=== PATIENT | female | born 1965 | race Caucasian/White ===

== ENCOUNTER → 2016-06-11 | Outpatient (CLI) | payer MEDICARE, MEDICAID ==
[~2016-06-11] MED LIST: ACET65TA; AMBI10TA; CIPR500T19; FLAG500T; FLUC10TA; IMMODIUM; THERGRAN; TRAZ50TA; TYLENOL #3; VICO5TAB; VICODIN
--- NOTE | 2016-06-29 00:26 | ECWPNPC ---
PATIENT NAME: MONIKA ADRIAN : 1965 GENDER: FEMALE VISIT DATE: 06/11/2016 DISCHARGE DATE: 06/11/16 1450 VISIT LOCKED DATE TIME: PHYSICIAN: FORD AKERS RESOURCE: FORD AKERS REASON FOR APPOINTMENT 1. LUMBAR SPONDYLOSIS HISTORY OF PRESENT ILLNESS NEW PATIENT CONSULT: WHEN DID YOUR PAIN FIRST START? . BRIEFLY DESCRIBE HOW YOUR PAIN STARTED? . HOW DOES YOUR PAIN CHANGE WITH TIME? . DOES YOUR PAIN AWAKEN YOU FROM SLEEP? . HOW MANY HOURS OF SLEEP DO YOU NORMALLY GET? . ANY DIAGNOSTIC TESTING? . FACILITY WHERE TESTS WERE DONE? ____. PAIN TREATMENT TREATMENT YES CANCER HAVE YOU EVER HAD ANY TYPE OF CANCER?NO NO. PAIN SCREENING: PATIENT HAS A COMPLAINT OF ACUTE OR CHRONIC PAIN YES FALL RISK SCREENING: SCREENING :NO FALLS IN THE PAST YEAR PALMA INVENTORY: QUESTIONNAIRE ASSESSEDYES SCORE VALUE CALCULATED YES SCORE: 8/63 DENIES SUICIDAL/HOMICIDAL IDEATION TODAY'S VISIT: NOTES: PT REFFERED TO [facility] FOR TREATMENT OF LUMBAR SPONDYLOSIS WITH INJECTION THERAPY. PT HAS HISTORY OF LONG FIBER NEURPOATHY. SHE WAS RECENTLY CHANGED FROM LYRICA TO CYMBALTA FOR NEUROPATHIC PAIN. BACK PAIN HAD STARTED BEFORE THE CHANGE. HAS HAD BACK PAIN FOR 20 YEARS. NO SPECIFIC INJURY. PAIN IS CENTERED ACROSS LOW BACK AND OCCASIONALLY IS RADIATING DOWN LEFR LEG TO LEVEL OF THE THIGH. PAIN CAN CHANGE IN INTENSITY DEPENDING ON WHAT SHE IS DOING. BENDING IS THE WORST, BUT CAN'T DO ANYTHING WITHOUT HURTING. NO SPECIFIC WEAKNESS IN LEGS. HAS HAD NEUROPATHIY IN LEGS AT LEAST 5 YEARS, BOTH SIDES GENERALLY THE SAME. NOTES SENSORY CHNGE TO AT LEAST KNEE HIGH BILATERALLY. FEET ARE TOTALLY NUMB AND THIS IS WHERE IT STARTED. HAS NO SPECIFIC SADDLE NUMBNESS. HAD COLOSTOMY REVERSAL, STILL HAS SOME DUMPING SYMPTOMS. NO LOSS OF BOWEL CONTROL. NO LOSS OF BLADDER CONTROL. HAS BEEN TO PT SEVERAL TIMES AND THEN MEDS FOR BACK. NO PREVIOUS INJ TREATMENTS, NO CHIROPRACTER TX. PREVIOUS MEDS HAVE INCLUDED: PERCOCET, TRAMADOL; HAS NOT TRIED GABAPENTIN, AMITRIPTYLINE, LYRICA.HAS BEEN ON SOMA WHICH WAS HELPFUL. NEVER ON BACLOFEN OR CYCLOBENZAPRINE, ROBAXIN.. CURRENT MEDICATIONS TAKING TRAZODONE 100 100MG TABLET 1 TABLET ORAL DAILY AT BEDTIME, NOTES: [facility] TAKING ASPIR-81 81 MG TABLET DELAYED RELEASE 1 TABLET ORALLY ONCE A DAY TAKING METFORMIN HCL 500 MG TABLET 1 TABLET WITH MEALS ORALLY TWICE A DAY TAKING BUDESONIDE (NASAL) 32 MCG/ACT AEROSOL 1-2 DROP NASALLY DAILY TAKING HYDROXYZINE HCL 25MG ([facility]) TABLET 1 TABLET ORALLY 3 TIMES A DAY, NOTES: [facility] TAKING FREESTYLE TEST 1 STRIP DIRECTED - BID DX 250.00 TAKING VITAMIN D 1000 UNIT TABLET 1 TABLET ORALLY ONCE A DAY TAKING VITAMIN C 2000 MG TABLET 1 TABLET ORALLY ONCE A DAY TAKING FLONASE 50 MCG/DOSE SUSPENSION 1 SPRAY IN EACH NOSTRIL NASALLY ONCE A DAY TAKING CLARITIN 10 MG TABLET 1 TABLET ORALLY ONCE A DAY TAKING TRAMADOL HCL 50 MG TABLET 2 TABS ORALLY EVERY 8 HRS NEEDED/ MDD # 6 TAKING SIMVASTATIN 10 MG TABLET TAKE ONE TABLET BY MOUTH AT BEDTIME TAKING CYMBALTA 20 MG CAPSULE DELAYED RELEASE PARTICLES 1 CAPSULE ORALLY DAILY NOT-TAKING GEODON 20 MG CAPSULE 1 CAPSULE WITH FOOD ORALLY TWICE A DAY NOT-TAKING MELATONIN 3 MG TABLET 1 TABLET AT BEDTIME NEEDED WITH FOOD ORALLY ONCE A DAY NOT-TAKING LYRICA 100 MG CAPSULE 1 CAPSULE ORALLY QAM/MDD #1 NOT-TAKING LYRICA 200 MG CAPSULE 1 CAPSULE ORALLY AT BEDTIME- MDD = 1 NOT-TAKING BUDESONIDE 32 MCG/ACT SUSPENSION USE DIRECTED NOT-TAKING EVENING PRIMROSE OIL 1000 MG CAPSULE 3 CAPSULES ORALLY AT BEDTIME MEDICATION LIST REVIEWED AND RECONCILED WITH THE PATIENT PAST MEDICAL HISTORY DM-2 HYPERLIPIDEMIA, ASCVD 10-YEAR RISK WAS 1.1% IN 04/2014 ON SIMVASTATIN 10MG OA ALLERGIC RHINITIS ANX/DEPRESSION- [facility] DIVERITICULITIS (S/P COLOSTOMY/REVERSAL) DEPRESSION/ANXIETY- (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 DIET: NO CONCENTRATED SWEETS.. EXERCISE: NO REGULAR EXERCISE. MARITAL STATUS: SINGLE,. YAZDANISM: YAZDANISM. LANGUAGE: ESTONIAN. PSYCHOLOGICAL HX TREATMENTNO PAIN CLINIC PFS, CLERGY, PUBLIC HEALTH REFERRALS PFS REFERRAL NEEDED?NO CLERGY REFERRAL NEEDED?NO PUBLIC HEALTH REFERRAL NEEDED?NO WAS THE PROVIDER NOTIFIED OF ANY PERTINENT INFO?NO PATIENT: ____, DENIES ABUSE OR MISUSE OF ANY MEDICATION, DENIES USE OF ANY ILLEGAL SUBSTANCE INCLUDING MARIJUANA OR COCAINE, REPORTS BEING EMOTIONALLY STABLE, REPORTS HAVING A SAFE AND ADEQUATE PLACE TO STORE THE MEDICATIONS, DENIES RECREATIONAL DRUG USE, . 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 NO . CHILLS NO . FEVER NO . INFECTION: DO YOU HAVE NEW INFECTIONS? RECOVERING FROM PINK EYE - ON ABX . DO YOU HAVE HISTORY OF MRSA? NO . MUSCULOSKELETAL: ANY NEW PATTERNS OF PAIN OR NUMBNESS? NO . SYTEMIC LUPUS NO . GASTROENTEROLOGY: GENERAL HX OF DIVERTICULITIS. ON NSAIDS AND DEVELOPED SEVERE GI BLEED REQUIRING COLOSTOMY SINCE . . ANY NEW CHANGE IN BOWEL CONTROL? NO . BARRETTS ESOPHAGUS NO . CIRRHOSIS NO . HEPATITIS NO . LIVER FAILURE NO . ACID REFLUX NO . UNEXPLAINED WEIGHT LOSS NO . GENITOURINARY: ANY NEW CHANGE IN BLADDER CONTROL? NO . IS THERE A CHANCE YOU COULD BE ? NO . HEMATOLOGY/LYMPH: DO YOU TAKE ANY BLOOD THINNERS? (FOR EXAMPLE- COUMADIN, PLAVIX, AGGRENOX, PLATEL, PRADAXA, OR XARELTO) NO . WHEN WAS YOUR LAST DOSE? DATE: TIME: . LOW PLATELET COUNT NO . SICKLE CELL DISEASE NO . VON WILLIEBRANDS NO . FACTOR V LEIDEN NO . THALLASEMIA NO . ANEMIA NO . EASY BRUISING NO . NEUROLOGY: HAVE YOU FALLEN IN THE PAST 6 MONTHS? NO . ANY NEW EXTREMITY NUMBNESS OR WEAKNESS? NO . HEAD INJURY NO . DEMENTIA NO . CEREBRAL PALSY NO . MULTIPLE SCLEROSIS NO . DIZZINESS NO . HEADACHE NO . STROKES NO . VERTIGO NO . CARDIOLOGY: DO YOU HAVE A PACEMAKER OR DEFIBRILLATOR? NO . ANGINA NO . HEART ATTACK NO . HEART SURGERY NO . CONGESTIVE HEART FAILURE/FLUID OVERLOAD NO . CHEST PAIN NO . HIGH BLOOD PRESSURE NO . IRREGULAR HEART BEAT NO . RESPIRATORY: HAVE YOU BEEN SICK IN THE PAST WEEK? NO . FEVER NO . FLU LIKE SYMPTOMS? NO . CPAP NO . BYPAP NO . ASTHMA NO . EMPHYSEMA NO . CHRONIC LUNG DISEASES NO . SHORTNESS OF BREATH ON EXERTION NO . DO YOU USE ANY TYPE OF TOBACCO (SMOKE, SMOKELESS, CHEW)? NO . COUGH NO . SNORING YES - BEING EVALUATED FOR SLEEP APNEA . INTEGUMENTARY: DO YOU HAVE ANY RASHES OR OPEN SORES? NO . ALLERGIC/IMMUNO: ARE YOU ALLERGIC TO SHELLFISH OR IV DYE? NO . ANY NEW ALLERGIES? NO . PSYCHIATRIC: DO YOU HAVE THOUGHTS OF HURTING YOURSELF OR SOMEONE ELSE? NO . ARE YOU ABUSED, NEGLECTED, OR IN AN UNSAFE ENVIRONMENT? NO . ENDOCRINOLOGY: ARE YOU DIABETIC? YES -BLOOD SUGARS STABLE A1C = 6.1 . THYROID DISORDER NO . OTHER: DO YOU NEED ANY PRESCRIPTIONS? NO . IF YES, PLEASE LIST: ____ . ANY NEW PROBLEMS WITH YOUR MEDICATIONS? NO . WHEN DID YOU LAST EAT? ____ . WHEN DID YOU LAST DRINK? ____ . WHAT DID YOU LAST DRINK? ____ . NAME OF PERSON DRIVING YOU HOME? ____ . DO YOU HAVE ANY OTHER QUESTIONS OR CONCERNS NO . REVIEWED BY: PROVIDER: FORD STEIN . VITAL SIGNS WT 223 LBS, HT 59 IN, BP 136/88 MM HG, HR 74 /MIN, RR 18 /MIN, TEMP 97.8 F, OXYGEN SAT % 93, SAFE IN ENV? (Y/N) Y, REVIEWED BY: KG. EXAMINATION GENERAL EXAMINATION: PSYCHALERT , ORIENTED X 3 , APPROPRIATE MOOD AND AFFECT . HEENT:NORMOCEPHALIC, NO LYMPHADENOPATHY, NO THYROMEGLY. LUNGS:CLEAR TO AUSCULTATION BILATERALLY, NO WHEEZES, RALES OR RHONCHI. HEART:NORMAL S1S2, NO MURMURS, CLICK OR RUBS. MUSCULOSKELETAL:FLEX TO 90 DEGREES, EXT TO 5 DEGREES, ROTATE 50%. POINT TENDERNESS OVER LUMBER SPINOUS PROCESSES AND ACROSS THE LUMBOSACRAL AXIS. POSTURE UPRIGHT, GAIT SLOW, NONANTALGIC. SLR NEGATIVE BILATERALLY.. NEUROLOGIC EXAM:STOCKING AND GLOVE SENSORY CHANGED NOTED BILATERALLY AT [place] AND NEAR SENSORY LOSS NOTED AT [place] THROUGH THE FOOT. DTR'S TRACE TO ABSENT IN BILATERAL LOWER EXTREMITIES. 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 FDA CONCERNS AND WARNING WERE REVIEWED INCLUDING THE RISK OF BLEEDING, RISK OF INFECTION, RISK OF INCREASED PAIN OR NEURALGIA, AND RISK OF PARALYSIS. PATIENT'S QUESTIONS WERE ANSWERED AND HE/SHE WISHES TO MOVE FORWARD WITH EPIDURAL INJECTION., #128 - SCREENING BMI AND F/U PLAN IN : BMI ABOVE NORMAL TODAY. DISCUSSED WITH PATIENT NUTRITIONAL FOOD CHOICES TO ASSIST WITH WEIGHT LOSS. RECCOMMENDED REDUCING SALT, SUGAR, SODA INTAKE. RECOMMEND INCREASE ACTIVITY TO INCLUDE WALKING ON A REGULAR BASIS. PREVENTIVE MEDICINE PAIN CLINIC TEACHING: PROCEDURE TEACHING DCS EDUCATION GIVENDISCUSSED PT VERBALIZES UNDERSTNADINGN . MEDITATION SOMA PRINTED EDUCATION GIVEN. PROCEDURE CODES FA211 ESTABILISHED PATIENT [facility] FACILITY CHARGE G8783 BP SCR PRFRM RCMDD DEFIND SCR INTVL G8730 PAIN ASSESS POS TOOL F/U PLAN DOC 3016F PT SCRND UNHLTHY [place] USE 1124F ACP DISCUSS-NO DSCNMKR DOCD 1036F TOBACCO NON-USER 0518F FALL PLAN OF CARE DOCD G8427 DOC MEDS VERIFIED W/PT OR RE G8417 BMI >=30 CALCUATE W/FOLLOWUP 3288F FALL RISK ASSESSMENT DOCD FOLLOW UP AFTER PROCEDURE (REASON: CHECK AUTH FOR [employer]. CHECK COVERAGE - MEDICARE?) ELECTRONICALLY SIGNED BY FRANKIE HOWARD ON 06/28/2016 AT 08:45 AM EST DISCLAIMER : THIS IS A VISIT SUMMARY EXTRACTED FROM THE [employer] CHART. IT IS NOT A COPY OF THE [employer] PROGRESS NOTE. MTDD
== END ==
LOC: M PAIN 13:20
PROVIDERS: ATTEND Nurse Practitioner Family
DX: G89.29 Other chronic pain (principal); M48.9 Spondylopathy, unspecified; M51.36 Other intervertebral disc degeneration, lumbar region; E11.9 Type 2 diabetes mellitus without complications; E78.5 Hyperlipidemia, unspecified; G47.30 Sleep apnea, unspecified; J30.9 Allergic rhinitis, unspecified; F32.9 Major depressive disorder, single episode, unspecified; F41.9 Anxiety disorder, unspecified; G62.89 Other specified polyneuropathies; F17.210 Nicotine dependence, cigarettes, uncomplicated; Z79.82 Long term (current) use of aspirin; Z79.84 Long term (current) use of oral hypoglycemic drugs; Z79.891 Long term (current) use of opiate analgesic; Z79.899 Other long term (current) drug therapy

== ENCOUNTER 2016-06-22 16:31 | Emergency (ER) | payer MEDICARE, MEDICAID ==
[2016-06-22 17:36] LABS: BASO # 0.1 K/mm3 (0.0-0.2); BASO % 0.9 % (0.0-1.0); EOS # 0.2 K/mm3 (0.0-0.50); EOS % 2.6 % (0.0-3.0); LARGE UNSTAINED CELL # 0.2 K/mm3 (0.0-0.4); LARGE UNSTAINED CELL % 2.5 % (0.0-4.0); LYMPH # 2.1 K/mm3 (1.5-4.5); LYMPH % 25.9 % (24.0-44.0); MEAN CORPUSCULAR HEMOGLOBIN 29.8 pg (27.0-33.0); MEAN CORPUSCULAR HGB CONC 33.7 g/dl (32.0-36.5); MEAN CORPUSCULAR VOLUME 88.5 fl (80.0-96.0); MONO # 0.3 K/mm3 (0.0-0.8); MONO % 3.9 % (0.0-5.0); NEUTROPHILS # 5.2 K/mm3 (1.8-7.7); NEUTROPHILS % 64.3 % (36.0-66.0); PLATELET COUNT, AUTOMATED 204 k/mm3 (150-450); RED CELL DISTRIBUTION WIDTH 15.1 % (11.5-14.5); WHITE BLOOD COUNT 8.1 K/mm3 (4.0-10.0)
[2016-06-22 18:00] LABS: ANION GAP 6 MEQ/L (8-16); BLOOD UREA NITROGEN 12 MG/DL (7-18); CALCIUM LEVEL 8.7 MG/DL (8.5-10.1); CARBON DIOXIDE LEVEL 30 MEQ/L (21-32); CHLORIDE LEVEL 105 MEQ/L (98-107); CREATININE FOR GFR 1.14 MG/DL (0.55-1.02); GLOMERULAR FILTRATION RATE 53.7 (>51); GLUCOSE, FASTING 230 MG/DL (70-105); POTASSIUM SERUM 4.4 MEQ/L (3.5-5.1); SODIUM LEVEL 141 MEQ/L (136-145)
--- NOTE | 2016-06-22 19:30 | EDDOCDS ---
Physician Documentation [facility] Name: Ember Workman Age: 50 yrs Sex: Female : 1965 Arrival Date: 06/22/2016 Time: 16:31 Bed 8 Private MD: Fozia Cage M. Disposition: 06/22/16 19:13 Discharged to Home/Self Care. Impression: Chest pain, unspecified. - Condition is Stable. - Discharge Instructions: Nonspecific Chest Pain. - Medication Reconciliation, Local Pharmacy Hours form. - Follow up: Fozia Cage; When: Call to arrange an appointment; Reason: Continuance of care. - Problem is new. - Symptoms have improved. Historical: - Allergies: Naprosyn; Morphine; Amaryl; - Home Meds: 1. metformin 500 mg Oral tr24 twice a day (Last dose: 06/22/2016) 2. loratadine 10 mg Oral TbDL 1 tab nightly (Last dose: 06/21/2016) 3. Simvastatin Unknown Oral nightly (Last dose: 06/21/2016) 4. aspirin 81 mg Oral tab 1 tab once daily (Last dose: 06/21/2016) 5. tramadol 50 mg Oral tab 2 tabs daily 6. hydroxyzine HCl 25 mg Oral tab nightly (Last dose: 06/21/2016) 7. trazodone 50 mg Oral tab nightly (Last dose: 06/21/2016) 8. Soma 350 mg Oral tab nightly (Last dose: 06/21/2016) 9. nortriptyline 25 mg Oral cap nightly (Last dose: 06/21/2016) - PMHx: Diabetes - NIDDM: controlled; neuropathy; Chronic Back pain; Arthritis; - PSHx: Cesearean Section; oophorectomy; Colostomy Construction; Colostomy Reversal; Hernia repair; - Social history: Smoking status: Patient uses tobacco products, current every day smoker. No barriers to communication noted, The patient speaks fluent Armenian, Speaks appropriately for age. - Family history: Not pertinent. - : The pt / caregiver states he / she is not on anticoagulants. Home medication list is obtained from the patient. - Exposure Risk Screening:: None identified. RIB KNITTER: 06/22 16:44 LMP N/A - Post-menopause kr3 Vital Signs: 16:33 BP 154 / 87 LA Sitting (auto/lg); Pulse 122 LA; Resp 18 S; Temp 98.4(O); Pulse Ox 98% mt4 on R/A; Weight 90.72 kg / 200 lbs (R); Height 4 ft. 10 in. (147.32 cm) (R); Pain 0/10; 17:10 BP 138 / 74 (auto/); ml6 17:10 Pulse 94 MON; Resp 18; Pulse Ox 95% on R/A; Pain 0/10; ml6 18:10 BP 151 / 56 (auto/); ml6 18:10 Pulse 90 MON; Resp 16; Pulse Ox 95% on R/A; ml6 18:25 BP 135 / 59 (auto/); ml6 18:25 Pulse 92 MON; Resp 18; Pulse Ox 95% on R/A; ml6 18:55 BP 141 / 60 (auto/); ml6 18:55 Pulse 90 MON; Resp 18; Pulse Ox 96% on R/A; Pain 0/10; ml6 19:24 BP 98 / 56; Pulse 84; Resp 18; Temp 98.0(TE); Pulse Ox 97% on R/A; Pain 0/10; nisha 16:33 Body Mass Index 41.80 (90.72 kg, 147.32 cm) mt4 MDM: 16:41 ECG WITH READING ER PHYS+CARDIAG ordered. EDMS 17:10 It Network Engineer/Pulse Ox/q 30 min VS ordered. jc4 17:10 IV Saline Lock ordered. jc4 17:10 Rhythm Strip to chart ordered. jc4 17:10 Undress patient appropriately for examination ordered. jc4 17:10 Basic Metabolic Profile Ordered. EDMS 17:10 CBC with Diff Ordered. EDMS 17:10 Cardiac Injury Profile Ordered. EDMS 17:10 Troponin Ordered. EDMS 17:57 Financial registration complete. ks16 17:58 [facility] [place] was scanned into [employer] and attached to record. ks16 18:56 Chest, 1 View Ordered. EDMS Signatures: Dispatcher [employer] EDMS Lana Martinez,RN RN kr3 Becca Wilks RN RN jc4 Iris Weeks RN RN ko2 Jacy Alva MD MD fg Sorenson, Kimberly, Reg Reg ks16 The chart was reviewed and I authenticate all verbal orders and agree with the evaluation and treatment provided.Attachments: 17:58 [facility] Payment Agreement [email or web address] MTDD
--- NOTE | 2016-06-22 19:31 | EDDOCDS ---
Nurse's Notes [facility] Name: Ember Workman Age: 50 yrs Sex: Female : 1965 Arrival Date: 06/22/2016 Time: 16:31 Bed 8 Private MD: Fozia Cage M. Diagnosis: Chest pain, unspecified Presentation: 06/22 16:38 Presenting complaint: Patient states: chest pain on and off since June 18. Thinks kr3 may be related to meds she is taking. Spoke with PCP today who told her to have pain evaluated because it could be side effect of medication. 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 Adult Sepsis Screening: The patient does not have new or worsening altered mentation. Patient's respiratory rate is less than 22. Systolic blood pressure is greater than 100. Patient has a qSOFA score of 0- Negative Sepsis Screen. Suicide/Homicide risk assessment- the patient denies having any suicidal and/or homicidal ideations and does not present with any other emotional, behavioral or mental health complaints. Status: Patient is not a food service specialist or dependent. Transition of care: patient was not received from another setting of care. 16:38 Acuity: NATE Level 2 kr3 16:38 Method Of Arrival: Walkin/Carried/Asstd kr3 Triage Assessment: 16:44 General: Appears in no apparent distress, comfortable, Behavior is cooperative. Pain: kr3 Location: left sided chest pain Pain currently is 0 out of 10 on a pain scale. At worst was 6 out of 10 on a pain scale. Quality of pain is described as stabbing, Is episodic. Pt Declines HIV testing. Cardiovascular: Chest pain is described as vague, radiates Does not radiate. episodes are intermittent last < 1 minute began 4 to 5 days ago. Respiratory: Respiratory effort is even, unlabored, Denies shortness of breath. Derm: Skin is normal. 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 metformin 500 mg Oral tr24 twice a day (Last dose: 06/22/2016) 2. loratadine 10 mg Oral TbDL 1 tab nightly (Last dose: 06/21/2016) 3. Simvastatin Unknown Oral nightly (Last dose: 06/21/2016) 4. aspirin 81 mg Oral tab 1 tab once daily (Last dose: 06/21/2016) 5. tramadol 50 mg Oral tab 2 tabs daily 6. hydroxyzine HCl 25 mg Oral tab nightly (Last dose: 06/21/2016) 7. trazodone 50 mg Oral tab nightly (Last dose: 06/21/2016) 8. Soma 350 mg Oral tab nightly (Last dose: 06/21/2016) 9. nortriptyline 25 mg Oral cap nightly (Last dose: 06/21/2016) - PMHx: Diabetes - NIDDM: controlled; neuropathy; Chronic Back pain; Arthritis; - PSHx: Cesearean Section; oophorectomy; Colostomy Construction; Colostomy Reversal; Hernia repair; - Social history: Smoking status: Patient uses tobacco products, current every day smoker. No barriers to communication noted, The patient speaks fluent Mohawk, Speaks appropriately for age. - Family history: Not pertinent. - : The pt / caregiver states he / she is not on anticoagulants. Home medication list is obtained from the patient. - Exposure Risk Screening:: None identified. Screenin:40 Screening information is obtained from the patient. Fall risk: No risks identified. ml6 Assistance ADL's: requires no assistance with activities of daily living. Abuse/DV Screen: The patient / caregiver reports he/she is: not in a situation that causes fear, pain or injury. Nutritional screening: No deficits noted. Advance Directives: Currently, there is no health care proxy. home support is adequate. Assessment: 16:38 General: Appears in no apparent distress, Behavior is appropriate for age, cooperative. ml6 Pain: Denies pain. Cardiovascular: Capillary refill < 3 seconds is brisk in bilateral fingers toes Heart tones S1 S2 present Edema is absent. Pulses are all present. Rhythm is sinus rhythm No ectopy. Chest pain is denied Chest pain began 2-3 days ago There has been no movement of pain. Respiratory: No deficits noted. Airway is patent Respiratory effort is even, unlabored, Respiratory pattern is regular, symmetrical, Breath sounds are clear bilaterally. GI: No deficits noted. Abdomen is obese, Bowel sounds present X 4 quads. Abd is soft and non tender X 4 quads. 17:30 Reassessment: Patient appears in no apparent distress at this time. Patient denies pain ml6 at this time. Patient states feeling better. Patient states symptoms have improved. patient denies pain or discomfort, patient laughing and talking with SO in room. 18:30 Reassessment: Patient appears in no apparent distress at this time. Patient denies pain ml6 at this time. Patient states feeling better. Patient states symptoms have improved. patient watching TV, patient denies pain. 19:28 General: Appears in no apparent distress, comfortable, Behavior is appropriate for age, ko2 cooperative. Pain: Denies pain. Neurological: Level of Consciousness is awake, alert, Oriented to person, place, time. Cardiovascular: Rhythm is sinus rhythm No ectopy. Respiratory: Airway is patent Respiratory effort is even, unlabored, Respiratory pattern is regular, symmetrical. Derm: Skin is normal. Vital Signs: 16:33 BP 154 / 87 LA Sitting (auto/lg); Pulse 122 LA; Resp 18 S; Temp 98.4(O); Pulse Ox 98% mt4 on R/A; Weight 90.72 kg (R); Height 4 ft. 10 in. (147.32 cm) (R); Pain 0/10; 17:10 BP 138 / 74 (auto/); ml6 17:10 Pulse 94 MON; Resp 18; Pulse Ox 95% on R/A; Pain 0/10; ml6 18:10 BP 151 / 56 (auto/); ml6 18:10 Pulse 90 MON; Resp 16; Pulse Ox 95% on R/A; ml6 18:25 BP 135 / 59 (auto/); ml6 18:25 Pulse 92 MON; Resp 18; Pulse Ox 95% on R/A; ml6 18:55 BP 141 / 60 (auto/); ml6 18:55 Pulse 90 MON; Resp 18; Pulse Ox 96% on R/A; Pain 0/10; ml6 19:24 BP 98 / 56; Pulse 84; Resp 18; Temp 98.0(TE); Pulse Ox 97% on R/A; Pain 0/10; nisha 16:33 Body Mass Index 41.80 (90.72 kg, 147.32 cm) nv4 Vitals: 16:33 Log In Time: June 22, 2016 at 16:31. mt4 16:35 RN notified that patient meets Red Flag criteria. mt4 ED Course: 16:33 Patient visited by Irma Rivera. mt4 16:33 Fozia Cage is Private Physician. mt4 16:33 Patient moved to Waiting mt4 16:36 Patient moved to Pre RCE mt4 16:38 The patient / caregiver is instructed regarding the plan of care and ED course. Cardiac ml6 monitor on. Pulse ox on. NIBP on. 16:38 Inserted peripheral IV: 16gauge IV in left antecubital area and blood collected. ml6 Patient tolerated the procedure well. No procedures done that require assistance. 16:39 Triage Initiated kr3 16:48 Patient moved to PR2 / 26 kr3 16:57 Patient moved to 8 ar3 17:00 EKG done. (by ED staff). Reviewed by Jacy Alva MD. sew 17:03 Patient visited by Laina Silver. sew 17:11 Jacy Alva MD is Attending Physician. fg 17:29 Patient visited by Jacy Alva MD. fg 17:58 [facility] Payment Agreement was scanned into [employer] and attached to record. ks16 18:14 Patient visited by Juan Luis Alvarado, PAL. ml6 18:58 Iris Weeks,PAL is Primary Nurse. ko2 19:07 Patient visited by Juan Luis Alvarado, PAL. ml6 19:13 Fozia Cage is Referral Physician. fg 19:24 Patient visited by Estefani Glasgow PCA. nisha 19:28 Discontinued lock intact, bleeding controlled, pressure dressing applied, No ko2 redness/swelling at site. Order Results: Lab Order: Basic Metabolic Profile; SPEC'M 06/22/16 17:29 Test: GLUCOSE, FASTING; Value: 230; Range: 70-105; Abnormal: Above high normal; Units: MG/DL; Status: F Test: BLOOD UREA NITROGEN; Value: 12; Range: 7-18; Units: MG/DL; Status: F Test: CREATININE FOR GFR; Value: 1.14; Range: 0.55-1.02; Abnormal: Above high normal; Units: MG/DL; Status: F Test: GLOMERULAR FILTRATION RATE; Value: 53.7; Range: >51; Status: F Test: SODIUM LEVEL; Value: 141; Range: 136-145; Units: MEQ/L; Status: F Test: POTASSIUM SERUM; Value: 4.4; Range: 3.5-5.1; Units: MEQ/L; Status: F Test: CHLORIDE LEVEL; Value: 105; Range: 98-107; Units: MEQ/L; Status: F Test: CARBON DIOXIDE LEVEL; Value: 30; Range: 21-32; Units: MEQ/L; Status: F Test: ANION GAP; Value: 6; Range: 8-16; Abnormal: Below low normal; Units: MEQ/L; Status: F Test: CALCIUM LEVEL; Value: 8.7; Range: 8.5-10.1; Units: MG/DL; Status: F Test Note: ; Units are mL/min/1.73 m2 Chronic Kidney Disease Staging per NKF: Stage I & II GFR >=60 Normal to Mildly Decreased Stage III GFR 30-59 Moderately Decreased Stage IV GFR 15-29 Severely Decreased Stage V GFR <15 Very Little GFR Left ESRD GFR <15 on LOADER ENGINEER Lab Order: CBC with Diff; SPEC'M 06/22/16 17:29 Test: WHITE BLOOD COUNT; Value: 8.1; Range: 4.0-10.0; Units: K/mm3; Status: F Test: RED BLOOD COUNT; Value: 4.93; Range: 4.00-5.40; Units: M/mm3; Status: F Test: HEMOGLOBIN; Value: 14.7; Range: 12.0-16.0; Units: g/dl; Status: F Test: HEMATOCRIT; Value: 43.7; Range: 36.0-47.0; Units: %; Status: F Test: MEAN CORPUSCULAR VOLUME; Value: 88.5; Range: 80.0-96.0; Units: fl; Status: F Test: MEAN CORPUSCULAR HEMOGLOBIN; Value: 29.8; Range: 27.0-33.0; Units: pg; Status: F Test: MEAN CORPUSCULAR HGB CONC; Value: 33.7; Range: 32.0-36.5; Units: g/dl; Status: F Test: RED CELL DISTRIBUTION WIDTH; Value: 15.1; Range: 11.5-14.5; Abnormal: Above high normal; Units: %; Status: F Test: PLATELET COUNT, AUTOMATED; Value: 204; Range: 150-450; Units: k/mm3; Status: F Test: NEUTROPHILS %; Value: 64.3; Range: 36.0-66.0; Units: %; Status: F Test: LYMPH %; Value: 25.9; Range: 24.0-44.0; Units: %; Status: F Test: MONO %; Value: 3.9; Range: 0.0-5.0; Units: %; Status: F Test: EOS %; Value: 2.6; Range: 0.0-3.0; Units: %; Status: F Test: BASO %; Value: 0.9; Range: 0.0-1.0; Units: %; Status: F Test: LARGE UNSTAINED CELL %; Value: 2.5; Range: 0.0-4.0; Units: %; Status: F Test: NEUTROPHILS #; Value: 5.2; Range: 1.8-7.7; Units: K/mm3; Status: F Test: LYMPH #; Value: 2.1; Range: 1.5-4.5; Units: K/mm3; Status: F Test: MONO #; Value: 0.3; Range: 0.0-0.8; Units: K/mm3; Status: F Test: EOS #; Value: 0.2; Range: 0.0-0.50; Units: K/mm3; Status: F Test: BASO #; Value: 0.1; Range: 0.0-0.2; Units: K/mm3; Status: F Test: LARGE UNSTAINED CELL #; Value: 0.2; Range: 0.0-0.4; Units: K/mm3; Status: F Lab Order: Cardiac Injury Profile; SPEC'M 06/22/16 17:29 Test: CPK CREATINE PHOSPHOKINASE; Value: 71; Range: 26-192; Units: U/L; Status: F Test: CK-MB VALUE MASS; Value: 1.0; Range: 0.0-3.6; Units: NG/ML; Status: F Test: MB/CK RELATIVE INDEX; Value: 1.40; Range: < OR =4; Status: F Test Note: ; DIAGNOSIS CRITERIA MMB ng/ml Relative Index (RI) NON-AMI < or = 5 N/A REAVES ZONE > 5 < or = 4 AMI > 5 > 4 Lab Order: Troponin; SPEC'M 06/22/16 17:29 Test: TROPONIN I; Value: < 0.02; Range: < 0.10; Units: NG/ML; Status: F Test Note: ; Troponin I Reference Interval for [employer] LOCI: 99th Percentile= 0.00-0.045 ng/ml Risk Stratification: <= 0.10 ng/ml Decreased Risk for Adverse Clinical Events. 0.10-1.50 ng/ml Increased Risk for Adverse Clinical Events. Evaluation of additional criterion and/or repeat testing in 2-6 hours is suggested to rule out myocardial damage. >= 1.50 ng/ml Indicative of Myocardial Injury. Outcome: 19:13 Discharge ordered by Provider. fg 19:29 Discharge Assessment: Patient awake, alert and oriented x 3. No cognitive and/or ko2 functional deficits noted. Patient verbalized understanding of disposition instructions. patient administered narcotics - no. The following High Risk Discharge criteria are identified: None. Discharged to home ambulatory, with significant other. Condition: stable. Discharge instructions given to patient, Instructed on discharge instructions, follow up and referral plans. Demonstrated understanding of instructions, Pt was receptive of discharge instructions/ teaching. No special radiology studies were completed. Property sent home with patient. 19:29 Patient left the ED. ko2 Signatures: Lana Martinez,RN RN kr3 Irma Rivera mt4 Juan Luis Alvarado, RN RN ml6 Sachi Moya, LICENSED MORTICIAN LICENSED MORTICIAN ar3 Estefani Glasgow, LICENSED MORTICIAN LICENSED MORTICIAN nisha Silver, Iris Teixeira,RN RN ko2 Jacy Alva MD MD fg Sorenson, Kimberly, Reg Reg ks16 Corrections: (The following items were deleted from the chart) 17:03 17:00 EKG done. (by ED staff). anurag osborn MTDD
--- NOTE | 2016-06-23 13:09 | ECGEPIP ---
Stationary ECG Study [facility] - ED Test Date: 2016-06-22 Pat Name: MONIKA ADRIAN Department: Room: - Gender: F Rate Supervisor: anurag : 1965 Requested By: RODNEY Rush Order Number: [id number] Reading MD: Laina Carpenter Measurements Intervals [place] Rate: 97 P: 63 NE: 142 QRS: 56 QRSD: 85 T: 72 QT: 353 QTc: 449 Interpretive Statements SINUS RHYTHM NSTTW ABNORMALITY Electronically Signed On 06-23-2016 13:08:58 EST by Laina Carpenter
--- NOTE | 2016-06-24 06:06 | REP ---
Semiupright AP portable chest, 06/22/2016: Indication: Chest pain. Comparison: PA and lateral chest 03/30/2014. Findings: The cardiac silhouette and mediastinal silhouette are within normal limits. Lungs are clear. Bones and soft tissues within normal limits. IMPRESSION: Negative portable chest radiograph. Signed by Julianne Sanchez MD 06/24/2016 10:56 A
--- NOTE | 2016-06-24 20:30 | EDDOCDS ---
Physician Documentation [facility] Name: mEber Workman Age: 50 yrs Sex: Female : 1965 Arrival Date: 06/22/2016 Time: 16:31 Bed 8 Private MD: Fozia Cage M. Disposition: 06/22/16 19:13 Discharged to Home/Self Care. Impression: Chest pain, unspecified. - Condition is Stable. - Discharge Instructions: Nonspecific Chest Pain. - Medication Reconciliation, Local Pharmacy Hours form. - Follow up: Fozia Cage; When: Call to arrange an appointment; Reason: Continuance of care. - Problem is new. - Symptoms have improved. Historical: - Allergies: Naprosyn; Morphine; Amaryl; - Home Meds: 1. metformin 500 mg Oral tr24 twice a day (Last dose: 06/22/2016) 2. loratadine 10 mg Oral TbDL 1 tab nightly (Last dose: 06/21/2016) 3. Simvastatin Unknown Oral nightly (Last dose: 06/21/2016) 4. aspirin 81 mg Oral tab 1 tab once daily (Last dose: 06/21/2016) 5. tramadol 50 mg Oral tab 2 tabs daily 6. hydroxyzine HCl 25 mg Oral tab nightly (Last dose: 06/21/2016) 7. trazodone 50 mg Oral tab nightly (Last dose: 06/21/2016) 8. Soma 350 mg Oral tab nightly (Last dose: 06/21/2016) 9. nortriptyline 25 mg Oral cap nightly (Last dose: 06/21/2016) - PMHx: Diabetes - NIDDM: controlled; neuropathy; Chronic Back pain; Arthritis; - PSHx: Cesearean Section; oophorectomy; Colostomy Construction; Colostomy Reversal; Hernia repair; - Social history: Smoking status: Patient uses tobacco products, current every day smoker. No barriers to communication noted, The patient speaks fluent Jamaican, Speaks appropriately for age. - Family history: Not pertinent. - : The pt / caregiver states he / she is not on anticoagulants. Home medication list is obtained from the patient. - Exposure Risk Screening:: None identified. 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 10 in. (147.32 cm) (R); Pain 0/10; 17:10 BP 138 / 74 (auto/); ml6 17:10 Pulse 94 MON; Resp 18; Pulse Ox 95% on R/A; Pain 0/10; ml6 18:10 BP 151 / 56 (auto/); ml6 18:10 Pulse 90 MON; Resp 16; Pulse Ox 95% on R/A; ml6 18:25 BP 135 / 59 (auto/); ml6 18:25 Pulse 92 MON; Resp 18; Pulse Ox 95% on R/A; ml6 18:55 BP 141 / 60 (auto/); ml6 18:55 Pulse 90 MON; Resp 18; Pulse Ox 96% on R/A; Pain 0/10; ml6 19:24 BP 98 / 56; Pulse 84; Resp 18; Temp 98.0(TE); Pulse Ox 97% on R/A; Pain 0/10; nisha 16:33 Body Mass Index 41.80 (90.72 kg, 147.32 cm) mt4 MDM: 16:41 ECG WITH READING ER PHYS+CARDIAG ordered. EDMS 17:10 Ukrainian Folk Arts Instructor/Pulse Ox/q 30 min VS ordered. jc4 17:10 IV Saline Lock ordered. jc4 17:10 Rhythm Strip to chart ordered. jc4 17:10 Undress patient appropriately for examination ordered. jc4 17:10 Basic Metabolic Profile Ordered. EDMS 17:10 CBC with Diff Ordered. EDMS 17:10 Cardiac Injury Profile Ordered. EDMS 17:10 Troponin Ordered. EDMS 17:57 Financial registration complete. ks16 17:58 [facility] [place] Agreement was scanned into [employer] and attached to record. ks16 18:56 Chest, 1 View Ordered. EDMS 06/23 15:10 T-Sheet-- Draft Copy was scanned into [employer] and attached to record. kf3 17:09 ECG/EKG was scanned into [employer] and attached to record. kf3 Signatures: Dispatcher [employer] EDMS Lana Martinez,RN RN kr3 FiddlerMahad, Reg Reg kf3 Becca Wilks, RN RN jc4 Iris Weeks,RN RN ko2 Jacy Alva MD MD fg Sorenson, Kimberly, Reg Reg ks16 The chart was reviewed and I authenticate all verbal orders and agree with the evaluation and treatment provided.Attachments: 06/22 17:58 [facility] [place] Agreement [email or web address] 06/23 15:10 T-Sheet-- Draft Copy kf3 17:09 ECG/EKG kf3 Chart Complete MTDD
--- NOTE | 2016-06-24 20:30 | EDDOCDS ---
Nurse's Notes [facility] Name: Ember Adrian Age: 50 yrs Sex: Female : 1965 Arrival Date: 06/22/2016 Time: 16:31 Bed 8 Private MD: Fozia Cage M. Diagnosis: Chest pain, unspecified Presentation: 06/22 16:38 Presenting complaint: Patient states: chest pain on and off since June 18. Thinks kr3 may be related to meds she is taking. Spoke with PCP today who told her to have pain evaluated because it could be side effect of medication. 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 Adult Sepsis Screening: The patient does not have new or worsening altered mentation. Patient's respiratory rate is less than 22. Systolic blood pressure is greater than 100. Patient has a qSOFA score of 0- Negative Sepsis Screen. Suicide/Homicide risk assessment- the patient denies having any suicidal and/or homicidal ideations and does not present with any other emotional, behavioral or mental health complaints. Status: Patient is not a bibliographic services specialist or dependent. Transition of care: patient was not received from another setting of care. 16:38 Acuity: NATE Level 2 kr3 16:38 Method Of Arrival: Walkin/Carried/Asstd kr3 Triage Assessment: 16:44 General: Appears in no apparent distress, comfortable, Behavior is cooperative. Pain: kr3 Location: left sided chest pain Pain currently is 0 out of 10 on a pain scale. At worst was 6 out of 10 on a pain scale. Quality of pain is described as stabbing, Is episodic. Pt Declines HIV testing. Cardiovascular: Chest pain is described as vague, radiates Does not radiate. episodes are intermittent last < 1 minute began 4 to 5 days ago. Respiratory: Respiratory effort is even, unlabored, Denies shortness of breath. Derm: Skin is normal. 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 metformin 500 mg Oral tr24 twice a day (Last dose: 06/22/2016) 2. loratadine 10 mg Oral TbDL 1 tab nightly (Last dose: 06/21/2016) 3. Simvastatin Unknown Oral nightly (Last dose: 06/21/2016) 4. aspirin 81 mg Oral tab 1 tab once daily (Last dose: 06/21/2016) 5. tramadol 50 mg Oral tab 2 tabs daily 6. hydroxyzine HCl 25 mg Oral tab nightly (Last dose: 06/21/2016) 7. trazodone 50 mg Oral tab nightly (Last dose: 06/21/2016) 8. Soma 350 mg Oral tab nightly (Last dose: 06/21/2016) 9. nortriptyline 25 mg Oral cap nightly (Last dose: 06/21/2016) - PMHx: Diabetes - NIDDM: controlled; neuropathy; Chronic Back pain; Arthritis; - PSHx: Cesearean Section; oophorectomy; Colostomy Construction; Colostomy Reversal; Hernia repair; - Social history: Smoking status: Patient uses tobacco products, current every day smoker. No barriers to communication noted, The patient speaks fluent Italian, Speaks appropriately for age. - Family history: Not pertinent. - : The pt / caregiver states he / she is not on anticoagulants. Home medication list is obtained from the patient. - Exposure Risk Screening:: None identified. Screenin:40 Screening information is obtained from the patient. Fall risk: No risks identified. ml6 Assistance ADL's: requires no assistance with activities of daily living. Abuse/DV Screen: The patient / caregiver reports he/she is: not in a situation that causes fear, pain or injury. Nutritional screening: No deficits noted. Advance Directives: Currently, there is no health care proxy. home support is adequate. Assessment: 16:38 General: Appears in no apparent distress, Behavior is appropriate for age, cooperative. ml6 Pain: Denies pain. Cardiovascular: Capillary refill < 3 seconds is brisk in bilateral fingers toes Heart tones S1 S2 present Edema is absent. Pulses are all present. Rhythm is sinus rhythm No ectopy. Chest pain is denied Chest pain began 2-3 days ago There has been no movement of pain. Respiratory: No deficits noted. Airway is patent Respiratory effort is even, unlabored, Respiratory pattern is regular, symmetrical, Breath sounds are clear bilaterally. GI: No deficits noted. Abdomen is obese, Bowel sounds present X 4 quads. Abd is soft and non tender X 4 quads. 17:30 Reassessment: Patient appears in no apparent distress at this time. Patient denies pain ml6 at this time. Patient states feeling better. Patient states symptoms have improved. patient denies pain or discomfort, patient laughing and talking with SO in room. 18:30 Reassessment: Patient appears in no apparent distress at this time. Patient denies pain ml6 at this time. Patient states feeling better. Patient states symptoms have improved. patient watching TV, patient denies pain. 19:28 General: Appears in no apparent distress, comfortable, Behavior is appropriate for age, ko2 cooperative. Pain: Denies pain. Neurological: Level of Consciousness is awake, alert, Oriented to person, place, time. Cardiovascular: Rhythm is sinus rhythm No ectopy. Respiratory: Airway is patent Respiratory effort is even, unlabored, Respiratory pattern is regular, symmetrical. Derm: Skin is normal. Vital Signs: 16:33 BP 154 / 87 LA Sitting (auto/lg); Pulse 122 LA; Resp 18 S; Temp 98.4(O); Pulse Ox 98% mt4 on R/A; Weight 90.72 kg (R); Height 4 ft. 10 in. (147.32 cm) (R); Pain 0/10; 17:10 BP 138 / 74 (auto/); ml6 17:10 Pulse 94 MON; Resp 18; Pulse Ox 95% on R/A; Pain 0/10; ml6 18:10 BP 151 / 56 (auto/); ml6 18:10 Pulse 90 MON; Resp 16; Pulse Ox 95% on R/A; ml6 18:25 BP 135 / 59 (auto/); ml6 18:25 Pulse 92 MON; Resp 18; Pulse Ox 95% on R/A; ml6 18:55 BP 141 / 60 (auto/); ml6 18:55 Pulse 90 MON; Resp 18; Pulse Ox 96% on R/A; Pain 0/10; ml6 19:24 BP 98 / 56; Pulse 84; Resp 18; Temp 98.0(TE); Pulse Ox 97% on R/A; Pain 0/10; nisha 16:33 Body Mass Index 41.80 (90.72 kg, 147.32 cm) id4 Vitals: 16:33 Log In Time: June 22, 2016 at 16:31. mt4 16:35 RN notified that patient meets Red Flag criteria. mt4 ED Course: 16:33 Patient visited by Irma Rivera. mt4 16:33 Fozia Cage is Private Physician. mt4 16:33 Patient moved to Waiting mt4 16:36 Patient moved to Pre RCE mt4 16:38 The patient / caregiver is instructed regarding the plan of care and ED course. Cardiac ml6 monitor on. Pulse ox on. NIBP on. 16:38 Inserted peripheral IV: 16gauge IV in left antecubital area and blood collected. ml6 Patient tolerated the procedure well. No procedures done that require assistance. 16:39 Triage Initiated kr3 16:48 Patient moved to PR2 / 26 kr3 16:57 Patient moved to 8 ar3 17:00 EKG done. (by ED staff). Reviewed by Jacy Alva MD. sew 17:03 Patient visited by Laina Silver. sew 17:11 Jacy Alva MD is Attending Physician. fg 17:29 Patient visited by Jacy Alva MD. fg 17:58 [facility] Payment Agreement was scanned into [employer] and attached to record. ks16 18:14 Patient visited by Juan Luis Alvarado, RN. ml6 18:58 Iris Weeks,PAL is Primary Nurse. ko2 19:07 Patient visited by Juan Luis Alvarado, RN. ml6 19:13 Fozia Cage is Referral Physician. fg 19:24 Patient visited by Estefani Glasgow PCA. nisha 19:28 Discontinued lock intact, bleeding controlled, pressure dressing applied, No ko2 redness/swelling at site. 06/23 13:42 EKG-ADULT Returned. EDMS 15:10 T-Sheet-- Draft Copy was scanned into [employer] and attached to record. kf3 17:09 ECG/EKG was scanned into [employer] and attached to record. kf3 06/24 06:12 Chest, 1 View Returned. EDMS Order Results: Lab Order: Basic Metabolic Profile; SPEC'M 06/22/16 17:29 Test: GLUCOSE, FASTING; Value: 230; Range: 70-105; Abnormal: Above high normal; Units: MG/DL; Status: F Test: BLOOD UREA NITROGEN; Value: 12; Range: 7-18; Units: MG/DL; Status: F Test: CREATININE FOR GFR; Value: 1.14; Range: 0.55-1.02; Abnormal: Above high normal; Units: MG/DL; Status: F Test: GLOMERULAR FILTRATION RATE; Value: 53.7; Range: >51; Status: F Test: SODIUM LEVEL; Value: 141; Range: 136-145; Units: MEQ/L; Status: F Test: POTASSIUM SERUM; Value: 4.4; Range: 3.5-5.1; Units: MEQ/L; Status: F Test: CHLORIDE LEVEL; Value: 105; Range: 98-107; Units: MEQ/L; Status: F Test: CARBON DIOXIDE LEVEL; Value: 30; Range: 21-32; Units: MEQ/L; Status: F Test: ANION GAP; Value: 6; Range: 8-16; Abnormal: Below low normal; Units: MEQ/L; Status: F Test: CALCIUM LEVEL; Value: 8.7; Range: 8.5-10.1; Units: MG/DL; Status: F Test Note: ; Units are mL/min/1.73 m2 Chronic Kidney Disease Staging per NKF: Stage I & II GFR >=60 Normal to Mildly Decreased Stage III GFR 30-59 Moderately Decreased Stage IV GFR 15-29 Severely Decreased Stage V GFR <15 Very Little GFR Left ESRD GFR <15 on EMBOSSING TOOL SETTER Lab Order: CBC with Diff; SPEC'M 06/22/16 17:29 Test: WHITE BLOOD COUNT; Value: 8.1; Range: 4.0-10.0; Units: K/mm3; Status: F Test: RED BLOOD COUNT; Value: 4.93; Range: 4.00-5.40; Units: M/mm3; Status: F Test: HEMOGLOBIN; Value: 14.7; Range: 12.0-16.0; Units: g/dl; Status: F Test: HEMATOCRIT; Value: 43.7; Range: 36.0-47.0; Units: %; Status: F Test: MEAN CORPUSCULAR VOLUME; Value: 88.5; Range: 80.0-96.0; Units: fl; Status: F Test: MEAN CORPUSCULAR HEMOGLOBIN; Value: 29.8; Range: 27.0-33.0; Units: pg; Status: F Test: MEAN CORPUSCULAR HGB CONC; Value: 33.7; Range: 32.0-36.5; Units: g/dl; Status: F Test: RED CELL DISTRIBUTION WIDTH; Value: 15.1; Range: 11.5-14.5; Abnormal: Above high normal; Units: %; Status: F Test: PLATELET COUNT, AUTOMATED; Value: 204; Range: 150-450; Units: k/mm3; Status: F Test: NEUTROPHILS %; Value: 64.3; Range: 36.0-66.0; Units: %; Status: F Test: LYMPH %; Value: 25.9; Range: 24.0-44.0; Units: %; Status: F Test: MONO %; Value: 3.9; Range: 0.0-5.0; Units: %; Status: F Test: EOS %; Value: 2.6; Range: 0.0-3.0; Units: %; Status: F Test: BASO %; Value: 0.9; Range: 0.0-1.0; Units: %; Status: F Test: LARGE UNSTAINED CELL %; Value: 2.5; Range: 0.0-4.0; Units: %; Status: F Test: NEUTROPHILS #; Value: 5.2; Range: 1.8-7.7; Units: K/mm3; Status: F Test: LYMPH #; Value: 2.1; Range: 1.5-4.5; Units: K/mm3; Status: F Test: MONO #; Value: 0.3; Range: 0.0-0.8; Units: K/mm3; Status: F Test: EOS #; Value: 0.2; Range: 0.0-0.50; Units: K/mm3; Status: F Test: BASO #; Value: 0.1; Range: 0.0-0.2; Units: K/mm3; Status: F Test: LARGE UNSTAINED CELL #; Value: 0.2; Range: 0.0-0.4; Units: K/mm3; Status: F Lab Order: Cardiac Injury Profile; SPEC'M 06/22/16 17:29 Test: CPK CREATINE PHOSPHOKINASE; Value: 71; Range: 26-192; Units: U/L; Status: F Test: CK-MB VALUE MASS; Value: 1.0; Range: 0.0-3.6; Units: NG/ML; Status: F Test: MB/CK RELATIVE INDEX; Value: 1.40; Range: < OR =4; Status: F Test Note: ; DIAGNOSIS CRITERIA MMB ng/ml Relative Index (RI) NON-AMI < or = 5 N/A REAVES ZONE > 5 < or = 4 AMI > 5 > 4 Lab Order: Troponin; SPEC'M 06/22/16 17:29 Test: TROPONIN I; Value: < 0.02; Range: < 0.10; Units: NG/ML; Status: F Test Note: ; Troponin I Reference Interval for Siemens [place] LOCI: 99th Percentile= 0.00-0.045 ng/ml Risk Stratification: <= 0.10 ng/ml Decreased Risk for Adverse Clinical Events. 0.10-1.50 ng/ml Increased Risk for Adverse Clinical Events. Evaluation of additional criterion and/or repeat testing in 2-6 hours is suggested to rule out myocardial damage. >= 1.50 ng/ml Indicative of Myocardial Injury. 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: anurag; : 1965 Requested By: RODNEY Rush; Order Number: [id number] Reading MD: Laina Carpenter; Measurements; Intervals [place]; Rate: 97 P: 63; MN: 142 QRS: 56; QRSD: 85 T: 72; QT: 353; QTc: 449; Interpretive Statements; SINUS RHYTHM; NSTTW ABNORMALITY; Electronically Signed On 06-23-2016 13:08:58 EST by Laina Carpenter; Radiology Order: Chest, 1 View Test: Chest, 1 View REASON FOR EXAMINATION: Chest Pain; Semiupright AP portable chest, 06/22/2016:; ; Indication: Chest pain.; ; Comparison: PA and lateral chest 03/30/2014.; ; Findings:; ; The cardiac silhouette and mediastinal silhouette are within normal limits. Lungs; are clear. Bones and soft tissues within normal limits.; ; IMPRESSION:; ; Negative portable chest radiograph.; ; ; ; ; ; ; Signed by; Julianne Sanchez MD 06/24/2016 10:56 A; Outcome: 06/22 19:13 Discharge ordered by Provider. fg 19:29 Discharge Assessment: Patient awake, alert and oriented x 3. No cognitive and/or ko2 functional deficits noted. Patient verbalized understanding of disposition instructions. patient administered narcotics - no. The following High Risk Discharge criteria are identified: None. Discharged to home ambulatory, with significant other. Condition: stable. Discharge instructions given to patient, Instructed on discharge instructions, follow up and referral plans. Demonstrated understanding of instructions, Pt was receptive of discharge instructions/ teaching. No special radiology studies were completed. Property sent home with patient. 19:29 Patient left the ED. ko2 Signatures: Dispatcher [employer] EDMS Lana Martinez,RN RN kr3 Mahad Willard, Reg Reg kf3 Irma Rivera mt4 Juan Luis Alvarado, RN RN ml6 Sachi Moya, HEALTH EQUIPMENT SERVICER HEALTH EQUIPMENT SERVICER ar3 Estefani Glasgow, HEALTH EQUIPMENT SERVICER HEALTH EQUIPMENT SERVICER nisha Nadeem, Iris TeixeiraRN RN ko2 Jacy Alva MD MD Citlali Davis, Reg Reg ks16 Corrections: (The following items were deleted from the chart) 17:03 17:00 EKG done. (by ED staff). anurag osborn Chart Complete MTDD
--- NOTE | 2016-06-24 20:30 | EDDOCDS ---
Physician Documentation [facility] Name: Ember Workman Age: 50 yrs Sex: Female : 1965 Arrival Date: 06/22/2016 Time: 16:31 Bed 8 Private MD: Fozia Cage M. Disposition: 06/22/16 19:13 Discharged to Home/Self Care. Impression: Chest pain, unspecified. - Condition is Stable. - Discharge Instructions: Nonspecific Chest Pain. - Medication Reconciliation, Local Pharmacy Hours form. - Follow up: Fozia Cage; When: Call to arrange an appointment; Reason: Continuance of care. - Problem is new. - Symptoms have improved. Historical: - Allergies: Naprosyn; Morphine; Amaryl; - Home Meds: 1. metformin 500 mg Oral tr24 twice a day (Last dose: 06/22/2016) 2. loratadine 10 mg Oral TbDL 1 tab nightly (Last dose: 06/21/2016) 3. Simvastatin Unknown Oral nightly (Last dose: 06/21/2016) 4. aspirin 81 mg Oral tab 1 tab once daily (Last dose: 06/21/2016) 5. tramadol 50 mg Oral tab 2 tabs daily 6. hydroxyzine HCl 25 mg Oral tab nightly (Last dose: 06/21/2016) 7. trazodone 50 mg Oral tab nightly (Last dose: 06/21/2016) 8. Soma 350 mg Oral tab nightly (Last dose: 06/21/2016) 9. nortriptyline 25 mg Oral cap nightly (Last dose: 06/21/2016) - PMHx: Diabetes - NIDDM: controlled; neuropathy; Chronic Back pain; Arthritis; - PSHx: Cesearean Section; oophorectomy; Colostomy Construction; Colostomy Reversal; Hernia repair; - Social history: Smoking status: Patient uses tobacco products, current every day smoker. No barriers to communication noted, The patient speaks fluent Burmese, Speaks appropriately for age. - Family history: Not pertinent. - : The pt / caregiver states he / she is not on anticoagulants. Home medication list is obtained from the patient. - Exposure Risk Screening:: None identified. 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 10 in. (147.32 cm) (R); Pain 0/10; 17:10 BP 138 / 74 (auto/); ml6 17:10 Pulse 94 MON; Resp 18; Pulse Ox 95% on R/A; Pain 0/10; ml6 18:10 BP 151 / 56 (auto/); ml6 18:10 Pulse 90 MON; Resp 16; Pulse Ox 95% on R/A; ml6 18:25 BP 135 / 59 (auto/); ml6 18:25 Pulse 92 MON; Resp 18; Pulse Ox 95% on R/A; ml6 18:55 BP 141 / 60 (auto/); ml6 18:55 Pulse 90 MON; Resp 18; Pulse Ox 96% on R/A; Pain 0/10; ml6 19:24 BP 98 / 56; Pulse 84; Resp 18; Temp 98.0(TE); Pulse Ox 97% on R/A; Pain 0/10; nisha 16:33 Body Mass Index 41.80 (90.72 kg, 147.32 cm) mt4 MDM: 16:41 ECG WITH READING ER PHYS+CARDIAG ordered. EDMS 17:10 Energy Infrastructure Engineer/Pulse Ox/q 30 min VS ordered. jc4 17:10 IV Saline Lock ordered. jc4 17:10 Rhythm Strip to chart ordered. jc4 17:10 Undress patient appropriately for examination ordered. jc4 17:10 Basic Metabolic Profile Ordered. EDMS 17:10 CBC with Diff Ordered. EDMS 17:10 Cardiac Injury Profile Ordered. EDMS 17:10 Troponin Ordered. EDMS 17:57 Financial registration complete. ks16 17:58 [place] [place] was scanned into [employer] and attached to record. ks16 18:56 Chest, 1 View Ordered. EDMS 06/23 15:10 T-Sheet-- Draft Copy was scanned into [employer] and attached to record. kf3 17:09 ECG/EKG was scanned into [employer] and attached to record. kf3 Signatures: Dispatcher [employer] EDMS Lana Martinez,RN RN kr3 FiddlerMahad, Reg Reg kf3 Becca Wilks, RN RN jc4 Iris Weeks,RN RN ko2 Jacy Alva MD MD fg Sorenson, Kimberly, Reg Reg ks16 The chart was reviewed and I authenticate all verbal orders and agree with the evaluation and treatment provided.Attachments: 06/22 17:58 [place] [place] Agreement ks16 06/23 15:10 T-Sheet-- Draft Copy kf3 17:09 ECG/EKG kf3 Chart Complete MTDD
== END 2016-06-22 19:29 | disposition home or self-care (01) ==
LOC: M ED 16:31
DX: R07.9 Chest pain, unspecified (principal); E11.9 Type 2 diabetes mellitus without complications; M54.9 Dorsalgia, unspecified; M19.90 Unspecified osteoarthritis, unspecified site; G62.9 Polyneuropathy, unspecified; F17.200 Nicotine dependence, unspecified, uncomplicated; Z79.899 Other long term (current) drug therapy; Z79.84 Long term (current) use of oral hypoglycemic drugs; Z79.82 Long term (current) use of aspirin; Z88.8 Allergy status to other drugs, medicaments and biological substances; Z88.5 Allergy status to narcotic agent

== ENCOUNTER → 2016-07-22 | Outpatient (CLI) | payer MEDICARE, MEDICAID ==
--- NOTE | 2016-07-26 00:02 | ECWPNPC ---
PATIENT NAME: MONIKA ADRIAN : 1965 GENDER: FEMALE VISIT DATE: 07/22/2016 DISCHARGE DATE: 07/22/16 1036 VISIT LOCKED DATE TIME: PHYSICIAN: FORD AKERS RESOURCE: FORD AKERS REASON FOR APPOINTMENT 1. LUMBAR SPONDYLOSIS HISTORY OF PRESENT ILLNESS HISTORY OF PRESENT ILLNESS: PAIN THE PATIENT DESCRIBES THE PAIN... FALL RISK SCREENING: SCREENING :NO FALLS IN THE PAST YEAR TODAY'S VISIT: NOTES: RATES PAIN TODAY 7/10. DESCRIBES PAIN ACHING. AND LOCATED IN CENTER LOW BACK RADIATION ACROSS THE SACRUM. L>R. NOT USUALLY RADIATING INTO LEGS. HAD REACTION TO SOMAAFTER A FEW DAYS WITH LEFT SIDED CHEST PAIN. SINCE HAS HAD EKG AND STRES TEST - ALL WNL. TIZANIDINE IS EFFECTIVE. . CURRENT MEDICATIONS TAKING TRAZODONE 100 100MG TABLET 1 TABLET ORAL DAILY AT BEDTIME, NOTES: [facility] TAKING HYDROXYZINE HCL 25MG ([facility]) TABLET 1 TABLET ORALLY 3 TIMES A DAY, NOTES: [facility] TAKING FREESTYLE TEST 1 STRIP 1 EACH - TWICE A DAY DX:E11.9 TAKING VITAMIN D 1000 UNIT TABLET 1 TABLET ORALLY ONCE A DAY TAKING VITAMIN C 2000 MG TABLET 1 TABLET ORALLY ONCE A DAY TAKING CLARITIN 10 MG TABLET 1 TABLET ORALLY ONCE A DAY TAKING TIZANIDINE HCL 2 MG TABLET 1 TABLET NEEDED ORALLY THREE TIMES A DAY TAKING TRAMADOL HCL 50 MG TABLET 2 TABS ORALLY EVERY 8 HRS NEEDED/ MDD # 6 TAKING AMITRIPTYLINE HCL 25 MG TABLET 1 TABLET ORALLY ONCE A DAY TAKING SIMVASTATIN 10 MG TABLET TAKE ONE TABLET BY MOUTH AT BEDTIME TAKING METFORMIN HCL 500 MG TABLET 1 TABLET WITH MEALS ORALLY TWICE A DAY TAKING ASPIR-81 81 MG TABLET DELAYED RELEASE 1 TABLET ORALLY ONCE A DAY MEDICATION LIST REVIEWED AND RECONCILED WITH THE PATIENT PAST MEDICAL HISTORY DM-2 HYPERLIPIDEMIA, ASCVD 10-YEAR RISK WAS 1.1% IN 04/2014 ON SIMVASTATIN 10MG OA ALLERGIC RHINITIS ANX/DEPRESSION- [facility] DIVERITICULITIS (S/P COLOSTOMY/REVERSAL) DEPRESSION/ANXIETY- (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[facility]) PERIPHERAL NEUROPATHY EMG/NCS LES 05/15 NCN- MOD AXONAL PN, POSS S1 RADICULOPATHY SLEEP APNEA ALLERGIES NAPROXEN: RECTAL BLEEDING: SIDE EFFECTS AMARYL: CHEST PAIN: SIDE EFFECTS SOMA: CHEST PAIN: SIDE EFFECTS MORPHINE SULFATE: HALLUCINATIONS: SIDE EFFECTS SURGICAL HISTORY COLOSTOMY 2009 COLOSTOMY REVERSAL 2010 C SECTION 1986 PT UNSURE WHICH OVARY REMOVED (CYST) 1987 INCISIONAL HERNIA REPAIR 2010 SOCIAL HISTORY GENERAL: TOBACCO USE ARE YOU A:CURRENT SMOKER LEARNING BARRIERS / SPECIAL NEEDS ORIENTED TO PLAN OF CARE: PATIENT, PAIN MANAGEMENT PATIENT, ORIENTED TO PLAN OF CARE: PATIENT, PAIN MANAGEMENT PATIENT. NEW PATIENT PAIN DIARY TODAY'S VISITNOTES FROM 0-10, WHAT LEVEL IS YOUR PAIN TODAY?0 PAIN CLINIC PFS, CLERGY, PUBLIC HEALTH REFERRALS PFS REFERRAL NEEDED?NO CLERGY REFERRAL NEEDED?NO PUBLIC HEALTH REFERRAL NEEDED?NO WAS THE PROVIDER NOTIFIED OF ANY PERTINENT INFO?NO PFS REFERRAL NEEDED?NO CLERGY REFERRAL NEEDED?NO PUBLIC HEALTH REFERRAL NEEDED?NO WAS THE PROVIDER NOTIFIED OF ANY PERTINENT INFO?NO HOSPITALIZATION/MAJOR DIAGNOSTIC PROCEDURE ABOVE SURGERIES 2008,2009,1985 REVIEW OF SYSTEMS CONSTITUTIONAL: ANY CHANGE IN YOUR MEDICAL CONDITION? NO . CHILLS NO . FEVER NO . INFECTION: DO YOU HAVE NEW INFECTIONS? NO . DO YOU HAVE HISTORY OF MRSA? NO . MUSCULOSKELETAL: ANY NEW PATTERNS OF PAIN OR NUMBNESS? NO . GASTROENTEROLOGY: ANY NEW CHANGE IN BOWEL CONTROL? NO . GENITOURINARY: ANY NEW CHANGE IN BLADDER CONTROL? NO . IS THERE A CHANCE YOU COULD BE ? NO . HEMATOLOGY/LYMPH: DO YOU TAKE ANY BLOOD THINNERS? (FOR EXAMPLE- COUMADIN, PLAVIX, AGGRENOX, PLATEL, PRADAXA, OR XARELTO) NO . WHEN WAS YOUR LAST DOSE? DATE: TIME: . NEUROLOGY: HAVE YOU FALLEN IN THE PAST 6 MONTHS? NO . ANY NEW EXTREMITY NUMBNESS OR WEAKNESS? NO . CARDIOLOGY: DO YOU HAVE A PACEMAKER OR DEFIBRILLATOR? NO . RESPIRATORY: HAVE YOU BEEN SICK IN THE PAST WEEK? NO . FEVER NO . FLU LIKE SYMPTOMS? NO . CPAP SEVERE SLEEP APNEA TO START SOON ON CPAP . 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 INTEGUMENTARY: DO YOU HAVE ANY RASHES OR OPEN SORES? NO . ALLERGIC/IMMUNO: ARE YOU ALLERGIC TO SHELLFISH OR IV DYE? NO . ANY NEW ALLERGIES? NO . PSYCHIATRIC: DO YOU HAVE THOUGHTS OF HURTING YOURSELF OR SOMEONE ELSE? NO . ARE YOU ABUSED, NEGLECTED, OR IN AN UNSAFE ENVIRONMENT? NO . ENDOCRINOLOGY: ARE YOU DIABETIC? YES . OTHER: DO YOU NEED ANY PRESCRIPTIONS? YES . IF YES, PLEASE LIST: TIZANIDINE . ANY NEW PROBLEMS WITH YOUR MEDICATIONS? YES, SOMA - CHEST PAIN . WHEN DID YOU LAST EAT? ____ . WHEN DID YOU LAST DRINK? ____ . WHAT DID YOU LAST DRINK? ____ . NAME OF PERSON DRIVING YOU HOME? ____ . DO YOU HAVE ANY OTHER QUESTIONS OR CONCERNS YES. CONCERNED REGARDING SHOTS IN BACK . REVIEWED BY: PROVIDER: FORD STEIN . VITAL SIGNS WT 220.4 LBS, HT 59 IN, BMI 44.51 INDEX, BP 146/90 MM HG, HR 98 /MIN, RR 16 /MIN, TEMP 97.9 F, OXYGEN SAT % 96%, NA INITIALS SC 10:06, REVIEWED BY: LS. EXAMINATION GENERAL EXAMINATION: PSYCHALERT , ORIENTED X 3 , APPROPRIATE MOOD AND AFFECT . HEENT:NORMOCEPHALIC, NO LYMPHADENOPATHY, NO THYROMEGLY. LUNGS:CLEAR TO AUSCULTATION BILATERALLY, NO WHEEZES, RALES OR RHONCHI. HEART:NORMAL S1S2, NO MURMURS, CLICK OR RUBS. MUSCULOSKELETAL:POINT TENDERNESS OVER LUMBER SPINOUS PROCESSES AND ACROSS THE LUMBOSACRAL AXIS. POSTURE UPRIGHT, GAIT SLOW, NONANTALGIC. FEW TRIGGER POINTS AND TIGHT FIBROUS BANDS ARE IDENTIFIED OVER THE LOW THORACIC AND LUMBAR PARAVERTEBRAL MUSCLES.. NEUROLOGIC EXAM:STOCKING AND GLOVE SENSORY CHANGED NOTED BILATERALLY AT [place] AND NEAR SENSORY LOSS NOTED AT [place] THROUGH THE FOOT. DTR'S TRACE TO ABSENT IN BILATERAL LOWER EXTREMITIES. 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 CALL IF PAIN INCREASES, OR IF SCRIPTS NEEDED. , # 226 TOBACCO USE SCREENING/INTERVENTION: PATIENT CURRENTLY USED TOBACCO. WAS OFFERED SMOKING CESSATION FOR GUIDANCE IN QUITTING THROUGH THE [facility] QUITS PROGRAM AND [facility] C[facility]. , #128 - SCREENING BMI AND F/U PLAN IN : BMI ABOVE NORMAL TODAY. DISCUSSED WITH PATIENT NUTRITIONAL FOOD CHOICES TO ASSIST WITH WEIGHT LOSS. RECCOMMENDED REDUCING SALT, SUGAR, SODA INTAKE. RECOMMEND INCREASE ACTIVITY TO INCLUDE WALKING ON A REGULAR BASIS. PROCEDURE CODES FA211 ESTABILISHED PATIENT [facility] FACILITY CHARGE G4991 BP SCR PRFRM RCMDD DEFIND SCR INTVL G6830 PAIN ASSESS POS TOOL F/U PLAN DOC 3016F PT SCRND [place] USE 1124F ACP DISCUSS-NO DSCNMKR DOCD G8427 DOC MEDS VERIFIED W/PT OR RE G8417 BMI >=30 CALCUATE W/FOLLOWUP 3288F FALL RISK ASSESSMENT DOCD 4004F PT TOBACCO SCREEN RCVD TLK DISPOSITION & COMMUNICATION FOLLOW UP 2-3 MONTHS ELECTRONICALLY SIGNED BY FRANKIE HOWARD ON 07/25/2016 AT 11:52 AM EST DISCLAIMER : THIS IS A VISIT SUMMARY EXTRACTED FROM THE [employer] CHART. IT IS NOT A COPY OF THE [employer] PROGRESS NOTE. MTDD
== END ==
LOC: M PAIN 09:40
PROVIDERS: ATTEND Nurse Practitioner Family
DX: Z09 Encounter for follow-up examination after completed treatment for conditions other than malignant neoplasm (principal); G89.29 Other chronic pain; M48.9 Spondylopathy, unspecified; M51.36 Other intervertebral disc degeneration, lumbar region; E11.42 Type 2 diabetes mellitus with diabetic polyneuropathy; E78.5 Hyperlipidemia, unspecified; M19.90 Unspecified osteoarthritis, unspecified site; J30.9 Allergic rhinitis, unspecified; F32.9 Major depressive disorder, single episode, unspecified; F41.8 Other specified anxiety disorders; G47.30 Sleep apnea, unspecified; F17.200 Nicotine dependence, unspecified, uncomplicated; Z88.5 Allergy status to narcotic agent; Z88.8 Allergy status to other drugs, medicaments and biological substances; Z79.891 Long term (current) use of opiate analgesic; Z79.84 Long term (current) use of oral hypoglycemic drugs; Z79.82 Long term (current) use of aspirin; Z79.899 Other long term (current) drug therapy

== ENCOUNTER → 2016-09-05 | Outpatient (REF) | payer MEDICARE, MEDICAID ==
[2016-09-05 12:08] LABS: ALBUMIN 3.6 GM/DL (3.2-5.2); ALBUMIN/GLOBULIN RATIO 1.09 (1.00-1.93); ALKALINE PHOSPHATASE 84 U/L (45-117); ALT/SGPT 48 U/L (12-78); ANION GAP 5 MEQ/L (8-16); AST/SGOT 30 U/L (15-37); BILIRUBIN,TOTAL 0.3 MG/DL (0.2-1.0); BLOOD UREA NITROGEN 13 MG/DL (7-18); CALCIUM LEVEL 8.9 MG/DL (8.5-10.1); CARBON DIOXIDE LEVEL 30 MEQ/L (21-32); CHLORIDE LEVEL 105 MEQ/L (98-107); CHOLESTEROL LEVEL 159 MG/DL (<200); CREATININE FOR GFR 0.97 MG/DL (0.55-1.02); GLOMERULAR FILTRATION RATE > 60.0 (>51); GLUCOSE, FASTING 151 MG/DL (70-105); POTASSIUM SERUM 4.6 MEQ/L (3.5-5.1); SODIUM LEVEL 140 MEQ/L (136-145); TOTAL PROTEIN 6.9 GM/DL (6.4-8.2); TRIGLYCERIDES LEVEL 193 MG/DL (<150)
[2016-09-05 12:27] LABS: BASO % 0.6 % (0.0-1.0); EOS # 0.2 K/mm3 (0.0-0.50); EOS % 2.7 % (0.0-3.0); LARGE UNSTAINED CELL # 0.2 K/mm3 (0.0-0.4); LYMPH # 2.3 K/mm3 (1.5-4.5); LYMPH % 24.5 % (24.0-44.0); MEAN CORPUSCULAR HEMOGLOBIN 30.2 pg (27.0-33.0); MEAN CORPUSCULAR HGB CONC 32.9 g/dl (32.0-36.5); MONO # 0.4 K/mm3 (0.0-0.8); MONO % 4.8 % (0.0-5.0); NEUTROPHILS # 5.8 K/mm3 (1.8-7.7); NEUTROPHILS % 65.4 % (36.0-66.0); PLATELET COUNT, AUTOMATED 199 k/mm3 (150-450); RED CELL DISTRIBUTION WIDTH 14.5 % (11.5-14.5); WHITE BLOOD COUNT 8.8 K/mm3 (4.0-10.0)
== END ==
LOC: M SFHCPLAZ 07:48
PROVIDERS: ATTEND Nurse Practitioner Family
DX: E11.42 Type 2 diabetes mellitus with diabetic polyneuropathy (principal); E78.5 Hyperlipidemia, unspecified

== ENCOUNTER → 2016-09-19 | Outpatient (CLI) | payer MEDICARE, MEDICAID ==
--- NOTE | 2016-10-04 00:58 | ECWPNPC ---
PATIENT NAME: MONIKA ADRIAN : 1965 GENDER: FEMALE VISIT DATE: 09/19/2016 DISCHARGE DATE: 09/19/16 1039 VISIT LOCKED DATE TIME: PHYSICIAN: FORD AKERS RESOURCE: FORD AKERS REASON FOR APPOINTMENT 1. FOLLOWUP-LOW BACK HISTORY OF PRESENT ILLNESS HISTORY OF PRESENT ILLNESS: PAIN THE PATIENT DESCRIBES THE PAIN... FALL RISK SCREENING: SCREENING :NO FALLS IN THE PAST YEAR TODAY'S VISIT: NOTES: REFERRED TODAY FOR DIABETIC PERIPHERAL NEUROPATHY. HAS BEEN PRESENT FOR 4-5 YEARS NOTES THAT NORTRIPTYLINE STARTED BY [facility]. STATES THIS IS HELPFUL. NITETIME IS THE WORST. BACK PAIN IS INTERMITANT. NO RADIATION FROM BACK TO LEGS. PT HAS BEEN FOLLOWED HERE FOR SOME TIME FOR BACK PAIN ISSUES AND HAS HAD INTERVENTIONAL TREATMENTS FOR THE SAME.. CURRENT MEDICATIONS TAKING HYDROXYZINE HCL 25MG ([facility]) TABLET 1 TABLET ORALLY 3 TIMES A DAY, NOTES: [facility] TAKING VITAMIN D 1000 UNIT TABLET 1 TABLET ORALLY ONCE A DAY TAKING VITAMIN C 2000 MG TABLET 1 TABLET ORALLY ONCE A DAY TAKING ASPIR-81 81 MG TABLET DELAYED RELEASE 1 TABLET ORALLY ONCE A DAY TAKING TRAMADOL HCL 50 MG TABLET 2 TABS ORALLY EVERY 8 HRS NEEDED/ MDD # 6 TAKING CPAP MACHINE 7 CM PRESSURE VIA MASK EVERY NIGHT. TAKING SIMVASTATIN 10 MG TABLET TAKE ONE TABLET BY MOUTH AT BEDTIME TAKING AMITRIPTYLINE HCL 25 MG TABLET 1 TABLET ORALLY ONCE A DAY TAKING METFORMIN HCL 1000 MG TABLET 1 TABLET WITH MEALS ORALLY TWICE A DAY TAKING FREESTYLE TEST 1 STRIP 1 EACH - TWICE A DAY DX:E11.9 TAKING TIZANIDINE HCL 2 MG TABLET 1 TABLET NEEDED ORALLY THREE TIMES A DAY TAKING CLARITIN 10 MG TABLET 1 TABLET ORALLY ONCE A DAY TAKING TRAZODONE 100 100MG TABLET 1 TABLET ORAL DAILY AT BEDTIME, NOTES: [facility] MEDICATION LIST REVIEWED AND RECONCILED WITH THE PATIENT PAST MEDICAL HISTORY DM-2 HYPERLIPIDEMIA, ASCVD 10-YEAR RISK WAS 1.1% IN 04/2014 ON SIMVASTATIN 10MG OA ALLERGIC RHINITIS ANX/DEPRESSION- [facility] DIVERITICULITIS (S/P COLOSTOMY/REVERSAL) DEPRESSION/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- (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[facility]) PERIPHERAL NEUROPATHY EMG/NCS LES 05/15 NCN- MOD AXONAL PN, POSS S1 RADICULOPATHY SLEEP APNEA DM EYE EXAM: 12/2014 ALLERGIES NAPROXEN: RECTAL BLEEDING: SIDE EFFECTS AMARYL: CHEST PAIN: SIDE EFFECTS SOMA: CHEST PAIN: SIDE EFFECTS MORPHINE SULFATE: HALLUCINATIONS: SIDE EFFECTS SURGICAL HISTORY COLOSTOMY 2009 COLOSTOMY REVERSAL 2010 C SECTION 1986 PT UNSURE WHICH OVARY REMOVED (CYST) 1987 INCISIONAL HERNIA REPAIR 2010 SOCIAL HISTORY GENERAL: PAIN CLINIC PFS, CLERGY, PUBLIC HEALTH REFERRALS CLERGY REFERRAL NEEDED?NO WAS THE PROVIDER NOTIFIED OF ANY PERTINENT INFO?NO PFS REFERRAL NEEDED?NO PUBLIC HEALTH REFERRAL NEEDED?NO PATIENT: ____. HOSPITALIZATION/MAJOR DIAGNOSTIC PROCEDURE ABOVE SURGERIES 2008,2009,1985 REVIEW OF SYSTEMS CONSTITUTIONAL: ANY CHANGE IN YOUR MEDICAL CONDITION? NO . CHILLS NO . FEVER NO . INFECTION: DO YOU HAVE NEW INFECTIONS? NO . DO YOU HAVE HISTORY OF MRSA? NO . MUSCULOSKELETAL: ANY NEW PATTERNS OF PAIN OR NUMBNESS? NO . GASTROENTEROLOGY: ANY NEW CHANGE IN BOWEL CONTROL? NO . GENITOURINARY: ANY NEW CHANGE IN BLADDER CONTROL? NO . IS THERE A CHANCE YOU COULD BE ? NO . HEMATOLOGY/LYMPH: DO YOU TAKE ANY BLOOD THINNERS? (FOR EXAMPLE- COUMADIN, PLAVIX, AGGRENOX, PLATEL, PRADAXA, OR XARELTO) NO . WHEN WAS YOUR LAST DOSE? DATE: TIME: . NEUROLOGY: HAVE YOU FALLEN IN THE PAST 6 MONTHS? NO . ANY NEW EXTREMITY NUMBNESS OR WEAKNESS? NO . CARDIOLOGY: DO YOU HAVE A PACEMAKER OR DEFIBRILLATOR? NO . RESPIRATORY: HAVE YOU BEEN SICK IN THE PAST WEEK? NO . FEVER NO . FLU LIKE SYMPTOMS? NO . COUGH NO . INTEGUMENTARY: DO YOU HAVE ANY RASHES OR OPEN SORES? NO . ALLERGIC/IMMUNO: ARE YOU ALLERGIC TO SHELLFISH OR IV DYE? NO . ANY NEW ALLERGIES? NO . PSYCHIATRIC: DO YOU HAVE THOUGHTS OF HURTING YOURSELF OR SOMEONE ELSE? NO . ARE YOU ABUSED, NEGLECTED, OR IN AN UNSAFE ENVIRONMENT? NO . ENDOCRINOLOGY: ARE YOU DIABETIC? YES - MEDS JUST INCREASED. . OTHER: DO YOU NEED ANY PRESCRIPTIONS? NO . IF YES, PLEASE LIST: ____ . ANY NEW PROBLEMS WITH YOUR MEDICATIONS? NO . WHEN DID YOU LAST EAT? ____ . WHEN DID YOU LAST DRINK? ____ . WHAT DID YOU LAST DRINK? ____ . NAME OF PERSON DRIVING YOU HOME? ____ . DO YOU HAVE ANY OTHER QUESTIONS OR CONCERNS NO . 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 VITAL SIGNS WT 218.8 LBS, HT 59 IN, BMI 44.19 INDEX, BP 140/71 MM HG, HR 92 /MIN, RR 16 /MIN, TEMP 98.9 F, OXYGEN SAT % 96%, NA INITIALS AW 0953, REVIEWED BY: KG. EXAMINATION GENERAL EXAMINATION: PSYCHALERT , ORIENTED X 3 , APPROPRIATE MOOD AND AFFECT . HEENT:NORMOCEPHALIC, NO LYMPHADENOPATHY, NO THYROMEGLY. LUNGS:CLEAR TO AUSCULTATION BILATERALLY, NO WHEEZES, RALES OR RHONCHI. HEART:NORMAL S1S2, NO MURMURS, CLICK OR RUBS. MUSCULOSKELETAL:POINT TENDERNESS OVER LUMBER SPINOUS PROCESSES AND ACROSS THE LUMBOSACRAL AXIS. POSTURE UPRIGHT, GAIT SLOW, NONANTALGIC. FEW TRIGGER POINTS AND TIGHT FIBROUS BANDS ARE IDENTIFIED OVER THE LOW THORACIC AND LUMBAR PARAVERTEBRAL MUSCLES.. NEUROLOGIC EXAM:STOCKING AND GLOVE SENSORY CHANGED NOTED BILATERALLY AT [place] AND NEAR SENSORY LOSS NOTED AT [place] THROUGH THE FOOT. DTR'S TRACE TO ABSENT IN BILATERAL LOWER EXTREMITIES. 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 CONTINUE CURENT MEDS. PROCEDURE CODES FA211 ESTABILISHED PATIENT [facility] FACILITY CHARGE [id number] PAIN ASSESS POS TOOL F/U PLAN DOC [id number] DOC MEDS VERIFIED W/PT OR RE DISPOSITION & COMMUNICATION FOLLOW UP 2 MONTHS (REASON: BACK/PERIPHERAL NEURO) ELECTRONICALLY SIGNED BY FRANKIE HOWARD ON 10/03/2016 AT 08:44 AM EDT DISCLAIMER : THIS IS A VISIT SUMMARY EXTRACTED FROM THE [employer] CHART. IT IS NOT A COPY OF THE [employer] PROGRESS NOTE. MTDD
== END | disposition home or self-care (01) ==
LOC: M PAIN 09:40
PROVIDERS: ATTEND Nurse Practitioner Family
DX: G89.29 Other chronic pain (principal); M48.9 Spondylopathy, unspecified; M51.36 Other intervertebral disc degeneration, lumbar region; E11.9 Type 2 diabetes mellitus without complications; E78.5 Hyperlipidemia, unspecified; M19.90 Unspecified osteoarthritis, unspecified site; F41.9 Anxiety disorder, unspecified; F33.9 Major depressive disorder, recurrent, unspecified; G47.30 Sleep apnea, unspecified; Z87.19 Personal history of other diseases of the digestive system; G62.9 Polyneuropathy, unspecified; J30.9 Allergic rhinitis, unspecified; Z79.899 Other long term (current) drug therapy; Z79.84 Long term (current) use of oral hypoglycemic drugs; Z79.82 Long term (current) use of aspirin; Z88.5 Allergy status to narcotic agent; Z88.8 Allergy status to other drugs, medicaments and biological substances

== ENCOUNTER → 2016-11-28 | Outpatient (CLI) | payer MEDICARE, MEDICAID ==
[~2016-11-28] MED LIST changes: +ASPI1TAB PO; +BUSP10TA PO; +DULO1CAP2 PO; +HYDR-3363 PO; +LORA10TA2 PO; +METF10004 PO; +MULT1TAB10 PO; +SIMV10TA2 PO; +TRAM50TA2 PO; +TRAZ50TA11 PO
--- NOTE | 2016-12-18 03:23 | ECWPNPC ---
PATIENT NAME: MONIKA ADRIAN : 1965 GENDER: FEMALE VISIT DATE: 11/28/2016 DISCHARGE DATE: 11/28/16 1053 VISIT LOCKED DATE TIME: PHYSICIAN: FORD AKERS RESOURCE: FORD AKERS REASON FOR APPOINTMENT 1. BACK HISTORY OF PRESENT ILLNESS HISTORY OF PRESENT ILLNESS: PAIN THE PATIENT DESCRIBES THE PAIN... FALL RISK SCREENING: SCREENING :NO FALLS IN THE PAST YEAR TODAY'S VISIT: NOTES: RATES PAIN TODAY 8/10. STATES NOT SLEEPING WELL. DESCRIBES PAIN SHARP, STABBING, BURNING, TENDER , THROBBING, SHOOTING AND SORE. PAIN IS CENTERED ACROSS THE LOW BACK AND ALSO IN BOTH FEET. NO RADIATING PAIN INTO THE LEGS. CURRENT MEDICATIONS TAKING HYDROXYZINE HCL 25MG ([facility]) TABLET 1 TABLET ORALLY 3 TIMES A DAY, NOTES: [facility] TAKING VITAMIN D 1000 UNIT TABLET 1 TABLET ORALLY ONCE A DAY TAKING VITAMIN C 2000 MG TABLET 1 TABLET ORALLY ONCE A DAY TAKING SIMVASTATIN 10 MG TABLET TAKE ONE TABLET BY MOUTH AT BEDTIME TAKING METFORMIN HCL 1000 MG TABLET 1 TABLET WITH MEALS ORALLY TWICE A DAY TAKING FREESTYLE TEST 1 STRIP 1 EACH - TWICE A DAY DX:E11.9 TAKING TRAZODONE 100 100MG TABLET 1 TABLET ORAL DAILY AT BEDTIME, NOTES: [facility] TAKING TIZANIDINE HCL 2 MG TABLET 1 TABLET NEEDED ORALLY THREE TIMES A DAY TAKING ASPIRIN 81 MG TABLET DELAYED RELEASE TAKE ONE TABLET BY MOUTH ONCE A DAY TAKING NORTRIPTYLINE HCL 25 MG CAPSULE 1 CAPSULE ORALLY TWICE A DAY TAKING CLARITIN 10 MG TABLET 1 TABLET ORALLY ONCE A DAY TAKING ZOSTAVAX 83333 UNT/0.65ML SOLUTION RECONSTITUTED DIRECTED SUBCUTANEOUS _ TAKING TRAMADOL HCL 50 MG TABLET 2 TABS ORALLY EVERY 8 HRS NEEDED/ MDD # 6 NOT-TAKING CPAP MACHINE 7 CM PRESSURE VIA MASK EVERY NIGHT. NOT-TAKING ASPIR-81 81 MG TABLET DELAYED RELEASE 1 TABLET ORALLY ONCE A DAY MEDICATION LIST REVIEWED AND RECONCILED WITH THE PATIENT PAST MEDICAL HISTORY DM-2 HYPERLIPIDEMIA, ASCVD 10-YEAR RISK WAS 1.1% IN 04/2014 ON SIMVASTATIN 10MG OA ALLERGIC RHINITIS ANX/DEPRESSION- [facility] DIVERITICULITIS (S/P COLOSTOMY/REVERSAL) DEPRESSION/ANXIETY- (SEES PLAN N[place] [facility] [place] PERIPHERAL NEUROPATHY EMG/NCS LES 05/15 NCN- MOD AXONAL PN, POSS S1 RADICULOPATHY SLEEP APNEA DM EYE EXAM: 12/2014 ALLERGIES NAPROXEN: RECTAL BLEEDING: SIDE EFFECTS AMARYL: CHEST PAIN: SIDE EFFECTS SOMA: CHEST PAIN: SIDE EFFECTS MORPHINE SULFATE: HALLUCINATIONS: SIDE EFFECTS REVIEW OF SYSTEMS REVIEWED BY: PROVIDER: FORD STEIN . CONSTITUTIONAL: ANY CHANGE IN YOUR MEDICAL CONDITION? NO . CHILLS NO . FEVER NO . INFECTION: DO YOU HAVE NEW INFECTIONS? NO . DO YOU HAVE HISTORY OF MRSA? NO . MUSCULOSKELETAL: ANY NEW PATTERNS OF PAIN OR NUMBNESS? NO . GASTROENTEROLOGY: ANY NEW CHANGE IN BOWEL CONTROL? NO . GENITOURINARY: ANY NEW CHANGE IN BLADDER CONTROL? NO . IS THERE A CHANCE YOU COULD BE ? NO . HEMATOLOGY/LYMPH: DO YOU TAKE ANY BLOOD THINNERS? (FOR EXAMPLE- COUMADIN, PLAVIX, AGGRENOX, PLATEL, PRADAXA, OR XARELTO) NO . WHEN WAS YOUR LAST DOSE? DATE: TIME: . NEUROLOGY: HAVE YOU FALLEN IN THE PAST 6 MONTHS? NO . ANY NEW EXTREMITY NUMBNESS OR WEAKNESS? NO . CARDIOLOGY: DO YOU HAVE A PACEMAKER OR DEFIBRILLATOR? NO . RESPIRATORY: SLEEP APNEA NOT CONSISTANTLY USING . HAVE YOU BEEN SICK IN THE PAST WEEK? NO . FEVER NO . FLU LIKE SYMPTOMS? NO . DO YOU USE ANY TYPE OF TOBACCO (SMOKE, SMOKELESS, CHEW)? WORKING ON CESSATION . COUGH NO . INTEGUMENTARY: DO YOU HAVE ANY RASHES OR OPEN SORES? NO . ALLERGIC/IMMUNO: ARE YOU ALLERGIC TO SHELLFISH OR IV DYE? NO . ANY NEW ALLERGIES? NO . PSYCHIATRIC: DO YOU HAVE THOUGHTS OF HURTING YOURSELF OR SOMEONE ELSE? NO . ARE YOU ABUSED, NEGLECTED, OR IN AN UNSAFE ENVIRONMENT? NO . ENDOCRINOLOGY: ARE YOU DIABETIC? NO . OTHER: DO YOU NEED ANY PRESCRIPTIONS? YES . IF YES, PLEASE LIST: ____ . ANY NEW PROBLEMS WITH YOUR MEDICATIONS? NO . WHEN DID YOU LAST EAT? ____ . WHEN DID YOU LAST DRINK? ____ . WHAT DID YOU LAST DRINK? ____ . NAME OF PERSON DRIVING YOU HOME? ____ . DO YOU HAVE ANY OTHER QUESTIONS OR CONCERNS NO . VITAL SIGNS WT 214 LBS, HT 59 IN, BMI 43.22 INDEX, BP 144/88 MM HG, HR 104 /MIN, RR 16 /MIN, TEMP 99.3 F, OXYGEN SAT % 97%, REVIEWED BY: MILEY 10:18. EXAMINATION GENERAL EXAMINATION: PSYCHALERT , ORIENTED X 3 , APPROPRIATE MOOD AND AFFECT . LUNGS:CLEAR TO AUSCULTATION BILATERALLY. HEART:NORMAL S1S2, NO MURMURS, CLICK OR RUBS. MUSCULOSKELETAL:POINT TENDERNESS OVER LUMBER SPINOUS PROCESSES AND ACROSS THE LUMBOSACRAL AXIS. POSTURE UPRIGHT, GAIT SLOW, NONANTALGIC. FEW TRIGGER POINTS AND TIGHT FIBROUS BANDS ARE IDENTIFIED OVER THE LOW THORACIC AND LUMBAR PARAVERTEBRAL MUSCLES.. EXTREMITIES:TRACE EDEMA BILATERAL LOWER EXTREMITIES. NEUROLOGIC EXAM:STOCKING AND GLOVE SENSORY CHANGED NOTED BILATERALLY AT [place] AND NEAR SENSORY LOSS NOTED AT [place] THROUGH THE FOOT. DTR'S TRACE TO ABSENT IN BILATERAL LOWER EXTREMITIES. 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 PROCEDURE CODES FA211 ESTABILISHED PATIENT [facility] CHARGE G8730 PAIN ASSESS POS TOOL F/U PLAN DOC G8427 DOC MEDS VERIFIED W/PT OR RE DISPOSITION & COMMUNICATION FOLLOW UP I MONTH (REASON: BACK PAIN/NEUROPATHY) ELECTRONICALLY SIGNED BY FRANKIE HOWARD ON 12/17/2016 AT 02:06 PM EDT DISCLAIMER : THIS IS A VISIT SUMMARY EXTRACTED FROM THE [employer] CHART. IT IS NOT A COPY OF THE [employer] PROGRESS NOTE. MAC
== END ==
LOC: M PAIN 09:40
PROVIDERS: ATTEND Nurse Practitioner Family
DX: M48.9 Spondylopathy, unspecified (principal); M51.36 Other intervertebral disc degeneration, lumbar region; Z79.82 Long term (current) use of aspirin; Z79.891 Long term (current) use of opiate analgesic; Z79.899 Other long term (current) drug therapy; Z88.6 Allergy status to analgesic agent; Z88.5 Allergy status to narcotic agent; Z88.8 Allergy status to other drugs, medicaments and biological substances; E55.9 Vitamin D deficiency, unspecified; G47.33 Obstructive sleep apnea (adult) (pediatric); E11.42 Type 2 diabetes mellitus with diabetic polyneuropathy; G47.00 Insomnia, unspecified; F41.8 Other specified anxiety disorders

== ENCOUNTER → 2016-12-09 | Outpatient (REF) | payer MEDICARE, MEDICAID ==
[2016-12-09 13:38] LABS: VITAMIN B12 LEVEL 434 PG/ML (247-911)
[2016-12-09 14:49] LABS: ALBUMIN 3.6 GM/DL (3.2-5.2); ALBUMIN/GLOBULIN RATIO 0.97 (1.00-1.93); ALKALINE PHOSPHATASE 96 U/L (45-117); ALT/SGPT 42 U/L (12-78); ANION GAP 8 MEQ/L (8-16); AST/SGOT 37 U/L (15-37); BILIRUBIN,TOTAL 0.4 MG/DL (0.2-1.0); BLOOD UREA NITROGEN 10 MG/DL (7-18); CARBON DIOXIDE LEVEL 28 MEQ/L (21-32); CHLORIDE LEVEL 101 MEQ/L (98-107); CREATININE FOR GFR 0.84 MG/DL (0.55-1.02); FREE T4 1.18 NG/DL (0.76-1.46); GLOMERULAR FILTRATION RATE > 60.0 (>51); GLUCOSE, FASTING 150 MG/DL (70-105); POTASSIUM SERUM 4.6 MEQ/L (3.5-5.1); SODIUM LEVEL 137 MEQ/L (136-145); TOTAL PROTEIN 7.3 GM/DL (6.4-8.2)
== END ==
LOC: M SFHCPLAZ 09:44
PROVIDERS: ATTEND Nurse Practitioner Family
DX: E11.42 Type 2 diabetes mellitus with diabetic polyneuropathy (principal); E78.5 Hyperlipidemia, unspecified; E55.9 Vitamin D deficiency, unspecified
CPT/HCPCS: 36415; 80053; 82306; 82607; 83036; 84439; 84443; G0463

== ENCOUNTER → 2016-12-11 | Outpatient (CLI) | payer MEDICARE, MEDICAID ==
--- NOTE | 2016-12-14 13:27 | SLEEPCENT ---
DATE OF PROCEDURE: 12/11/2016 ORDERED BY: FABIANO Vick Nocturnal polysomnography was performed for the titration of pressure therapy in this patient with obstructive sleep apnea syndrome. For testing, a ResMed AirFit T10 nasal pillows device was used. 8 cm of water pressure were applied to the circuit and the lights were extinguished. 7 hours and 49 minutes of data were reviewed. There were 432 minutes of sleep identified. Sleep latency was normal at 14 minutes. Rapid eye movement (REM) sleep was delayed at 218 minutes. Sleep architecture improved later in the study with 2 REM periods appreciated. Overall sleep efficiency was 93.3%. EKG showed a sinus rhythm with an average heart rate of 95 beats per minute. EEG showed reasonably normal waveforms for awake and sleep. Respiratory events were found best palliated with CPAP at pressure of +9. Some limb activity was noted, but arousal from limb events occurred only 2.5 times per hour. IMPRESSION: Obstructive sleep apnea syndrome (G47.33). RECOMMENDATION: Nightly use of pressure therapy 9 cm of water.
== END ==
LOC: M SLEEP 19:29
PROVIDERS: ATTEND Nurse Practitioner Adult Health
DX: G47.33 Obstructive sleep apnea (adult) (pediatric) (principal)

== ENCOUNTER → 2016-12-18 | Outpatient (CLI) | payer MEDICARE, MEDICAID ==
[~2016-12-18] VITALS: Ht 149.9 cm; Wt 97.5 kg
[~2016-12-18] MED LIST changes: +LIDOCAINE 2% INJ 100 MG/5 ML SDV (FOR ANES.) As Ordered ONE; +NS 1,000 ML IV ONE; +PROPOFOL 200 MG/20 ML VIAL As Ordered ONE
--- NOTE | 2016-12-18 12:45 | ROOR ---
Patient Name: Ember Workman Procedure Date: 12/18/2016 12:22 PM Date of : 1965 Age: 51 Room: [facility] Gender: Female Note Status: Finalized Procedure: Colonoscopy Indications: High risk colon cancer surveillance: Personal history of colonic polyps Providers: Robert Keller MD Referring MD: Zaida Carmen [facility] Requesting Provider: Medicines: Monitored Anesthesia Care Complications: No immediate complications. Procedure: Pre-Anesthesia Assessment: - Prior to the procedure, a History and Physical was performed, and patient medications and allergies were reviewed. The patient is competent. The risks and benefits of the procedure and the sedation options and risks were discussed with the patient. All questions were answered and informed consent was obtained. Patient identification and proposed procedure were verified by the physician, the nurse and the flatbed truck driver in the pre-procedure area in the endoscopy suite. Mental Status Examination: alert and oriented. Airway Examination: normal oropharyngeal airway and neck mobility. Respiratory Examination: clear to auscultation. CV Examination: normal. Prophylactic Antibiotics: The patient does not require prophylactic antibiotics. Prior Anticoagulants: The patient has taken no previous anticoagulant or antiplatelet agents. ASA Grade Assessment: II - A patient with mild systemic disease. After reviewing the risks and benefits, the patient was deemed in satisfactory condition to undergo the procedure. The anesthesia plan was to use monitored anesthesia care (MAC). Immediately prior to administration of medications, the patient was re-assessed for adequacy to receive sedatives. The heart rate, respiratory rate, oxygen saturations, blood pressure, adequacy of pulmonary ventilation, and response to care were monitored throughout the procedure. The physical status of the patient was re-assessed after the procedure. The Colonoscope was introduced through the anus and advanced to the ileocolonic anastomosis. The colonoscopy was performed without difficulty. The patient tolerated the procedure well. The quality of the bowel preparation was good. Findings: The perianal exam findings include non-thrombosed external hemorrhoids. There was evidence of a prior end-to-end colo-rectal anastomosis in the rectum. This was patent and was characterized by healthy appearing mucosa. The anastomosis was traversed. There was evidence of a prior [id number] ileo-colonic anastomosis in the ascending colon. This was patent and was characterized by healthy appearing mucosa. The anastomosis was traversed. The exam was otherwise without abnormality. No additional abnormalities were found on retroflexion. Impression: - Non-thrombosed external hemorrhoids found on perianal exam. - Patent end-to-end colo-rectal anastomosis, characterized by healthy appearing mucosa. - Patent [id number] ileo-colonic anastomosis, characterized by healthy appearing mucosa. - The examination was otherwise normal. - No specimens collected. Recommendation: - Discharge patient to home (ambulatory). - Repeat colonoscopy in 5 years for surveillance. Robert Keller MD Robert Keller MD 12/18/2016 12:44:59 PM This report has been signed electronically. Number of Addenda: 0 Note Initiated On: 12/18/2016 12:22 PM Estimated Blood Loss: Estimated blood loss: none.
[2016-12-18 13:00] VITALS: BP 119/72
== END | disposition home or self-care (01) ==
LOC: M OPP 11:27
PROVIDERS: ATTEND Surgery
DX: Z12.11 Encounter for screening for malignant neoplasm of colon (principal); K64.8 Other hemorrhoids; Z98.0 Intestinal bypass and anastomosis status; K57.30 Diverticulosis of large intestine without perforation or abscess without bleeding; Z86.010 Personal history of colon polyps; E78.5 Hyperlipidemia, unspecified; K43.9 Ventral hernia without obstruction or gangrene; E66.01 Morbid (severe) obesity due to excess calories; E11.9 Type 2 diabetes mellitus without complications; K57.92 Diverticulitis of intestine, part unspecified, without perforation or abscess without bleeding; M19.90 Unspecified osteoarthritis, unspecified site; M54.5 Low back pain; F41.9 Anxiety disorder, unspecified; F32.9 Major depressive disorder, single episode, unspecified; G62.9 Polyneuropathy, unspecified; R06.83 Snoring; G47.30 Sleep apnea, unspecified; Z87.19 Personal history of other diseases of the digestive system; F17.210 Nicotine dependence, cigarettes, uncomplicated; Z88.8 Allergy status to other drugs, medicaments and biological substances; Z88.5 Allergy status to narcotic agent; Z79.82 Long term (current) use of aspirin; Z79.84 Long term (current) use of oral hypoglycemic drugs; Z79.899 Other long term (current) drug therapy

== ENCOUNTER → 2016-12-19 | Outpatient (CLI) | payer MEDICARE, MEDICAID ==
[~2016-12-19] MED LIST changes: -LIDOCAINE 2% INJ 100 MG/5 ML SDV (FOR ANES.) As Ordered ONE; -NS 1,000 ML IV ONE; -PROPOFOL 200 MG/20 ML VIAL As Ordered ONE
--- NOTE | 2017-01-17 01:44 | ECWPNPC ---
PATIENT NAME: MONIKA ADRIAN : 1965 GENDER: FEMALE VISIT DATE: 12/19/2016 DISCHARGE DATE: 12/19/16928 VISIT LOCKED DATE TIME: PHYSICIAN: FORD AKERS RESOURCE: FORD AKERS REASON FOR APPOINTMENT 1. MEDS HISTORY OF PRESENT ILLNESS HISTORY OF PRESENT ILLNESS: PAIN THE PATIENT DESCRIBES THE PAIN... FALL RISK SCREENING: SCREENING :NO FALLS IN THE PAST YEAR TODAY'S VISIT: NOTES: RATES PAIN TODAY 6/10. DESCRIBES PAIN BURNING, ACHING, THROBBING, SHOOTING, SHARP AND STABBING, HAD ADVERSE REACTION TO CYMBALTA WITH INCREASED DEPRESSION AND SLEEPINESS. SHE STOPPED THE MEDICATION. . CURRENT MEDICATIONS TAKING TIZANIDINE HCL 2 MG TABLET 1 TABLET NEEDED ORALLY THREE TIMES A DAY TAKING CLARITIN 10 MG TABLET 1 TABLET ORALLY ONCE A DAY TAKING ZOSTAVAX 23281 UNT/0.65ML SOLUTION RECONSTITUTED DIRECTED SUBCUTANEOUS _ TAKING METFORMIN HCL 1000 MG TABLET 1 TABLET WITH MEALS ORALLY TWICE A DAY TAKING SIMVASTATIN 10 MG TABLET TAKE ONE TABLET BY MOUTH AT BEDTIME TAKING FREESTYLE TEST 1 STRIP 1 EACH - TWICE A DAY DX:E11.9 TAKING ASPIRIN 81 MG TABLET DELAYED RELEASE TAKE ONE TABLET BY MOUTH ONCE A DAY TAKING TRAZODONE 100 100MG TABLET 1 TABLET ORAL DAILY AT BEDTIME TAKING HYDROXYZINE HCL 25MG ([facility]) TABLET 1 TABLET ORALLY 3 TIMES A DAY TAKING TRAMADOL HCL 50 MG TABLET 2 TABS ORALLY EVERY 8 HRS NEEDED/ MDD # 6 TAKING VITAMIN D 1000 UNIT TABLET 1 TABLET ORALLY ONCE A DAY TAKING JANUVIA 100 MG TABLET 1 TABLET ORALLY ONCE A DAY NOT-TAKING VITAMIN C 2000 MG TABLET 1 TABLET ORALLY ONCE A DAY NOT-TAKING DULOXETINE HCL 30 MG CAPSULE DELAYED RELEASE PARTICLES 1 CAPSULE ORALLY DAILY NOT-TAKING CPAP MACHINE 7 CM PRESSURE VIA MASK EVERY NIGHT. NOT-TAKING ASPIR-81 81 MG TABLET DELAYED RELEASE 1 TABLET ORALLY ONCE A DAY MEDICATION LIST REVIEWED AND RECONCILED WITH THE PATIENT PAST MEDICAL HISTORY DM-2 HYPERLIPIDEMIA, ASCVD 10-YEAR RISK WAS 1.1% IN 04/2014 ON SIMVASTATIN 10MG OA ALLERGIC RHINITIS ANX/DEPRESSION- [facility] DIVERITICULITIS (S/P COLOSTOMY/REVERSAL) DEPRESSION/ANXIETY- (SEES SET[facility]IC [facility]ING [facility] PERIPHERAL NEUROPATHY EMG/NCS LES 05/15 NCN- MOD AXONAL PN, POSS S1 RADICULOPATHY SLEEP APNEA DM EYE EXAM: 12/2014 ALLERGIES NAPROXEN: RECTAL BLEEDING: SIDE EFFECTS AMARYL: CHEST PAIN: SIDE EFFECTS SOMA: CHEST PAIN: SIDE EFFECTS MORPHINE SULFATE: HALLUCINATIONS: SIDE EFFECTS CYMBALTA: INCREASED DEPRESSION: SIDE EFFECTS SOCIAL HISTORY GENERAL: TOBACCO USE ARE YOU A:NONSMOKER OFF AND ON" BMI CARE GOAL FOLLOW-UP ABOVE NORMAL BMI FOLLOW-UPDIETARY MANAGEMENT EDUCATION, GUIDANCE, AND COUNSELING ALCOHOL SCREENING DID YOU HAVE A DRINK CONTAINING ALCOHOL IN THE PAST YEAR?NO POINTS0 INTERPRETATIONNEGATIVE RECREATIONAL DRUG USE DRUG USE? NO. CAFFEINE CAFFEINE USE? NO . SEXUAL HX HAD SEX IN THE LAST 12 MONTHS (VAGINAL, ORAL, OR ANAL)?YES WITHMEN ONLY USE PROTECTION?NO PREVENTION STRATEGIES DISCUSSED:OTHER HAVE YOU EVER HAD AN STD?NO LMP:13 MONTHS AGO HIV / HEP-C SCREENING HIV TEST OFFERED TO PATIENT:YES DATE OFFERED:09/12/2016 TEST ACCEPTED:NO REASON:PATIENT DECLINED HEP-C TEST OFFERED TO PATIENT:YES DATE OFFERED:09/12/2016 TEST ACCEPTED:YES OCCUPATION: DISABLED / SSI. DIET: NO CONCENTRATED SWEETS.. EXERCISE: NO REGULAR EXERCISE. MARITAL STATUS: SINGLE,. OTHERS AT HOME: CHILD. PETS: 2 CATS. 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 LANGUAGE ARMENIAN. EDUCATION LEVEL OF EDUCATION:NOT FINISHED COLLEGE LEARNING BARRIERS / SPECIAL NEEDS CHANGE FROM LAST VISIT?NO BARRIERS TO LEARNING?NO HEARING IMPAIRED?NO VISION IMPAIRED?YES :CORRECTIVE LENSES COGNITIVELY IMPAIRED?NO READINESS TO LEARN?YES LEARNING PREFERENCES?NO LEARNING CAPABILITIES PRESENT?YES EMOTIONAL BARRIERS?NO SPECIAL DEVICES?NO JAVASCRIPT WEB DEVELOPER NEEDED?NO PSYCHOLOGICAL HX TREATMENTNO PAIN CLINIC PFS, CLERGY, PUBLIC HEALTH REFERRALS PFS REFERRAL NEEDED?NO CLERGY REFERRAL NEEDED?NO PUBLIC HEALTH REFERRAL NEEDED?NO WAS THE PROVIDER NOTIFIED OF ANY PERTINENT INFO?NO HAS THE PATIENT BEEN EDUCATED REGARDING HIS/HER PLAN OF CARE?YES HAS THE PATIENT BEEN EDUCATED REGARDING PAIN, THE RISK FOR PAIN, THE IMPORTANCE OF EFFECTIVE PAIN MANAGEMENT, AND THE PAIN ASSESSMENT PROCESS?YES PATIENT: ____, DENIES ABUSE OR MISUSE OF ANY MEDICATION, DENIES USE OF ANY ILLEGAL SUBSTANCE INCLUDING MARIJUANA OR COCAINE, REPORTS BEING EMOTIONALLY STABLE, REPORTS HAVING A SAFE AND ADEQUATE PLACE TO STORE THE MEDICATIONS, DENIES RECREATIONAL DRUG USE, . ADVANCE DIRECTIVES HEALTH CARE PROXY?NO POWER OF NARCOTICS AND VICE DETECTIVE?NO REVIEW OF SYSTEMS REVIEWED BY: PROVIDER: FORD STEIN . CONSTITUTIONAL: ANY CHANGE IN YOUR MEDICAL CONDITION? NO . CHILLS NO . FEVER NO . INFECTION: DO YOU HAVE NEW INFECTIONS? NO . DO YOU HAVE HISTORY OF MRSA? NO . MUSCULOSKELETAL: ANY NEW PATTERNS OF PAIN OR NUMBNESS? NO . GASTROENTEROLOGY: ANY NEW CHANGE IN BOWEL CONTROL? NO . GENITOURINARY: ANY NEW CHANGE IN BLADDER CONTROL? NO . IS THERE A CHANCE YOU COULD BE ? NO . HEMATOLOGY/LYMPH: DO YOU TAKE ANY BLOOD THINNERS? (FOR EXAMPLE- COUMADIN, PLAVIX, AGGRENOX, PLATEL, PRADAXA, OR XARELTO) NO . WHEN WAS YOUR LAST DOSE? DATE: TIME: . NEUROLOGY: HAVE YOU FALLEN IN THE PAST 6 MONTHS? NO . ANY NEW EXTREMITY NUMBNESS OR WEAKNESS? NO . CARDIOLOGY: DO YOU HAVE A PACEMAKER OR DEFIBRILLATOR? NO . RESPIRATORY: HAVE YOU BEEN SICK IN THE PAST WEEK? NO . FEVER NO . FLU LIKE SYMPTOMS? NO . COUGH NO . INTEGUMENTARY: DO YOU HAVE ANY RASHES OR OPEN SORES? NO . ALLERGIC/IMMUNO: ARE YOU ALLERGIC TO SHELLFISH OR IV DYE? NO . ANY NEW ALLERGIES? NO . PSYCHIATRIC: DO YOU HAVE THOUGHTS OF HURTING YOURSELF OR SOMEONE ELSE? NO . ARE YOU ABUSED, NEGLECTED, OR IN AN UNSAFE ENVIRONMENT? NO . ENDOCRINOLOGY: ARE YOU DIABETIC? YES . OTHER: DO YOU NEED ANY PRESCRIPTIONS? YES, TIZANIDINE . IF YES, PLEASE LIST: ____ . ANY NEW PROBLEMS WITH YOUR MEDICATIONS? YES, &QUOT;CYMBALTA MAKING ME DEPRESSED AND WANT TO SLEEP ALL THE TIME&QUOT; . WHEN DID YOU LAST EAT? ____ . WHEN DID YOU LAST DRINK? ____ . WHAT DID YOU LAST DRINK? ____ . NAME OF PERSON DRIVING YOU HOME? ____ . DO YOU HAVE ANY OTHER QUESTIONS OR CONCERNS NO . VITAL SIGNS WT 212.0 LBS, HT 59 IN, BMI 42.81 INDEX, BP 147/85 MM HG, HR 113 /MIN, RR 18 /MIN, TEMP 96.4 F, OXYGEN SAT % 97%, REVIEWED BY: MOR (DONE AT 0900). EXAMINATION GENERAL EXAMINATION: PSYCHALERT , ORIENTED X 3 , APPROPRIATE MOOD AND AFFECT . LUNGS:CLEAR TO AUSCULTATION BILATERALLY. HEART:HEART RATE REGULAR. MUSCULOSKELETAL:POINT TENDERNESS OVER LUMBAR SPINOUS PROCESSES. 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 DAY. PREVENTIVE MEDICINE PAIN CLINIC TEACHING: MEDICATIONS NORTRIPTYLINE TEACHING DONE. PROCEDURE CODES G8730 PAIN ASSESS POS TOOL F/U PLAN DOC G8427 DOC MEDS VERIFIED W/PT OR RE DISPOSITION & COMMUNICATION FOLLOW UP 6 WEEKS (REASON: BACK PAIN) ELECTRONICALLY SIGNED BY FRANKIE HOWARD ON 01/16/2017 AT 08:33 AM EDT DISCLAIMER : THIS IS A VISIT SUMMARY EXTRACTED FROM THE [employer] CHART. IT IS NOT A COPY OF THE [employer] PROGRESS NOTE. MAC
== END ==
LOC: M PAIN 09:20
PROVIDERS: ATTEND Nurse Practitioner Family
DX: M48.9 Spondylopathy, unspecified (principal); M51.36 Other intervertebral disc degeneration, lumbar region; Z79.82 Long term (current) use of aspirin; Z79.84 Long term (current) use of oral hypoglycemic drugs; Z79.891 Long term (current) use of opiate analgesic; Z79.899 Other long term (current) drug therapy; Z88.6 Allergy status to analgesic agent; Z88.5 Allergy status to narcotic agent; Z88.8 Allergy status to other drugs, medicaments and biological substances

== ENCOUNTER → 2017-01-30 | Outpatient (CLI) | payer MEDICARE, MEDICAID ==
--- NOTE | 2017-02-15 00:47 | ECWPNPC ---
PATIENT NAME: MONIKA ADRIAN : 1965 GENDER: FEMALE VISIT DATE: 01/30/2017 DISCHARGE DATE: 01/30/17 0902 VISIT LOCKED DATE TIME: PHYSICIAN: FORD AKERS RESOURCE: FORD AKERS REASON FOR APPOINTMENT 1. BACK PAIN HISTORY OF PRESENT ILLNESS HISTORY OF PRESENT ILLNESS: PAIN THE PATIENT DESCRIBES THE PAIN... FALL RISK SCREENING: SCREENING :NO FALLS IN THE PAST YEAR TODAY'S VISIT: NOTES: RATES THE PAIN LEVEL TODAY 8/10. DESCRIBES THE PAIN CONSTANT ACHING, BURNING, SHARP, STABBING AND SHOOTING. PAIN IS CENTERED ACROSS THE LOW BACK AND OVER THE FEET. NOTES IT IS STILL HARD TO DO HOUSEHOLD ACTIVITIES. REPORTS IS SLEEPING WELL WITH MEDS. . CURRENT MEDICATIONS TAKING CLARITIN 10 MG TABLET 1 TABLET ORALLY ONCE A DAY TAKING ZOSTAVAX 54890 UNT/0.65ML SOLUTION RECONSTITUTED DIRECTED SUBCUTANEOUS _ TAKING FREESTYLE TEST 1 STRIP 1 EACH - TWICE A DAY DX:E11.9 TAKING HYDROXYZINE HCL 25MG ([facility]) TABLET 1 TABLET ORALLY 3 TIMES A DAY TAKING VITAMIN D 1000 UNIT TABLET 1 TABLET ORALLY ONCE A DAY TAKING JANUVIA 100 MG TABLET 1 TABLET ORALLY ONCE A DAY TAKING NORTRIPTYLINE HCL 25 MG CAPSULE 2 CAPSULE ORALLY BID TAKING SIMVASTATIN 10 MG TABLET TAKE 1 TABLET BY MOUTH EVERY EVENING TAKING LORATADINE 10 MG TABLET TAKE 1 TABLET BY MOUTH ONCE DAILY TAKING METFORMIN HCL 1000 MG TABLET 1 TABLET WITH MEALS ORALLY TWICE A DAY TAKING TIZANIDINE HCL 2 MG TABLET 1 TABLET NEEDED ORALLY THREE TIMES A DAY TAKING TRAMADOL HCL 50 MG TABLET 2 TABS ORALLY EVERY 8 HRS NEEDED/ MDD # 6 TAKING ASPIRIN 81 MG TABLET DELAYED RELEASE TAKE ONE TABLET BY MOUTH ONCE A DAY ORALLY DAILY NOT-TAKING TRAZODONE 100 100MG TABLET 1 TABLET ORAL DAILY AT BEDTIME NOT-TAKING VITAMIN C 2000 MG TABLET 1 TABLET ORALLY ONCE A DAY NOT-TAKING CPAP MACHINE 7 CM PRESSURE VIA MASK EVERY NIGHT. NOT-TAKING ASPIR-81 81 MG TABLET DELAYED RELEASE 1 TABLET ORALLY ONCE A DAY MEDICATION LIST REVIEWED AND RECONCILED WITH THE PATIENT PAST MEDICAL HISTORY DM-2 HYPERLIPIDEMIA, ASCVD 10-YEAR RISK WAS 1.1% IN 04/2014 ON SIMVASTATIN 10MG OA ALLERGIC RHINITIS ANX/DEPRESSION- [facility] DIVERITICULITIS (S/P COLOSTOMY/REVERSAL) DEPRESSION/ANXIETY- ([facility]) PERIPHERAL NEUROPATHY EMG/NCS LES 05/15 NCN- MOD AXONAL PN, POSS S1 RADICULOPATHY SLEEP APNEA DM EYE EXAM: 12/2014 ALLERGIES NAPROXEN: RECTAL BLEEDING: SIDE EFFECTS AMARYL: CHEST PAIN: SIDE EFFECTS SOMA: CHEST PAIN: SIDE EFFECTS MORPHINE SULFATE: HALLUCINATIONS: SIDE EFFECTS CYMBALTA: INCREASED DEPRESSION: SIDE EFFECTS SURGICAL HISTORY COLOSTOMY 2008 COLOSTOMY REVERSAL 2009 C SECTION 1985 PT UNSURE WHICH OVARY REMOVED (CYST) 1987 INCISIONAL HERNIA REPAIR 2010 HOSPITALIZATION/MAJOR DIAGNOSTIC PROCEDURE ABOVE SURGERIES 2008,2009,1985 REVIEW OF SYSTEMS REVIEWED BY: PROVIDER: FORD STEIN . CONSTITUTIONAL: ANY CHANGE IN YOUR MEDICAL CONDITION? NO . CHILLS NO . FEVER NO . INFECTION: DO YOU HAVE NEW INFECTIONS? NO . DO YOU HAVE HISTORY OF MRSA? NO . MUSCULOSKELETAL: ANY NEW PATTERNS OF PAIN OR NUMBNESS? NO . GASTROENTEROLOGY: ANY NEW CHANGE IN BOWEL CONTROL? NO . GENITOURINARY: ANY NEW CHANGE IN BLADDER CONTROL? NO . IS THERE A CHANCE YOU COULD BE ? NO . HEMATOLOGY/LYMPH: DO YOU TAKE ANY BLOOD THINNERS? (FOR EXAMPLE- COUMADIN, PLAVIX, AGGRENOX, PLATEL, PRADAXA, OR XARELTO) NO . WHEN WAS YOUR LAST DOSE? DATE: TIME: . NEUROLOGY: HAVE YOU FALLEN IN THE PAST 6 MONTHS? NO . ANY NEW EXTREMITY NUMBNESS OR WEAKNESS? NO . CARDIOLOGY: DO YOU HAVE A PACEMAKER OR DEFIBRILLATOR? NO . RESPIRATORY: HAVE YOU BEEN SICK IN THE PAST WEEK? NO . FEVER NO . FLU LIKE SYMPTOMS? NO . COUGH NO . INTEGUMENTARY: DO YOU HAVE ANY RASHES OR OPEN SORES? NO . ALLERGIC/IMMUNO: ARE YOU ALLERGIC TO SHELLFISH OR IV DYE? NO . ANY NEW ALLERGIES? NO . PSYCHIATRIC: DO YOU HAVE THOUGHTS OF HURTING YOURSELF OR SOMEONE ELSE? NO . ARE YOU ABUSED, NEGLECTED, OR IN AN UNSAFE ENVIRONMENT? NO . ENDOCRINOLOGY: ARE YOU DIABETIC? YES - BLOOD SUGARS STABLE . OTHER: DO YOU NEED ANY PRESCRIPTIONS? YES, TIZANIDINE . IF YES, PLEASE LIST: ____ . ANY NEW PROBLEMS WITH YOUR MEDICATIONS? NO . WHEN DID YOU LAST EAT? ____ . WHEN DID YOU LAST DRINK? ____ . WHAT DID YOU LAST DRINK? ____ . NAME OF PERSON DRIVING YOU HOME? ____ . DO YOU HAVE ANY OTHER QUESTIONS OR CONCERNS NO . VITAL SIGNS WT 217 LBS, HT 59 IN, BMI 43.82 INDEX, BP 138/98 MM HG, HR 107 /MIN, RR 16 /MIN, TEMP 97.6 F, OXYGEN SAT % 95, REVIEWED BY: THONG. EXAMINATION GENERAL EXAMINATION: PSYCHALERT , ORIENTED X 3 , APPROPRIATE MOOD AND AFFECT . LUNGS:CLEAR TO AUSCULTATION BILATERALLY. HEART:HEART RATE REGULAR. MUSCULOSKELETAL:POINT TENDERNESS OVER LUMBAR SPINOUS PROCESSES AND ACROSS LUMBOSACRAL AXIS. , TRIGGER POINTS AND TIGHT FIBROUS BANDS IDENTIFIED ACROSS SACRUM. SLOW TO RISE TO STANDING POSITION. POSTURE UPRIGHT. GAIT NONANTALGIC. 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 PROCEDURE CODES FA211 ESTABILISHED PATIENT [facility] CHARGE G8730 PAIN ASSESS POS TOOL F/U PLAN DOC G8427 DOC MEDS VERIFIED W/PT OR RE DISPOSITION & COMMUNICATION FOLLOW UP 4 MONTH (REASON: BACK PAIN) ELECTRONICALLY SIGNED BY FRANKIE HOWARD ON 02/14/2017 AT 08:42 AM EDT DISCLAIMER : THIS IS A VISIT SUMMARY EXTRACTED FROM THE [employer] CHART. IT IS NOT A COPY OF THE [employer] PROGRESS NOTE. MAC
== END | disposition home or self-care (01) ==
LOC: M PAIN 08:40
PROVIDERS: ATTEND Nurse Practitioner Family
DX: G89.29 Other chronic pain (principal); M48.9 Spondylopathy, unspecified; M51.36 Other intervertebral disc degeneration, lumbar region; E11.9 Type 2 diabetes mellitus without complications; E78.5 Hyperlipidemia, unspecified; M19.90 Unspecified osteoarthritis, unspecified site; J30.9 Allergic rhinitis, unspecified; F41.9 Anxiety disorder, unspecified; F33.9 Major depressive disorder, recurrent, unspecified; Z87.19 Personal history of other diseases of the digestive system; G62.9 Polyneuropathy, unspecified; G47.30 Sleep apnea, unspecified; Z79.899 Other long term (current) drug therapy; Z79.84 Long term (current) use of oral hypoglycemic drugs; Z79.82 Long term (current) use of aspirin; Z88.2 Allergy status to sulfonamides; Z88.5 Allergy status to narcotic agent; Z88.8 Allergy status to other drugs, medicaments and biological substances

== ENCOUNTER → 2017-03-06 | Outpatient (REF) | payer MEDICARE, MEDICAID ==
[2017-03-06 12:51] LABS: ALBUMIN 3.5 GM/DL (3.2-5.2); ALBUMIN/GLOBULIN RATIO 0.95 (1.00-1.93); ALKALINE PHOSPHATASE 86 U/L (45-117); ALT/SGPT 52 U/L (12-78); ANION GAP 5 MEQ/L (8-16); AST/SGOT 43 U/L (15-37); BILIRUBIN,TOTAL 0.3 MG/DL (0.2-1.0); BLOOD UREA NITROGEN 9 MG/DL (7-18); CARBON DIOXIDE LEVEL 31 MEQ/L (21-32); CHLORIDE LEVEL 102 MEQ/L (98-107); CREATININE FOR GFR 0.86 MG/DL (0.55-1.02); GLOMERULAR FILTRATION RATE > 60.0 (>51); GLUCOSE, FASTING 146 MG/DL (70-105); POTASSIUM SERUM 4.7 MEQ/L (3.5-5.1); SODIUM LEVEL 138 MEQ/L (136-145); TOTAL PROTEIN 7.2 GM/DL (6.4-8.2)
== END ==
LOC: M SFHCPLAZ 08:38
PROVIDERS: ATTEND Nurse Practitioner Family
DX: E11.40 Type 2 diabetes mellitus with diabetic neuropathy, unspecified (principal)

== ENCOUNTER → 2017-03-13 | Outpatient (REF) | payer MEDICARE, MEDICAID | LOC: M SFHCPLAZ 10:00 | PROVIDERS: ATTEND Nurse Practitioner Family | DX: Z00.00 Encounter for general adult medical examination without abnormal findings (principal); E78.5 Hyperlipidemia, unspecified; E11.40 Type 2 diabetes mellitus with diabetic neuropathy, unspecified; Z53.8 Procedure and treatment not carried out for other reasons ==

== ENCOUNTER → 2017-04-15 | Outpatient (REF) | payer MEDICARE, MEDICAID ==
[2017-04-15 12:26] LABS: BASO # 0.1 10^3/uL (0.0-0.2); BASO % 0.9 % (0.0-1.0); EOS # 0.3 10^3/uL (0.0-0.50); EOS % 4.2 % (0.0-3.0); IMMATURE GRANULOCYTE % 1.2 % (0-0); LYMPH # 1.7 10^3/uL (1.5-4.5); MEAN CORPUSCULAR HEMOGLOBIN 29.7 pg (27.0-33.0); MEAN CORPUSCULAR HGB CONC 32.3 g/dl (32.0-36.5); MEAN CORPUSCULAR VOLUME 92.1 fl (80.0-96.0); MONO # 0.5 10^3/uL (0.0-0.8); MONO % 7.8 % (0.0-5.0); NEUTROPHILS # 4.3 10^3/uL (1.8-7.7); NEUTROPHILS % 61.9 % (36.0-66.0); PLATELET COUNT, AUTOMATED 205 10^3/uL (150-450)
[2017-04-15 12:37] LABS: ALBUMIN 3.5 GM/DL (3.2-5.2); ALBUMIN/GLOBULIN RATIO 0.95 (1.00-1.93); ALKALINE PHOSPHATASE 85 U/L (45-117); ALT/SGPT 56 U/L (12-78); ANION GAP 6 MEQ/L (8-16); AST/SGOT 54 U/L (7-37); BILIRUBIN,TOTAL 0.3 MG/DL (0.2-1.0); BLOOD UREA NITROGEN 12 MG/DL (7-18); CARBON DIOXIDE LEVEL 30 MEQ/L (21-32); CHLORIDE LEVEL 104 MEQ/L (98-107); CHOLESTEROL LEVEL 177 MG/DL (<200); CREATININE FOR GFR 0.96 MG/DL (0.55-1.02); GLOMERULAR FILTRATION RATE > 60.0 (>51); GLUCOSE, FASTING 123 MG/DL (70-105); SODIUM LEVEL 140 MEQ/L (136-145); TOTAL PROTEIN 7.2 GM/DL (6.4-8.2); TRIGLYCERIDES LEVEL 177 MG/DL (<150)
[2017-04-15 12:51] LABS: POTASSIUM SERUM 5.2 MEQ/L (3.5-5.1)
== END ==
LOC: M SFHCPLAZ 08:29
PROVIDERS: ATTEND Nurse Practitioner Family
DX: Z00.00 Encounter for general adult medical examination without abnormal findings (principal); E78.5 Hyperlipidemia, unspecified; E11.40 Type 2 diabetes mellitus with diabetic neuropathy, unspecified

== ENCOUNTER → 2017-05-02 | Outpatient (CLI) | payer MEDICARE, MEDICAID ==
--- NOTE | 2017-05-30 01:42 | ECWPNPC ---
PATIENT NAME: MONIKA ADRIAN : 1965 GENDER: FEMALE VISIT DATE: 05/02/2017 DISCHARGE DATE: 05/02/17 1553 VISIT LOCKED DATE TIME: PHYSICIAN: FORD AKERS RESOURCE: FORD AKERS REASON FOR APPOINTMENT 1. NAVID. ADD ON HISTORY OF PRESENT ILLNESS HISTORY OF PRESENT ILLNESS: PAIN THE PATIENT DESCRIBES THE PAIN... FALL RISK SCREENING: SCREENING :NO FALLS IN THE PAST YEAR TODAY'S VISIT: NOTES: RATES PAIN 6/10 IN HANDS AND FEET AND 8/10 IN BACK. IS HAVING CONSTANT PAIN. IS HAVING SIGNIFICANT DIFF IF BENDING. DOING DISHES IS VERY PAINFUL. PAIN AWAKENS FROM SLEEP. PAIN IN HANDS IS POGRESSED UP THE FORARM. MEDS ARE HELPING USUALLY IN THE DAY, BUT NOT AT NIGHT. CURRENT MEDICATIONS TAKING FREESTYLE TEST 1 STRIP 1 EACH - TWICE A DAY DX:E11.9 TAKING HYDROXYZINE HCL 25MG ([facility]) TABLET 1 TABLET ORALLY 3 TIMES A DAY TAKING VITAMIN D 1000 UNIT TABLET 1 TABLET ORALLY ONCE A DAY TAKING TIZANIDINE HCL 2 MG TABLET 1 TABLET NEEDED ORALLY THREE TIMES A DAY TAKING TRAZODONE 100 100MG TABLET 1 TABLET ORALLY DAILY AT BEDTIME TAKING CPAP MACHINE 7 CM PRESSURE VIA MASK EVERY NIGHT. TAKING ASPIRIN 81 MG TABLET DELAYED RELEASE TAKE ONE TABLET BY MOUTH ONCE A DAY ORALLY DAILY TAKING NORTRIPTYLINE HCL 25 MG CAPSULE 2 CAPSULE ORALLY TWICE DAILY TAKING JANUVIA 100 MG TABLET 1 TABLET ORALLY ONCE A DAY TAKING METFORMIN HCL 1000 MG TABLET 1 TABLET WITH MEALS ORALLY TWICE A DAY TAKING GLIPIZIDE 5 MG TABLET 1/2 TABLET ORALLY ONCE A DAY TAKING SIMVASTATIN 10 MG TABLET TAKE 1 TABLET BY MOUTH EVERY EVENING ORALLY ONCE A DAY TAKING LORATADINE 10 MG TABLET TAKE 1 TABLET BY MOUTH ONCE DAILY TAKING TRAMADOL HCL 50 MG TABLET 2 TABS ORALLY EVERY 8 HRS NEEDED/ MDD # 6 DISCONTINUED MONISTAT 3 4 % CREAM 1 APPLICATION AT BEDTIME VAGINAL ONCE A DAY DISCONTINUED ASPIR-81 81 MG TABLET DELAYED RELEASE 1 TABLET ORALLY ONCE A DAY DISCONTINUED DIFLUCAN 150 MG TABLET 1 TABLET ORALLY ONCE A DAY MEDICATION LIST REVIEWED AND RECONCILED WITH THE PATIENT PAST MEDICAL HISTORY DM-2 HYPERLIPIDEMIA, ASCVD 10-YEAR RISK WAS 1.1% IN 04/2014 ON SIMVASTATIN 10MG OA ALLERGIC RHINITIS ANX/DEPRESSION- [facility] DIVERITICULITIS (S/P COLOSTOMY/REVERSAL) DEPRESSION/ANXIETY- ([facility] PERIPHERAL NEUROPATHY EMG/NCS LES 05/15 NCN- MOD AXONAL PN, POSS S1 RADICULOPATHY SLEEP APNEA DM EYE EXAM: 12/2014 ALLERGIES NAPROXEN: RECTAL BLEEDING: SIDE EFFECTS AMARYL: CHEST PAIN: SIDE EFFECTS SOMA: CHEST PAIN: SIDE EFFECTS MORPHINE SULFATE: HALLUCINATIONS: SIDE EFFECTS CYMBALTA: INCREASED DEPRESSION: SIDE EFFECTS SOCIAL HISTORY GENERAL: TOBACCO USE ARE YOU A:CURRENT SMOKER ARE YOU INTERESTED IN QUITTING?READY TO QUIT PREVIOUS QUIT ATTEMPTS?YES, MORE THAN 6 MONTHS AGO. COUNSELED THE PATIENT ON TOBACCO USE, CESSATION [id number]/30/2017 NO INFO WANTED ON HOW TO QUIT SMOKING DID REMIND PATIENT THAT SMOKING CAN INCREASE SYMPTOMS OF HER NEURALGIA HOW MANY CIGARETTES A DAY DO YOU SMOKE?5 OR LESS HOW SOON AFTER YOU WAKE UP DO YOU SMOKE YOUR FIRST CIGARETTE?6-30 MIN HOW OFTEN DO YOU SMOKE CIGARETTES?EVERY DAY PATIENT COUNSELED ON THE DANGERS OF TOBACCO USE AND URGED TO QUIT:03/31/2017 SMOKING CESSATION INFORMATION GIVEN03/13/2017 BMI CARE GOAL FOLLOW-UP ABOVE NORMAL BMI FOLLOW-UPDIETARY MANAGEMENT EDUCATION, GUIDANCE, AND COUNSELING ALCOHOL SCREENING DID YOU HAVE A DRINK CONTAINING ALCOHOL IN THE PAST YEAR?NO POINTS0 INTERPRETATIONNEGATIVE RECREATIONAL DRUG USE DRUG USE? NO. CAFFEINE CAFFEINE USE? NO . SEXUAL HX HAD SEX IN THE LAST 12 MONTHS (VAGINAL, ORAL, OR ANAL)?YES WITHMEN ONLY USE PROTECTION?NO PREVENTION STRATEGIES DISCUSSED:OTHER HAVE YOU EVER HAD AN STD?NO LMP:13 MONTHS AGO HIV / HEP-C SCREENING HIV TEST OFFERED TO PATIENT:YES DATE OFFERED:09/12/2016 TEST ACCEPTED:NO REASON:PATIENT DECLINED HEP-C TEST OFFERED TO PATIENT:YES DATE OFFERED:09/12/2016 TEST ACCEPTED:YES OCCUPATION: DISABLED / SSI. DIET: NO CONCENTRATED SWEETS.. EXERCISE: NO REGULAR EXERCISE. MARITAL STATUS: SINGLE,. OTHERS AT HOME: CHILD. PETS: 2 CATS. MU-ISM HINDU. LANGUAGE BENGALI. EDUCATION LEVEL OF EDUCATION:NOT FINISHED COLLEGE LEARNING BARRIERS / SPECIAL NEEDS CHANGE FROM LAST VISIT?NO BARRIERS TO LEARNING?NO HEARING IMPAIRED?NO VISION IMPAIRED?YES :CORRECTIVE LENSES COGNITIVELY IMPAIRED?NO READINESS TO LEARN?YES LEARNING PREFERENCES?NO LEARNING CAPABILITIES PRESENT?YES EMOTIONAL BARRIERS?NO SPECIAL DEVICES?NO PROGRAMS MANAGER NEEDED?NO PSYCHOLOGICAL HX TREATMENTNO PAIN CLINIC PFS, CLERGY, PUBLIC HEALTH REFERRALS PFS REFERRAL NEEDED?NO CLERGY REFERRAL NEEDED?NO PUBLIC HEALTH REFERRAL NEEDED?NO WAS THE PROVIDER NOTIFIED OF ANY PERTINENT INFO?NO HAS THE PATIENT BEEN EDUCATED REGARDING HIS/HER PLAN OF CARE?YES HAS THE PATIENT BEEN EDUCATED REGARDING PAIN, THE RISK FOR PAIN, THE IMPORTANCE OF EFFECTIVE PAIN MANAGEMENT, AND THE PAIN ASSESSMENT PROCESS?YES PATIENT: ____, DENIES ABUSE OR MISUSE OF ANY MEDICATION, DENIES USE OF ANY ILLEGAL SUBSTANCE INCLUDING MARIJUANA OR COCAINE, REPORTS BEING EMOTIONALLY STABLE, REPORTS HAVING A SAFE AND ADEQUATE PLACE TO STORE THE MEDICATIONS, DENIES RECREATIONAL DRUG USE, . ADVANCE DIRECTIVES HEALTH CARE PROXY?NO POWER OF CLOTH ROLL WINDER?NO TRAVEL OUTSIDE US: NO. DOMESTIC VIOLENCE DO YOU FEEL SAFE IN YOUR ENVIRONMENT?YES REVIEW OF SYSTEMS REVIEWED BY: PROVIDER: . CONSTITUTIONAL: ANY CHANGE IN YOUR MEDICAL CONDITION? NO . CHILLS NO . FEVER NO . INFECTION: DO YOU HAVE NEW INFECTIONS? NO . DO YOU HAVE HISTORY OF MRSA? NO . MUSCULOSKELETAL: ANY NEW PATTERNS OF PAIN OR NUMBNESS? YES, PAIN IN RIGHT HAND IS GETTING WORSE, GOING FARTHER UP ONTO HAND INTO WRIST.NUMBNESS IN FEET IS GETTING WORSE. DIFFICULT TO SLEEP. . GASTROENTEROLOGY: ANY NEW CHANGE IN BOWEL CONTROL? NO . GENITOURINARY: ANY NEW CHANGE IN BLADDER CONTROL? NO . IS THERE A CHANCE YOU COULD BE ? NO . HEMATOLOGY/LYMPH: DO YOU TAKE ANY BLOOD THINNERS? (FOR EXAMPLE- COUMADIN, PLAVIX, AGGRENOX, PLATEL, PRADAXA, OR XARELTO) NO . WHEN WAS YOUR LAST DOSE? DATE: TIME: . NEUROLOGY: HAVE YOU FALLEN IN THE PAST 6 MONTHS? NO . ANY NEW EXTREMITY NUMBNESS OR WEAKNESS? NO . CARDIOLOGY: DO YOU HAVE A PACEMAKER OR DEFIBRILLATOR? NO . RESPIRATORY: HAVE YOU BEEN SICK IN THE PAST WEEK? NO . FEVER NO . FLU LIKE SYMPTOMS? NO . COUGH NO . INTEGUMENTARY: DO YOU HAVE ANY RASHES OR OPEN SORES? NO . ALLERGIC/IMMUNO: ARE YOU ALLERGIC TO SHELLFISH OR IV DYE? NO . ANY NEW ALLERGIES? NO . PSYCHIATRIC: DO YOU HAVE THOUGHTS OF HURTING YOURSELF OR SOMEONE ELSE? NO . ARE YOU ABUSED, NEGLECTED, OR IN AN UNSAFE ENVIRONMENT? NO . ENDOCRINOLOGY: ARE YOU DIABETIC? YES - NEW MEDS ARE HELPING . OTHER: DO YOU NEED ANY PRESCRIPTIONS? YES . IF YES, PLEASE LIST: SOMETHING NEW FOR PAIN. . ANY NEW PROBLEMS WITH YOUR MEDICATIONS? YES, MEDS ARE NO LONGER WORKING. . WHEN DID YOU LAST EAT? ____ . WHEN DID YOU LAST DRINK? ____ . WHAT DID YOU LAST DRINK? ____ . NAME OF PERSON DRIVING YOU HOME? ____ . DO YOU HAVE ANY OTHER QUESTIONS OR CONCERNS NO . VITAL SIGNS WT 214 LBS, HT 59 IN, BMI 43.22 INDEX, BP 160/78 MM HG, HR 105 /MIN, RR 18 /MIN, TEMP 98.4 F, OXYGEN SAT % 97%, NA INITIALS CM 1500. EXAMINATION GENERAL EXAMINATION: PSYCHALERT , ORIENTED X 3 , APPROPRIATE MOOD AND AFFECT . LUNGS:CLEAR TO AUSCULTATION BILATERALLY. HEART:HEART RATE REGULAR, RAPID. MUSCULOSKELETAL:POINT TENDERNESS OVER LUMBAR SPINOUS PROCESSES AND ACROSS LUMBOSACRAL AXIS. , TRIGGER POINTS AND TIGHT FIBROUS BANDS IDENTIFIED ACROSS SACRUM. SLOW TO RISE TO STANDING POSITION. POSTURE UPRIGHT. GAIT NONANTALGIC. 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 CLINICAL NOTES: ISTOP REGISTRY REVIEWED AND DEMNOSTRATES COMPLLIANCE.( REF # [id number]). PROCEDURE CODES FA211 ESTABILISHED PATIENT [facility] FACILITY CHARGE G8730 PAIN ASSESS POS TOOL F/U PLAN DOC G8427 DOC MEDS VERIFIED W/PT OR RE DISPOSITION & COMMUNICATION ELECTRONICALLY SIGNED BY FRANKIE HOWARD ON 05/29/2017 AT 08:47 AM EST DISCLAIMER : THIS IS A VISIT SUMMARY EXTRACTED FROM THE [employer] CHART. IT IS NOT A COPY OF THE [employer] PROGRESS NOTE. MAC
== END ==
LOC: M PAIN 15:15
PROVIDERS: ATTEND Nurse Practitioner Family
DX: E11.42 Type 2 diabetes mellitus with diabetic polyneuropathy (principal); M48.9 Spondylopathy, unspecified; E78.5 Hyperlipidemia, unspecified; F17.210 Nicotine dependence, cigarettes, uncomplicated; Z79.82 Long term (current) use of aspirin; Z79.84 Long term (current) use of oral hypoglycemic drugs; Z79.899 Other long term (current) drug therapy; Z79.891 Long term (current) use of opiate analgesic; Z88.8 Allergy status to other drugs, medicaments and biological substances; Z88.5 Allergy status to narcotic agent

== ENCOUNTER → 2017-06-18 | Outpatient (CLI) | payer MEDICARE, MEDICAID | LOC: M PAIN 11:15 | DX: M48.9 Spondylopathy, unspecified (principal); E11.42 Type 2 diabetes mellitus with diabetic polyneuropathy; E78.5 Hyperlipidemia, unspecified; F41.8 Other specified anxiety disorders; F17.210 Nicotine dependence, cigarettes, uncomplicated; Z79.84 Long term (current) use of oral hypoglycemic drugs; Z79.82 Long term (current) use of aspirin; Z79.899 Other long term (current) drug therapy; Z88.8 Allergy status to other drugs, medicaments and biological substances | CPT/HCPCS: G0463 ==

== ENCOUNTER → 2017-07-17 | Outpatient (REF) | payer MEDICARE, MEDICAID ==
[2017-07-17 12:48] LABS: ESTIMATED AVERAGE GLUCOSE 154 MG/DL (60-110)
[2017-07-17 12:59] LABS: ALBUMIN 3.5 GM/DL (3.2-5.2); ALBUMIN/GLOBULIN RATIO 0.88 (1.00-1.93); ALKALINE PHOSPHATASE 87 U/L (45-117); ALT/SGPT 60 U/L (12-78); ANION GAP 9 MEQ/L (8-16); AST/SGOT 53 U/L (7-37); BILIRUBIN,TOTAL 0.2 MG/DL (0.2-1.0); BLOOD UREA NITROGEN 6 MG/DL (7-18); CALCIUM LEVEL 8.8 MG/DL (8.5-10.1); CARBON DIOXIDE LEVEL 30 MEQ/L (21-32); CHLORIDE LEVEL 102 MEQ/L (98-107); CREATININE FOR GFR 0.82 MG/DL (0.55-1.30); GLOMERULAR FILTRATION RATE > 60.0 (>51); GLUCOSE, FASTING 151 MG/DL (70-100); POTASSIUM SERUM 4.9 MEQ/L (3.5-5.1); SODIUM LEVEL 141 MEQ/L (136-145); TOTAL PROTEIN 7.5 GM/DL (6.4-8.2)
== END ==
LOC: M SFHCPLAZ 10:27
DX: E11.40 Type 2 diabetes mellitus with diabetic neuropathy, unspecified (principal)
CPT/HCPCS: 80053

== ENCOUNTER → 2017-07-18 | Outpatient (CLI) | payer MEDICARE, MEDICAID | LOC: M PAIN 10:00 | DX: E11.42 Type 2 diabetes mellitus with diabetic polyneuropathy (principal); M48.9 Spondylopathy, unspecified; M54.5 Low back pain; I10 Essential (primary) hypertension; F17.210 Nicotine dependence, cigarettes, uncomplicated; E78.5 Hyperlipidemia, unspecified; Z79.891 Long term (current) use of opiate analgesic; Z79.899 Other long term (current) drug therapy; Z79.82 Long term (current) use of aspirin; Z79.84 Long term (current) use of oral hypoglycemic drugs; Z88.8 Allergy status to other drugs, medicaments and biological substances | CPT/HCPCS: G0463 ==

== ENCOUNTER → 2017-08-15 | Outpatient (CLI) | payer MEDICARE, MEDICAID | LOC: M PAIN 09:45 | DX: E11.42 Type 2 diabetes mellitus with diabetic polyneuropathy (principal); M48.9 Spondylopathy, unspecified; M54.5 Low back pain; E78.5 Hyperlipidemia, unspecified; E55.9 Vitamin D deficiency, unspecified; F17.210 Nicotine dependence, cigarettes, uncomplicated; Z79.84 Long term (current) use of oral hypoglycemic drugs; Z79.899 Other long term (current) drug therapy; Z79.891 Long term (current) use of opiate analgesic; J30.2 Other seasonal allergic rhinitis; Z88.8 Allergy status to other drugs, medicaments and biological substances | CPT/HCPCS: G0463 ==

== ENCOUNTER → 2017-09-10 | Outpatient (CLI) | payer MEDICARE, MEDICAID | LOC: M PAIN 09:00 | DX: E11.42 Type 2 diabetes mellitus with diabetic polyneuropathy (principal); M48.9 Spondylopathy, unspecified; M54.5 Low back pain; E78.5 Hyperlipidemia, unspecified; F17.210 Nicotine dependence, cigarettes, uncomplicated; I10 Essential (primary) hypertension; G47.30 Sleep apnea, unspecified; Z79.82 Long term (current) use of aspirin; Z79.84 Long term (current) use of oral hypoglycemic drugs; Z79.899 Other long term (current) drug therapy; Z79.891 Long term (current) use of opiate analgesic; Z88.8 Allergy status to other drugs, medicaments and biological substances | CPT/HCPCS: G0463 ==

== ENCOUNTER → 2017-10-11 | Outpatient (CLI) | payer MEDICARE, MEDICAID ==
[2017-10-11 13:18] LABS: ALBUMIN 3.3 GM/DL (3.2-5.2); ALBUMIN/GLOBULIN RATIO 0.79 (1.00-1.93); ALKALINE PHOSPHATASE 95 U/L (45-117); ALT/SGPT 65 U/L (12-78); ANION GAP 7 MEQ/L (8-16); AST/SGOT 52 U/L (7-37); BILIRUBIN,TOTAL 0.3 MG/DL (0.2-1.0); BLOOD UREA NITROGEN 6 MG/DL (7-18); CALCIUM LEVEL 8.7 MG/DL (8.5-10.1); CARBON DIOXIDE LEVEL 30 MEQ/L (21-32); CHLORIDE LEVEL 106 MEQ/L (98-107); CREATININE FOR GFR 0.72 MG/DL (0.55-1.30); GLOMERULAR FILTRATION RATE > 60.0 (>51); GLUCOSE, FASTING 134 MG/DL (70-100); POTASSIUM SERUM 4.7 MEQ/L (3.5-5.1); SODIUM LEVEL 143 MEQ/L (136-145); TOTAL PROTEIN 7.5 GM/DL (6.4-8.2)
[2017-10-11 13:24] LABS: ESTIMATED AVERAGE GLUCOSE 163 MG/DL (60-110); HEMOGLOBIN A1c 7.3 %
[2017-10-13 09:22] LABS: TOTAL 25(OH) VITAMIN D 37.9 NG/ML (30.0-100.0)
== END ==
LOC: M WUC 09:34
DX: I10 Essential (primary) hypertension (principal); E11.40 Type 2 diabetes mellitus with diabetic neuropathy, unspecified; E55.9 Vitamin D deficiency, unspecified
CPT/HCPCS: 80053

== ENCOUNTER → 2017-10-22 | Outpatient (REF) | payer MEDICARE, MEDICAID ==
[2017-10-22 14:22] LABS: ESTIMATED AVERAGE GLUCOSE 160 MG/DL (60-110); HEMOGLOBIN A1c 7.2 %
[2017-10-22 14:49] LABS: ALBUMIN 3.7 GM/DL (3.2-5.2); ALBUMIN/GLOBULIN RATIO 0.86 (1.00-1.93); ALKALINE PHOSPHATASE 111 U/L (45-117); ALT/SGPT 63 U/L (12-78); ANION GAP 7 MEQ/L (8-16); AST/SGOT 63 U/L (7-37); BILIRUBIN,TOTAL 0.3 MG/DL (0.2-1.0); BLOOD UREA NITROGEN 10 MG/DL (7-18); CALCIUM LEVEL 9.2 MG/DL (8.5-10.1); CARBON DIOXIDE LEVEL 30 MEQ/L (21-32); CHLORIDE LEVEL 104 MEQ/L (98-107); CREATININE FOR GFR 0.81 MG/DL (0.55-1.30); GLOMERULAR FILTRATION RATE > 60.0 (>51); GLUCOSE, FASTING 201 MG/DL (70-100); POTASSIUM SERUM 4.6 MEQ/L (3.5-5.1); SODIUM LEVEL 141 MEQ/L (136-145)
[2017-10-24 10:52] LABS: HEPATITIS B SURFACE ANTIGEN NEGATIVE (NEGATIVE)
[2017-10-24 11:05] LABS: HEPATITIS C VIRUS ABY INDEX < 0.0 INDEX (<0.8)
[2017-10-24 11:06] LABS: HEPATITIS B CORE ANTIBODY IGM NEGATIVE (NEGATIVE)
[2017-10-24 11:07] LABS: HEPATITIS A ANTIBODY IGM NEGATIVE (NEGATIVE)
== END ==
LOC: M SFHCPLAZ 10:53
DX: R74.8 Abnormal levels of other serum enzymes (principal); E11.40 Type 2 diabetes mellitus with diabetic neuropathy, unspecified; E78.5 Hyperlipidemia, unspecified

== ENCOUNTER → 2017-10-22 | Outpatient (CLI) | payer MEDICARE, MEDICAID | LOC: M RAD 06:54 | DX: R74.8 Abnormal levels of other serum enzymes (principal); E11.40 Type 2 diabetes mellitus with diabetic neuropathy, unspecified; E78.5 Hyperlipidemia, unspecified | CPT/HCPCS: 76705 ==

== ENCOUNTER → 2017-11-10 | Outpatient (CLI) | payer MEDICARE, MEDICAID | LOC: M PAIN 08:30 | DX: E11.42 Type 2 diabetes mellitus with diabetic polyneuropathy (principal); M48.9 Spondylopathy, unspecified; M54.5 Low back pain; E78.5 Hyperlipidemia, unspecified; M19.90 Unspecified osteoarthritis, unspecified site; J30.9 Allergic rhinitis, unspecified; F41.9 Anxiety disorder, unspecified; F32.9 Major depressive disorder, single episode, unspecified; G47.30 Sleep apnea, unspecified; F17.210 Nicotine dependence, cigarettes, uncomplicated; K76.0 Fatty (change of) liver, not elsewhere classified; Z79.82 Long term (current) use of aspirin; Z79.891 Long term (current) use of opiate analgesic; Z79.899 Other long term (current) drug therapy; Z88.5 Allergy status to narcotic agent; Z88.8 Allergy status to other drugs, medicaments and biological substances | CPT/HCPCS: G0463 ==

== ENCOUNTER → 2017-11-27 | Outpatient (CLI) | payer MEDICARE, MEDICAID | LOC: M SLEEP 19:28 | DX: G47.33 Obstructive sleep apnea (adult) (pediatric) (principal) | CPT/HCPCS: 95811 ==

== ENCOUNTER → 2017-12-26 | Outpatient (CLI) | payer MEDICARE, MEDICAID | LOC: M PAIN 10:45 | DX: E11.42 Type 2 diabetes mellitus with diabetic polyneuropathy (principal); M48.9 Spondylopathy, unspecified; M54.5 Low back pain; E78.5 Hyperlipidemia, unspecified; G47.30 Sleep apnea, unspecified; J30.9 Allergic rhinitis, unspecified; F32.9 Major depressive disorder, single episode, unspecified; F41.9 Anxiety disorder, unspecified; F17.210 Nicotine dependence, cigarettes, uncomplicated; Z79.82 Long term (current) use of aspirin; Z79.84 Long term (current) use of oral hypoglycemic drugs; Z79.891 Long term (current) use of opiate analgesic; Z79.899 Other long term (current) drug therapy; Z88.5 Allergy status to narcotic agent; Z88.8 Allergy status to other drugs, medicaments and biological substances | CPT/HCPCS: G0463 ==

== ENCOUNTER → 2018-01-15 | Outpatient (CLI) | payer MEDICARE, MEDICAID | LOC: M PAIN 08:30 | DX: E11.42 Type 2 diabetes mellitus with diabetic polyneuropathy (principal); M48.9 Spondylopathy, unspecified; M54.5 Low back pain; E78.5 Hyperlipidemia, unspecified; M19.90 Unspecified osteoarthritis, unspecified site; F41.9 Anxiety disorder, unspecified; F32.9 Major depressive disorder, single episode, unspecified; J30.9 Allergic rhinitis, unspecified; G47.30 Sleep apnea, unspecified; Z88.6 Allergy status to analgesic agent; Z88.5 Allergy status to narcotic agent; Z88.8 Allergy status to other drugs, medicaments and biological substances; Z79.82 Long term (current) use of aspirin; Z79.899 Other long term (current) drug therapy; Z79.84 Long term (current) use of oral hypoglycemic drugs | CPT/HCPCS: G0463 ==

== ENCOUNTER → 2018-01-16 | Outpatient (REF) | payer MEDICARE, MEDICAID ==
[2018-01-16 11:20] LABS: ESTIMATED AVERAGE GLUCOSE 131 MG/DL (60-110); HEMOGLOBIN A1c 6.2 %
[2018-01-16 11:29] LABS: ALBUMIN 3.2 GM/DL (3.2-5.2); ALBUMIN/GLOBULIN RATIO 0.76 (1.00-1.93); ALKALINE PHOSPHATASE 82 U/L (45-117); ALT/SGPT 49 U/L (12-78); ANION GAP 6 MEQ/L (8-16); AST/SGOT 40 U/L (7-37); BILIRUBIN,TOTAL 0.3 MG/DL (0.2-1.0); BLOOD UREA NITROGEN 10 MG/DL (7-18); CALCIUM LEVEL 8.7 MG/DL (8.5-10.1); CARBON DIOXIDE LEVEL 29 MEQ/L (21-32); CHLORIDE LEVEL 107 MEQ/L (98-107); CREATININE FOR GFR 0.75 MG/DL (0.55-1.30); GLOMERULAR FILTRATION RATE > 60.0 (>51); GLUCOSE, FASTING 105 MG/DL (70-100); POTASSIUM SERUM 4.6 MEQ/L (3.5-5.1); SODIUM LEVEL 142 MEQ/L (136-145); TOTAL PROTEIN 7.4 GM/DL (6.4-8.2)
== END ==
LOC: M SFHCPLAZ 08:54
DX: E11.40 Type 2 diabetes mellitus with diabetic neuropathy, unspecified (principal)
CPT/HCPCS: 80053

== ENCOUNTER → 2018-03-17 | Outpatient (CLI) | payer MEDICARE, MEDICAID | LOC: M PAIN 08:30 | DX: E11.42 Type 2 diabetes mellitus with diabetic polyneuropathy (principal); M48.9 Spondylopathy, unspecified; M54.5 Low back pain; E78.5 Hyperlipidemia, unspecified; M06.9 Rheumatoid arthritis, unspecified; J30.9 Allergic rhinitis, unspecified; F41.9 Anxiety disorder, unspecified; F32.9 Major depressive disorder, single episode, unspecified; G47.30 Sleep apnea, unspecified; F17.210 Nicotine dependence, cigarettes, uncomplicated; Z79.82 Long term (current) use of aspirin; Z79.84 Long term (current) use of oral hypoglycemic drugs; Z79.891 Long term (current) use of opiate analgesic; Z88.5 Allergy status to narcotic agent; Z88.8 Allergy status to other drugs, medicaments and biological substances | CPT/HCPCS: G0463 ==

== ENCOUNTER → 2018-04-27 | Outpatient (REF) | payer MEDICARE, MEDICAID ==
[2018-04-27 12:48] LABS: ALBUMIN 3.5 GM/DL (3.2-5.2); ALBUMIN/GLOBULIN RATIO 0.88 (1.00-1.93); ALKALINE PHOSPHATASE 92 U/L (45-117); ALT/SGPT 54 U/L (12-78); ANION GAP 6 MEQ/L (8-16); AST/SGOT 37 U/L (7-37); BILIRUBIN,TOTAL 0.3 MG/DL (0.2-1.0); BLOOD UREA NITROGEN 11 MG/DL (7-18); CARBON DIOXIDE LEVEL 29 MEQ/L (21-32); CHLORIDE LEVEL 102 MEQ/L (98-107); CHOLESTEROL LEVEL 137 MG/DL (<200); CHOLESTEROL RISK RATIO 3.186 (<5); CREATININE FOR GFR 0.81 MG/DL (0.55-1.30); GLOMERULAR FILTRATION RATE > 60.0 (>51); GLUCOSE, FASTING 135 MG/DL (70-100); HDL CHOLESTEROL 43 MG/DL (>40); LDL CHOLESTEROL 63 MG/DL (<100); NON-HDL-C 94 MG/DL; POTASSIUM SERUM 4.7 MEQ/L (3.5-5.1); SODIUM LEVEL 137 MEQ/L (136-145); TOTAL PROTEIN 7.5 GM/DL (6.4-8.2); TRIGLYCERIDES LEVEL 156 MG/DL (<150)
[2018-04-27 12:54] LABS: CREATININE, URINE 40.1 MG/DL; MALB URINE SIEMENS < 5.0 MG/L; MAU/CREAT RATIO 12.4 MCG/MG (0.0-30.0)
[2018-04-27 14:20] LABS: ESTIMATED AVERAGE GLUCOSE 157 MG/DL (60-110); HEMOGLOBIN A1c 7.1 %
== END ==
LOC: M SFHCPLAZ 07:44
DX: E11.40 Type 2 diabetes mellitus with diabetic neuropathy, unspecified (principal); E78.5 Hyperlipidemia, unspecified; K76.0 Fatty (change of) liver, not elsewhere classified
CPT/HCPCS: 80053

== ENCOUNTER → 2018-07-29 | Outpatient (REF) | payer MEDICARE, MEDICAID ==
[~2018-07-29] MED LIST changes: +LORA-243 PO; -LORA10TA2 PO; +TRAZ-160 PO; -TRAZ50TA11 PO
[2018-07-29 10:19] LABS: HEMOGLOBIN A1c 7.4 %
[2018-07-29 10:27] LABS: ALBUMIN 3.6 GM/DL (3.2-5.2); ALT/SGPT 55 U/L (12-78); BILIRUBIN,TOTAL 0.3 MG/DL (0.2-1.0); BLOOD UREA NITROGEN 14 MG/DL (7-18); CARBON DIOXIDE LEVEL 27 MEQ/L (21-32); CHLORIDE LEVEL 101 MEQ/L (98-107); CREATININE FOR GFR 0.92 MG/DL (0.55-1.30); GLOMERULAR FILTRATION RATE > 60.0 (>51); GLUCOSE, FASTING 165 MG/DL (70-100); POTASSIUM SERUM 4.8 MEQ/L (3.5-5.1); SODIUM LEVEL 136 MEQ/L (136-145); TOTAL PROTEIN 7.8 GM/DL (6.4-8.2)
== END ==
LOC: M SFHCPLAZ 08:22
PROVIDERS: ATTEND Nurse Practitioner Family
DX: E11.40 Type 2 diabetes mellitus with diabetic neuropathy, unspecified (principal); E78.5 Hyperlipidemia, unspecified; K76.0 Fatty (change of) liver, not elsewhere classified

== ENCOUNTER → 2018-08-24 | Outpatient (CLI) | payer MEDICARE, MEDICAID ==
[~2018-08-24] MED LIST changes: -ASPI1TAB PO; +ASPI81TA26 PO
--- NOTE | 2018-09-09 02:06 | ECWPNPC ---
PATIENT NAME: MONIKA ADRIAN : 1965 GENDER: FEMALE VISIT DATE: 08/24/2018 DISCHARGE DATE: 08/24/18 1450 VISIT LOCKED DATE TIME: PHYSICIAN: MARKO YBARRA RESOURCE: MARKO YBARRA REASON FOR APPOINTMENT 1. NEUROPATHY - MED MAN PT OF SW HISTORY OF PRESENT ILLNESS HISTORY OF PRESENT ILLNESS: HERE FOR F/U OF CHRONIC LOW BACK PAIN AND NEUROPATHY.FEELS HER PAIN HAS ESCALATED LATELY.HER DIABETIC MEDICATIONS HAVE BEEN ADJUSTDED AND SHE IS HAVING POOR DIABETIC CONTROL LATELY.FEELS MEDICATION IS MARGINALLY EFFECTIE.HAS HAD DIFFICULTY LOWERING TRAMADOL IN RECENT PAST.DISCUSSED MEDICATION OPTIONS.RATING PAIN VAS 6/10. PAIN THE PATIENT DESCRIBES THE PAIN... FALL RISK SCREENING: SCREENING :NO FALLS REPORTED IN THE LAST YEAR CURRENT MEDICATIONS TAKING LORATADINE 10 MG TABLET TAKE 1 TABLET BY MOUTH ONCE DAILY TAKING FREESTYLE TEST 1 STRIP 1 EACH - TWICE A DAY DX:E11.9 TAKING CPAP MACHINE 7 CM PRESSURE VIA MASK EVERY NIGHT. TAKING NORTRIPTYLINE HCL 25 MG CAPSULE 1 CAPSULE ORALLY BID - 1 CAP IN AM 2 CAP AT BEDTIME TAKING VITAMIN D 1000 UNIT TABLET 1 TABLET ORALLY ONCE A DAY TAKING PEN NEEDLES 31G X 5 MM MISCELLANEOUS DIRECTED SUB Q E11.9 DAILY TAKING BD PEN NEEDLE MINI U/F 0 UNSPECIFIED USE DIRECTED TAKING TRAMADOL HCL 50 MG TABLET 2 TABS ORALLY Q4-6H PRN MDD6 TAKING CYCLOBENZAPRINE HCL 10 MG TABLET 1-2 TABLET ORALLY THREE TIMES A DAY TAKING OXYCODONE HCL 5 MG TABLET 1 TABLET NEEDED ORALLY EVERY8-12 HRS PRN PAIN MDD=2 TAKING ZOLPIDEM TARTRATE 10 MG TABLET 1 TABLET AT BEDTIME NEEDED ORALLY BEFORE BEDTIME PRN SLEEP MDD=1 TAKING SIMVASTATIN 10 MG TABLET TAKE 1 TABLET BY MOUTH EVERY EVENING ORALLY ONCE A DAY TAKING LISINOPRIL 10 MG TABLET 1 TABLET ORALLY ONCE A DAY TAKING ASPIRIN 81 MG TABLET DELAYED RELEASE TAKE ONE TABLET BY MOUTH ONCE A DAY ORALLY DAILY TAKING METFORMIN HCL 1000 MG TABLET 1 TABLET WITH MEALS ORALLY TWICE A DAY TAKING OZEMPIC 0.25 OR 0.5 MG/DOSE SOLUTION PEN-INJECTOR DIRECTED SUBCUTANEOUS 0.25 MG Q WEEK FOR 4 WEEKS, THEN 0.5 MG Q WEEK TAKING GLUCOMETER DIRECTED DX E11.9 - TAKING BLOOD GLUCOSE TEST - STRIP DIRECTED DX E11.9 CHECK BGS TWICE DAILY TAKING LANCETS - MISCELLANEOUS DIRECTED DX E11.9 CHECK TWICE DAILY NOT-TAKING SIMVASTATIN 10 MG TABLET TAKE 1 TABLET BY MOUTH EVERY EVENING ONCE A DAY ORALLY 30 DAY(S) , NOTES: DUPLICATE NOT-TAKING GLIPIZIDE 10 MG TABLET 1 TABLET ONCE A DAY ORALLY 30 DAY(S) - - NOT-TAKING LISINOPRIL 10 MG TABLET 1 TABLET ONCE A DAY ORALLY 30 DAY(S) - -, NOTES: DUPLICATE NOT-TAKING LANTUS SOLOSTAR 100 UNIT/ML SOLUTION PEN-INJECTOR DIRECTED SUBCUTANEOUS 10 UNITS Q HS NOT-TAKING ASPIR-81 81 MG TABLET DELAYED RELEASE TAKE ONE TABLET BY MOUTH ONCE A DAY DAILY ORALLY 90 DAYS , NOTES: DUPLICATE NOT-TAKING VICTOZA 18 MG/3ML SOLUTION PEN-INJECTOR DIRECTED SUBCUTANEOUS 1.8 MG SC DAILY, NOTES: DUPLICATE MEDICATION LIST REVIEWED AND RECONCILED WITH THE PATIENT PAST MEDICAL HISTORY DM-2 HYPERLIPIDEMIA, ASCVD 10-YEAR RISK WAS 1.1% IN 04/2014 ON SIMVASTATIN 10MG OA ALLERGIC RHINITIS ANX/DEPRESSION- [facility] DIVERITICULITIS (S/P COLOSTOMY/REVERSAL) DEPRESSION/ANXIETY- (SEES LATEX SPOOLER [facility]) PERIPHERAL NEUROPATHY EMG/NCS LES 05/15 NCN- MOD AXONAL PN, POSS S1 RADICULOPATHY SLEEP APNEA DM EYE EXAM: 12/2016 COLONOSCOPY 2016; REPEAT 5 YEARS STRESS TEST: 07/30/16 NORMAL PERFORATOR SCREENINGS: A WOMAN'S PERSPECTIVE. NO ABNORMAL PAPSMEARS ALLERGIES NAPROXEN: RECTAL BLEEDING - SIDE EFFECTS AMARYL: CHEST PAIN - SIDE EFFECTS SOMA: CHEST PAIN - SIDE EFFECTS MORPHINE SULFATE: HALLUCINATIONS - SIDE EFFECTS CYMBALTA: INCREASED DEPRESSION - SIDE EFFECTS DICLOFENAC: CHEST PAIN - SIDE EFFECTS LOSARTAN POTASSIUM: TICKLE IN THROAT - SIDE EFFECTS GABAPENTIN: HEADACHES - SIDE EFFECTS SURGICAL HISTORY COLOSTOMY 2009 COLOSTOMY REVERSAL 2009 C SECTION 1986 PT UNSURE WHICH OVARY REMOVED (CYST) 1987 INCISIONAL HERNIA REPAIR 2010 FAMILY HISTORY FATHER: ALIVE MOTHER: ALIVE SIBLINGS: ALIVE SON(S): ALIVE DAUGHTER(S): ALIVE SOCIAL HISTORY GENERAL: TOBACCO USE ARE YOU A:CURRENT SMOKER ARE YOU INTERESTED IN QUITTING?THINKING ABOUT QUITTING STATES SHE HAS PATCHES, HASN'T TRIED THEM YET THIS TIME. COUNSELED THE PATIENT ON SMOKING CESSATION, EDUCATION PLNPIYWI92/25/2019 HOW MANY CIGARETTES A DAY DO YOU SMOKE?6-10 HOW SOON AFTER YOU WAKE UP DO YOU SMOKE YOUR FIRST CIGARETTE?31-60 MIN HOW OFTEN DO YOU SMOKE CIGARETTES?EVERY DAY PATIENT COUNSELED ON THE DANGERS OF TOBACCO USE AND URGED TO QUIT:08/24/2018 SMOKING CESSATION INFORMATION GIVEN12/26/2017 ADDITIONAL FINDINGS: TOBACCO NON-USER GAVE INFO ON [facility] PHONE# FOR QUITTING ASSISTANCE LATEX QUESTIONNAIRE LATEX ALLERGY : HAVE YOU EVER DEVELOPED ANY TYPE OF REACTION AFTER HANDLING LATEX PRODUCTS SUCH RUBBER GLOVES, CONDOMS, DIAPHRAGMS, BALLOONS, SOCKS, OR UNDERWEAR?NO LATEX ALLERGY : HAVE YOU EVER DEVELOPED ANY TYPE OF REACTION DURING OR AFTER DENTAL APPOINTMENT, VAGINAL/RECTAL EXAMINATION, SURGICAL PROCEDURE, OR ANY OTHER EXPOSURE?NO DATE ASKED : 08/05/2018 LATEX RISK : HAVE YOU EVER HAD ANY DIFFICULTY BREATHING OR HIVES AFTER EATING OR HANDLING ANY FRUITS, OR VEGETABLES; SUCH KIWI, BANANAS, STONE FRUITS, OR CHESTNUTSNO LATEX RISK : DO YOU HAVE A PREVIOUS PERSONAL HISTORY OF MORE THAN NINE SURGERIES, SPINA BIFIDA, OR REPEATED CATHERTIZATIONS? NO LATEX RISK : ARE YOU FREQUENTLY EXPOSED TO LATEX PRODUCTS IN YOUR OCCUPATION?NO BMI CARE GOAL FOLLOW-UP ABOVE NORMAL BMI FOLLOW-UPDIETARY MANAGEMENT EDUCATION, GUIDANCE, AND COUNSELING ALCOHOL SCREENING DID YOU HAVE A DRINK CONTAINING ALCOHOL IN THE PAST YEAR?NO POINTS0 INTERPRETATIONNEGATIVE RECREATIONAL DRUG USE DRUG USE? NO. CAFFEINE CAFFEINE USE? NO . SEXUAL HX HAD SEX IN THE LAST 12 MONTHS (VAGINAL, ORAL, OR ANAL)?YES WITHMEN ONLY PREVENTION STRATEGIES DISCUSSED:OTHER USE PROTECTION?NO LMP:13 MONTHS AGO HAVE YOU EVER HAD AN STD?NO HIV / HEP-C SCREENING HIV TEST OFFERED TO PATIENT:YES DATE OFFERED:09/12/2016 TEST ACCEPTED:NO HEP-C TEST OFFERED TO PATIENT:YES DATE OFFERED:09/12/2016 REASON:PATIENT DECLINED TEST ACCEPTED:YES [employer]. LANGUAGE BULGARIAN. EDUCATION LEVEL OF EDUCATION:NOT FINISHED COLLEGE LEARNING BARRIERS / SPECIAL NEEDS CHANGE FROM LAST VISIT?NO BARRIERS TO LEARNING?NO HEARING IMPAIRED?NO VISION IMPAIRED?YES COGNITIVELY IMPAIRED?NO :CORRECTIVE LENSES READINESS TO LEARN?YES LEARNING PREFERENCES?NO LEARNING CAPABILITIES PRESENT?YES EMOTIONAL BARRIERS?NO SPECIAL DEVICES?NO WARPING MILL OPERATOR NEEDED?NO DOMESTIC VIOLENCE DO YOU FEEL SAFE IN YOUR ENVIRONMENT?YES OCCUPATION: DISABLED / SSI. DIET: NO CONCENTRATED SWEETS.. EXERCISE: NO REGULAR EXERCISE. MARITAL STATUS: SINGLE,. OTHERS AT HOME: CHILD. PAIN CLINIC PFS, CLERGY, PUBLIC HEALTH REFERRALS PFS REFERRAL NEEDED?NO CLERGY REFERRAL NEEDED?NO PUBLIC HEALTH REFERRAL NEEDED?NO WAS THE PROVIDER NOTIFIED OF ANY PERTINENT INFO?NO HAS THE PATIENT BEEN EDUCATED REGARDING HIS/HER PLAN OF CARE?YES HAS THE PATIENT BEEN EDUCATED REGARDING PAIN, THE RISK FOR PAIN, THE IMPORTANCE OF EFFECTIVE PAIN MANAGEMENT, AND THE PAIN ASSESSMENT PROCESS?YES ADVANCE DIRECTIVE ADVANCE DIRECTIVE DISCUSSED WITH PATIENT:YES DECLINED HCP INFORMATION. REVIEWED WITH PATIENT 03/17/18 0903 JSREVIEWED WITH PATIENT 08/24/18 1408 JS. HOSPITALIZATION/MAJOR DIAGNOSTIC PROCEDURE ABOVE SURGERIES 2008,2009,1985 REVIEW OF SYSTEMS REVIEWED BY: PROVIDER: MARKO STEIN . CONSTITUTIONAL: ANY CHANGE IN YOUR MEDICAL CONDITION? NO . CHILLS NO . FEVER NO . INFECTION: DO YOU HAVE NEW INFECTIONS? NO . DO YOU HAVE HISTORY OF MRSA? NO . MUSCULOSKELETAL: ANY NEW PATTERNS OF PAIN OR NUMBNESS? YES, STATES MORE STABBING, SHOOTING PAINS IN HANDS AND FEET FROM NEUROPATHY, STATES RIGHT FOOT IS WORSE. STATES HER BLOOD SUGARS HAVE BEEN HIGH RECENTLY SINCE THEY CHANGED HER DM MEDICATIONS AND FEELS THAT THE INCREASED PAIN STARTED AT ABOUT THE SAME TIME . GASTROENTEROLOGY: ANY NEW CHANGE IN BOWEL CONTROL? NO . GENITOURINARY: ANY NEW CHANGE IN BLADDER CONTROL? NO . IS THERE A CHANCE YOU COULD BE ? NO . HEMATOLOGY/LYMPH: DO YOU TAKE ANY BLOOD THINNERS? (FOR EXAMPLE- COUMADIN, PLAVIX, AGGRENOX, PLATEL, PRADAXA, OR XARELTO) NO . WHEN WAS YOUR LAST DOSE? DATE: TIME: . NEUROLOGY: HAVE YOU FALLEN IN THE PAST 12 MONTHS? NO . ANY NEW EXTREMITY NUMBNESS OR WEAKNESS? YES, NEW WEAKNESS TO RIGHT FOOT AND LEG . CARDIOLOGY: DO YOU HAVE A PACEMAKER OR DEFIBRILLATOR? NO . RESPIRATORY: HAVE YOU BEEN SICK IN THE PAST WEEK? YES, STATES RECENT HEAD COLD, IMPROVING AT THIS TIME . FEVER NO . FLU LIKE SYMPTOMS? NO . COUGH YES . INTEGUMENTARY: DO YOU HAVE ANY RASHES OR OPEN SORES? NO . ALLERGIC/IMMUNO: ARE YOU ALLERGIC TO IV DYE? NO . ANY NEW ALLERGIES? NO . PSYCHIATRIC: DO YOU HAVE THOUGHTS OF HURTING YOURSELF OR SOMEONE ELSE? NO . ARE YOU ABUSED, NEGLECTED, OR IN AN UNSAFE ENVIRONMENT? NO . ENDOCRINOLOGY: ARE YOU DIABETIC? YES . OTHER: DO YOU NEED ANY PRESCRIPTIONS? YES . IF YES, PLEASE LIST: ____OXYCODONE, TRAMADOL . ANY NEW PROBLEMS WITH YOUR MEDICATIONS? NO . WHEN DID YOU LAST EAT? ____ . WHEN DID YOU LAST DRINK? ____ . WHAT DID YOU LAST DRINK? ____ . NAME OF PERSON DRIVING YOU HOME? ____ . DO YOU HAVE ANY OTHER QUESTIONS OR CONCERNS NO . VITAL SIGNS WT 212.6 LBS, HT 59 IN, BMI 42.94 INDEX, BP 144/95 MM HG, HR 116 /MIN, RR 18 /MIN, TEMP 97.2 F, OXYGEN SAT % 95%, SAFE IN ENV? (Y/N) YES, NA INITIALS 14:01, REVIEWED BY: BRO. EXAMINATION GENERAL EXAMINATION: GENERAL APPEARANCE:AWAKE,ALERT ,PLEAASANT . PSYCHAFFECT NORMAL . LUNGS:LUNG RODAS ARE CLEAR TO AUSCULTATION BILATERALLY. GOOD MOVEMENT OF AIR . HEART:S1, S2 IN A REGULAR RATE AND RHYTHM. NO SIGNIFICANT MURMURS, RUBS OR GALLOPS NOTED . 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 (PRIMARY) POLYNEUROPATHY IN DIABETES - E11.42 TREATMENT LUMBAR AND SACRAL SPONDYLARTHRITIS CONTINUE NORTRIPTYLINE HCL CAPSULE, 25 MG, 1 CAPSULE, ORALLY, BID - 1 CAP IN AM 2 CAP AT BEDTIME REFILL TRAMADOL HCL TABLET, 50 MG, 2 TABS, ORALLY, Q4-6H PRN MDD6, 30 DAY(S), 180, REFILLS 1 CONTINUE CYCLOBENZAPRINE HCL TABLET, 10 MG, 1-2 TABLET, ORALLY, THREE TIMES A DAY REFILL OXYCODONE HCL TABLET, 5 MG, 1 TABLET NEEDED, ORALLY, EVERY8-12 HRS PRN PAIN MDD=2, 30 DAY(S), 60, REFILLS 0 START NUCYNTA ER TABLET EXTENDED RELEASE 12 HOUR, 100 MG, 1 TABLET, ORALLY, EVERY 12 HRS MDD2, 30 DAY(S), 60, REFILLS 0 NOTES: ISTOP REGISTRY REVIEWED AND DEMONSTRATES COMPLLIANCE. (REF #[id number] ) BRINGS IN MEDICATIONS WHICH IS APPROPRIATE FOR WHAT WAS DISPENSED. RECENT URINE TOXICOLOGY REVIEWED. NO UNAUTHORIZED MEDICATIONS. NO ILLICIT SUBSTANCES AND PRESCRIBED MEDICATIONS WERE PRESENT. URINE TOX, [facility] NARCOTIC AGREEMENT WASUPDATED REVIEWED AND SIGNED TODAY BY THE PATIENT. SEE ATTACHED DOCUMENT FOR FULL DETAILS; SPECIFIC ISSUES WERE REVIEWED: 1) KEEP PAIN MEDS IN THEIR ORIGINAL BOTTLES AND ANY WEEKLY PLANNERS ARE TO BE BROUGHT TO THE PAIN CENTER AT EVERY VISIT. 2) THE PATIENT IS NOT TO INCREASE DOSING OR TIMING OF THEIR PAIN MEDICATION WITHOUT SPECIFIC DIRECTION OF THEIR PAIN CENTERPROVIDER (NOT ER OR OTHER PROVIDERS). 3) ALL PAIN MEDS ARE TO BE KEPT SECURED, IN A LOCKED BOX. 4) NO PAIN MEDS ARE TO BE SHARED WITH ANY OTHER PERSON FOR ANY REASON. 5) NO PAIN MEDS MAY BE TAKEN FROM ANY FRIENDS OR RELATIVES FOR ANY REASON 6) NO MEDS OR SUBSTANCES WHICH ARE NOT LEGAL ARE TO BE USED- NO MARIJUANA, NO COCAINE, AMPHETAMINES, HEROIN, OR OTHERS ARE EVER TO BE USED. 7)URINE TESTING IS DONE TO ACCOUNT FOR MEDS AND SUBSTANCES BEING TAKEN AND WILL BE DONE RANDOMLY., RISKS AND BENEFITS OF NARCOTIC/OPIOD MEDICATIONS WERE REVIEWED WITH PATIENT - THIS INCLUDES BUT IS NOT LIMITED TO RISK OF DEPENDANCE/DEVELOPMENT OF ADDICTION, MOOD DISTURBANCE AND DEPRESSION, OSTEOPOROSIS, HORMONAL AND LABIDAL CHANGES, RESPIRATORY DEPRESSION AND . PATIENT IS ADVISED NOT TO DRIVE OR DRINK ALCOHOL WHILE ON THESE MEDICATIONS. PREVENTIVE MEDICINE PAIN CLINIC TEACHING: MEDICATIONS PRINTED AND REVIEWED INFORMATION ON NEW MEDICATION, NUCYNTA, WITH PATIENT. PATIENT VERBALIZED AN UNDERSTANDING. MELYSSA BARBOSA 08/24/2018 2:57:58 PM > . PROCEDURE CODES FA211 ESTABILISHED PATIENT [facility] FACILITY CHARGE DISPOSITION & COMMUNICATION FOLLOW UP 6 WEEKS (REASON: MED MGMNT) ELECTRONICALLY SIGNED BY SARITA NAIR ON 09/07/2018 AT 01:23 PM EDT DISCLAIMER : THIS IS A VISIT SUMMARY EXTRACTED FROM THE [employer] CHART. IT IS NOT A COPY OF THE [employer] PROGRESS NOTE. [id number]
== END ==
LOC: M PAIN 14:00
PROVIDERS: ATTEND Nurse Practitioner Family
DX: M48.9 Spondylopathy, unspecified (principal); G89.29 Other chronic pain; E11.42 Type 2 diabetes mellitus with diabetic polyneuropathy; E78.5 Hyperlipidemia, unspecified; M19.90 Unspecified osteoarthritis, unspecified site; Z86.59 Personal history of other mental and behavioral disorders; G47.30 Sleep apnea, unspecified; F17.210 Nicotine dependence, cigarettes, uncomplicated; Z88.5 Allergy status to narcotic agent; Z88.6 Allergy status to analgesic agent; Z88.8 Allergy status to other drugs, medicaments and biological substances; E66.01 Morbid (severe) obesity due to excess calories; Z68.41 Body mass index [BMI] 40.0-44.9, adult; Z79.82 Long term (current) use of aspirin; Z79.84 Long term (current) use of oral hypoglycemic drugs; Z79.891 Long term (current) use of opiate analgesic; Z79.899 Other long term (current) drug therapy

== ENCOUNTER → 2018-10-05 | Outpatient (CLI) | payer MEDICARE, MEDICAID ==
--- NOTE | 2018-10-28 01:35 | ECWPNPC ---
PATIENT NAME: MONIKA ADRIAN : 1965 GENDER: FEMALE VISIT DATE: 10/05/2018 DISCHARGE DATE: 10/05/18 1005 VISIT LOCKED DATE TIME: PHYSICIAN: MARKO YBARRA RESOURCE: MARKO YBARRA REASON FOR APPOINTMENT 1. NEUROPATHY/MED MGMT HISTORY OF PRESENT ILLNESS HISTORY OF PRESENT ILLNESS: HERE FOR F/U OF CHRONIC DPN AND LOW BACK PAIN.STARTED NUCYNTA AT LAST VISIT AND IS REPORTING LESS NEED FOR TRAMADOL.TAKING 3 TAB PER DAY.TRIED TO GO TO 2 BUT WAS UNABLE TO SLEEP.RATING PAIN VAS 7/10. PAIN THE PATIENT DESCRIBES THE PAIN... FALL RISK SCREENING: SCREENING :NO FALLS REPORTED IN THE LAST YEAR CURRENT MEDICATIONS TAKING LORATADINE 10 MG TABLET TAKE 1 TABLET BY MOUTH ONCE DAILY TAKING FREESTYLE TEST 1 STRIP 1 EACH - TWICE A DAY DX:E11.9 TAKING CPAP MACHINE 7 CM PRESSURE VIA MASK EVERY NIGHT. TAKING VITAMIN D 1000 UNIT TABLET 1 TABLET ORALLY ONCE A DAY TAKING PEN NEEDLES 31G X 5 MM MISCELLANEOUS DIRECTED SUB Q E11.9 DAILY TAKING BD PEN NEEDLE MINI U/F 0 UNSPECIFIED USE DIRECTED TAKING ZOLPIDEM TARTRATE 10 MG TABLET 1 TABLET AT BEDTIME NEEDED ORALLY BEFORE BEDTIME PRN SLEEP MDD=1 TAKING SIMVASTATIN 10 MG TABLET TAKE 1 TABLET BY MOUTH EVERY EVENING ORALLY ONCE A DAY TAKING LISINOPRIL 10 MG TABLET 1 TABLET ORALLY ONCE A DAY TAKING METFORMIN HCL 1000 MG TABLET 1 TABLET WITH MEALS ORALLY TWICE A DAY TAKING GLUCOMETER DIRECTED DX E11.9 - TAKING BLOOD GLUCOSE TEST - STRIP DIRECTED DX E11.9 CHECK BGS TWICE DAILY TAKING LANCETS - MISCELLANEOUS DIRECTED DX E11.9 CHECK TWICE DAILY TAKING TRAMADOL HCL 50 MG TABLET 2 TABS ORALLY Q4-6H PRN MDD6 TAKING CYCLOBENZAPRINE HCL 10 MG TABLET 1-2 TABLET ORALLY THREE TIMES A DAY TAKING LISINOPRIL 10 TABLET 1 TABLET ONCE A DAY ORALLY 30 DAY(S) - - TAKING ASPIRIN 81 MG TABLET DELAYED RELEASE TAKE ONE TABLET BY MOUTH ONCE A DAY ORALLY DAILY TAKING NORTRIPTYLINE HCL 25 MG CAPSULE 1 CAPSULE ORALLY BID - 1 CAP IN AM 2 CAP AT BEDTIME TAKING NUCYNTA ER 100 MG TABLET EXTENDED RELEASE 12 HOUR 1 TABLET ORALLY EVERY 12 HRS MDD2 TAKING OXYCODONE HCL 5 MG TABLET 1 TABLET NEEDED ORALLY EVERY8-12 HRS PRN PAIN MDD=2 TAKING OZEMPIC 0.25 OR 0.5 MG/DOSE SOLUTION PEN-INJECTOR DIRECTED SUBCUTANEOUS 0.5 MG Q WEEK NOT-TAKING SIMVASTATIN 10 MG TABLET TAKE 1 TABLET BY MOUTH EVERY EVENING ONCE A DAY ORALLY 30 DAY(S) , NOTES: DUPLICATE NOT-TAKING LISINOPRIL 10 MG TABLET 1 TABLET ONCE A DAY ORALLY 30 DAY(S) - -, NOTES: DUPLICATE NOT-TAKING LANTUS SOLOSTAR 100 UNIT/ML SOLUTION PEN-INJECTOR DIRECTED SUBCUTANEOUS 10 UNITS Q HS NOT-TAKING ASPIR-81 81 MG TABLET DELAYED RELEASE TAKE ONE TABLET BY MOUTH ONCE A DAY DAILY ORALLY 90 DAYS , NOTES: DUPLICATE DISCONTINUED ASPIRIN 81 TABLET DELAYED RELEASE TAKE ONE TABLET BY MOUTH ONCE A DAY ORALLY DAILY DISCONTINUED SIMVASTATIN 10 TABLET TAKE 1 TABLET BY MOUTH EVERY EVENING ONCE A DAY ORALLY 30 DAY(S) MEDICATION LIST REVIEWED AND RECONCILED WITH THE PATIENT PAST MEDICAL HISTORY DM-2 HYPERLIPIDEMIA, ASCVD 10-YEAR RISK WAS 1.1% IN 04/2014 ON SIMVASTATIN 10MG OA ALLERGIC RHINITIS ANX/DEPRESSION- [facility] DIVERITICULITIS (S/P COLOSTOMY/REVERSAL) DEPRESSION/ANXIETY- (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 NO ABNORMAL PAPSMEARS ALLERGIES NAPROXEN: RECTAL BLEEDING - SIDE EFFECTS AMARYL: CHEST PAIN - SIDE EFFECTS SOMA: CHEST PAIN - SIDE EFFECTS MORPHINE SULFATE: HALLUCINATIONS - SIDE EFFECTS CYMBALTA: INCREASED DEPRESSION - SIDE EFFECTS DICLOFENAC: CHEST PAIN - SIDE EFFECTS LOSARTAN POTASSIUM: TICKLE IN THROAT - SIDE EFFECTS GABAPENTIN: HEADACHES - SIDE EFFECTS SURGICAL HISTORY COLOSTOMY 2009 COLOSTOMY REVERSAL 2009 C SECTION 1986 PT UNSURE WHICH OVARY REMOVED (CYST) 1987 INCISIONAL HERNIA REPAIR 2010 FAMILY HISTORY FATHER: ALIVE MOTHER: ALIVE SIBLINGS: ALIVE SON(S): ALIVE DAUGHTER(S): ALIVE SOCIAL HISTORY GENERAL: TOBACCO USE ARE YOU A:CURRENT SMOKER ARE YOU INTERESTED IN QUITTING?THINKING ABOUT QUITTING STATES SHE HAS PATCHES, HASN'T TRIED THEM YET THIS TIME. COUNSELED THE PATIENT ON SMOKING CESSATION, EDUCATION [id number]/06/2019 HOW MANY CIGARETTES A DAY DO YOU SMOKE?6-10 HOW SOON AFTER YOU WAKE UP DO YOU SMOKE YOUR FIRST CIGARETTE?31-60 MIN HOW OFTEN DO YOU SMOKE CIGARETTES?EVERY DAY PATIENT COUNSELED ON THE DANGERS OF TOBACCO USE AND URGED TO QUIT:08/24/2018 SMOKING CESSATION INFORMATION GIVEN12/26/2017 ADDITIONAL FINDINGS: TOBACCO NON-USER GAVE INFO ON [facility] AND [facility] PHONE# FOR QUITTING ASSISTANCE HIV / HEP-C SCREENING HIV TEST OFFERED TO PATIENT:YES DATE OFFERED:09/12/2016 TEST ACCEPTED:NO HEP-C TEST OFFERED TO PATIENT:YES DATE OFFERED:09/12/2016 REASON:PATIENT DECLINED TEST ACCEPTED:YES OTHERS AT HOME: CHILD. EDUCATION LEVEL OF EDUCATION:NOT FINISHED COLLEGE DIET: NO CONCENTRATED SWEETS.. LANGUAGE [place]. DOMESTIC VIOLENCE DO YOU FEEL SAFE IN YOUR ENVIRONMENT?YES BMI CARE GOAL FOLLOW-UP ABOVE NORMAL BMI FOLLOW-UPDIETARY MANAGEMENT EDUCATION, GUIDANCE, AND COUNSELING RECREATIONAL DRUG USE DRUG USE? NO. EXERCISE: NO REGULAR EXERCISE. LEARNING BARRIERS / SPECIAL NEEDS CHANGE FROM LAST VISIT?NO BARRIERS TO LEARNING?NO HEARING IMPAIRED?NO VISION IMPAIRED?YES COGNITIVELY IMPAIRED?NO :CORRECTIVE LENSES READINESS TO LEARN?YES LEARNING PREFERENCES?NO LEARNING CAPABILITIES PRESENT?YES EMOTIONAL BARRIERS?NO SPECIAL DEVICES?NO MANAGER MONITORING NEEDED?NO PAIN CLINIC PFS, CLERGY, PUBLIC HEALTH REFERRALS PFS REFERRAL NEEDED?NO CLERGY REFERRAL NEEDED?NO PUBLIC HEALTH REFERRAL NEEDED?NO WAS THE PROVIDER NOTIFIED OF ANY PERTINENT INFO?NO HAS THE PATIENT BEEN EDUCATED REGARDING HIS/HER PLAN OF CARE?YES HAS THE PATIENT BEEN EDUCATED REGARDING PAIN, THE RISK FOR PAIN, THE IMPORTANCE OF EFFECTIVE PAIN MANAGEMENT, AND THE PAIN ASSESSMENT PROCESS?YES LATEX QUESTIONNAIRE LATEX ALLERGY : HAVE YOU EVER DEVELOPED ANY TYPE OF REACTION AFTER HANDLING LATEX PRODUCTS SUCH RUBBER GLOVES, CONDOMS, DIAPHRAGMS, BALLOONS, SOCKS, OR UNDERWEAR?NO LATEX ALLERGY : HAVE YOU EVER DEVELOPED ANY TYPE OF REACTION DURING OR AFTER DENTAL APPOINTMENT, VAGINAL/RECTAL EXAMINATION, SURGICAL PROCEDURE, OR ANY OTHER EXPOSURE?NO DATE ASKED : 08/05/2018 LATEX RISK : HAVE YOU EVER HAD ANY DIFFICULTY BREATHING OR HIVES AFTER EATING OR HANDLING ANY FRUITS, OR VEGETABLES; SUCH KIWI, BANANAS, STONE FRUITS, OR CHESTNUTSNO LATEX RISK : DO YOU HAVE A PREVIOUS PERSONAL HISTORY OF MORE THAN NINE SURGERIES, SPINA BIFIDA, OR REPEATED CATHERTIZATIONS? NO LATEX RISK : ARE YOU FREQUENTLY EXPOSED TO LATEX PRODUCTS IN YOUR OCCUPATION?NO CAFFEINE CAFFEINE USE? NO. ADVANCE DIRECTIVE ADVANCE DIRECTIVE DISCUSSED WITH PATIENT:YES DECLINED HCP INFORMATION. CONGREGATION PENTECOSTAL. MARITAL STATUS: SINGLE,. ALCOHOL SCREENING DID YOU HAVE A DRINK CONTAINING ALCOHOL IN THE PAST YEAR?NO POINTS0 INTERPRETATIONNEGATIVE OCCUPATION: DISABLED / SSI. SEXUAL HX HAD SEX IN THE LAST 12 MONTHS (VAGINAL, ORAL, OR ANAL)?YES WITHMEN ONLY PREVENTION STRATEGIES DISCUSSED:OTHER USE PROTECTION?NO LMP:13 MONTHS AGO HAVE YOU EVER HAD AN STD?NO REVIEWED WITH PATIENT 03/17/18 0903 JSREVIEWED WITH PATIENT 08/24/18 1408 JS. HOSPITALIZATION/MAJOR DIAGNOSTIC PROCEDURE ABOVE SURGERIES 2008,2009,1985 REVIEW OF SYSTEMS REVIEWED BY: PROVIDER: MARKO STEIN . CONSTITUTIONAL: ANY CHANGE IN YOUR MEDICAL CONDITION? NO . CHILLS NO . FEVER NO . INFECTION: DO YOU HAVE NEW INFECTIONS? NO . DO YOU HAVE HISTORY OF MRSA? NO . MUSCULOSKELETAL: ANY NEW PATTERNS OF PAIN OR NUMBNESS? YES, RIGHT HAND PAIN . GASTROENTEROLOGY: ANY NEW CHANGE IN BOWEL CONTROL? NO . GENITOURINARY: ANY NEW CHANGE IN BLADDER CONTROL? NO . IS THERE A CHANCE YOU COULD BE ? NO . HEMATOLOGY/LYMPH: DO YOU TAKE ANY BLOOD THINNERS? (FOR EXAMPLE- COUMADIN, PLAVIX, AGGRENOX, PLATEL, PRADAXA, OR XARELTO) NO . WHEN WAS YOUR LAST DOSE? DATE: TIME: . NEUROLOGY: HAVE YOU FALLEN IN THE PAST 12 MONTHS? NO . ANY NEW EXTREMITY NUMBNESS OR WEAKNESS? YES, NUMBNESS IN HANDS AND FEET . CARDIOLOGY: DO YOU HAVE A PACEMAKER OR DEFIBRILLATOR? NO . RESPIRATORY: HAVE YOU BEEN SICK IN THE PAST WEEK? YES, COLD . FEVER NO . FLU LIKE SYMPTOMS? NO . COUGH YES . INTEGUMENTARY: DO YOU HAVE ANY RASHES OR OPEN SORES? NO . ALLERGIC/IMMUNO: ARE YOU ALLERGIC TO IV DYE? NO . ANY NEW ALLERGIES? NO . PSYCHIATRIC: DO YOU HAVE THOUGHTS OF HURTING YOURSELF OR SOMEONE ELSE? NO . ARE YOU ABUSED, NEGLECTED, OR IN AN UNSAFE ENVIRONMENT? NO . ENDOCRINOLOGY: ARE YOU DIABETIC? YES . OTHER: DO YOU NEED ANY PRESCRIPTIONS? YES, PLEASE PRESCRIBE AMBIEN X30 DAYS . IF YES, PLEASE LIST: ____ . ANY NEW PROBLEMS WITH YOUR MEDICATIONS? NO . WHEN DID YOU LAST EAT? ____ . WHEN DID YOU LAST DRINK? ____ . WHAT DID YOU LAST DRINK? ____ . NAME OF PERSON DRIVING YOU HOME? ____ . DO YOU HAVE ANY OTHER QUESTIONS OR CONCERNS NO . VITAL SIGNS WT 209 LBS, HT 59 IN, BMI 42.21 INDEX, BP 144/77 MM HG, HR 118 /MIN, RR 18 /MIN, TEMP 97.5 F, OXYGEN SAT % 94%, NA INITIALS SC 09:08. EXAMINATION GENERAL EXAMINATION: GENERAL APPEARANCE:AWAKE,ALERT ,PLEAASANT . PSYCHAFFECT NORMAL . LUNGS:LUNG RODAS ARE CLEAR TO AUSCULTATION BILATERALLY. GOOD MOVEMENT OF AIR . HEART:S1, S2 IN A REGULAR RATE AND RHYTHM. NO SIGNIFICANT MURMURS, RUBS OR GALLOPS NOTED . 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 (REF #[id number] ) BRINGS IN MEDICATIONS WHICH IS APPROPRIATE FOR WHAT WAS DISPENSED. RECENT URINE TOXICOLOGY REVIEWED. NO UNAUTHORIZED MEDICATIONS. NO ILLICIT SUBSTANCES AND PRESCRIBED MEDICATIONS WERE PRESENT. , RISKS AND BENEFITS OF NARCOTIC/OPIOD MEDICATIONS WERE REVIEWED WITH PATIENT - THIS INCLUDES BUT IS NOT LIMITED TO RISK OF DEPENDANCE/DEVELOPMENT OF ADDICTION, MOOD DISTURBANCE AND DEPRESSION, OSTEOPOROSIS, HORMONAL AND LABIDAL CHANGES, RESPIRATORY DEPRESSION AND . PATIENT IS ADVISED NOT TO DRIVE OR DRINK ALCOHOL WHILE ON THESE MEDICATIONS. PREVENTIVE MEDICINE PAIN CLINIC TEACHING: MEDICATIONS PRINTED AND REVIEWED INFORMATION ON NEW MEDICATION, CLONIDINE, WITH PATIENT. PATIENT VERBALIZED AN UNDERSTANDING. MELYSSA BARBOSA 10/05/2018 10:05:10 AM > . PROCEDURE CODES FA211 ESTABILISHED PATIENT [facility] CHARGE DISPOSITION & COMMUNICATION FOLLOW UP 2 MONTHS (REASON: MED MGMNT) ELECTRONICALLY SIGNED BY SARITA NAIR ON 10/27/2018 AT 02:05 PM EDT DISCLAIMER : THIS IS A VISIT SUMMARY EXTRACTED FROM THE [employer] CHART. IT IS NOT A COPY OF THE [email or web address] PROGRESS NOTE. MAC
== END ==
LOC: M PAIN 09:00
PROVIDERS: ATTEND Nurse Practitioner Family
DX: M48.9 Spondylopathy, unspecified (principal); G89.29 Other chronic pain; E11.42 Type 2 diabetes mellitus with diabetic polyneuropathy; E78.5 Hyperlipidemia, unspecified; G47.30 Sleep apnea, unspecified; Z86.59 Personal history of other mental and behavioral disorders; F17.210 Nicotine dependence, cigarettes, uncomplicated; Z88.5 Allergy status to narcotic agent; Z88.6 Allergy status to analgesic agent; Z88.8 Allergy status to other drugs, medicaments and biological substances; E66.01 Morbid (severe) obesity due to excess calories; Z68.41 Body mass index [BMI] 40.0-44.9, adult; Z79.84 Long term (current) use of oral hypoglycemic drugs; Z79.891 Long term (current) use of opiate analgesic; Z79.82 Long term (current) use of aspirin; Z79.899 Other long term (current) drug therapy

== ENCOUNTER → 2018-11-05 | Outpatient (REF) | payer MEDICARE, MEDICAID ==
[~2018-11-05] MED LIST changes: -TRAZ-160 PO; +TRAZ-252 PO
[2018-11-05 10:12] LABS: ALBUMIN 3.6 GM/DL (3.2-5.2); ALT/SGPT 76 U/L (12-78); BILIRUBIN,TOTAL 0.4 MG/DL (0.2-1.0); BLOOD UREA NITROGEN 9 MG/DL (7-18); CALCIUM LEVEL 9.4 MG/DL (8.5-10.1); CARBON DIOXIDE LEVEL 29 MEQ/L (21-32); CHLORIDE LEVEL 101 MEQ/L (98-107); CREATININE FOR GFR 0.84 MG/DL (0.55-1.30); GLOMERULAR FILTRATION RATE > 60.0 (>51); GLUCOSE, FASTING 245 MG/DL (70-100); POTASSIUM SERUM 4.6 MEQ/L (3.5-5.1); SODIUM LEVEL 137 MEQ/L (136-145); TOTAL PROTEIN 7.4 GM/DL (6.4-8.2)
[2018-11-05 10:14] LABS: HEMOGLOBIN A1c 10.3 %
== END ==
LOC: M SFHCPLAZ 07:47
PROVIDERS: ATTEND Nurse Practitioner Family
DX: E11.40 Type 2 diabetes mellitus with diabetic neuropathy, unspecified (principal); E78.5 Hyperlipidemia, unspecified; K76.0 Fatty (change of) liver, not elsewhere classified

== ENCOUNTER → 2018-11-11 | Outpatient (REF) | payer MEDICARE, MEDICAID ==
[2018-11-11 12:49] LABS: BASO % 0.6 % (0.0-1.0); EOS # 0.2 10^3/uL (0.0-0.50); EOS % 2.2 % (0.0-3.0); HEMATOCRIT 41.7 % (36.0-47.0); HEMOGLOBIN 13.4 g/dl (12.0-15.5); LYMPH # 1.8 10^3/uL (1.5-4.5); MEAN CORPUSCULAR HEMOGLOBIN 29.6 pg (27.0-33.0); MEAN CORPUSCULAR HGB CONC 32.1 g/dl (32.0-36.5); MEAN CORPUSCULAR VOLUME 92.3 fl (80.0-96.0); MONO # 0.4 10^3/uL (0.0-0.8); MONO % 6.3 % (0.0-5.0); NEUTROPHILS # 4.4 10^3/uL (1.8-7.7); NEUTROPHILS % 64.3 % (36.0-66.0); PLATELET COUNT, AUTOMATED 150 10^3/uL (150-450); RED BLOOD COUNT 4.52 10^6/uL (4.00-5.40); WHITE BLOOD COUNT 6.9 10^3/uL (4.0-10.0)
[2018-11-11 13:21] LABS: THYROID STIMULATING HORMONE 3.97 uIU/ML (0.358-3.740)
[2018-11-11 17:06] LABS: FREE T4 1.09 NG/DL (0.76-1.46)
== END ==
LOC: M SFHCPLAZ 09:08
PROVIDERS: ATTEND Nurse Practitioner Family
DX: R53.83 Other fatigue (principal); R05 Cough; R79.89 Other specified abnormal findings of blood chemistry
CPT/HCPCS: 36415; 84439; 84443; 85025; G0463

== ENCOUNTER → 2018-12-08 | Outpatient (CLI) | payer MEDICARE, MEDICAID ==
[~2018-12-08] MED LIST changes: -DULO1CAP2 PO; +DULO1CAP5 PO
--- NOTE | 2018-12-22 02:02 | ECWPNPC ---
PATIENT NAME: MONIKA ADRIAN : 1965 GENDER: FEMALE VISIT DATE: 12/08/2018 DISCHARGE DATE: 12/08/18 1003 VISIT LOCKED DATE TIME: PHYSICIAN: MARKO YBARRA RESOURCE: MARKO YBARRA REASON FOR APPOINTMENT 1. MED MGMNT HISTORY OF PRESENT ILLNESS HISTORY OF PRESENT ILLNESS: HERE FOR F/U OF CHRONIC LBP AND DPN.RESTARTED NUCYNTA ER 150MG BID AND IS DOING BETTER.RATING PAIN VAS 6/10. PAIN THE PATIENT DESCRIBES THE PAIN... FALL RISK SCREENING: SCREENING :NO FALLS REPORTED IN THE LAST YEAR CURRENT MEDICATIONS TAKING NUCYNTA ER 100 MG TABLET EXTENDED RELEASE 12 HOUR 125 MG ORALLY EVERY 12 HRS TAKING ASPIRIN 81 MG TABLET DELAYED RELEASE TAKE ONE TABLET BY MOUTH ONCE A DAY ORALLY DAILY TAKING METFORMIN HCL 1000 MG TABLET 1 TABLET WITH MEALS ORALLY TWICE A DAY TAKING OZEMPIC 1 MG/DOSE SOLUTION PEN-INJECTOR DIRECTED SUBCUTANEOUS Q WEEK TAKING LANTUS SOLOSTAR 100 UNIT/ML SOLUTION PEN-INJECTOR DIRECTED SUBCUTANEOUS 31 UNITS TAKING METFORMIN HCL 1000 TABLET 1 TABLET WITH MEALS ORALLY TWICE A DAY TAKING SIMVASTATIN 10 MG TABLET TAKE 1 TABLET BY MOUTH EVERY EVENING ORALLY ONCE A DAY TAKING LORATADINE 10 MG TABLET TAKE 1 TABLET BY MOUTH ONCE DAILY TAKING FREESTYLE TEST 1 STRIP 1 EACH - TWICE A DAY DX:E11.9 TAKING CPAP MACHINE 7 CM PRESSURE VIA MASK EVERY NIGHT. TAKING PEN NEEDLES 31G X 5 MM MISCELLANEOUS DIRECTED SUB Q E11.9 DAILY TAKING BD PEN NEEDLE MINI U/F 0 UNSPECIFIED USE DIRECTED TAKING GLUCOMETER DIRECTED DX E11.9 - TAKING BLOOD GLUCOSE TEST - STRIP DIRECTED DX E11.9 CHECK BGS TWICE DAILY TAKING LANCETS - MISCELLANEOUS DIRECTED DX E11.9 CHECK TWICE DAILY TAKING NORTRIPTYLINE HCL 25 MG CAPSULE 1 CAPSULE ORALLY BID - 1 CAP IN AM 2 CAP AT BEDTIME TAKING CLONIDINE HCL 0.1 MG TABLET 1 TAB ORALLY Q8H PRN FOR WITHDRAWAL SYMPTOMS TAKING TRAMADOL HCL 50 MG TABLET 1 TAB ORALLY Q 4-6H MDD4 TAKING NORVASC 5 MG TABLET 1 TABLET ORALLY ONCE A DAY TAKING VITAMIN D 1000 UNIT TABLET 1 TABLET ORALLY ONCE A DAY TAKING SIMVASTATIN 10 TABLET TAKE 1 TABLET BY MOUTH EVERY EVENING ONCE A DAY ORALLY 30 DAY(S) TAKING CYCLOBENZAPRINE HCL 10 MG TABLET 1 TABLET ORALLY FOR SPASMS AND PAIN THREE TIMES A DAY TAKING ZOLPIDEM TARTRATE 10 MG TABLET 1 TABLET AT BEDTIME NEEDED ORALLY BEFORE BEDTIME PRN SLEEP MDD=1 NOT-TAKING LISINOPRIL 10 TABLET 1 TABLET ONCE A DAY ORALLY 30 DAY(S) - - DISCONTINUED NUCYNTA 50 MG TABLET 1 TABLET ORALLY FOR PAIN EVERY 12 HRS MDD2 ( 2 PER DAY FOR FIRST 4 DAYS THEN 1 PER DAY FOR THE LAST 4 DAYS) DISCONTINUED NUCYNTA ER 250 MG TABLET EXTENDED RELEASE 12 HOUR 1 TABLET ORALLY BEFORE BEDTIME 1X DAILY MDD1 DISCONTINUED SIMVASTATIN 10 MG TABLET TAKE 1 TABLET BY MOUTH EVERY EVENING ONCE A DAY ORALLY 30 DAY(S) , NOTES: DUPLICATE DISCONTINUED LISINOPRIL 10 MG TABLET 1 TABLET ONCE A DAY ORALLY 30 DAY(S) - -, NOTES: DUPLICATE DISCONTINUED ASPIR-81 81 MG TABLET DELAYED RELEASE TAKE ONE TABLET BY MOUTH ONCE A DAY DAILY ORALLY 90 DAYS , NOTES: DUPLICATE MEDICATION LIST REVIEWED AND RECONCILED WITH THE PATIENT PAST MEDICAL HISTORY DM-2 HYPERLIPIDEMIA, ASCVD 10-YEAR RISK WAS 1.1% IN 04/2014 ON SIMVASTATIN 10MG OA ALLERGIC RHINITIS ANX/DEPRESSION- [facility] DIVERITICULITIS (S/P COLOSTOMY/REVERSAL) DEPRESSION/ANXIETY- (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 NO ABNORMAL PAPSMEARS ALLERGIES NAPROXEN: RECTAL BLEEDING - SIDE EFFECTS AMARYL: CHEST PAIN - SIDE EFFECTS SOMA: CHEST PAIN - SIDE EFFECTS MORPHINE SULFATE: HALLUCINATIONS - SIDE EFFECTS CYMBALTA: INCREASED DEPRESSION - SIDE EFFECTS DICLOFENAC: CHEST PAIN - SIDE EFFECTS LOSARTAN POTASSIUM: TICKLE IN THROAT - SIDE EFFECTS GABAPENTIN: HEADACHES - SIDE EFFECTS LISINOPRIL: COUGH - SIDE EFFECTS SURGICAL HISTORY COLOSTOMY 2009 COLOSTOMY REVERSAL 2009 C SECTION 1985 PT UNSURE WHICH OVARY REMOVED (CYST) 1987 INCISIONAL HERNIA REPAIR 2010 FAMILY HISTORY FATHER: ALIVE MOTHER: ALIVE SIBLINGS: ALIVE SON(S): ALIVE DAUGHTER(S): ALIVE SOCIAL HISTORY GENERAL: TOBACCO USE ARE YOU A:CURRENT SMOKER ARE YOU INTERESTED IN QUITTING?THINKING ABOUT QUITTING STATES SHE HAS PATCHES, HASN'T TRIED THEM YET THIS TIME. COUNSELED THE PATIENT ON SMOKING CESSATION, EDUCATION [id number]/09/2019 HOW MANY CIGARETTES A DAY DO YOU SMOKE?6-10 HOW SOON AFTER YOU WAKE UP DO YOU SMOKE YOUR FIRST CIGARETTE?31-60 MIN HOW OFTEN DO YOU SMOKE CIGARETTES?EVERY DAY PATIENT COUNSELED ON THE DANGERS OF TOBACCO USE AND URGED TO QUIT:08/24/2018 SMOKING CESSATION INFORMATION GIVEN12/26/2017 ADDITIONAL FINDINGS: TOBACCO NON-USER GAVE INFO ON [facility] AND [facility] PHONE# FOR QUITTING ASSISTANCE HIV / HEP-C SCREENING HIV TEST OFFERED TO PATIENT:YES DATE OFFERED:09/12/2016 TEST ACCEPTED:NO HEP-C TEST OFFERED TO PATIENT:YES DATE OFFERED:09/12/2016 REASON:PATIENT DECLINED TEST ACCEPTED:YES OTHERS AT HOME: CHILD. EDUCATION LEVEL OF EDUCATION:NOT FINISHED COLLEGE DIET: NO CONCENTRATED SWEETS.. LANGUAGE LAO. DOMESTIC VIOLENCE DO YOU FEEL SAFE IN YOUR ENVIRONMENT?YES BMI CARE GOAL FOLLOW-UP ABOVE NORMAL BMI FOLLOW-UPDIETARY MANAGEMENT EDUCATION, GUIDANCE, AND COUNSELING RECREATIONAL DRUG USE DRUG USE? NO. EXERCISE: NO REGULAR EXERCISE. LEARNING BARRIERS / SPECIAL NEEDS CHANGE FROM LAST VISIT?NO BARRIERS TO LEARNING?NO HEARING IMPAIRED?NO VISION IMPAIRED?YES COGNITIVELY IMPAIRED?NO :CORRECTIVE LENSES READINESS TO LEARN?YES LEARNING PREFERENCES?NO LEARNING CAPABILITIES PRESENT?YES EMOTIONAL BARRIERS?NO SPECIAL DEVICES?NO CERTIFIED CREDIT COUNSELOR NEEDED?NO PAIN CLINIC PFS, CLERGY, PUBLIC HEALTH REFERRALS PFS REFERRAL NEEDED?NO CLERGY REFERRAL NEEDED?NO PUBLIC HEALTH REFERRAL NEEDED?NO WAS THE PROVIDER NOTIFIED OF ANY PERTINENT INFO?NO HAS THE PATIENT BEEN EDUCATED REGARDING HIS/HER PLAN OF CARE?YES HAS THE PATIENT BEEN EDUCATED REGARDING PAIN, THE RISK FOR PAIN, THE IMPORTANCE OF EFFECTIVE PAIN MANAGEMENT, AND THE PAIN ASSESSMENT PROCESS?YES LATEX QUESTIONNAIRE LATEX ALLERGY : HAVE YOU EVER DEVELOPED ANY TYPE OF REACTION AFTER HANDLING LATEX PRODUCTS SUCH RUBBER GLOVES, CONDOMS, DIAPHRAGMS, BALLOONS, SOCKS, OR UNDERWEAR?NO LATEX ALLERGY : HAVE YOU EVER DEVELOPED ANY TYPE OF REACTION DURING OR AFTER DENTAL APPOINTMENT, VAGINAL/RECTAL EXAMINATION, SURGICAL PROCEDURE, OR ANY OTHER EXPOSURE?NO DATE ASKED : 08/05/2018 LATEX RISK : HAVE YOU EVER HAD ANY DIFFICULTY BREATHING OR HIVES AFTER EATING OR HANDLING ANY FRUITS, OR VEGETABLES; SUCH KIWI, BANANAS, STONE FRUITS, OR CHESTNUTSNO LATEX RISK : DO YOU HAVE A PREVIOUS PERSONAL HISTORY OF MORE THAN NINE SURGERIES, SPINA BIFIDA, OR REPEATED CATHERIZATIONS? NO LATEX RISK : ARE YOU FREQUENTLY EXPOSED TO LATEX PRODUCTS IN YOUR OCCUPATION?NO CAFFEINE CAFFEINE USE? NO. ADVANCE DIRECTIVE ADVANCE DIRECTIVE DISCUSSED WITH PATIENT:YES 12/08/18 DECLINED HCP INFORMATION. NLJ MU-ISM SIKHISM. MARITAL STATUS: SINGLE,. ALCOHOL SCREENING DID YOU HAVE A DRINK CONTAINING ALCOHOL IN THE PAST YEAR?NO POINTS0 INTERPRETATIONNEGATIVE OCCUPATION: DISABLED / SSI. SEXUAL HX HAD SEX IN THE LAST 12 MONTHS (VAGINAL, ORAL, OR ANAL)?YES WITHMEN ONLY PREVENTION STRATEGIES DISCUSSED:OTHER USE PROTECTION?NO LMP:13 MONTHS AGO HAVE YOU EVER HAD AN STD?NO REVIEWED WITH PATIENT 03/17/18 0903 JSREVIEWED WITH PATIENT 08/24/18 1408 JS. HOSPITALIZATION/MAJOR DIAGNOSTIC PROCEDURE ABOVE SURGERIES 2008,2009,1985 REVIEW OF SYSTEMS REVIEWED BY: PROVIDER: MARKO STEIN . CONSTITUTIONAL: ANY CHANGE IN YOUR MEDICAL CONDITION? NO . CHILLS NO . FEVER NO . INFECTION: DO YOU HAVE NEW INFECTIONS? NO . DO YOU HAVE HISTORY OF MRSA? NO . MUSCULOSKELETAL: ANY NEW PATTERNS OF PAIN OR NUMBNESS? NO . GASTROENTEROLOGY: ANY NEW CHANGE IN BOWEL CONTROL? NO . GENITOURINARY: ANY NEW CHANGE IN BLADDER CONTROL? NO . IS THERE A CHANCE YOU COULD BE ? NO . HEMATOLOGY/LYMPH: DO YOU TAKE ANY BLOOD THINNERS? (FOR EXAMPLE- COUMADIN, PLAVIX, AGGRENOX, PLATEL, PRADAXA, OR XARELTO) NO . WHEN WAS YOUR LAST DOSE? DATE: TIME: . NEUROLOGY: HAVE YOU FALLEN IN THE PAST 12 MONTHS? NO . ANY NEW EXTREMITY NUMBNESS OR WEAKNESS? NO . CARDIOLOGY: DO YOU HAVE A PACEMAKER OR DEFIBRILLATOR? NO . RESPIRATORY: HAVE YOU BEEN SICK IN THE PAST WEEK? YES- RELATED TO LISINOPRIL, MED DISCONTINUED BY PCP AND PATIENT STATES COUGH IS GONE . FEVER NO . FLU LIKE SYMPTOMS? NO . COUGH NO . INTEGUMENTARY: DO YOU HAVE ANY RASHES OR OPEN SORES? NO . ALLERGIC/IMMUNO: ARE YOU ALLERGIC TO IV DYE? NO . ANY NEW ALLERGIES? NO . PSYCHIATRIC: DO YOU HAVE THOUGHTS OF HURTING YOURSELF OR SOMEONE ELSE? NO . ARE YOU ABUSED, NEGLECTED, OR IN AN UNSAFE ENVIRONMENT? NO . ENDOCRINOLOGY: ARE YOU DIABETIC? YES . OTHER: DO YOU NEED ANY PRESCRIPTIONS? YES- NUCYNTA, CYCLOBENZAPINE . IF YES, PLEASE LIST: ____ . ANY NEW PROBLEMS WITH YOUR MEDICATIONS? YES- WITH LISINOPRIL, CAUSED COUGH, PATIENT HAS BEEN TAKEN OFF MED BY PCP AND COUGH HAS RESOLVED . WHEN DID YOU LAST EAT? ____ . WHEN DID YOU LAST DRINK? ____ . WHAT DID YOU LAST DRINK? ____ . NAME OF PERSON DRIVING YOU HOME? ____ . DO YOU HAVE ANY OTHER QUESTIONS OR CONCERNS NO . VITAL SIGNS WT 207.8 LBS, HT 59 IN, BMI 41.97 INDEX, BP 143/80 MM HG, HR 103 /MIN, RR 18 /MIN, TEMP 96.7 F, OXYGEN SAT % 98%, NA INITIALS SC 09:12. EXAMINATION GENERAL EXAMINATION: GENERALAWAKE,ALERT ,PLEAASANT . PSYCHAFFECT NORMAL . LUNGS:LUNG RODAS ARE CLEAR TO AUSCULTATION BILATERALLY. GOOD MOVEMENT OF AIR . HEART:S1, S2 IN A REGULAR RATE AND RHYTHM. NO SIGNIFICANT MURMURS, RUBS OR GALLOPS NOTED . 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 (REF # ) BRINGS IN MEDICATIONS WHICH IS APPROPRIATE FOR WHAT WAS DISPENSED. RECENT URINE TOXICOLOGY REVIEWED. NO UNAUTHORIZED MEDICATIONS. NO ILLICIT SUBSTANCES AND PRESCRIBED MEDICATIONS WERE PRESENT. , RISKS AND BENEFITS OF NARCOTIC/OPIOD MEDICATIONS WERE REVIEWED WITH PATIENT - THIS INCLUDES BUT IS NOT LIMITED TO RISK OF DEPENDANCE/DEVELOPMENT OF ADDICTION, MOOD DISTURBANCE AND DEPRESSION, OSTEOPOROSIS, HORMONAL AND LABIDAL CHANGES, RESPIRATORY DEPRESSION AND . PATIENT IS ADVISED NOT TO DRIVE OR DRINK ALCOHOL WHILE ON THESE MEDICATIONS. PROCEDURE CODES FA211 ESTABILISHED PATIENT [facility] F[facility] CHARGE DISPOSITION & COMMUNICATION FOLLOW UP 3 MONTHS (REASON: MED [id number]) ELECTRONICALLY SIGNED BY SARITA NAIR ON 12/21/2018 AT 08:44 AM EDT DISCLAIMER : THIS IS A VISIT SUMMARY EXTRACTED FROM THE [employer] CHART. IT IS NOT A COPY OF THE [employer] PROGRESS NOTE. MAC
== END ==
LOC: M PAIN 09:15
PROVIDERS: ATTEND Nurse Practitioner Family
DX: M48.9 Spondylopathy, unspecified (principal); E11.42 Type 2 diabetes mellitus with diabetic polyneuropathy; M19.90 Unspecified osteoarthritis, unspecified site; J30.9 Allergic rhinitis, unspecified; F41.9 Anxiety disorder, unspecified; F32.9 Major depressive disorder, single episode, unspecified; G47.30 Sleep apnea, unspecified; F17.210 Nicotine dependence, cigarettes, uncomplicated; Z79.82 Long term (current) use of aspirin; Z79.4 Long term (current) use of insulin; Z79.891 Long term (current) use of opiate analgesic; Z79.899 Other long term (current) drug therapy; Z88.5 Allergy status to narcotic agent; Z88.6 Allergy status to analgesic agent; Z88.8 Allergy status to other drugs, medicaments and biological substances

== ENCOUNTER → 2019-02-04 | Outpatient (REF) | payer MEDICARE, MEDICAID ==
[2019-02-04 13:14] LABS: BLOOD UREA NITROGEN 11 MG/DL (7-18); CALCIUM LEVEL 9.5 MG/DL (8.5-10.1); CARBON DIOXIDE LEVEL 31 MEQ/L (21-32); CHLORIDE LEVEL 104 MEQ/L (98-107); CREATININE FOR GFR 0.88 MG/DL (0.55-1.30); FREE T4 1.14 NG/DL (0.76-1.46); GLOMERULAR FILTRATION RATE > 60.0 (>51); GLUCOSE, FASTING 122 MG/DL (70-100); POTASSIUM SERUM 4.4 MEQ/L (3.5-5.1); SODIUM LEVEL 139 MEQ/L (136-145)
[2019-02-04 13:22] LABS: HEMOGLOBIN A1c 7.2 %
== END ==
LOC: M SFHCPLAZ 09:17
PROVIDERS: ATTEND Nurse Practitioner Family
DX: E11.40 Type 2 diabetes mellitus with diabetic neuropathy, unspecified (principal); R79.89 Other specified abnormal findings of blood chemistry
CPT/HCPCS: 36415; 80048; 83036; 84439; 84443; G0463

== ENCOUNTER → 2019-03-08 | Outpatient (CLI) | payer MEDICARE, MEDICAID | LOC: M PAIN 09:15 | PROVIDERS: ATTEND Family Medicine | DX: E11.42 Type 2 diabetes mellitus with diabetic polyneuropathy (principal); M48.9 Spondylopathy, unspecified; G89.29 Other chronic pain; E78.5 Hyperlipidemia, unspecified; M19.90 Unspecified osteoarthritis, unspecified site; Z86.59 Personal history of other mental and behavioral disorders; G47.30 Sleep apnea, unspecified; F17.210 Nicotine dependence, cigarettes, uncomplicated; Z88.5 Allergy status to narcotic agent; Z88.6 Allergy status to analgesic agent; Z88.8 Allergy status to other drugs, medicaments and biological substances; E66.01 Morbid (severe) obesity due to excess calories; Z68.41 Body mass index [BMI] 40.0-44.9, adult; Z79.4 Long term (current) use of insulin; Z79.82 Long term (current) use of aspirin; Z79.891 Long term (current) use of opiate analgesic; Z79.899 Other long term (current) drug therapy ==

== ENCOUNTER → 2019-04-01 | Outpatient (CLI) | payer MEDICARE, MEDICAID ==
--- NOTE | 2019-04-14 03:55 | ECWPNPC ---
PATIENT NAME: MONIKA ADRIAN : 1965 GENDER: FEMALE VISIT DATE: 04/01/2019 DISCHARGE DATE: 04/01/19939 VISIT LOCKED DATE TIME: PHYSICIAN: BASILIO PEREZ RESOURCE: BASILIO PEREZ REASON FOR APPOINTMENT 1. MEDS HISTORY OF PRESENT ILLNESS HISTORY OF PRESENT ILLNESS: PAIN THE PATIENT DESCRIBES THE PAIN... 53-YEAR-OLD FEMALE IN FOR CHRONIC PAIN FOLLOW-UP. AT LAST CLINIC VISIT HER NORTRIPTYLINE WAS INCREASED TO 50 MG AND SHE ADMITS THAT THE INCREASE WAS HELPFUL. SHE RATES HER PAIN CURRENTLY AT A 4 OUT OF 10 AND DESCRIBES IT ACHING, SHARP, STABBING, AND INTERMITTENT. FALL RISK SCREENING: SCREENING :NO FALLS REPORTED IN THE LAST YEAR CURRENT MEDICATIONS TAKING SIMVASTATIN 10 MG TABLET TAKE 1 TABLET BY MOUTH EVERY EVENING ORALLY ONCE A DAY TAKING NORVASC 5 MG TABLET 1 TABLET ORALLY ONCE A DAY TAKING FREESTYLE TEST 1 STRIP 1 EACH - TWICE A DAY DX:E11.9 TAKING CPAP MACHINE 7 CM PRESSURE VIA MASK EVERY NIGHT. TAKING PEN NEEDLES 31G X 5 MM MISCELLANEOUS DIRECTED SUB Q E11.9 DAILY TAKING BD PEN NEEDLE MINI U/F 0 UNSPECIFIED USE DIRECTED TAKING CLONIDINE HCL 0.1 MG TABLET 1 TAB ORALLY Q8H PRN FOR WITHDRAWAL SYMPTOMS TAKING CYCLOBENZAPRINE HCL 10 MG TABLET 1 TABLET ORALLY FOR SPASMS AND PAIN THREE TIMES A DAY TAKING ZOLPIDEM TARTRATE 10 MG TABLET 1 TABLET AT BEDTIME NEEDED ORALLY BEFORE BEDTIME PRN SLEEP MDD=1 TAKING ASPIRIN 81 MG TABLET DELAYED RELEASE TAKE ONE TABLET BY MOUTH ONCE A DAY ORALLY DAILY TAKING METFORMIN HCL 1000 MG TABLET 1 TABLET WITH MEALS ORALLY TWICE A DAY TAKING LANTUS SOLOSTAR 100 UNIT/ML SOLUTION PEN-INJECTOR DIRECTED SUBCUTANEOUS 25 UNMITS TAKING NORTRIPTYLINE HCL 50 MG CAPSULE 1 CAPSULE ORALLY TWICE DAILY TAKING OZEMPIC 1 MG/DOSE SOLUTION PEN-INJECTOR DIRECTED SUBCUTANEOUS Q WEEK TAKING TRAMADOL HCL 50 MG TABLET 1 TAB ORALLY Q 4-6H MDD4 TAKING NUCYNTA ER 150 MG TABLET EXTENDED RELEASE 12 HOUR 125 MG ORALLY EVERY 12 HRS MDD2 TAKING AMLODIPINE BESYLATE-VALSARTAN 5-320 MG TABLET 1 TABLET ORALLY ONCE A DAY TAKING GLUCOMETER DIRECTED DX E11.9 - TAKING BLOOD GLUCOSE TEST - STRIP DIRECTED DX E11.9 CHECK BGS TWICE DAILY TAKING LANCETS - MISCELLANEOUS DIRECTED DX E11.9 CHECK TWICE DAILY TAKING VITAMIN D 1000 UNIT TABLET 1 TABLET ORALLY ONCE A DAY DISCONTINUED LORATADINE 10 MG TABLET TAKE 1 TABLET BY MOUTH ONCE DAILY DISCONTINUED NORVASC 5 TABLET 1 TABLET ORALLY ONCE A DAY DISCONTINUED LISINOPRIL 10 TABLET 1 TABLET ONCE A DAY ORALLY 30 DAY(S) - - MEDICATION LIST REVIEWED AND RECONCILED WITH THE PATIENT PAST MEDICAL HISTORY DM-2 HYPERLIPIDEMIA, ASCVD 10-YEAR RISK WAS 1.1% IN 04/2014 ON SIMVASTATIN 10MG OA ALLERGIC RHINITIS ANX/DEPRESSION- [facility] DIVERITICULITIS (S/P COLOSTOMY/REVERSAL) DEPRESSION/ANXIETY- (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 NO ABNORMAL PAPSMEARS ALLERGIES NAPROXEN: RECTAL BLEEDING - SIDE EFFECTS AMARYL: CHEST PAIN - SIDE EFFECTS SOMA: CHEST PAIN - SIDE EFFECTS MORPHINE SULFATE: HALLUCINATIONS - SIDE EFFECTS CYMBALTA: INCREASED DEPRESSION - SIDE EFFECTS DICLOFENAC: CHEST PAIN - SIDE EFFECTS LOSARTAN POTASSIUM: TICKLE IN THROAT - SIDE EFFECTS GABAPENTIN: HEADACHES - SIDE EFFECTS LISINOPRIL: COUGH - SIDE EFFECTS SURGICAL HISTORY COLOSTOMY 2009 COLOSTOMY REVERSAL 2009 C SECTION 1985 PT UNSURE WHICH OVARY REMOVED (CYST) 1987 INCISIONAL HERNIA REPAIR 2010 FAMILY HISTORY FATHER: ALIVE, DIAGNOSED WITH HYPERTENSION MOTHER: ALIVE SIBLINGS: ALIVE SON(S): ALIVE DAUGHTER(S): ALIVE 2 BROTHER(S) - HEALTHY. 1 SON(S) , 1 DAUGHTER(S) - HEALTHY. HEALTH HX OF FAMILY UNKNOWN. SOCIAL HISTORY GENERAL: TOBACCO USE ARE YOU A:CURRENT SMOKER ARE YOU INTERESTED IN QUITTING?THINKING ABOUT QUITTING CUTTING BACK COUNSELED THE PATIENT ON SMOKING CESSATION, EDUCATION [id number]/31/2019 HOW MANY CIGARETTES A DAY DO YOU SMOKE?6-10 HOW SOON AFTER YOU WAKE UP DO YOU SMOKE YOUR FIRST CIGARETTE?31-60 MIN HOW OFTEN DO YOU SMOKE CIGARETTES?EVERY DAY PATIENT COUNSELED ON THE DANGERS OF TOBACCO USE AND URGED TO QUIT:02/04/2019 SMOKING CESSATION INFORMATION GIVEN04/01/2019 ADDITIONAL FINDINGS: TOBACCO NON-USER GAVE INFO ON [employer] AND [facility] PHONE# FOR QUITTING ASSISTANCE HIV / HEP-C SCREENING HIV TEST OFFERED TO PATIENT:YES DATE OFFERED:09/12/2016 TEST ACCEPTED:NO HEP-C TEST OFFERED TO PATIENT:YES DATE OFFERED:09/12/2016 REASON:PATIENT DECLINED TEST ACCEPTED:YES OTHERS AT HOME: CHILD. EDUCATION LEVEL OF EDUCATION:NOT FINISHED COLLEGE DIET: NO CONCENTRATED SWEETS.. LANGUAGE CHINESE. DOMESTIC VIOLENCE DO YOU FEEL SAFE IN YOUR ENVIRONMENT?YES BMI CARE GOAL FOLLOW-UP ABOVE NORMAL BMI FOLLOW-UPDIETARY MANAGEMENT EDUCATION, GUIDANCE, AND COUNSELING RECREATIONAL DRUG USE DRUG USE? NO. EXERCISE: NO REGULAR EXERCISE. 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?NO PAIN CLINIC PFS, CLERGY, PUBLIC HEALTH REFERRALS PFS REFERRAL NEEDED?NO CLERGY REFERRAL NEEDED?NO PUBLIC HEALTH REFERRAL NEEDED?NO WAS THE PROVIDER NOTIFIED OF ANY PERTINENT INFO?NO HAS THE PATIENT BEEN EDUCATED REGARDING HIS/HER PLAN OF CARE?YES HAS THE PATIENT BEEN EDUCATED REGARDING PAIN, THE RISK FOR PAIN, THE IMPORTANCE OF EFFECTIVE PAIN MANAGEMENT, AND THE PAIN ASSESSMENT PROCESS?YES LATEX QUESTIONNAIRE LATEX ALLERGY : HAVE YOU EVER DEVELOPED ANY TYPE OF REACTION AFTER HANDLING LATEX PRODUCTS SUCH RUBBER GLOVES, CONDOMS, DIAPHRAGMS, BALLOONS, SOCKS, OR UNDERWEAR?NO LATEX ALLERGY : HAVE YOU EVER DEVELOPED ANY TYPE OF REACTION DURING OR AFTER DENTAL APPOINTMENT, VAGINAL/RECTAL EXAMINATION, SURGICAL PROCEDURE, OR ANY OTHER EXPOSURE?NO LATEX RISK : HAVE YOU EVER HAD ANY DIFFICULTY BREATHING OR HIVES AFTER EATING OR HANDLING ANY FRUITS, OR VEGETABLES; SUCH KIWI, BANANAS, STONE FRUITS, OR CHESTNUTSNO LATEX RISK : DO YOU HAVE A PREVIOUS PERSONAL HISTORY OF MORE THAN NINE SURGERIES, SPINA BIFIDA, OR REPEATED CATHERIZATIONS? NO LATEX RISK : ARE YOU FREQUENTLY EXPOSED TO LATEX PRODUCTS IN YOUR OCCUPATION?NO DATE ASKED : 04/01/2019 CAFFEINE CAFFEINE USE? NO. ADVANCE DIRECTIVE ADVANCE DIRECTIVE DISCUSSED WITH PATIENT:YES 12/08/18 DECLINED HCP INFORMATION. NLJ 04/01/19 DECLINED HCP INFORMATION CAODAISM JEHOVAH'S WITNESS. MARITAL STATUS: SINGLE,. ALCOHOL SCREENING DID YOU HAVE A DRINK CONTAINING ALCOHOL IN THE PAST YEAR?NO POINTS0 INTERPRETATIONNEGATIVE OCCUPATION: DISABLED / SSI. SEXUAL HX HAD SEX IN THE LAST 12 MONTHS (VAGINAL, ORAL, OR ANAL)?YES WITHMEN ONLY PREVENTION STRATEGIES DISCUSSED:OTHER USE PROTECTION?NO LMP:13 MONTHS AGO HAVE YOU EVER HAD AN STD?NO REVIEWED WITH PATIENT 03/17/18 0903 JSREVIEWED WITH PATIENT 08/24/18 1408 JS. HOSPITALIZATION/MAJOR DIAGNOSTIC PROCEDURE ABOVE SURGERIES 2008,2009,1985 REVIEW OF SYSTEMS REVIEWED BY: PROVIDER: [employer] [facility] . CONSTITUTIONAL: ANY CHANGE IN YOUR MEDICAL CONDITION? NO . CHILLS NO . FEVER NO . INFECTION: DO YOU HAVE NEW INFECTIONS? NO . DO YOU HAVE HISTORY OF MRSA? NO . MUSCULOSKELETAL: ANY NEW PATTERNS OF PAIN OR NUMBNESS? YES, NORTRIPTYLINE HAS HELPED . GASTROENTEROLOGY: ANY NEW CHANGE IN BOWEL CONTROL? NO . GENITOURINARY: ANY NEW CHANGE IN BLADDER CONTROL? NO . IS THERE A CHANCE YOU COULD BE ? NO . HEMATOLOGY/LYMPH: DO YOU TAKE ANY BLOOD THINNERS? (FOR EXAMPLE- COUMADIN, PLAVIX, AGGRENOX, PLATEL, PRADAXA, OR XARELTO) NO . WHEN WAS YOUR LAST DOSE? DATE: TIME: . NEUROLOGY: HAVE YOU FALLEN IN THE PAST 12 MONTHS? NO . ANY NEW EXTREMITY NUMBNESS OR WEAKNESS? NO . CARDIOLOGY: DO YOU HAVE A PACEMAKER OR DEFIBRILLATOR? NO . RESPIRATORY: HAVE YOU BEEN SICK IN THE PAST WEEK? NO . FEVER NO . FLU LIKE SYMPTOMS? NO . COUGH NO . INTEGUMENTARY: DO YOU HAVE ANY RASHES OR OPEN SORES? NO . ALLERGIC/IMMUNO: ARE YOU ALLERGIC TO IV DYE? NO . ANY NEW ALLERGIES? NO . PSYCHIATRIC: DO YOU HAVE THOUGHTS OF HURTING YOURSELF OR SOMEONE ELSE? NO . ARE YOU ABUSED, NEGLECTED, OR IN AN UNSAFE ENVIRONMENT? NO . ENDOCRINOLOGY: ARE YOU DIABETIC? YES . OTHER: DO YOU NEED ANY PRESCRIPTIONS? NO . IF YES, PLEASE LIST: ____ . ANY NEW PROBLEMS WITH YOUR MEDICATIONS? NO . WHEN DID YOU LAST EAT? ____ . WHEN DID YOU LAST DRINK? ____ . WHAT DID YOU LAST DRINK? ____ . NAME OF PERSON DRIVING YOU HOME? ____ . DO YOU HAVE ANY OTHER QUESTIONS OR CONCERNS NO . VITAL SIGNS WT 203.0 LBS, HT 59 IN, BMI 41.00 INDEX, BP 140/78 MM HG, HR 94 /MIN, RR 18 /MIN, TEMP 97.0 F, OXYGEN SAT % 97%, NA INITIALS AW 0912. EXAMINATION GENERAL EXAMINATION: GENERALNO ACUTE DISTRESS, WELL NOURISHED AND HYDRATED. PSYCHAPPROPRIATE MOOD AND AFFECT . LUNGS:CLEAR TO AUSCULTATION BILATERALLY, NO WHEEZES, RHONCHI, RALES. HEART:NO MURMURS, REGULAR RATE AND RHYTHM. 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 GIVEN PRESENTING SYMPTOMS AND RESULTS OF PHYSICAL EXAMINATION RECOMMENDED CONTINUATION OF CURRENT MEDICATION REGIMEN WITH FOLLOW-UP IN 3 MONTHS. PATIENT HAS EXPRESSED UNDERSTANDING OF AND WAS IN AGREEMENT WITH TREATMENT PLAN. GIVEN TIME TO ASK QUESTIONS AND EXPRESS CONCERNS., ISTOP REGISTRY REVIEWED AND DEMONSTRATES COMPLLIANCE. (REF # [id number] ) BRINGS IN MEDICATIONS WHICH IS APPROPRIATE FOR WHAT WAS DISPENSED. RECENT URINE TOXICOLOGY REVIEWED. NO UNAUTHORIZED MEDICATIONS. NO ILLICIT SUBSTANCES AND PRESCRIBED MEDICATIONS WERE PRESENT. PROCEDURE CODES FA211 ESTABILISHED PATIENT [facility] CHARGE DISPOSITION & COMMUNICATION FOLLOW UP 3 MONTHS (REASON: CHRONIC PAIN) ELECTRONICALLY SIGNED BY SARITA RODRIGUEZ ON 04/13/2019 AT 09:06 AM EST DISCLAIMER : THIS IS A VISIT SUMMARY EXTRACTED FROM THE [employer] CHART. IT IS NOT A COPY OF THE [employer] PROGRESS NOTE. MAC
--- NOTE | 2019-04-14 03:56 | ECWPNPC ---
PATIENT NAME: MONIKA ADRIAN : 1965 GENDER: FEMALE VISIT DATE: 04/01/2019 DISCHARGE DATE: 04/01/19939 VISIT LOCKED DATE TIME: PHYSICIAN: BASILIO PEREZ RESOURCE: BASILIO PEREZ REASON FOR APPOINTMENT 1. MEDS HISTORY OF PRESENT ILLNESS HISTORY OF PRESENT ILLNESS: PAIN THE PATIENT DESCRIBES THE PAIN... 53-YEAR-OLD FEMALE IN FOR CHRONIC PAIN FOLLOW-UP. AT LAST CLINIC VISIT HER NORTRIPTYLINE WAS INCREASED TO 50 MG AND SHE ADMITS THAT THE INCREASE WAS HELPFUL. SHE RATES HER PAIN CURRENTLY AT A 4 OUT OF 10 AND DESCRIBES IT ACHING, SHARP, STABBING, AND INTERMITTENT. FALL RISK SCREENING: SCREENING :NO FALLS REPORTED IN THE LAST YEAR CURRENT MEDICATIONS TAKING SIMVASTATIN 10 MG TABLET TAKE 1 TABLET BY MOUTH EVERY EVENING ORALLY ONCE A DAY TAKING NORVASC 5 MG TABLET 1 TABLET ORALLY ONCE A DAY TAKING FREESTYLE TEST 1 STRIP 1 EACH - TWICE A DAY DX:E11.9 TAKING CPAP MACHINE 7 CM PRESSURE VIA MASK EVERY NIGHT. TAKING PEN NEEDLES 31G X 5 MM MISCELLANEOUS DIRECTED SUB Q E11.9 DAILY TAKING BD PEN NEEDLE MINI U/F 0 UNSPECIFIED USE DIRECTED TAKING CLONIDINE HCL 0.1 MG TABLET 1 TAB ORALLY Q8H PRN FOR WITHDRAWAL SYMPTOMS TAKING CYCLOBENZAPRINE HCL 10 MG TABLET 1 TABLET ORALLY FOR SPASMS AND PAIN THREE TIMES A DAY TAKING ZOLPIDEM TARTRATE 10 MG TABLET 1 TABLET AT BEDTIME NEEDED ORALLY BEFORE BEDTIME PRN SLEEP MDD=1 TAKING ASPIRIN 81 MG TABLET DELAYED RELEASE TAKE ONE TABLET BY MOUTH ONCE A DAY ORALLY DAILY TAKING METFORMIN HCL 1000 MG TABLET 1 TABLET WITH MEALS ORALLY TWICE A DAY TAKING LANTUS SOLOSTAR 100 UNIT/ML SOLUTION PEN-INJECTOR DIRECTED SUBCUTANEOUS 25 UNMITS TAKING NORTRIPTYLINE HCL 50 MG CAPSULE 1 CAPSULE ORALLY TWICE DAILY TAKING OZEMPIC 1 MG/DOSE SOLUTION PEN-INJECTOR DIRECTED SUBCUTANEOUS Q WEEK TAKING TRAMADOL HCL 50 MG TABLET 1 TAB ORALLY Q 4-6H MDD4 TAKING NUCYNTA ER 150 MG TABLET EXTENDED RELEASE 12 HOUR 125 MG ORALLY EVERY 12 HRS MDD2 TAKING AMLODIPINE BESYLATE-VALSARTAN 5-320 MG TABLET 1 TABLET ORALLY ONCE A DAY TAKING GLUCOMETER DIRECTED DX E11.9 - TAKING BLOOD GLUCOSE TEST - STRIP DIRECTED DX E11.9 CHECK BGS TWICE DAILY TAKING LANCETS - MISCELLANEOUS DIRECTED DX E11.9 CHECK TWICE DAILY TAKING VITAMIN D 1000 UNIT TABLET 1 TABLET ORALLY ONCE A DAY DISCONTINUED LORATADINE 10 MG TABLET TAKE 1 TABLET BY MOUTH ONCE DAILY DISCONTINUED NORVASC 5 TABLET 1 TABLET ORALLY ONCE A DAY DISCONTINUED LISINOPRIL 10 TABLET 1 TABLET ONCE A DAY ORALLY 30 DAY(S) - - MEDICATION LIST REVIEWED AND RECONCILED WITH THE PATIENT PAST MEDICAL HISTORY DM-2 HYPERLIPIDEMIA, ASCVD 10-YEAR RISK WAS 1.1% IN 04/2014 ON SIMVASTATIN 10MG OA ALLERGIC RHINITIS ANX/DEPRESSION- [facility] DIVERITICULITIS (S/P COLOSTOMY/REVERSAL) DEPRESSION/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 NO ABNORMAL PAPSMEARS ALLERGIES NAPROXEN: RECTAL BLEEDING - SIDE EFFECTS AMARYL: CHEST PAIN - SIDE EFFECTS SOMA: CHEST PAIN - SIDE EFFECTS MORPHINE SULFATE: HALLUCINATIONS - SIDE EFFECTS CYMBALTA: INCREASED DEPRESSION - SIDE EFFECTS DICLOFENAC: CHEST PAIN - SIDE EFFECTS LOSARTAN POTASSIUM: TICKLE IN THROAT - SIDE EFFECTS GABAPENTIN: HEADACHES - SIDE EFFECTS LISINOPRIL: COUGH - SIDE EFFECTS SURGICAL HISTORY COLOSTOMY 2009 COLOSTOMY REVERSAL 2009 C SECTION 1985 PT UNSURE WHICH OVARY REMOVED (CYST) 1987 INCISIONAL HERNIA REPAIR 2010 FAMILY HISTORY FATHER: ALIVE, DIAGNOSED WITH HYPERTENSION MOTHER: ALIVE SIBLINGS: ALIVE SON(S): ALIVE DAUGHTER(S): ALIVE 2 BROTHER(S) - HEALTHY. 1 SON(S) , 1 DAUGHTER(S) - HEALTHY. HEALTH HX OF FAMILY UNKNOWN. SOCIAL HISTORY GENERAL: TOBACCO USE ARE YOU A:CURRENT SMOKER ARE YOU INTERESTED IN QUITTING?THINKING ABOUT QUITTING CUTTING BACK COUNSELED THE PATIENT ON SMOKING CESSATION, EDUCATION [id number]/31/2019 HOW MANY CIGARETTES A DAY DO YOU SMOKE?6-10 HOW SOON AFTER YOU WAKE UP DO YOU SMOKE YOUR FIRST CIGARETTE?31-60 MIN HOW OFTEN DO YOU SMOKE CIGARETTES?EVERY DAY PATIENT COUNSELED ON THE DANGERS OF TOBACCO USE AND URGED TO QUIT:02/04/2019 SMOKING CESSATION INFORMATION GIVEN04/01/2019 ADDITIONAL FINDINGS: TOBACCO NON-USER GAVE INFO ON [employer] AND [facility] PHONE# FOR QUITTING ASSISTANCE HIV / HEP-C SCREENING HIV TEST OFFERED TO PATIENT:YES DATE OFFERED:09/12/2016 TEST ACCEPTED:NO HEP-C TEST OFFERED TO PATIENT:YES DATE OFFERED:09/12/2016 REASON:PATIENT DECLINED TEST ACCEPTED:YES OTHERS AT HOME: CHILD. EDUCATION LEVEL OF EDUCATION:NOT FINISHED COLLEGE DIET: NO CONCENTRATED SWEETS.. LANGUAGE POLISH. DOMESTIC VIOLENCE DO YOU FEEL SAFE IN YOUR ENVIRONMENT?YES BMI CARE GOAL FOLLOW-UP ABOVE NORMAL BMI FOLLOW-UPDIETARY MANAGEMENT EDUCATION, GUIDANCE, AND COUNSELING RECREATIONAL DRUG USE DRUG USE? NO. EXERCISE: NO REGULAR EXERCISE. 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?NO PAIN CLINIC PFS, CLERGY, PUBLIC HEALTH REFERRALS PFS REFERRAL NEEDED?NO CLERGY REFERRAL NEEDED?NO PUBLIC HEALTH REFERRAL NEEDED?NO WAS THE PROVIDER NOTIFIED OF ANY PERTINENT INFO?NO HAS THE PATIENT BEEN EDUCATED REGARDING HIS/HER PLAN OF CARE?YES HAS THE PATIENT BEEN EDUCATED REGARDING PAIN, THE RISK FOR PAIN, THE IMPORTANCE OF EFFECTIVE PAIN MANAGEMENT, AND THE PAIN ASSESSMENT PROCESS?YES LATEX QUESTIONNAIRE LATEX ALLERGY : HAVE YOU EVER DEVELOPED ANY TYPE OF REACTION AFTER HANDLING LATEX PRODUCTS SUCH RUBBER GLOVES, CONDOMS, DIAPHRAGMS, BALLOONS, SOCKS, OR UNDERWEAR?NO LATEX ALLERGY : HAVE YOU EVER DEVELOPED ANY TYPE OF REACTION DURING OR AFTER DENTAL APPOINTMENT, VAGINAL/RECTAL EXAMINATION, SURGICAL PROCEDURE, OR ANY OTHER EXPOSURE?NO LATEX RISK : HAVE YOU EVER HAD ANY DIFFICULTY BREATHING OR HIVES AFTER EATING OR HANDLING ANY FRUITS, OR VEGETABLES; SUCH KIWI, BANANAS, STONE FRUITS, OR CHESTNUTSNO LATEX RISK : DO YOU HAVE A PREVIOUS PERSONAL HISTORY OF MORE THAN NINE SURGERIES, SPINA BIFIDA, OR REPEATED CATHERIZATIONS? NO LATEX RISK : ARE YOU FREQUENTLY EXPOSED TO LATEX PRODUCTS IN YOUR OCCUPATION?NO DATE ASKED : 04/01/2019 CAFFEINE CAFFEINE USE? NO. ADVANCE DIRECTIVE ADVANCE DIRECTIVE DISCUSSED WITH PATIENT:YES 12/08/18 DECLINED HCP INFORMATION. NLJ 04/01/19 DECLINED HCP INFORMATION [facility]. MARITAL STATUS: SINGLE,. ALCOHOL SCREENING DID YOU HAVE A DRINK CONTAINING ALCOHOL IN THE PAST YEAR?NO POINTS0 INTERPRETATIONNEGATIVE OCCUPATION: DISABLED / SSI. SEXUAL HX HAD SEX IN THE LAST 12 MONTHS (VAGINAL, ORAL, OR ANAL)?YES WITHMEN ONLY PREVENTION STRATEGIES DISCUSSED:OTHER USE PROTECTION?NO LMP:13 MONTHS AGO HAVE YOU EVER HAD AN STD?NO REVIEWED WITH PATIENT 03/17/18 0903 JSREVIEWED WITH PATIENT 08/24/18 1408 JS. HOSPITALIZATION/MAJOR DIAGNOSTIC PROCEDURE ABOVE SURGERIES 2008,2009,1985 REVIEW OF SYSTEMS REVIEWED BY: PROVIDER: [employer] . CONSTITUTIONAL: ANY CHANGE IN YOUR MEDICAL CONDITION? NO . CHILLS NO . FEVER NO . INFECTION: DO YOU HAVE NEW INFECTIONS? NO . DO YOU HAVE HISTORY OF MRSA? NO . MUSCULOSKELETAL: ANY NEW PATTERNS OF PAIN OR NUMBNESS? YES, NORTRIPTYLINE HAS HELPED . GASTROENTEROLOGY: ANY NEW CHANGE IN BOWEL CONTROL? NO . GENITOURINARY: ANY NEW CHANGE IN BLADDER CONTROL? NO . IS THERE A CHANCE YOU COULD BE ? NO . HEMATOLOGY/LYMPH: DO YOU TAKE ANY BLOOD THINNERS? (FOR EXAMPLE- COUMADIN, PLAVIX, AGGRENOX, PLATEL, PRADAXA, OR XARELTO) NO . WHEN WAS YOUR LAST DOSE? DATE: TIME: . NEUROLOGY: HAVE YOU FALLEN IN THE PAST 12 MONTHS? NO . ANY NEW EXTREMITY NUMBNESS OR WEAKNESS? NO . CARDIOLOGY: DO YOU HAVE A PACEMAKER OR DEFIBRILLATOR? NO . RESPIRATORY: HAVE YOU BEEN SICK IN THE PAST WEEK? NO . FEVER NO . FLU LIKE SYMPTOMS? NO . COUGH NO . INTEGUMENTARY: DO YOU HAVE ANY RASHES OR OPEN SORES? NO . ALLERGIC/IMMUNO: ARE YOU ALLERGIC TO IV DYE? NO . ANY NEW ALLERGIES? NO . PSYCHIATRIC: DO YOU HAVE THOUGHTS OF HURTING YOURSELF OR SOMEONE ELSE? NO . ARE YOU ABUSED, NEGLECTED, OR IN AN UNSAFE ENVIRONMENT? NO . ENDOCRINOLOGY: ARE YOU DIABETIC? YES . OTHER: DO YOU NEED ANY PRESCRIPTIONS? NO . IF YES, PLEASE LIST: ____ . ANY NEW PROBLEMS WITH YOUR MEDICATIONS? NO . WHEN DID YOU LAST EAT? ____ . WHEN DID YOU LAST DRINK? ____ . WHAT DID YOU LAST DRINK? ____ . NAME OF PERSON DRIVING YOU HOME? ____ . DO YOU HAVE ANY OTHER QUESTIONS OR CONCERNS NO . VITAL SIGNS WT 203.0 LBS, HT 59 IN, BMI 41.00 INDEX, BP 140/78 MM HG, HR 94 /MIN, RR 18 /MIN, TEMP 97.0 F, OXYGEN SAT % 97%, NA INITIALS AW 0912. EXAMINATION GENERAL EXAMINATION: GENERALNO ACUTE DISTRESS, WELL NOURISHED AND HYDRATED. PSYCHAPPROPRIATE MOOD AND AFFECT . LUNGS:CLEAR TO AUSCULTATION BILATERALLY, NO WHEEZES, RHONCHI, RALES. HEART:NO MURMURS, REGULAR RATE AND RHYTHM. 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 GIVEN PRESENTING SYMPTOMS AND RESULTS OF PHYSICAL EXAMINATION RECOMMENDED CONTINUATION OF CURRENT MEDICATION REGIMEN WITH FOLLOW-UP IN 3 MONTHS. PATIENT HAS EXPRESSED UNDERSTANDING OF AND WAS IN AGREEMENT WITH TREATMENT PLAN. GIVEN TIME TO ASK QUESTIONS AND EXPRESS CONCERNS., ISTOP REGISTRY REVIEWED AND DEMONSTRATES COMPLLIANCE. (REF # [id number] ) BRINGS IN MEDICATIONS WHICH IS APPROPRIATE FOR WHAT WAS DISPENSED. RECENT URINE TOXICOLOGY REVIEWED. NO UNAUTHORIZED MEDICATIONS. NO ILLICIT SUBSTANCES AND PRESCRIBED MEDICATIONS WERE PRESENT. PROCEDURE CODES FA211 ESTABILISHED PATIENT [facility] CHARGE DISPOSITION & COMMUNICATION FOLLOW UP 3 MONTHS (REASON: CHRONIC PAIN) ELECTRONICALLY SIGNED BY SARITA RODRIGUEZ ON 04/13/2019 AT 09:06 AM EST DISCLAIMER : THIS IS A VISIT SUMMARY EXTRACTED FROM THE [employer] CHART. IT IS NOT A COPY OF THE [employer] PROGRESS NOTE. MAC
== END ==
LOC: M PAIN 09:30
PROVIDERS: ATTEND Family Medicine
DX: M48.9 Spondylopathy, unspecified (principal); E11.9 Type 2 diabetes mellitus without complications; F17.210 Nicotine dependence, cigarettes, uncomplicated; Z79.4 Long term (current) use of insulin; Z79.82 Long term (current) use of aspirin; Z79.891 Long term (current) use of opiate analgesic; Z79.899 Other long term (current) drug therapy; Z88.5 Allergy status to narcotic agent; Z88.8 Allergy status to other drugs, medicaments and biological substances

== ENCOUNTER → 2019-06-28 | Outpatient (REF) | payer MEDICARE, MEDICAID ==
[~2019-06-28] MED LIST changes: -SIMV10TA2 PO; +SIMV10TA21 PO
[2019-06-28 12:18] LABS: ALBUMIN 3.6 GM/DL (3.2-5.2); ALT/SGPT 37 U/L (12-78); BILIRUBIN,TOTAL 0.4 MG/DL (0.2-1.0); BLOOD UREA NITROGEN 12 MG/DL (7-18); CALCIUM LEVEL 8.7 MG/DL (8.5-10.1); CARBON DIOXIDE LEVEL 27 MEQ/L (21-32); CHLORIDE LEVEL 107 MEQ/L (98-107); CHOLESTEROL LEVEL 147 MG/DL (<200); CHOLESTEROL RISK RATIO 3.062 (<5); CREATININE FOR GFR 0.88 MG/DL (0.55-1.30); GLOMERULAR FILTRATION RATE > 60.0 (>51); GLUCOSE, FASTING 87 MG/DL (70-100); HDL CHOLESTEROL 48 MG/DL (>40); LDL CHOLESTEROL 70 MG/DL (<100); NON-HDL-C 99 MG/DL; POTASSIUM SERUM 4.2 MEQ/L (3.5-5.1); SODIUM LEVEL 138 MEQ/L (136-145); TOTAL PROTEIN 7.7 GM/DL (6.4-8.2); TRIGLYCERIDES LEVEL 145 MG/DL (<150)
[2019-06-28 12:21] LABS: HEMOGLOBIN A1c 6.1 %
[2019-06-28 12:45] LABS: MALB URINE SIEMENS 43.6 MG/L; MAU/CREAT RATIO 23.4 MCG/MG (0.0-30.0)
== END ==
LOC: M SFHCPLAZ 09:50
PROVIDERS: ATTEND Nurse Practitioner Adult Health
DX: E11.40 Type 2 diabetes mellitus with diabetic neuropathy, unspecified (principal); E78.5 Hyperlipidemia, unspecified; K76.0 Fatty (change of) liver, not elsewhere classified; E55.9 Vitamin D deficiency, unspecified; E03.9 Hypothyroidism, unspecified
CPT/HCPCS: 36415; 80053; 80061; 82043; 82306; 83036; 84443; G0463

== ENCOUNTER → 2019-07-01 | Outpatient (CLI) | payer MEDICARE, MEDICAID ==
--- NOTE | 2019-07-03 08:11 | ECWPNPC ---
PATIENT NAME: MONIKA ADRIAN : 1965 GENDER: FEMALE VISIT DATE: 07/01/2019 DISCHARGE DATE: 07/01/19 1106 VISIT LOCKED DATE TIME: PHYSICIAN: BASILIO PEREZ RESOURCE: BASILIO PEREZ REASON FOR APPOINTMENT 1. CHRONIC PAIN-MEDICARE AB HISTORY OF PRESENT ILLNESS GENERAL: 53-YEAR-OLD FEMALE IN FOR CHRONIC PAIN FOLLOW-UP. SHE RATES HER PAIN CURRENTLY AT A 6 OUT OF 10 AND DESCRIBES IT ACHING, SHARP, STABBING, AND SHOOTING. SHE FEELS THE MEDICATIONS ARE WORKING WELL AND DENIES MED SIDE EFFECTS AT THIS TIME. FALL RISK SCREENING: SCREENING :NO FALLS REPORTED IN THE LAST YEAR PAIN SCREENING: PATIENT HAS A COMPLAINT OF ACUTE OR CHRONIC PAIN :YES LOCATION OF PAIN:LOW BACK INTENSITY OF PAIN (SCALE OF 1 TO 10):6 NURSING NOTE: -. HISTORY OF PRESENT ILLNESS: PAIN THE PATIENT DESCRIBES THE PAIN... CURRENT MEDICATIONS TAKING SIMVASTATIN 10 MG TABLET TAKE 1 TABLET BY MOUTH EVERY EVENING ORALLY ONCE A DAY TAKING ASPIRIN 81 MG TABLET DELAYED RELEASE TAKE ONE TABLET BY MOUTH ONCE A DAY ORALLY DAILY TAKING METFORMIN HCL 1000 MG TABLET 1 TABLET WITH MEALS ORALLY TWICE A DAY TAKING NORVASC 5 MG TABLET 1 TABLET ORALLY ONCE A DAY TAKING LANTUS SOLOSTAR 100 UNIT/ML SOLUTION PEN-INJECTOR 31 UNITS SUBCUTANEOUSLY/ E11.9 DAILY TAKING OZEMPIC 1 MG/DOSE SOLUTION PEN-INJECTOR 1 MG SUBCUTANEOUSLY/ E11.9 Q WEEK TAKING PEN NEEDLES 31G X 5 MM MISCELLANEOUS DIRECTED SUB Q E11.9 DAILY TAKING FREESTYLE TEST 1 STRIP 1 EACH - TWICE A DAY DX:E11.9 TAKING LANCETS - MISCELLANEOUS DIRECTED DX E11.9 CHECK TWICE DAILY TAKING BD PEN NEEDLE MINI U/F 0 UNSPECIFIED USE DIRECTED _ _ TAKING CPAP MACHINE 7 CM PRESSURE VIA MASK EVERY NIGHT. TAKING CLONIDINE HCL 0.1 MG TABLET 1 TAB ORALLY Q8H PRN FOR WITHDRAWAL SYMPTOMS TAKING VITAMIN D 1000 UNIT TABLET 1 TABLET ORALLY ONCE A DAY TAKING GLUCOMETER DIRECTED DX E11.9 - TAKING NUCYNTA ER 150 MG TABLET EXTENDED RELEASE 12 HOUR 125 MG ORALLY EVERY 12 HRS MDD2 TAKING NORTRIPTYLINE HCL 50 MG CAPSULE 1 CAPSULE ORALLY TWICE DAILY TAKING CYCLOBENZAPRINE HCL 10 MG TABLET 1 TABLET ORALLY FOR SPASMS AND PAIN THREE TIMES A DAY TAKING TRAMADOL HCL 50 MG TABLET 1 TAB ORALLY Q 4-6H MDD4 TAKING ZOLPIDEM TARTRATE 10 MG TABLET 1 TABLET AT BEDTIME NEEDED ORALLY BEFORE BEDTIME PRN SLEEP MDD=1 NOT-TAKING OZEMPIC 1 MG/DOSE SOLUTION PEN-INJECTOR DIRECTED SUBCUTANEOUS Q WEEK NOT-TAKING LANTUS SOLOSTAR 100 UNIT/ML SOLUTION PEN-INJECTOR DIRECTED SUBCUTANEOUS 31 UNITS NOT-TAKING NORVASC 5 MG TABLET 1 TABLET ORALLY ONCE A DAY MEDICATION LIST REVIEWED AND RECONCILED WITH THE PATIENT PAST MEDICAL HISTORY DM-2 HYPERLIPIDEMIA, ASCVD 10-YEAR RISK WAS 1.1% IN 04/2014 ON SIMVASTATIN 10MG OA ALLERGIC RHINITIS ANX/DEPRESSION- [facility] DEPRESSION/ANXIETY- (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 NO ABNORMAL PAPSMEARS ALLERGIES NAPROXEN: RECTAL BLEEDING - SIDE EFFECTS AMARYL: CHEST PAIN - SIDE EFFECTS SOMA: CHEST PAIN - SIDE EFFECTS MORPHINE SULFATE: HALLUCINATIONS - SIDE EFFECTS CYMBALTA: INCREASED DEPRESSION - SIDE EFFECTS DICLOFENAC: CHEST PAIN - SIDE EFFECTS LOSARTAN POTASSIUM: TICKLE IN THROAT - SIDE EFFECTS GABAPENTIN: HEADACHES - SIDE EFFECTS LISINOPRIL: COUGH - SIDE EFFECTS SURGICAL HISTORY COLOSTOMY ( HAS BEEN REVERSED) 2008 COLOSTOMY REVERSAL 2009 C SECTION 1985 PT UNSURE WHICH OVARY REMOVED (CYST) 1987 INCISIONAL HERNIA REPAIR 2010 FAMILY HISTORY FATHER: ALIVE, DIAGNOSED WITH HYPERTENSION MOTHER: ALIVE SIBLINGS: ALIVE SON(S): ALIVE DAUGHTER(S): ALIVE 2 BROTHER(S) - HEALTHY. 1 SON(S) , 1 DAUGHTER(S) - HEALTHY. HEALTH HX OF FAMILY UNKNOWN NO SISTERS. SOCIAL HISTORY GENERAL: TOBACCO USE ARE YOU A:CURRENT SMOKER HOW OFTEN DO YOU SMOKE CIGARETTES?EVERY DAY HOW SOON AFTER YOU WAKE UP DO YOU SMOKE YOUR FIRST CIGARETTE?31-60 MIN HOW MANY CIGARETTES A DAY DO YOU SMOKE?6-10 ARE YOU INTERESTED IN QUITTING?THINKING ABOUT QUITTING CUTTING BACK ADDITIONAL FINDINGS: TOBACCO NON-USER GAVE INFO ON [employer] AND [facility] PHONE# FOR QUITTING ASSISTANCE PATIENT COUNSELED ON THE DANGERS OF TOBACCO USE AND URGED TO QUIT:02/04/2019 COUNSELED THE PATIENT ON SMOKING CESSATION, EDUCATION [id number]/31/2019 SMOKING CESSATION INFORMATION GIVEN04/01/2019 HIV / HEP-C SCREENING HIV TEST OFFERED TO PATIENT:YES DATE OFFERED:09/12/2016 TEST ACCEPTED:NO HEP-C TEST OFFERED TO PATIENT:YES DATE OFFERED:09/12/2016 REASON:PATIENT DECLINED TEST ACCEPTED:YES OTHERS AT HOME: CHILD, OTHER NON-RELATIVE S/O. EDUCATION LEVEL OF EDUCATION:NOT FINISHED COLLEGE DIET: NO CONCENTRATED SWEETS.. LANGUAGE UKRAINIAN. DOMESTIC VIOLENCE DO YOU FEEL SAFE IN YOUR ENVIRONMENT?YES BMI CARE GOAL FOLLOW-UP ABOVE NORMAL BMI FOLLOW-UPDIETARY MANAGEMENT EDUCATION, GUIDANCE, AND COUNSELING RECREATIONAL DRUG USE DRUG USE? NO. EXERCISE: NO REGULAR EXERCISE. LEARNING BARRIERS / SPECIAL NEEDS CHANGE FROM LAST VISIT?NO BARRIERS TO LEARNING?NO HEARING IMPAIRED?NO VISION IMPAIRED?YES COGNITIVELY IMPAIRED?NO :CORRECTIVE LENSES READINESS TO LEARN?YES LEARNING PREFERENCES?NO LEARNING CAPABILITIES PRESENT?YES EMOTIONAL BARRIERS?NO SPECIAL DEVICES?NO IMPREGNATION OPERATOR NEEDED?NO PAIN CLINIC PFS, CLERGY, PUBLIC HEALTH REFERRALS PFS REFERRAL NEEDED?NO CLERGY REFERRAL NEEDED?NO PUBLIC HEALTH REFERRAL NEEDED?NO WAS THE PROVIDER NOTIFIED OF ANY PERTINENT INFO?NO HAS THE PATIENT BEEN EDUCATED REGARDING HIS/HER PLAN OF CARE?YES HAS THE PATIENT BEEN EDUCATED REGARDING PAIN, THE RISK FOR PAIN, THE IMPORTANCE OF EFFECTIVE PAIN MANAGEMENT, AND THE PAIN ASSESSMENT PROCESS?YES LATEX QUESTIONNAIRE LATEX ALLERGY : HAVE YOU EVER DEVELOPED ANY TYPE OF REACTION AFTER HANDLING LATEX PRODUCTS SUCH RUBBER GLOVES, CONDOMS, DIAPHRAGMS, BALLOONS, SOCKS, OR UNDERWEAR?NO LATEX ALLERGY : HAVE YOU EVER DEVELOPED ANY TYPE OF REACTION DURING OR AFTER DENTAL APPOINTMENT, VAGINAL/RECTAL EXAMINATION, SURGICAL PROCEDURE, OR ANY OTHER EXPOSURE?NO DATE ASKED : 04/01/2019 LATEX RISK : HAVE YOU EVER HAD ANY DIFFICULTY BREATHING OR HIVES AFTER EATING OR HANDLING ANY FRUITS, OR VEGETABLES; SUCH KIWI, BANANAS, STONE FRUITS, OR CHESTNUTSNO LATEX RISK : DO YOU HAVE A PREVIOUS PERSONAL HISTORY OF MORE THAN NINE SURGERIES, SPINA BIFIDA, OR REPEATED CATHERIZATIONS? NO LATEX RISK : ARE YOU FREQUENTLY EXPOSED TO LATEX PRODUCTS IN YOUR OCCUPATION?NO CAFFEINE CAFFEINE USE? NO. ADVANCE DIRECTIVE ADVANCE DIRECTIVE DISCUSSED WITH PATIENT:YES 12/08/18 DECLINED HCP INFORMATION. NLJ 04/01/19 DECLINED HCP INFORMATION ORTHODOXY SIKH. MARITAL STATUS: PARTENERED LIVE TOGETHER/. ALCOHOL SCREENING DID YOU HAVE A DRINK CONTAINING ALCOHOL IN THE PAST YEAR?NO POINTS0 INTERPRETATIONNEGATIVE OCCUPATION: DISABLED / SSI. SEXUAL HX HAD SEX IN THE LAST 12 MONTHS (VAGINAL, ORAL, OR ANAL)?YES WITHMEN ONLY PREVENTION STRATEGIES DISCUSSED:OTHER USE PROTECTION?NO LMP:13 MONTHS AGO HAVE YOU EVER HAD AN STD?NO REVIEWED WITH PATIENT 03/17/18 0903 JSREVIEWED WITH PATIENT 08/24/18 1408 JS. 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 CONSTITUTIONAL: ANY CHANGE IN YOUR MEDICAL CONDITION? NO . CHILLS NO . FEVER NO . INFECTION: DO YOU HAVE NEW INFECTIONS? NO . DO YOU HAVE HISTORY OF MRSA? NO . MUSCULOSKELETAL: ANY NEW PATTERNS OF PAIN OR NUMBNESS? NO . GASTROENTEROLOGY: ANY NEW CHANGE IN BOWEL CONTROL? NO . GENITOURINARY: ANY NEW CHANGE IN BLADDER CONTROL? NO . IS THERE A CHANCE YOU COULD BE ? NO . HEMATOLOGY/LYMPH: DO YOU TAKE ANY BLOOD THINNERS? (FOR EXAMPLE- COUMADIN, PLAVIX, AGGRENOX, PLATEL, PRADAXA, OR XARELTO) NO . WHEN WAS YOUR LAST DOSE? DATE: TIME: . NEUROLOGY: HAVE YOU FALLEN IN THE PAST 12 MONTHS? YES . ANY NEW EXTREMITY NUMBNESS OR WEAKNESS? YES . CARDIOLOGY: DO YOU HAVE A PACEMAKER OR DEFIBRILLATOR? NO . RESPIRATORY: HAVE YOU BEEN SICK IN THE PAST WEEK? NO . FEVER NO . FLU LIKE SYMPTOMS? NO . COUGH NO . INTEGUMENTARY: DO YOU HAVE ANY RASHES OR OPEN SORES? NO . ALLERGIC/IMMUNO: ARE YOU ALLERGIC TO IV DYE? NO . ANY NEW ALLERGIES? NO . PSYCHIATRIC: DO YOU HAVE THOUGHTS OF HURTING YOURSELF OR SOMEONE ELSE? NO . ARE YOU ABUSED, NEGLECTED, OR IN AN UNSAFE ENVIRONMENT? NO . ENDOCRINOLOGY: ARE YOU DIABETIC? YES . OTHER: DO YOU NEED ANY PRESCRIPTIONS? NO . IF YES, PLEASE LIST: ____ . ANY NEW PROBLEMS WITH YOUR MEDICATIONS? NO . WHEN DID YOU LAST EAT? ____ . WHEN DID YOU LAST DRINK? ____ . WHAT DID YOU LAST DRINK? ____ . NAME OF PERSON DRIVING YOU HOME? ____ . DO YOU HAVE ANY OTHER QUESTIONS OR CONCERNS NO . VITAL SIGNS WT 203.8 LBS, HT 59 IN, BMI 41.16 INDEX, BP 141/75 MM HG, HR 94 /MIN, RR 20 /MIN, TEMP 98.6 F, OXYGEN SAT % 97, BLOOD GLUCOSE LEVEL 82 THIS AM, SAFE IN ENV? (Y/N) YES, PAIN SCALE 6A. PILO BRIDGES. EXAMINATION GENERAL EXAMINATION: GENERALNO ACUTE DISTRESS, WELL NOURISHED AND HYDRATED. PSYCHAPPROPRIATE MOOD AND AFFECT . LUNGS:CLEAR TO AUSCULTATION BILATERALLY, NO WHEEZES, RHONCHI, RALES. HEART:NO MURMURS, REGULAR RATE AND RHYTHM. 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 GIVEN PRESENTING SYMPTOMS AND RESULTS OF PHYSICAL EXAMINATION RECOMMENDED CONTINUATION OF CURRENT MEDICATION REGIMEN WITH FOLLOW-UP IN 3 MONTHS. PATIENT HAS EXPRESSED UNDERSTANDING OF AND WAS IN AGREEMENT WITH TREATMENT PLAN. GIVEN TIME TO ASK QUESTIONS AND EXPRESS CONCERNS., ISTOP REGISTRY REVIEWED AND DEMONSTRATES COMPLLIANCE. (REF # [id number] ) BRINGS IN MEDICATIONS WHICH IS APPROPRIATE FOR WHAT WAS DISPENSED. RECENT URINE TOXICOLOGY REVIEWED. NO UNAUTHORIZED MEDICATIONS. NO ILLICIT SUBSTANCES AND PRESCRIBED MEDICATIONS WERE PRESENT. PROCEDURE CODES FA211 ESTABILISHED PATIENT [facility] FACILITY CHARGE DISPOSITION & COMMUNICATION FOLLOW UP 3 MONTHS (REASON: BACK PAIN) ELECTRONICALLY SIGNED BY SARITA RODRIGUEZ ON 07/02/2019 AT 09:02 AM EST DISCLAIMER : THIS IS A VISIT SUMMARY EXTRACTED FROM THE [employer] CHART. IT IS NOT A COPY OF THE [employer] PROGRESS NOTE. MAC
== END ==
LOC: M PAIN 10:30
PROVIDERS: ATTEND Family Medicine
DX: M48.9 Spondylopathy, unspecified (principal); G89.29 Other chronic pain; E11.42 Type 2 diabetes mellitus with diabetic polyneuropathy; E78.5 Hyperlipidemia, unspecified; Z86.59 Personal history of other mental and behavioral disorders; G47.30 Sleep apnea, unspecified; F17.210 Nicotine dependence, cigarettes, uncomplicated; Z88.5 Allergy status to narcotic agent; Z88.6 Allergy status to analgesic agent; Z88.8 Allergy status to other drugs, medicaments and biological substances; E66.01 Morbid (severe) obesity due to excess calories; Z68.41 Body mass index [BMI] 40.0-44.9, adult; Z79.82 Long term (current) use of aspirin; Z79.4 Long term (current) use of insulin; Z79.891 Long term (current) use of opiate analgesic; Z79.899 Other long term (current) drug therapy

== ENCOUNTER → 2019-09-29 | Outpatient (CLI) | payer MEDICARE, MEDICAID ==
--- NOTE | 2019-10-01 04:26 | ECWPNPC ---
PATIENT NAME: MONIKA ADRIAN : 1965 GENDER: FEMALE VISIT DATE: 09/29/2019 DISCHARGE DATE: 09/29/19 1214 VISIT LOCKED DATE TIME: PHYSICIAN: BASILIO PEREZ RESOURCE: BASILIO PEREZ REASON FOR APPOINTMENT 1. BACK PAIN HISTORY OF PRESENT ILLNESS HISTORY OF PRESENT ILLNESS: PAIN THE PATIENT DESCRIBES THE PAIN... PERMISSION REQUESTED AND RECEIVED FOR PATIENT TO PERFORM TELEHEALTH VISIT. 53-YEAR-OLD FEMALE IN FOR CHRONIC PAIN FOLLOW-UP. SHE RATES HER PAIN CURRENTLY AT A 6-7 OUT OF 10 AND DESCRIBES IT ACHING. SHE FEELS HER MEDICATIONS ARE HELPFUL AND DENIES MED SIDE EFFECTS AT THIS TIME. SHE DOES ADMIT TO INCREASED NUMBNESS IN HER FINGERTIPS. FALL RISK SCREENING: SCREENING :NO FALLS REPORTED IN THE LAST YEAR CURRENT MEDICATIONS TAKING METFORMIN HCL 1000 MG TABLET 1 TABLET WITH MEALS ORALLY TWICE A DAY TAKING PEN NEEDLES 31G X 5 MM MISCELLANEOUS DIRECTED SUB Q E11.9 DAILY TAKING LANCETS - MISCELLANEOUS DIRECTED DX E11.9 CHECK TWICE DAILY TAKING BD PEN NEEDLE MINI U/F 0 UNSPECIFIED USE DIRECTED _ _ TAKING CPAP MACHINE 7 CM PRESSURE VIA MASK EVERY NIGHT. TAKING VITAMIN D 1000 UNIT TABLET 1 TABLET ORALLY ONCE A DAY TAKING GLUCOMETER DIRECTED DX E11.9 - TAKING NORVASC 5 MG TABLET 1 TABLET ORALLY ONCE A DAY TAKING OZEMPIC 1 MG/DOSE SOLUTION PEN-INJECTOR 1 MG SUBCUTANEOUSLY/ E11.9 Q WEEK TAKING LANTUS SOLOSTAR 100 UNIT/ML SOLUTION PEN-INJECTOR 31 UNITS SUBCUTANEOUSLY/ E11.9 DAILY TAKING CLONIDINE HCL 0.1 MG TABLET 1 TAB ORALLY Q8H PRN FOR WITHDRAWAL SYMPTOMS TAKING ASPIRIN 81 MG TABLET DELAYED RELEASE TAKE ONE TABLET BY MOUTH ONCE A DAY ORALLY DAILY TAKING SIMVASTATIN 10 MG TABLET TAKE 1 TABLET BY MOUTH EVERY EVENING ORALLY ONCE A DAY TAKING FREESTYLE TEST 1 STRIP DIRECTED IN VITRO, DX: E11.9 TWICE DAILY TAKING VITAMIN D 25 MCG (1000 UT) TABLET 1 TABLET ORALLY DAILY TAKING NUCYNTA ER 150 MG TABLET EXTENDED RELEASE 12 HOUR 125 MG ORALLY EVERY 12 HRS MDD2 TAKING CYCLOBENZAPRINE HCL 10 MG TABLET 1 TABLET ORALLY FOR SPASMS AND PAIN THREE TIMES A DAY TAKING TRAMADOL HCL 50 MG TABLET 1 TAB ORALLY Q 4-6H MDD4 TAKING ZOLPIDEM TARTRATE 10 MG TABLET 1 TABLET AT BEDTIME NEEDED ORALLY BEFORE BEDTIME PRN SLEEP MDD=1 TAKING NORTRIPTYLINE HCL 50 MG CAPSULE 1 CAPSULE ORALLY TWICE DAILY NOT-TAKING OZEMPIC (1 MG/DOSE) 2 MG/1.5ML SOLUTION PEN-INJECTOR INJECT 1MG UNDER THE SKIN ONCE WEEKLY NOT-TAKING OZEMPIC 1 MG/DOSE SOLUTION PEN-INJECTOR DIRECTED SUBCUTANEOUS Q WEEK NOT-TAKING LANTUS SOLOSTAR 100 UNIT/ML SOLUTION PEN-INJECTOR DIRECTED SUBCUTANEOUS 31 UNITS NOT-TAKING NORVASC 5 MG TABLET 1 TABLET ORALLY ONCE A DAY MEDICATION LIST REVIEWED AND RECONCILED WITH THE PATIENT PAST MEDICAL HISTORY DM-2 HYPERLIPIDEMIA, ASCVD 10-YEAR RISK WAS 1.1% IN 04/2014 ON SIMVASTATIN 10MG OA ALLERGIC RHINITIS ANX/DEPRESSION- [facility] DEPRESSION/ANXIETY- (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 NO ABNORMAL PAPSMEARS ALLERGIES NAPROXEN: RECTAL BLEEDING - SIDE EFFECTS AMARYL: CHEST PAIN - SIDE EFFECTS SOMA: CHEST PAIN - SIDE EFFECTS MORPHINE SULFATE: HALLUCINATIONS - SIDE EFFECTS CYMBALTA: INCREASED DEPRESSION - SIDE EFFECTS DICLOFENAC: CHEST PAIN - SIDE EFFECTS LOSARTAN POTASSIUM: TICKLE IN THROAT - SIDE EFFECTS GABAPENTIN: HEADACHES - SIDE EFFECTS LISINOPRIL: COUGH - SIDE EFFECTS SURGICAL HISTORY COLOSTOMY ( HAS BEEN REVERSED) 2008 COLOSTOMY REVERSAL 2009 C SECTION 1985 PT UNSURE WHICH OVARY REMOVED (CYST) 1987 INCISIONAL HERNIA REPAIR 2010 FAMILY HISTORY FATHER: ALIVE, DIAGNOSED WITH HYPERTENSION MOTHER: ALIVE SIBLINGS: ALIVE SON(S): ALIVE DAUGHTER(S): ALIVE 2 BROTHER(S) - HEALTHY. 1 SON(S) , 1 DAUGHTER(S) - HEALTHY. HEALTH HX OF FAMILY UNKNOWN NO SISTERS. SOCIAL HISTORY GENERAL: TOBACCO USE ARE YOU A:CURRENT SMOKER ARE YOU INTERESTED IN QUITTING?THINKING ABOUT QUITTING CUTTING BACK COUNSELED THE PATIENT ON SMOKING CESSATION, EDUCATION [id number]/28/2020 HOW MANY CIGARETTES A DAY DO YOU SMOKE?6-10 HOW SOON AFTER YOU WAKE UP DO YOU SMOKE YOUR FIRST CIGARETTE?31-60 MIN HOW OFTEN DO YOU SMOKE CIGARETTES?EVERY DAY PATIENT COUNSELED ON THE DANGERS OF TOBACCO USE AND URGED TO QUIT:02/04/2019 SMOKING CESSATION INFORMATION GIVEN04/01/2019 ADDITIONAL FINDINGS: TOBACCO NON-USER GAVE INFO ON [employer] AND [facility] PHONE# FOR QUITTING ASSISTANCE LATEX QUESTIONNAIRE LATEX ALLERGY : HAVE YOU EVER DEVELOPED ANY TYPE OF REACTION AFTER HANDLING LATEX PRODUCTS SUCH RUBBER GLOVES, CONDOMS, DIAPHRAGMS, BALLOONS, SOCKS, OR UNDERWEAR?NO LATEX ALLERGY : HAVE YOU EVER DEVELOPED ANY TYPE OF REACTION DURING OR AFTER DENTAL APPOINTMENT, VAGINAL/RECTAL EXAMINATION, SURGICAL PROCEDURE, OR ANY OTHER EXPOSURE?NO DATE ASKED : 04/01/2019 LATEX RISK : HAVE YOU EVER HAD ANY DIFFICULTY BREATHING OR HIVES AFTER EATING OR HANDLING ANY FRUITS, OR VEGETABLES; SUCH KIWI, BANANAS, STONE FRUITS, OR CHESTNUTSNO LATEX RISK : DO YOU HAVE A PREVIOUS PERSONAL HISTORY OF MORE THAN NINE SURGERIES, SPINA BIFIDA, OR REPEATED CATHERIZATIONS? NO LATEX RISK : ARE YOU FREQUENTLY EXPOSED TO LATEX PRODUCTS IN YOUR OCCUPATION?NO BMI CARE GOAL FOLLOW-UP ABOVE NORMAL BMI FOLLOW-UPDIETARY MANAGEMENT EDUCATION, GUIDANCE, AND COUNSELING ALCOHOL SCREENING DID YOU HAVE A DRINK CONTAINING ALCOHOL IN THE PAST YEAR?NO POINTS0 INTERPRETATIONNEGATIVE RECREATIONAL DRUG USE DRUG USE? NO. CAFFEINE CAFFEINE USE? NO. SEXUAL HX HAD SEX IN THE LAST 12 MONTHS (VAGINAL, ORAL, OR ANAL)?YES WITHMEN ONLY PREVENTION STRATEGIES DISCUSSED:OTHER USE PROTECTION?NO LMP:13 MONTHS AGO HAVE YOU EVER HAD AN STD?NO HIV / HEP-C SCREENING HIV TEST OFFERED TO PATIENT:YES DATE OFFERED:09/12/2016 TEST ACCEPTED:NO HEP-C TEST OFFERED TO PATIENT:YES DATE OFFERED:09/12/2016 REASON:PATIENT DECLINED TEST ACCEPTED:YES CONGREGATION MUSLIM. LANGUAGE SALVADOREAN. EDUCATION LEVEL OF EDUCATION:NOT FINISHED COLLEGE LEARNING BARRIERS / SPECIAL NEEDS CHANGE FROM LAST VISIT?NO BARRIERS TO LEARNING?NO HEARING IMPAIRED?NO VISION IMPAIRED?YES COGNITIVELY IMPAIRED?NO :CORRECTIVE LENSES READINESS TO LEARN?YES LEARNING PREFERENCES?NO LEARNING CAPABILITIES PRESENT?YES EMOTIONAL BARRIERS?NO SPECIAL DEVICES?NO COUNSELING DIRECTOR NEEDED?NO DOMESTIC VIOLENCE DO YOU FEEL SAFE IN YOUR ENVIRONMENT?YES OCCUPATION: DISABLED / SSI. DIET: NO CONCENTRATED SWEETS.. EXERCISE: NO REGULAR EXERCISE. MARITAL STATUS: PARTENERED LIVE TOGETHER/. OTHERS AT HOME: CHILD, OTHER NON-RELATIVE S/O. NEW PATIENT PAIN DIARY TODAY'S VISIT 09/28/19 PATIENT DESCRIBES PAIN :ACHING, HAVE IT ALL THE TIME FROM 0-10, WHAT LEVEL IS YOUR PAIN TODAY?6 PRECIPITATING FACTORS NEUROPATHY FLARE UPS ALLEVIATING FACTORS SITTING IMPACT ON FUNCTION YES PAIN CLINIC PFS, CLERGY, PUBLIC HEALTH REFERRALS PFS REFERRAL NEEDED?NO CLERGY REFERRAL NEEDED?NO PUBLIC HEALTH REFERRAL NEEDED?NO WAS THE PROVIDER NOTIFIED OF ANY PERTINENT INFO?NO HAS THE PATIENT BEEN EDUCATED REGARDING HIS/HER PLAN OF CARE?YES HAS THE PATIENT BEEN EDUCATED REGARDING PAIN, THE RISK FOR PAIN, THE IMPORTANCE OF EFFECTIVE PAIN MANAGEMENT, AND THE PAIN ASSESSMENT PROCESS?YES ADVANCE DIRECTIVE ADVANCE DIRECTIVE DISCUSSED WITH PATIENT:YES DECLINED HCP INFORMATION. REVIEWED WITH PATIENT 03/17/18 0999 JSREVIEWED WITH PATIENT 08/24/18 4948 JS. HOSPITALIZATION/MAJOR DIAGNOSTIC PROCEDURE ABOVE SURGERIES 2008,2009,1985 REVIEW OF SYSTEMS REVIEWED BY: PROVIDER: [employer] STEIN-Maryam . CONSTITUTIONAL: ANY CHANGE IN YOUR MEDICAL CONDITION? NO . CHILLS NO . FEVER NO . INFECTION: DO YOU HAVE NEW INFECTIONS? NO . DO YOU HAVE HISTORY OF MRSA? NO . MUSCULOSKELETAL: ANY NEW PATTERNS OF PAIN OR NUMBNESS? NO . GASTROENTEROLOGY: ANY NEW CHANGE IN BOWEL CONTROL? NO . GENITOURINARY: ANY NEW CHANGE IN BLADDER CONTROL? NO . IS THERE A CHANCE YOU COULD BE ? NO . HEMATOLOGY/LYMPH: DO YOU TAKE ANY BLOOD THINNERS? (FOR EXAMPLE- COUMADIN, PLAVIX, AGGRENOX, PLATEL, PRADAXA, OR XARELTO) NO . WHEN WAS YOUR LAST DOSE? DATE: TIME: . NEUROLOGY: HAVE YOU FALLEN IN THE PAST 12 MONTHS? NO . ANY NEW EXTREMITY NUMBNESS OR WEAKNESS? NO . CARDIOLOGY: DO YOU HAVE A PACEMAKER OR DEFIBRILLATOR? NO . RESPIRATORY: HAVE YOU BEEN SICK IN THE PAST WEEK? NO . FEVER NO . FLU LIKE SYMPTOMS? NO . COUGH NO . INTEGUMENTARY: DO YOU HAVE ANY RASHES OR OPEN SORES? NO . ALLERGIC/IMMUNO: ARE YOU ALLERGIC TO IV DYE? NO . ANY NEW ALLERGIES? NO . PSYCHIATRIC: DO YOU HAVE THOUGHTS OF HURTING YOURSELF OR SOMEONE ELSE? NO . ARE YOU ABUSED, NEGLECTED, OR IN AN UNSAFE ENVIRONMENT? NO . ENDOCRINOLOGY: ARE YOU DIABETIC? YES . OTHER: DO YOU NEED ANY PRESCRIPTIONS? NO . IF YES, PLEASE LIST: ____ . ANY NEW PROBLEMS WITH YOUR MEDICATIONS? NO . WHEN DID YOU LAST EAT? ____ . WHEN DID YOU LAST DRINK? ____ . WHAT DID YOU LAST DRINK? ____ . NAME OF PERSON DRIVING YOU HOME? ____ . DO YOU HAVE ANY OTHER QUESTIONS OR CONCERNS NO . EXAMINATION GENERAL EXAMINATION: GENERALNO ACUTE DISTRESS, WELL NOURISHED AND HYDRATED. PSYCHAPPROPRIATE MOOD AND AFFECT , ORIENTED X 3. 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 GIVEN PRESENTING SYMPTOMS RECOMMEND PATIENT DISCUSS NEW ONSET OF NUMBNESS IN HER FINGERTIPS WITH HER PCP AND/OR URGENT CARE. FURTHER RECOMMENDED CONTINUATION OF CURRENT MEDICATION REGIMEN WITH FOLLOW-UP IN 3 MONTHS. PATIENT HAS EXPRESSED UNDERSTANDING OF AND WAS IN AGREEMENT WITH TREATMENT PLAN. GIVEN TIME TO ASK QUESTIONS AND EXPRESS CONCERNS. , ISTOP REGISTRY REVIEWED AND DEMONSTRATES COMPLLIANCE. (REF # [id number] ) BRINGS IN MEDICATIONS WHICH IS APPROPRIATE FOR WHAT WAS DISPENSED. RECENT URINE TOXICOLOGY REVIEWED. NO UNAUTHORIZED MEDICATIONS. NO ILLICIT SUBSTANCES AND PRESCRIBED MEDICATIONS WERE PRESENT. TELEHEALTH VISIT PERFORMED VIA ZOOM. TIME SPENT WITH PATIENT 7 MINUTES. OTHERS CLINICAL NOTES: PRE SCREENING CALL DONE 09/28/19 EM. DISPOSITION & COMMUNICATION FOLLOW UP 3 MONTHS (REASON: BACK PAIN, NEUROPATHY) ELECTRONICALLY SIGNED BY SARITA RODRIGUEZ ON 09/30/2019 AT 08:35 AM EDT DISCLAIMER : THIS IS A VISIT SUMMARY EXTRACTED FROM THE [employer] CHART. IT IS NOT A COPY OF THE [employer] [facility] PROGRESS NOTE. MAC
== END ==
LOC: M PAIN 11:45 → M TMPAIN 11:45
PROVIDERS: ATTEND Family Medicine
DX: M48.9 Spondylopathy, unspecified (principal); E11.42 Type 2 diabetes mellitus with diabetic polyneuropathy; F17.210 Nicotine dependence, cigarettes, uncomplicated; Z79.4 Long term (current) use of insulin; Z79.82 Long term (current) use of aspirin; Z79.891 Long term (current) use of opiate analgesic; Z79.899 Other long term (current) drug therapy; Z88.5 Allergy status to narcotic agent; Z88.8 Allergy status to other drugs, medicaments and biological substances

== ENCOUNTER → 2019-12-29 | Outpatient (CLI) | payer MEDICARE, MEDICAID | LOC: M PAIN 09:45 | PROVIDERS: ATTEND Family Medicine | DX: M48.9 Spondylopathy, unspecified (principal) | CPT/HCPCS: 99213; G0463 ==

== ENCOUNTER → 2020-01-06 | Outpatient (REF) | payer MEDICARE, MEDICAID ==
[2020-02-20 16:28] LABS: ALBUMIN 3.8 GM/DL (3.2-5.2); ALT/SGPT 47 U/L (12-78); BILIRUBIN,TOTAL 0.6 MG/DL (0.2-1.0); BLOOD UREA NITROGEN 11 MG/DL (7-18); CALCIUM LEVEL 9.5 MG/DL (8.5-10.1); CARBON DIOXIDE LEVEL 32 MEQ/L (21-32); CHLORIDE LEVEL 104 MEQ/L (98-107); CREATININE FOR GFR 0.89 MG/DL (0.55-1.30); GLOMERULAR FILTRATION RATE > 60.0 (>51); GLUCOSE, FASTING 88 MG/DL (70-100); HEMOGLOBIN A1c 6.1 %; POTASSIUM SERUM 4.9 MEQ/L (3.5-5.1); SODIUM LEVEL 139 MEQ/L (136-145); TOTAL PROTEIN 7.8 GM/DL (6.4-8.2)
== END ==
LOC: M SFHCPLAZ 15:59
PROVIDERS: ATTEND Nurse Practitioner Adult Health
DX: E11.9 Type 2 diabetes mellitus without complications (principal)
CPT/HCPCS: 36415; 80053; 83036; G0463

== ENCOUNTER → 2020-05-15 | Outpatient (CLI) | payer SELFPAY | LOC: M LABSMTC 09:40 | PROVIDERS: ATTEND Pediatrics | DX: Z20.828 Contact with and (suspected) exposure to other viral communicable diseases (principal) ==

== ENCOUNTER → 2020-08-10 | Outpatient (CLI) | payer MEDICARE, MEDICAID ==
--- NOTE | 2020-08-12 00:40 | ECWPNPC ---
PATIENT NAME: MONIKA ADRIAN : 1965 GENDER: FEMALE VISIT DATE: 08/10/2020 DISCHARGE DATE: 08/10/20 1352 VISIT LOCKED DATE TIME: PHYSICIAN: BASILIO PEREZ PHYSICIAN PAGER NO: ACTIVE RESOURCE: BASILIO PEREZ REASON FOR APPOINTMENT 1. MED MANAGEMENT/NEEDS UTOX HISTORY OF PRESENT ILLNESS GENERAL: - 54-YEAR-OLD FEMALE IN FOR CHRONIC PAIN FOLLOW-UP. SHE RATES HER PAIN CURRENTLY AT A 7 OUT OF 10 AND DESCRIBES IT ACHING. SHE FEELS HER MEDICATIONS ARE HELPFUL AND DENIES MED SIDE EFFECTS AT THIS TIME. FALL RISK SCREENING: SCREENING : NO FALLS REPORTED IN THE LAST YEAR. PAIN SCREENING: PATIENT HAS A COMPLAINT OF ACUTE OR CHRONIC PAIN :YES LOCATION OF PAIN:LOW BACK INTENSITY OF PAIN (SCALE OF 1 TO 10):7 WHAT DOES YOUR PAIN FEEL LIKE:ACHING DURATION:CONTINOUS, CONSTANT, STEADY, ALL DAY PAIN IS INCREASED BY:ACTIVITIES CHORES, STANDING, WALKING PAIN IS DECREASED BY:USE OF PAIN MEDICATIONS, OTHERS REST NURSING NOTE: -. PAIN CENTER INTAKE QUESTIONS: DO YOU HAVE A HISTORY OF MRSA? :NO DO YOU TAKE A BLOOD THINNERS? :NO DO YOU HAVE ANY BLEEDING DISORDERS? :NO ANY NEW NUMBNESS OR WEAKNESS IN YOUR LEGS OR ARMS? :YES NUMBNESS SPREADING TO BOTH HANDS AND BOTH CALVES ANY PACEMAKER,DEFIBRILLATOR, OR DORSAL COLUMN STIMULATOR? :NO DO YOU HAVE ANY RASHES OR OPEN SORES? :NO ARE YOU ALLERGIC TO IV DYE? :NO ARE YOU DIABETIC? :YES ANY NEW PROBLEMS WITH YOUR MEDICATIONS? :NO HAVE YOU RECEIVED A VACCINE IN THE PAST 30 DAYS? :NO DO YOU PLAN TO RECEIVE A VACCINE IN THE NEXT 21 DAYS? :YES IF SO WHAT VACCINE AND WHEN? RECIEVES FIRST COVID VACCINE TOMORROW AM 08/11/20 DO YOU NEED ANY PRESCRIPTION? :NO DO YOU TAKE ANY IMMUNOSUPPRESSIVE MEDICATIONS? :NO DO YOU HAVE ANY KIDNEY OR LIVER DISEASE? :YES LIVER DISEASE IS THERE A CHANCE YOU COULD BE ? :NO ARE YOU BREAST FEEDING? :NO CURRENT MEDICATIONS TAKING PEN NEEDLES 31G X 5 MM MISCELLANEOUS DIRECTED SUB Q E11.9 DAILY TAKING LANCETS - MISCELLANEOUS DIRECTED DX E11.9 CHECK TWICE DAILY TAKING CPAP MACHINE 7 CM PRESSURE VIA MASK EVERY NIGHT. TAKING GLUCOMETER DIRECTED DX E11.9 - TAKING FREESTYLE TEST 1 STRIP DIRECTED IN VITRO, DX: E11.9 TWICE DAILY TAKING VITAMIN D 25 MCG (1000 UT) TABLET 1 TABLET ORALLY DAILY TAKING ZOLPIDEM TARTRATE 10 MG TABLET 1 TABLET AT BEDTIME NEEDED ORALLY BEFORE BEDTIME PRN SLEEP MDD=1 TAKING ASPIRIN 81 MG TABLET DELAYED RELEASE TAKE ONE TABLET BY MOUTH ONCE A DAY ORALLY DAILY TAKING CYCLOBENZAPRINE HCL 10 MG TABLET 1 TABLET ORALLY FOR SPASMS AND PAIN THREE TIMES A DAY TAKING LANTUS SOLOSTAR 100 UNIT/ML SOLUTION PEN-INJECTOR 25 UNITS SUBCUTANEOUSLY/ E11.9 DAILY TAKING OZEMPIC 1 MG/DOSE SOLUTION PEN-INJECTOR 1 MG SUBCUTANEOUSLY/ E11.9 Q WEEK TAKING NORTRIPTYLINE HCL 50 MG CAPSULE 1 CAPSULE ORALLY TWICE DAILY TAKING TRAMADOL HCL 50 MG TABLET 1 TAB ORALLY Q 4-6H MDD4 TAKING NORVASC 5 MG TABLET 1 TABLET ORALLY ONCE A DAY TAKING SIMVASTATIN 10 MG TABLET TAKE 1 TABLET BY MOUTH EVERY EVENING ORALLY ONCE A DAY TAKING NUCYNTA ER 150 MG TABLET EXTENDED RELEASE 12 HOUR 1 TABLET ORALLY Q12 HR MDD2 TAKING BD PEN NEEDLE MINI U/F 0 UNSPECIFIED USE DIRECTED _ _ TAKING METFORMIN HCL 1000 MG TABLET 1 TABLET WITH MEALS ORALLY TWICE A DAY NOT-TAKING CLONIDINE HCL 0.1 MG TABLET 1 TAB ORALLY Q8H PRN FOR WITHDRAWAL SYMPTOMS NOT-TAKING OZEMPIC (1 MG/DOSE) 2 MG/1.5ML SOLUTION PEN-INJECTOR INJECT 1 MG UNDER THE SKIN ONCE A WEEK , NOTES: DUPLICATE NOT-TAKING VITAMIN D 1000 UNIT TABLET 1 TABLET ORALLY ONCE A DAY NOT-TAKING OZEMPIC 1 MG/DOSE SOLUTION PEN-INJECTOR DIRECTED SUBCUTANEOUS Q WEEK NOT-TAKING LANTUS SOLOSTAR 100 UNIT/ML SOLUTION PEN-INJECTOR DIRECTED SUBCUTANEOUS 31 UNITS MEDICATION LIST REVIEWED AND RECONCILED WITH THE PATIENT PAST MEDICAL HISTORY DM-2 HYPERLIPIDEMIA, ASCVD 10-YEAR RISK WAS 1.1% IN 04/2014 ON SIMVASTATIN 10MG OA ALLERGIC RHINITIS ANX/DEPRESSION- [facility] DEPRESSION/ANXIETY- (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 NO ABNORMAL PAPSMEARS ALLERGIES NAPROXEN: RECTAL BLEEDING - SIDE EFFECTS AMARYL: CHEST PAIN - SIDE EFFECTS SOMA: CHEST PAIN - SIDE EFFECTS MORPHINE SULFATE: HALLUCINATIONS - SIDE EFFECTS CYMBALTA: INCREASED DEPRESSION - SIDE EFFECTS DICLOFENAC: CHEST PAIN - SIDE EFFECTS LOSARTAN POTASSIUM: TICKLE IN THROAT - SIDE EFFECTS GABAPENTIN: HEADACHES - SIDE EFFECTS LISINOPRIL: COUGH - SIDE EFFECTS SOCIAL HISTORY GENERAL: TOBACCO USE ARE YOU A:CURRENT SMOKER ARE YOU INTERESTED IN QUITTING?THINKING ABOUT QUITTING CUTTING BACK COUNSELED THE PATIENT ON SMOKING CESSATION, EDUCATION [id number]/11/2021 HOW MANY CIGARETTES A DAY DO YOU SMOKE?6-10 HOW SOON AFTER YOU WAKE UP DO YOU SMOKE YOUR FIRST CIGARETTE?31-60 MIN HOW OFTEN DO YOU SMOKE CIGARETTES?EVERY DAY PATIENT COUNSELED ON THE DANGERS OF TOBACCO USE AND URGED TO QUIT:02/04/2019 SMOKING CESSATION INFORMATION GIVEN04/01/2019 ADDITIONAL FINDINGS: TOBACCO NON-USER GAVE INFO ON [facility] AND [facility] PHONE# FOR QUITTING ASSISTANCE LATEX QUESTIONNAIRE LATEX ALLERGY : HAVE YOU EVER DEVELOPED ANY TYPE OF REACTION AFTER HANDLING LATEX PRODUCTS SUCH RUBBER GLOVES, CONDOMS, DIAPHRAGMS, BALLOONS, SOCKS, OR UNDERWEAR?NO LATEX ALLERGY : HAVE YOU EVER DEVELOPED ANY TYPE OF REACTION DURING OR AFTER DENTAL APPOINTMENT, VAGINAL/RECTAL EXAMINATION, SURGICAL PROCEDURE, OR ANY OTHER EXPOSURE?NO LATEX RISK : HAVE YOU EVER HAD ANY DIFFICULTY BREATHING OR HIVES AFTER EATING OR HANDLING ANY FRUITS, OR VEGETABLES; SUCH KIWI, BANANAS, STONE FRUITS, OR CHESTNUTSNO LATEX RISK : DO YOU HAVE A PREVIOUS PERSONAL HISTORY OF MORE THAN NINE SURGERIES, SPINA BIFIDA, OR REPEATED CATHERIZATIONS? NO LATEX RISK : ARE YOU FREQUENTLY EXPOSED TO LATEX PRODUCTS IN YOUR OCCUPATION?NO DATE ASKED : 04/01/2019 ALCOHOL USE: NO. BMI CARE GOAL FOLLOW-UP ABOVE NORMAL BMI FOLLOW-UPDIETARY MANAGEMENT EDUCATION, GUIDANCE, AND COUNSELING ALCOHOL SCREENING DID YOU HAVE A DRINK CONTAINING ALCOHOL IN THE PAST YEAR?NO POINTS0 INTERPRETATIONNEGATIVE RECREATIONAL DRUG USE DRUG USE? NO. CAFFEINE CAFFEINE USE? NO. SEXUAL HX HAD SEX IN THE LAST 12 MONTHS (VAGINAL, ORAL, OR ANAL)?YES WITHMEN ONLY PREVENTION STRATEGIES DISCUSSED:OTHER USE PROTECTION?NO LMP:13 MONTHS AGO HAVE YOU EVER HAD AN STD?NO HIV / HEP-C SCREENING HIV TEST OFFERED TO PATIENT:YES DATE OFFERED:09/12/2016 TEST ACCEPTED:NO HEP-C TEST OFFERED TO PATIENT:YES DATE OFFERED:09/12/2016 REASON:PATIENT DECLINED TEST ACCEPTED:YES [employer]. LANGUAGE POLISH. EDUCATION LEVEL OF EDUCATION:NOT FINISHED COLLEGE LEARNING BARRIERS / SPECIAL NEEDS CHANGE FROM LAST VISIT?NO BARRIERS TO LEARNING?NO HEARING IMPAIRED?NO VISION IMPAIRED?YES :CORRECTIVE LENSES COGNITIVELY IMPAIRED?NO READINESS TO LEARN?YES LEARNING PREFERENCES?NO LEARNING CAPABILITIES PRESENT?YES EMOTIONAL BARRIERS?NO SPECIAL DEVICES?NO BEEHIVE KILN CHARCOAL BURNER NEEDED?NO DOMESTIC VIOLENCE DO YOU FEEL SAFE IN YOUR ENVIRONMENT?YES OCCUPATION: DISABLED / SSI. DIET: NO CONCENTRATED SWEETS.. EXERCISE: NO REGULAR EXERCISE. MARITAL STATUS: PARTENERED LIVE TOGETHER/. OTHERS AT HOME: CHILD, OTHER NON-RELATIVE S/O. TODAY'S VISIT 09/28/19 PATIENT DESCRIBES PAIN :ACHING, HAVE IT ALL THE TIME FROM 0-10, WHAT LEVEL IS YOUR PAIN TODAY?6 PRECIPITATING FACTORS NEUROPATHY FLARE UPS ALLEVIATING FACTORS SITTING IMPACT ON FUNCTION YES - PFS REFERRAL NEEDED?NO CLERGY REFERRAL NEEDED?NO PUBLIC HEALTH REFERRAL NEEDED?NO WAS THE PROVIDER NOTIFIED OF ANY PERTINENT INFO?NO HAS THE PATIENT BEEN EDUCATED REGARDING HIS/HER PLAN OF CARE?YES HAS THE PATIENT BEEN EDUCATED REGARDING PAIN, THE RISK FOR PAIN, THE IMPORTANCE OF EFFECTIVE PAIN MANAGEMENT, AND THE PAIN ASSESSMENT PROCESS?YES ADVANCE DIRECTIVE ADVANCE DIRECTIVE DISCUSSED WITH PATIENT:YES DECLINED HCP INFORMATION. REVIEWED WITH PATIENT 03/17/18 0903 JSREVIEWED WITH PATIENT 08/24/18 1408 JS. REVIEW OF SYSTEMS CONSTITUTIONAL: ANY RECENT FEVER NO . CHILLS NO . WEIGHT CHANGE OF UNKNOWN REASONS NO . GASTROENTEROLOGY: NEW UNEXPLAINABLE CHANGES IN BOWEL CONTROL NO . CONSTIPATION NO . GENITOURINARY: ANY NEW CHANGE IN BLADDER CONTROL? NO . NEUROLOGY: NEW ONSET DIZZINESS OR NEUROLOGICAL CHANGES NOT MENTIONED NO . NEW NUMBNESS OR PAIN PATTERNS NOT MENTIONED AND PERTINENT TO TODAY'S VISIT NO . CARDIOLOGY: NEW CHEST PRESSURE NO . PATIENT DENIES NO . RESPIRATORY: UNEXPLAINABLE COUGH NO . NEW SHORTNESS OF BREATH NO . VITAL SIGNS WT 208.0 LBS, HT 59 IN, BMI 42.01 INDEX, BP 153/67 MM HG, HR 102 /MIN, RR 18 /MIN, TEMP 97.0 F, OXYGEN SAT % 97%, SAFE IN ENV? (Y/N) YES, NA INITIALS AW 1326, REVIEWED BY: APA. SANTA RN. EXAMINATION GENERAL EXAMINATION: GENERALNO ACUTE DISTRESS, WELL NOURISHED AND HYDRATED. PSYCHAPPROPRIATE MOOD AND AFFECT . LUNGS:CLEAR TO AUSCULTATION BILATERALLY, NO WHEEZES, RHONCHI, RALES. HEART:NO MURMURS, REGULAR RATE AND RHYTHM. 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 GIVEN PRESENTING SYMPTOMS RECOMMENDED CONTINUATION OF CURRENT MEDICATION REGIMEN WITH FOLLOW-UP IN 3 MONTHS. PATIENT HAS EXPRESSED UNDERSTANDING OF AND WAS IN AGREEMENT WITH TREATMENT PLAN. GIVEN TIME TO ASK QUESTIONS AND EXPRESS CONCERNS. , ISTOP REGISTRY REVIEWED AND DEMONSTRATES COMPLLIANCE. (REF # [id number] ) BRINGS IN MEDICATIONS WHICH IS APPROPRIATE FOR WHAT WAS DISPENSED. RECENT URINE TOXICOLOGY REVIEWED. NO UNAUTHORIZED MEDICATIONS. NO ILLICIT SUBSTANCES AND PRESCRIBED MEDICATIONS WERE PRESENT. LABS LAB: URINE TEST GROUP GRETCHEN PRATT R 08/10/2020 1:50:15 PM > LAST DOSE:TRAMADOL 08/10/2020,ZOLPIDERN 08/09/2020, CYCLOBENZAPINE PROCEDURE CODES FA211 ESTABILISHED PATIENT [facility] CHARGE DISPOSITION & COMMUNICATION FOLLOW UP 3 MONTHS (REASON: BACK PAIN ) ELECTRONICALLY SIGNED BY SARITA RODRIGUEZ ON 08/11/2020 AT 01:16 PM EST DISCLAIMER : THIS IS A VISIT SUMMARY EXTRACTED FROM THE [employer] CHART. IT IS NOT A COPY OF THE [employer] PROGRESS NOTE. MTDD
== END ==
LOC: M PAIN 13:15
PROVIDERS: ATTEND Family Medicine
DX: M48.9 Spondylopathy, unspecified (principal); E11.9 Type 2 diabetes mellitus without complications; E78.5 Hyperlipidemia, unspecified; F32.9 Major depressive disorder, single episode, unspecified; F41.9 Anxiety disorder, unspecified; E11.42 Type 2 diabetes mellitus with diabetic polyneuropathy; G47.30 Sleep apnea, unspecified; F17.210 Nicotine dependence, cigarettes, uncomplicated; Z79.891 Long term (current) use of opiate analgesic; Z79.82 Long term (current) use of aspirin; Z79.84 Long term (current) use of oral hypoglycemic drugs; Z79.899 Other long term (current) drug therapy; Z88.6 Allergy status to analgesic agent; Z88.5 Allergy status to narcotic agent; Z88.8 Allergy status to other drugs, medicaments and biological substances

== ENCOUNTER → 2020-08-16 | Outpatient (REF) | payer MEDICARE, MEDICAID ==
[2020-08-16 15:09] LABS: HIV 1&2 SCREEN CENTAUR NEGATIVE (NEGATIVE)
== END ==
LOC: M PLALAB 10:10
PROVIDERS: ATTEND Specialist
DX: Z12.4 Encounter for screening for malignant neoplasm of cervix (principal); Z20.2 Contact with and (suspected) exposure to infections with a predominantly sexual mode of transmission; R87.618 Other abnormal cytological findings on specimens from cervix uteri; A59.9 Trichomoniasis, unspecified
CPT/HCPCS: 36415; 86780; 87389; 87490; 87590; 87624; G0123; G0463

== ENCOUNTER 2020-09-16 23:16 | Inpatient (IN) | payer MEDICARE, MEDICAID ==
[~2020-09-16] VITALS: Ht 147.3 cm; Wt 96.1 kg
[2020-09-17 00:30] LABS: BASO # 0.1 10^3/uL (0.0-0.2); BASO % 0.7 % (0.0-1.0); EOS # 0.2 10^3/uL (0.0-0.5); EOS % 1.3 % (0.0-3.0); HEMATOCRIT 43.9 % (36.0-47.0); LYMPH # 1.8 10^3/uL (1.5-5.0); MEAN CORPUSCULAR HEMOGLOBIN 28.1 pg (27.0-33.0); MEAN CORPUSCULAR HGB CONC 31.9 g/dl (32.0-36.5); MEAN CORPUSCULAR VOLUME 88.2 fl (80.0-96.0); MONO # 0.8 10^3/uL (0.0-0.8); MONO % 5.5 % (2.0-8.0); NEUTROPHILS # 11.9 10^3/uL (1.5-8.5); NEUTROPHILS % 79.8 % (36.0-66.0); PLATELET COUNT, AUTOMATED 262 10^3/uL (150-450); RED BLOOD COUNT 4.98 10^6/uL (4.00-5.40)
[2020-09-17 01:01] LABS: ALBUMIN 3.9 GM/DL (3.2-5.2); ALT/SGPT 41 U/L (12-78); BILIRUBIN,DIRECT 0.2 MG/DL (0.0-0.2); BILIRUBIN,TOTAL 0.5 MG/DL (0.2-1.0); BLOOD UREA NITROGEN 15 MG/DL (7-18); CALCIUM LEVEL 10.2 MG/DL (8.5-10.1); CARBON DIOXIDE LEVEL 31 MEQ/L (21-32); CHLORIDE LEVEL 99 MEQ/L (98-107); CREATININE FOR GFR 0.98 MG/DL (0.55-1.30); GLOMERULAR FILTRATION RATE > 60.0 (>51); GLUCOSE, FASTING 175 MG/DL (70-100); POTASSIUM SERUM 4.2 MEQ/L (3.5-5.1); SODIUM LEVEL 138 MEQ/L (136-145); TOTAL PROTEIN 8.1 GM/DL (6.4-8.2)
[2020-09-17 01:02] LABS: LIPASE 164 U/L (73-393)
[2020-09-17] MEDS ORDERED: ONDANSETRON 4MG/2ML VIAL IV ONE (01:30)
[2020-09-17] MEDS ORDERED: HYDROMORPHONE HCL 0.5 MG/ 0.5 ML SYRINGE (J1170 PER 1) IV PRN (01:30)
[2020-09-17] MEDS ORDERED: ISOVUE-370 76% 100ML VIAL As Ordered ONE (01:38)
--- NOTE | 2020-09-17 03:05 | REPVR ---
PROCEDURE INFORMATION: Exam: CT Abdomen And Pelvis With Contrast Exam date and time: 09/17/2020 2:24 AM Age: 54 years old Clinical indication: Abdominal pain; Generalized; Additional info: Generalized abd pain, nausea, constipation, R/O obstruction TECHNIQUE: Imaging protocol: Computed tomography of the abdomen and pelvis with contrast. Radiation optimization: All CT scans at this facility use at least one of these dose optimization techniques: automated exposure control; mA and/or kV adjustment per patient size (includes targeted exams where dose is matched to clinical indication); or iterative reconstruction. Contrast material: ISOVUE 370; Contrast volume: 100 ml; Contrast route: INTRAVENOUS (IV); COMPARISON: LIVER US 10/22/2017 7:01 AM FINDINGS: Liver: The liver attenuation is 65 Hounsfield units and the spleen is 116 Hounsfield units. The liver at mid clavicular line measures 13.7 cm. Gallbladder and bile ducts: Small layering gallstones in the gallbladder. Pancreas: Normal. No ductal dilation. Spleen: The spleen measures 13.6 cm. Adrenal glands: Normal. No mass. Kidneys and ureters: Nonobstructing bilateral renal calculi. There is a right renal cyst measuring 7 mm which is too small to characterize. Stomach and bowel: Mild distention of the stomach with food material. There is a small diverticulum projecting from the proximal duodenal sweep. Status post right colectomy and partial sigmoid resection with mid pelvic anastomosis. Mild distention of small bowel with air-fluid levels with collapsed distal small bowel consistent with a bowel obstruction. There is an apparent tapering transition in the right abdomen with no abrupt transition specifically identified. Appendix: No evidence of appendicitis. Intraperitoneal space: Unremarkable. No free air. No significant fluid collection. Vasculature: Unremarkable. No abdominal aortic aneurysm. Lymph nodes: Unremarkable. No enlarged lymph nodes. Urinary bladder: Unremarkable as visualized. Reproductive: Unremarkable as visualized. Bones/joints: Unremarkable. No acute fracture. Soft tissues: Unremarkable. IMPRESSION: 1. Evidence of small bowel obstruction. There is a tapering transition in the right abdomen without a specific abrupt point of transition identified. 2. Status post partial colectomy which appears to include a right colectomy and partial sigmoid resection. 3. Fatty infiltration of the liver. 4. Nonobstructing bilateral renal calculi. 5. Minimal cholelithiasis. 6. Borderline splenomegaly. COMMENTS: Consistent with the [employer]'s Incidental Findings Committee white paper (J Am Samantha Radiol 2018): Any incidental renal lesion less than 1 cm or classified as too small to characterize, or any incidental cystic renal lesion characterized as simple-appearing, is likely benign. No follow-up imaging is recommended for these lesions per consensus recommendations based on imaging criteria. Electronically signed by: Matheus Castle On 09/17/2020 03:05:19 AM
[2020-09-17] MEDS ORDERED: ASPI81TA26 PO (06:51)
[2020-09-17] MEDS ORDERED: ZOLP10TA2 PO (06:57)
[2020-09-17] MEDS ORDERED: LANTINJ4 PO (06:57)
[2020-09-17] MEDS ORDERED: NORT50CA PO (06:57)
[2020-09-17] MEDS ORDERED: D31000TA2 PO (06:57)
[2020-09-17] MEDS ORDERED: AMLO1TAB24 PO (06:57)
[2020-09-17] MEDS ORDERED: CYCL-707 PO (06:57)
[2020-09-17] MEDS ORDERED: OZEM2INJ2 SC (06:57)
[2020-09-17] MEDS ORDERED: NUCY150T PO (06:57)
[2020-09-17] MEDS ORDERED: KETOROLAC 30 MG/ML 1ML VIAL IV PRN (08:15)
[2020-09-17] MEDS ORDERED: ONDANSETRON 4MG/2ML VIAL IV PRN (08:15)
[2020-09-17 09:52] VITALS: BP 120/67
[2020-09-17] MEDS: PANTOPRAZOLE 40MG VIAL (C9113 PER 1) IV SCH (09:58)
[2020-09-17] MEDS: CYCLOBENZAPRINE 10MG TABLET PO SCH ×3 (09:58→20:30)
[2020-09-17] MEDS: NS 1,000 ML IV SCH ×3 (09:59→20:00)
[2020-09-17] MEDS: amLODIPine 5 MG TAB PO SCH (09:59)
[2020-09-17] MEDS: PIPERACILLIN/TAZOBACTAM SOD 3.375 GM in D5W MINI-BAG PLUS 50 ML IV SCH ×3 (09:59→20:30)
[2020-09-17] MEDS: ENOXAPARIN 40MG/0.4ML SYRINGE (J1650 PER 10MG) SC SCH (09:59)
--- NOTE | 2020-09-17 10:17 | HPE ---
HISTORY AND PHYSICAL DATE OF ADMISSION: 09/17/2020 CHIEF COMPLAINT: Lower abdominal pain. HISTORY OF PRESENT ILLNESS: The patient is a 54-year-old female with history of multiple previous abdominal surgeries, presents with severe lower abdominal pains, mainly in the left lower side that started yesterday evening. The pain stayed pretty consistent. She had some nausea with it so she came to the emergency room for evaluation. In the ER she was given some Morphine, since then her pain has completely resolved. However, she did have an elevated white count as well as CT findings suspicious for small bowel obstruction and therefore I was asked to admit her. When I came to see her, her pain was completely gone. She denies any current nausea or vomiting, no fevers or chills. Her last bowel movement was about two days ago. She says that she is passing gas since she has been here in the emergency room. However, she does still feel fairly distended. She has had multiple abdominal surgeries including C-sections, hernia repairs, colostomy with colostomy reversal but she has never had any problems with bowel obstructions in the past. Her colostomy reversal was about 11 years ago and she has not had any problems with it since. PAST MEDICAL HISTORY: Diabetes, hyperlipidemia, anxiety, depression, peripheral neuropathy, sleep apnea, diverticulitis, fatty liver disease. PAST SURGICAL HISTORY: Colostomy, colostomy reversal, , oophorectomy, incisional hernia repair. FAMILY HISTORY: Noncontributory. SOCIAL HISTORY: Smokes 1/2 pack a day, denies any drug or alcohol abuse. ALLERGIES: MULTIPLE, PLEASE SEE MED REC. MEDICATIONS: Please see med rec. REVIEW OF SYSTEMS: Pertinent positives and negatives as stated in HPI. PHYSICAL EXAMINATION: General: Patient is A&O times 3, in no acute distress. Vitals: Temperature 98.2, pulse 93, blood pressure 132/73, pulse ox 97% on room air. HEENT: Pupils equal, round and reactive to light and accommodation. Heart: S1, S2, regular rate and rhythm. Lungs: Clear to auscultation bilaterally. Abdomen: Soft, slightly distended, no pain to palpation. No guarding or rebound. No signs of any peritonitis. Extremities: No clubbing, cyanosis or edema. LABS: White count 15, hemoglobin 14, platelets 262. Potassium 4.2, creatinine 0.98, lactic acid was completed as point of care test in the emergency room and reported to be less than 2. IMAGING: CT abdomen and pelvis showed evidence of small bowel obstruction with tapering transition in right abdomen without specific abrupt point of transition identified, status post partial colectomy which appears to include a right colectomy and partial sigmoid resection, fatty infiltration of the liver, non-obstructing bilateral renal calculi, minimal cholelithiasis, borderline splenomegaly. ASSESSMENT: The patient is a 54-year-old female currently with partial versus complete small bowel obstruction likely with transition somewhere in the right lower quadrant. RECOMMENDATION: 1. Admit her to surgical service. 2. I will consult medicine to assist with her diabetes medications as she was having questions about those. 3. Will start with NG tube placement with decompression of the small intestine, IV fluids and antibiotics and see how she goes from there. If she does not improve within the next 72 hours then I explained to her that we will discuss surgical intervention at that point. All of her questions were answered and admission orders will be placed.
[2020-09-17] MEDS ORDERED: GLUCOSE 4GM CHEW TABLET PO PRN (10:55)
[2020-09-17] MEDS ORDERED: GLUCAGON INJ 1MG VIAL SC PRN (10:55)
[2020-09-17] MEDS ORDERED: DEXTROSE 50% 50 ML SYRINGE IV PRN (10:55)
[2020-09-17] MEDS: ASPIRIN 81MG ENTERIC TABLET PO SCH (12:28)
[2020-09-17] MEDS: HumaLOG INSULIN (NovoLOG) PER UNIT SC SCH ×2 (12:28→17:18)
[2020-09-17] MEDS: NORTRIPTYLINE 25 MG CAP PO SCH ×2 (12:28→20:30)
[2020-09-17] MEDS: traMADol 50 MG TAB PO PRN ×2 (12:29→20:31)
[2020-09-17 14:00] VITALS: BP 111/59
--- NOTE | 2020-09-17 14:48 | CR.PDOC ---
General Date of Consultation: Sep 17, 2020 Consultation REASON FOR CONSULTATION/CHIEF COMPLAINT: IDDM, medication adjustment HISTORY OF PRESENT ILLNESS: 54 yo F with a PMHx of IDDM, HTN, HLD, anxiety, depression, diabetic neuropathy, sleep apnea, fatty liver disease, diverticulitis, as well as numerous abdominal surgeries, presented to ER with severe lower abdominal pain associated with nausea since yesterday evening. She was found to have leukocytosis, and CT abdomen showed evidence for small bowel obstruction. She denies any vomitng, and had a moderate sized bowel movement this morning. At this time, she is passing gas is not having any active nausea. Patient has concerns over ozempic and feels that it is contributing to constipa tion and stomach upset since she has started it ~ 2 years ago. She reports her A1c check recently, at 6.1. She takes metformin 1000 mg BID. Vitals reviewed, T 98.0. HR 96. RR 18. BP 120/67. 96% on RA. WBC 15.0. Hgb 14.0. PLT 262. Na 138. K 4.2. Cr 0.98. No transaminitis or bilirubin elevation. ALLERGIES: Please see below. HOME MEDICATIONS: Please see below. PAST MEDICAL HISTORY: IDDM HTN HLD Diabetic neuropathy LEANNA fatty liver disease diverticulitis PAST SURGICAL HISTORY: C section oophorectomy incisional hernia repain colostomy colostomy reversal FAMILY HISTORY: reviewed with patient, denies relevant family hx SOCIAL HISTORY: smokes 1/2 ppd denies etoh use denies illicit drug use REVIEW OF SYSTEMS: 10 point ROS completed PHYSICAL EXAMINATION: VITAL SIGNS: please see below General: NAD, comfortable HEENT: PERRLA, EOMI, sclerae clear Neck: supple, normal ROM, no JVD Respiratory: lungs CTAB, no wheeze, no rales, no crackles CVS: RRR, normal S1, S2, no murmurs Abdo: soft, no masses, no hepatosplenomegaly, BS+, no rebound tenderness Extremities: no edema, pulses 2+ MSK: no joint deformities, normal ROM Neuro: no focal neuro deficits, moving all 4 extremities, CN2-12 intact. Strength 5/5 in all 4 extremities. No nystagmus. Psych: calm, cooperative, AAO x 3 LABORATORY DATA: Please see below. ASSESSMENT/PLAN: 54 yo F with a PMHx of IDDM, HTN, HLD, anxiety, depression, di abetic neuropathy, sleep apnea, fatty liver disease, diverticulitis, as well as numerous abdominal surgeries, presented to ER with severe lower abdominal pain associated with nausea since yesterday evening. Admitted to general surgery service for managent of SBO seen on CT. Hospitalist service consulted for medication reconciliation andDM management. Abdominal pain / SBO: - seen on CT - managed by Dr. Trevino - NGT not placed as had BM this morning - presently without pain - on zysn IDDM - hold metformin while inpatient - resume levemir at 1/2 dose - 12 units qhs (takes lantus 25 units qhs) - ISS, FSBS AC and HS - discussed with patient ozempic. Recommend alternative choices with her PCP - for now will hold, next injection on 09/21, will discuss with PCP - check a1c, lipid panel HTN - resumed home dose amlodipine - BP well controlled HLD - c/w simvastatin UA suspicious for UTI - LE trace, WBC 6 - no dysuria, no frequency - Ucx sent from ER - will not treat asympomatic bacteruria Chronic back pain - c/w flerexil - tramadol Diabetic neuropathy Depression - c/w nortriptyline Thank you for involving me in the care of this patient. Vital Signs/I&O Vital Signs Date Time Temp Pulse Resp B/P (MAP) Pulse Ox O2 Delivery O2 Flow Rate FiO2 09/17/20 13:00 18 Room Air 09/17/20 09:59 96 120/67 09/17/20 09:52 98.0 96 Laboratory Data Labs 24H Laboratory Tests 2 09/17/20 00:25: Immature Granulocyte % (Auto) 0.7, Neutrophils (%) (Auto) 79.8H, Lymphocytes (%) (Auto) 12.0L, Monocytes (%) (Auto) 5.5, Eosinophils (%) (Auto) 1.3, Basophils (%) (Auto) 0.7, Neutrophils # (Auto) 11.9H, Lymphocytes # (Auto) 1.8, Monocytes # (Auto) 0.8, Eosinophils # (Auto) 0.2, Basophils # (Auto) 0.1, Nucleated Red Blood Cells % (auto) 0.0, Urine Color YELLOW, Urine Appearance HAZY, Urine pH 7.0, Urine Specific [place] S3, Urine Protein 1+H, Urine Glucose (UA) NEGATIVE, Urine Ketones NEGATIVE, Urine Blood 1+H, Urine Nitrite NEGATIVE, Urine Bilirubin NEGATIVE, Urine Urobilinogen 0.2, Urine Leukocyte Esterase TRACEH, Urine WBC (Auto) 6H, Urine RBC (Auto) 34H, Urine Hyaline Casts (Auto) 0, Urine Bacteria (Auto) 1+H, Urine Squamous Epithelial Cells 52, Urine Sperm (Auto) , Anion Gap 8, Glomerular Filtration Rate > 60.0, Calcium Level 10.2H, Total Bilirubin 0.5, Direct Bilirubin 0.2, Aspartate Amino Transf (AST/SGOT) 26, Alanine Aminotransferase (ALT/SGPT) 41, Alkaline Phosphatase 98, Total Protein 8.1, Albumin 3.9, Albumin/Globulin Ratio 0.9L, Lipase 164 09/17/20 07:00: POC Lactate (Misc Panel) 1.89 09/17/20 11:56: Bedside Glucose (Misc Panel) 184H CBC/BMP Laboratory Tests 09/17/20 00:25 Microbiology Microbiology 09/17/20 Respiratory Virus Panel (PCR) ([facility]) - Final, Complete Human Rhinovirus/Enterovirus 09/17/20 Urine Culture, Received Pending Allergies Coded Allergies: glimepiride (Verified Adverse Reaction, Mild, CHEST PAIN, 09/17/20) glyburide (Verified Adverse Reaction, Mild, CHEST PAIN, 09/17/20) morphine (Verified Adverse Reaction, Mild, HALLUCINATIONS, 09/17/20) naproxen (Verified Adverse Reaction, Mild, RECTAL BLEEDING, 09/17/20) gabapentin (Verified Adverse Reaction, Unknown, SEVERE HEADACHE, 09/17/20) Home Medications Scheduled Amlodipine Besylate (Amlodipine Besylate) 5 Mg Tablet, 5 MG PO DAILY, (Reported) Aspirin (Aspirin EC) 81 Mg Tablet.dr, 81 MG PO DAILY, (Reported) Cholecalciferol (Vitamin D3) (Vitamin D3) 1,000 Unit Tablet, 1,000 UNITS PO DAILY, (Reported) Cyclobenzaprine HCl (Cyclobenzaprine HCl) 10 Mg Tablet, 10 MG PO TID, (Reported) Insulin Glargine,Hum.rec.anlog (Lantus Solostar) 100 Unit/1 Ml Insuln.pen, 25 MG PO QHS, (Reported) Metformin HCl (Metformin HCl) 1,000 Mg Tab, 1,000 MG PO BID, (Reported) Nortriptyline HCl (Nortriptyline HCl) 50 Mg Capsule, 50 MG PO BID, (Reported) Semaglutide (Ozempic) 1 Mg/0.75 Ml Pen.injctr, 1 MG SC QWEEK, (Reported) FRIDAY Simvastatin (Simvastatin) 10 Mg Tab, 10 MG PO QHS, (Reported) Tapentadol HCl (Nucynta ER) 150 Mg Tab.er.12h, 150 MG PO Q12H, (Reported) Scheduled PRN Tramadol HCl (Tramadol HCl) 50 Mg Tab, 50 MG PO Q4HP PRN for PAIN, (Reported) Zolpidem Tartrate (Zolpidem Tartrate) 10 Mg Tablet, 10 MG PO QHS PRN for SLEEP, (Reported) NASRIN JOLLY MD Sep 17, 2020 14:48
[2020-09-17] MEDS ORDERED: HumaLOG INSULIN (NovoLOG) PER UNIT SC SCH (21:00)
[2020-09-17] MEDS ORDERED: SIMVASTATIN 10 MG TAB PO SCH (21:00)
[2020-09-17] MEDS ORDERED: LEVEMIR (INSULIN DETEMIR) 1 UNITS/0.01ML SC SCH (21:00)
[2020-09-17 22:00] VITALS: BP_SYST 123; BP_DIAS 3; BP_DIAS 73
[2020-09-18] MEDS: PIPERACILLIN/TAZOBACTAM SOD 3.375 GM in D5W MINI-BAG PLUS 50 ML IV SCH ×2 (02:18→09:00)
[2020-09-18] MEDS: NS 1,000 ML IV SCH (05:49)
[2020-09-18 06:00] VITALS: BP 128/75
[2020-09-18 06:43] LABS: HEMATOCRIT 36.4 % (36.0-47.0); MEAN CORPUSCULAR HEMOGLOBIN 28.2 pg (27.0-33.0); MEAN CORPUSCULAR HGB CONC 31.9 g/dl (32.0-36.5); MEAN CORPUSCULAR VOLUME 88.6 fl (80.0-96.0); PLATELET COUNT, AUTOMATED 175 10^3/uL (150-450); RED BLOOD COUNT 4.11 10^6/uL (4.00-5.40); WHITE BLOOD COUNT 5.8 10^3/uL (4.0-10.0)
[2020-09-18 06:52] LABS: HEMOGLOBIN 11.6 g/dl (12.0-15.5)
[2020-09-18 07:00] LABS: BLOOD UREA NITROGEN 9 MG/DL (7-18); CALCIUM LEVEL 8.4 MG/DL (8.5-10.1); CARBON DIOXIDE LEVEL 26 MEQ/L (21-32); CHLORIDE LEVEL 108 MEQ/L (98-107); CREATININE FOR GFR 0.76 MG/DL (0.55-1.30); GLOMERULAR FILTRATION RATE > 60.0 (>51); GLUCOSE, FASTING 102 MG/DL (70-100); POTASSIUM SERUM 4.1 MEQ/L (3.5-5.1); SODIUM LEVEL 141 MEQ/L (136-145)
[2020-09-18] MEDS: HumaLOG INSULIN (NovoLOG) PER UNIT SC SCH (07:30)
[2020-09-18] MEDS: PANTOPRAZOLE 40MG VIAL (C9113 PER 1) IV SCH (08:57)
--- NOTE | 2020-09-18 08:57 | DSES ---
DISCHARGE SUMMARY DATE OF ADMISSION: 09/17/2020 DATE OF DISCHARGE: 09/18/2020 HOSPITAL COURSE: The patient is a 54-year-old female who presented over the weekend with lower abdominal pains. She was found to have elevated white count as well as signs of distal bowel obstruction on CT. Just after seeing her in the emergency room and evaluating her CT she had dilated loops of bowel and very dilated stomach. She had NG tube attempted to be placed but she pulled it out immediately after it was placed. She had a couple large bowel movements and she has been fine every since. She was started on a liquid diet yesterday and she has been doing great. She has had a couple more bowel movements this morning. No fevers or chills, no nausea or vomiting. Her abdominal pain is completely resolved. She is still passing gas and her belly is soft and non-distended. Plan is for discharge home today. She can go back home on low fiber, low residue diet for at least two weeks. After that she can return back to high fiber diet and follow up with us in the office if she has any questions. All of her questions were answered and she will call us with anything.
[2020-09-18] MEDS: ENOXAPARIN 40MG/0.4ML SYRINGE (J1650 PER 10MG) SC SCH (08:58)
[2020-09-18] MEDS: ASPIRIN 81MG ENTERIC TABLET PO SCH (08:58)
[2020-09-18] MEDS: CYCLOBENZAPRINE 10MG TABLET PO SCH (08:59)
[2020-09-18] MEDS: NORTRIPTYLINE 25 MG CAP PO SCH (08:59)
[2020-09-18 09:00] VITALS: BP 129/75
[2020-09-18] MEDS: amLODIPine 5 MG TAB PO SCH (09:00)
[2020-09-19] MEDS ORDERED: metFORMIN (GLUCOPHAGE) 1000 MG TABLET PO SCH (08:00)
== END 2020-09-18 11:22 | disposition home or self-care (01) | DRG 390 ==
LOC: M ED 23:16 → M ED INP 09-17 08:12 → M MSPAV 09-17 10:02
PROVIDERS: ADMIT Surgery; ATTEND Surgery
DX: K56.601 Complete intestinal obstruction, unspecified as to cause (principal); E11.42 Type 2 diabetes mellitus with diabetic polyneuropathy; E78.5 Hyperlipidemia, unspecified; F41.9 Anxiety disorder, unspecified; F32.9 Major depressive disorder, single episode, unspecified; G47.30 Sleep apnea, unspecified; K76.0 Fatty (change of) liver, not elsewhere classified; F17.200 Nicotine dependence, unspecified, uncomplicated; Z90.49 Acquired absence of other specified parts of digestive tract; Z88.5 Allergy status to narcotic agent; Z88.6 Allergy status to analgesic agent; Z88.8 Allergy status to other drugs, medicaments and biological substances; Z79.4 Long term (current) use of insulin; Z79.899 Other long term (current) drug therapy; Z79.82 Long term (current) use of aspirin

== ENCOUNTER → 2020-11-07 | Outpatient (CLI) | payer MEDICARE, MEDICAID ==
[~2020-11-07] MED LIST changes: +AMLO1TAB24 PO; +CYCL-707 PO; +D31000TA2 PO; +LANTINJ4 PO; +NORT50CA PO; +NUCY150T PO; +OZEM2INJ2 SC; +ZOLP10TA2 PO
--- NOTE | 2020-11-09 02:52 | ECWPNPC ---
PATIENT NAME: MONIKA ADRIAN : 1965 GENDER: FEMALE VISIT DATE: 11/07/2020 DISCHARGE DATE: 11/07/20 1151 VISIT LOCKED DATE TIME: PHYSICIAN: BASILIO PEREZ PHYSICIAN PAGER NO: ACTIVE RESOURCE: BASILIO PEREZ REASON FOR APPOINTMENT 1. BACK PAIN HISTORY OF PRESENT ILLNESS DEPRESSION SCREENING: PHQ-2 (2015 EDITION) LITTLE INTEREST OR PLEASURE IN DOING THINGS?NOT AT ALL FEELING DOWN, DEPRESSED, OR HOPELESS?NOT AT ALL TOTAL SCORE0 PAIN CENTER INTAKE QUESTIONS: DO YOU HAVE A HISTORY OF MRSA? :NO DO YOU TAKE A BLOOD THINNERS? :NO DO YOU HAVE ANY BLEEDING DISORDERS? :NO ANY NEW NUMBNESS OR WEAKNESS IN YOUR LEGS OR ARMS? :NO ANY PACEMAKER,DEFIBRILLATOR, OR DORSAL COLUMN STIMULATOR? :NO DO YOU HAVE ANY RASHES OR OPEN SORES? :NO ARE YOU ALLERGIC TO IV DYE? :NO ARE YOU DIABETIC? :NO ANY NEW PROBLEMS WITH YOUR MEDICATIONS? :NO HAVE YOU RECEIVED A VACCINE IN THE PAST 30 DAYS? :NO DO YOU PLAN TO RECEIVE A VACCINE IN THE NEXT 21 DAYS? :NO DO YOU NEED ANY PRESCRIPTION? :NO DO YOU TAKE ANY IMMUNOSUPPRESSIVE MEDICATIONS? :NO DO YOU HAVE ANY KIDNEY OR LIVER DISEASE? :NO IS THERE A CHANCE YOU COULD BE ? :NO ARE YOU BREAST FEEDING? :NO GENERAL: HPI 54-YEAR-OLD FEMALE IN FOR CHRONIC PAIN FOLLOW-UP. SHE RATES HER PAIN CURRENTLY AT A 7 OUT OF 10 AND DESCRIBES IT CONTINUOUS AND ACHING. SHE FEELS MEDICATIONS ARE HELPFUL AND DENIES MED SIDE EFFECTS AT THIS TIME.. -. FALL RISK SCREENING: SCREENING FELL IN THE SHOWER PT DOES NOT RECALL WHAT MONTH IT WAS AND DID NOT GO TO URGENT CARE. PAIN SCREENING: PATIENT HAS A COMPLAINT OF ACUTE OR CHRONIC PAIN :YES LOCATION OF PAIN:LOW BACK INTENSITY OF PAIN (SCALE OF 1 TO 10):7 WHAT DOES YOUR PAIN FEEL LIKE:CONTINOUS, ACHING PAIN IS INCREASED BY:ACTIVITIES NURSING NOTE: -. CURRENT MEDICATIONS TAKING PEN NEEDLES 31G X 5 MM MISCELLANEOUS DIRECTED SUB Q E11.9 DAILY TAKING LANCETS - MISCELLANEOUS DIRECTED DX E11.9 CHECK TWICE DAILY TAKING CPAP MACHINE 7 CM PRESSURE VIA MASK EVERY NIGHT. TAKING GLUCOMETER DIRECTED DX E11.9 - TAKING FREESTYLE TEST 1 STRIP DIRECTED IN VITRO, DX: E11.9 TWICE DAILY TAKING VITAMIN D 25 MCG (1000 UT) TABLET 1 TABLET ORALLY DAILY TAKING LANTUS SOLOSTAR 100 UNIT/ML SOLUTION PEN-INJECTOR 25 UNITS SUBCUTANEOUSLY/ E11.9 DAILY TAKING METFORMIN HCL 1000 MG TABLET 1 TABLET WITH MEALS ORALLY TWICE A DAY TAKING ZOLPIDEM TARTRATE 10 MG TABLET 1 TABLET AT BEDTIME NEEDED ORALLY BEFORE BEDTIME PRN SLEEP MDD=1 TAKING NORTRIPTYLINE HCL 50 MG CAPSULE 1 CAPSULE ORALLY TWICE DAILY TAKING OZEMPIC 1 MG/DOSE SOLUTION PEN-INJECTOR 1 MG SUBCUTANEOUSLY/ E11.9 Q WEEK TAKING NORVASC 5 MG TABLET 1 TABLET ORALLY ONCE A DAY TAKING ASPIRIN 81 MG TABLET DELAYED RELEASE 1 TABLET ORALLY DAILY TAKING SIMVASTATIN 10 MG TABLET TAKE 1 TABLET BY MOUTH EVERY EVENING ORALLY ONCE A DAY TAKING CYCLOBENZAPRINE HCL 10 MG TABLET 1 TABLET ORALLY FOR SPASMS AND PAIN THREE TIMES A DAY TAKING TRAMADOL HCL 50 MG TABLET 1 TAB ORALLY Q 4-6H MDD4 TAKING NUCYNTA ER 150 MG TABLET EXTENDED RELEASE 12 HOUR 1 TABLET ORALLY Q12 HR MDD2 NOT-TAKING METRONIDAZOLE 500 MG TABLET 1 TABLET ORALLY TWICE A DAY NOT-TAKING CLONIDINE HCL 0.1 MG TABLET 1 TAB ORALLY Q8H PRN FOR WITHDRAWAL SYMPTOMS MEDICATION LIST REVIEWED AND RECONCILED WITH THE PATIENT PAST MEDICAL HISTORY DM-2 HYPERLIPIDEMIA, ASCVD 10-YEAR RISK WAS 1.1% IN 04/2014 ON SIMVASTATIN 10MG OA ALLERGIC RHINITIS ANX/DEPRESSION- [facility] DEPRESSION/ANXIETY- (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) PERIPHERAL NEUROPATHY EMG/NCS LES 05/15 NCN- MOD AXONAL PN, POSS S1 RADICULOPATHY SLEEP APNEA CPAP DM EYE EXAM: 12/2016 PERSONAL HISTORY OF COLONIC POLYPS DIVERITICULITIS (S/P COLOSTOMY/REVERSAL) COLONOSCOPY 2016; REPEAT 5 YEARS STRESS TEST: 07/30/16 NORMAL LIVER DISEASE- FATTY LIVER ALLERGIES NAPROXEN: RECTAL BLEEDING - SIDE EFFECTS AMARYL: CHEST PAIN - SIDE EFFECTS SOMA: CHEST PAIN - SIDE EFFECTS MORPHINE SULFATE: HALLUCINATIONS - SIDE EFFECTS CYMBALTA: INCREASED DEPRESSION - SIDE EFFECTS DICLOFENAC: CHEST PAIN - SIDE EFFECTS LOSARTAN POTASSIUM: TICKLE IN THROAT - SIDE EFFECTS GABAPENTIN: HEADACHES - SIDE EFFECTS LISINOPRIL: COUGH - SIDE EFFECTS SURGICAL HISTORY COLOSTOMY ( HAS BEEN REVERSED) 2008 COLOSTOMY REVERSAL 2009 C SECTION 1985 PT UNSURE WHICH OVARY REMOVED (CYST) 1987 INCISIONAL HERNIA REPAIR 2010 FAMILY HISTORY FATHER: ALIVE, DIAGNOSED WITH HYPERTENSION MOTHER: ALIVE SIBLINGS: ALIVE SON(S): ALIVE DAUGHTER(S): ALIVE 2 BROTHER(S) - HEALTHY. 1 SON(S) , 1 DAUGHTER(S) - HEALTHY. HEALTH HX OF FAMILY UNKNOWN NO SISTERS. SOCIAL HISTORY GENERAL: TOBACCO USE ARE YOU A:CURRENT SMOKER ARE YOU INTERESTED IN QUITTING?THINKING ABOUT QUITTING CUTTING BACK HOW MANY CIGARETTES A DAY DO YOU SMOKE?6-10 DISCUSSED WITH THE PT THE IMPORTANCE OF CUTTING DOWN TO LEAST AMOUNT SHE CAN TOLERATE. HOW SOON AFTER YOU WAKE UP DO YOU SMOKE YOUR FIRST CIGARETTE?31-60 MIN HOW OFTEN DO YOU SMOKE CIGARETTES?EVERY DAY PATIENT COUNSELED ON THE DANGERS OF TOBACCO USE AND URGED TO QUIT:11/07/2020 SMOKING CESSATION INFORMATION GIVEN08/16/2020 ADDITIONAL FINDINGS: TOBACCO NON-USER GAVE INFO ON [facility] AND [facility] PHONE# FOR QUITTING ASSISTANCE LATEX QUESTIONNAIRE LATEX ALLERGY : HAVE YOU EVER DEVELOPED ANY TYPE OF REACTION AFTER HANDLING LATEX PRODUCTS SUCH RUBBER GLOVES, CONDOMS, DIAPHRAGMS, BALLOONS, SOCKS, OR UNDERWEAR?NO LATEX ALLERGY : HAVE YOU EVER DEVELOPED ANY TYPE OF REACTION DURING OR AFTER DENTAL APPOINTMENT, VAGINAL/RECTAL EXAMINATION, SURGICAL PROCEDURE, OR ANY OTHER EXPOSURE?NO DATE ASKED : 08/16/2020 LATEX RISK : HAVE YOU EVER HAD ANY DIFFICULTY BREATHING OR HIVES AFTER EATING OR HANDLING ANY FRUITS, OR VEGETABLES; SUCH KIWI, BANANAS, STONE FRUITS, OR CHESTNUTSNO LATEX RISK : DO YOU HAVE A PREVIOUS PERSONAL HISTORY OF MORE THAN NINE SURGERIES, SPINA BIFIDA, OR REPEATED CATHERIZATIONS? NO LATEX RISK : ARE YOU FREQUENTLY EXPOSED TO LATEX PRODUCTS IN YOUR OCCUPATION?NO ALCOHOL USE: NO. BMI CARE GOAL FOLLOW-UP ABOVE NORMAL BMI FOLLOW-UPDIETARY MANAGEMENT EDUCATION, GUIDANCE, AND COUNSELING ALCOHOL SCREENING DID YOU HAVE A DRINK CONTAINING ALCOHOL IN THE PAST YEAR?NO POINTS0 INTERPRETATIONNEGATIVE RECREATIONAL DRUG USE DRUG USE? NO. CAFFEINE CAFFEINE USE? NO. SEXUAL HX HAD SEX IN THE LAST 12 MONTHS (VAGINAL, ORAL, OR ANAL)?YES WITHMEN ONLY PREVENTION STRATEGIES DISCUSSED:OTHER USE PROTECTION?NO LMP:13 MONTHS AGO HAVE YOU EVER HAD AN STD?NO HIV / HEP-C SCREENING HIV TEST OFFERED TO PATIENT:YES DATE OFFERED:09/12/2016 TEST ACCEPTED:NO HEP-C TEST OFFERED TO PATIENT:YES DATE OFFERED:09/12/2016 REASON:PATIENT DECLINED TEST ACCEPTED:YES SCIENTOLOGIST UATSDIN. LANGUAGE MONEGASQUE. EDUCATION LEVEL OF EDUCATION:NOT FINISHED COLLEGE LEARNING BARRIERS / SPECIAL NEEDS CHANGE FROM LAST VISIT?NO 08/16/2020 BARRIERS TO LEARNING?NO HEARING IMPAIRED?NO VISION IMPAIRED?YES COGNITIVELY IMPAIRED?NO :CORRECTIVE LENSES READINESS TO LEARN?YES LEARNING PREFERENCES?NO LEARNING CAPABILITIES PRESENT?YES EMOTIONAL BARRIERS?NO SPECIAL DEVICES?NO CLINIC MD ASSOCIATE NEEDED?NO DOMESTIC VIOLENCE DO YOU FEEL SAFE IN YOUR ENVIRONMENT?YES OCCUPATION: DISABLED / SSI. DIET: NO CONCENTRATED SWEETS.. EXERCISE: NO REGULAR EXERCISE. MARITAL STATUS: PARTENERED LIVE TOGETHER/. OTHERS AT HOME: CHILD, OTHER NON-RELATIVE S/O. TODAY'S VISIT 09/28/19 PATIENT DESCRIBES PAIN :ACHING, HAVE IT ALL THE TIME FROM 0-10, WHAT LEVEL IS YOUR PAIN TODAY?6 PRECIPITATING FACTORS NEUROPATHY FLARE UPS ALLEVIATING FACTORS SITTING IMPACT ON FUNCTION YES - PFS REFERRAL NEEDED?NO CLERGY REFERRAL NEEDED?NO PUBLIC HEALTH REFERRAL NEEDED?NO WAS THE PROVIDER NOTIFIED OF ANY PERTINENT INFO?NO HAS THE PATIENT BEEN EDUCATED REGARDING HIS/HER PLAN OF CARE?YES HAS THE PATIENT BEEN EDUCATED REGARDING PAIN, THE RISK FOR PAIN, THE IMPORTANCE OF EFFECTIVE PAIN MANAGEMENT, AND THE PAIN ASSESSMENT PROCESS?YES ADVANCE DIRECTIVE ADVANCE DIRECTIVE DISCUSSED WITH PATIENT:YES DECLINED HCP INFORMATION. REVIEWED WITH PATIENT 03/17/18 0903 JSREVIEWED WITH PATIENT 08/24/18 1408 JS. HOSPITALIZATION/MAJOR DIAGNOSTIC PROCEDURE ABOVE SURGERIES 2008,2009,1986 CHILDBIRTH SMC-SMALL BOWEL OBSTRUCTION 09/16-09/18/2020 REVIEW OF SYSTEMS CONSTITUTIONAL: ANY RECENT FEVER NO . CHILLS NO . WEIGHT CHANGE OF UNKNOWN REASONS NO . GASTROENTEROLOGY: NEW UNEXPLAINABLE CHANGES IN BOWEL CONTROL NO . CONSTIPATION NO . GENITOURINARY: ANY NEW CHANGE IN BLADDER CONTROL? NO . NEUROLOGY: NEW ONSET DIZZINESS OR NEUROLOGICAL CHANGES NOT MENTIONED NO . NEW NUMBNESS OR PAIN PATTERNS NOT MENTIONED AND PERTINENT TO TODAY'S VISIT NO . CARDIOLOGY: NEW CHEST PRESSURE NO . PATIENT DENIES NO . RESPIRATORY: UNEXPLAINABLE COUGH NO . NEW SHORTNESS OF BREATH NO . VITAL SIGNS WT 209 LBS, HT 59 IN, BMI 42.21 INDEX, BP 135/84 MM HG, HR 103 /MIN, RR 18 /MIN, TEMP 98.1 F, OXYGEN SAT % 99%, NA INITIALS SC 11:36. EXAMINATION GENERAL EXAMINATION: GENERALNO ACUTE DISTRESS, WELL NOURISHED AND HYDRATED. PSYCHAPPROPRIATE MOOD AND AFFECT . LUNGS:CLEAR TO AUSCULTATION BILATERALLY, NO WHEEZES, RHONCHI, RALES. HEART:NO MURMURS, REGULAR RATE AND RHYTHM. ASSESSMENTS DEGENERATIVE DISC DISEASE AT L5-S1 LEVEL - M51.36 TREATMENT DEGENERATIVE DISC DISEASE AT L5-S1 LEVEL NOTES: 54-YEAR-OLD FEMALE IN FOR CHRONIC PAIN FOLLOW-UP. GIVEN PRESENTING SYMPTOMS RECOMMENDED CONTINUATION OF CURRENT MEDICATION REGIMEN WITH FOLLOW-UP IN 3 MONTHS. PATIENT HAS EXPRESSED UNDERSTANDING OF AND WAS IN AGREEMENT WITH TREATMENT PLAN. GIVEN TIME TO ASK QUESTIONS AND EXPRESS CONCERNS. ISTOP REGISTRY REVIEWED AND DEMONSTRATES COMPLLIANCE. (REF # [id number] ) BRINGS IN MEDICATIONS WHICH IS APPROPRIATE FOR WHAT WAS DISPENSED. RECENT URINE TOXICOLOGY REVIEWED. NO UNAUTHORIZED MEDICATIONS. NO ILLICIT SUBSTANCES AND PRESCRIBED MEDICATIONS WERE PRESENT. PROCEDURE CODES FA211 ESTABILISHED PATIENT [facility] FACILITY CHARGE DISPOSITION & COMMUNICATION FOLLOW UP 3 MONTHS (REASON: BACK PAIN ) ELECTRONICALLY SIGNED BY SARITA RODRIGUEZ ON 11/08/2020 AT 08:31 AM EDT DISCLAIMER : THIS IS A VISIT SUMMARY EXTRACTED FROM THE [employer] CHART. IT IS NOT A COPY OF THE [facility] PROGRESS NOTE. LIZBETHD
== END ==
LOC: M PAIN 11:30
PROVIDERS: ATTEND Family Medicine
DX: M51.36 Other intervertebral disc degeneration, lumbar region (principal); E11.42 Type 2 diabetes mellitus with diabetic polyneuropathy; E78.5 Hyperlipidemia, unspecified; J30.9 Allergic rhinitis, unspecified; F41.9 Anxiety disorder, unspecified; F32.9 Major depressive disorder, single episode, unspecified; G47.30 Sleep apnea, unspecified; K76.0 Fatty (change of) liver, not elsewhere classified; F17.210 Nicotine dependence, cigarettes, uncomplicated; Z79.891 Long term (current) use of opiate analgesic; Z79.4 Long term (current) use of insulin; Z79.82 Long term (current) use of aspirin; Z79.899 Other long term (current) drug therapy; Z88.6 Allergy status to analgesic agent; Z88.5 Allergy status to narcotic agent; Z88.8 Allergy status to other drugs, medicaments and biological substances

== ENCOUNTER → 2020-11-13 | Outpatient (REF) | payer MEDICARE, MEDICAID ==
[2020-11-13 15:42] LABS: HEMOGLOBIN A1c 6.2 %
[2020-11-13 16:02] LABS: ALBUMIN 3.6 GM/DL (3.2-5.2); ALT/SGPT 40 U/L (12-78); BILIRUBIN,TOTAL 0.4 MG/DL (0.2-1.0); BLOOD UREA NITROGEN 9 MG/DL (7-18); CARBON DIOXIDE LEVEL 28 MEQ/L (21-32); CHLORIDE LEVEL 105 MEQ/L (98-107); CHOLESTEROL LEVEL 143 MG/DL (<200); CREATININE FOR GFR 0.78 MG/DL (0.55-1.30); GLOMERULAR FILTRATION RATE > 60.0 (>51); GLUCOSE, FASTING 75 MG/DL (70-100); HDL CHOLESTEROL 50 MG/DL (>40); LDL CHOLESTEROL 51 MG/DL (<100); NON-HDL-C 93 MG/DL; POTASSIUM SERUM 4.2 MEQ/L (3.5-5.1); SODIUM LEVEL 138 MEQ/L (136-145); TOTAL 25(OH) VITAMIN D 27.6 NG/ML (30.0-100.0); TRIGLYCERIDES LEVEL 211 MG/DL (<150)
== END ==
LOC: M SFHCPLAZ 12:12
PROVIDERS: ATTEND Nurse Practitioner Adult Health
DX: E55.9 Vitamin D deficiency, unspecified (principal); E11.40 Type 2 diabetes mellitus with diabetic neuropathy, unspecified; E78.5 Hyperlipidemia, unspecified; E03.9 Hypothyroidism, unspecified
CPT/HCPCS: 36415; 80053; 80061; 82306; 83036; 84443; G0463

== ENCOUNTER → 2021-01-31 | Outpatient (CLI) | payer MEDICARE, MEDICAID | LOC: M PAIN 09:00 | PROVIDERS: ATTEND Nurse Practitioner Family | DX: M47.817 Spondylosis without myelopathy or radiculopathy, lumbosacral region (principal); E11.42 Type 2 diabetes mellitus with diabetic polyneuropathy; E78.5 Hyperlipidemia, unspecified; J30.9 Allergic rhinitis, unspecified; F41.9 Anxiety disorder, unspecified; F32.9 Major depressive disorder, single episode, unspecified; G47.30 Sleep apnea, unspecified; M19.90 Unspecified osteoarthritis, unspecified site; F17.210 Nicotine dependence, cigarettes, uncomplicated; K76.0 Fatty (change of) liver, not elsewhere classified; Z86.010 Personal history of colon polyps; Z79.891 Long term (current) use of opiate analgesic; Z79.82 Long term (current) use of aspirin; Z79.4 Long term (current) use of insulin; Z79.899 Other long term (current) drug therapy; Z88.6 Allergy status to analgesic agent; Z88.8 Allergy status to other drugs, medicaments and biological substances ==

== ENCOUNTER → 2021-03-02 | Outpatient (CLI) | payer MEDICARE, MEDICAID | LOC: M PAIN 09:00 | PROVIDERS: ATTEND Anesthesiology | DX: M48.9 Spondylopathy, unspecified (principal); E11.42 Type 2 diabetes mellitus with diabetic polyneuropathy; E78.5 Hyperlipidemia, unspecified; F41.9 Anxiety disorder, unspecified; F32.9 Major depressive disorder, single episode, unspecified; G47.30 Sleep apnea, unspecified; K76.0 Fatty (change of) liver, not elsewhere classified; F17.210 Nicotine dependence, cigarettes, uncomplicated; J30.9 Allergic rhinitis, unspecified; Z79.4 Long term (current) use of insulin; Z79.82 Long term (current) use of aspirin; Z79.899 Other long term (current) drug therapy; Z79.891 Long term (current) use of opiate analgesic; Z88.6 Allergy status to analgesic agent; Z88.5 Allergy status to narcotic agent; Z88.8 Allergy status to other drugs, medicaments and biological substances ==

== ENCOUNTER → 2021-03-16 | Outpatient (CLI) | payer MEDICARE, MEDICAID ==
--- NOTE | 2021-03-16 09:43 | REPMRS ---
Patient History The patient states she had a clinical breast exam in July 2020. Patient is postmenopausal. Family history of ovarian cancer at age 68 in paternal aunt, unknown cancer at age 60 in maternal grandmother. Took hormonal contraceptives for 10 years. Tomosynthesis is performed. Volpara breast density is b. [facility] lifetime risk of breast cancer 7.2%. Patient states no breast complaints today. Patient has signed MRS History Sheet. Digital Woman Screen Mammo: March 16, 2021 - Exam #: [id number] Bilateral CC and MLO view(s) were taken. Technologist: Radha Mora, Technologist Prior study comparison: November 19, 2018, bilateral digital mammo screening bilat, performed at [facility]. March 20, 2017, bilateral digital mammo screening bilat, performed at [facility]. March 30, 2014, bilateral bilat screen digital mammo, performed at [facility] ([facility]). May 10, 2011, bilateral digital mammo screening bilat, performed at [facility] ([facility]). FINDINGS: There are scattered fibroglandular densities. There has been no change in the appearance of the mammogram from the prior studies. There is a mild amount of residual fibroglandular tissue which is fairly symmetric. There is no interval development of dominant mass, architectural distortion, or clustered microcalcification suggestive of malignancy. Assessment: BI-RADS/ACR category 1 mammogram. Negative Mammogram. Recommendation Routine screening mammogram in 1 year (for women over age 40). This mammogram was interpreted with the aid of an FDA-approved computer-aided dectection system. Electronically Signed By: Jamir Corrales MD 03/16/21 0943
== END ==
LOC: M WHC 08:36
PROVIDERS: ATTEND Specialist
DX: Z12.31 Encounter for screening mammogram for malignant neoplasm of breast (principal)

== ENCOUNTER → 2021-05-16 | Outpatient (CLI) | payer MEDICARE, MEDICAID ==
--- NOTE | 2021-05-16 10:34 | REP ---
INDICATION: LUNG CA SCREENING COMPARISON: 03/09/2009 TECHNIQUE: Axial noncontrast images from the thoracic inlet to the upper abdomen using low-dose lung screening technique (LDCT). FINDINGS: The bilateral lung batista are well aerated and relatively symmetric/clear. No acute consolidation, suspicious nodule or mass. No effusion. No pneumothorax. Tracheobronchial tree is patent. IMPRESSION: Lung-RADS category 1. Management recommendations include annual low-dose CT surveillance. <Electronically signed by Roger Gomez > 05/16/21 [id number]
== END ==
LOC: M RAD 08:27
PROVIDERS: ATTEND Nurse Practitioner Adult Health
DX: Z12.2 Encounter for screening for malignant neoplasm of respiratory organs (principal); Z87.891 Personal history of nicotine dependence

== ENCOUNTER → 2021-07-03 | Outpatient (CLI) | payer MEDICARE | LOC: M PLALAB 11:09 | PROVIDERS: ATTEND Nurse Practitioner Adult Health | DX: E11.42 Type 2 diabetes mellitus with diabetic polyneuropathy (principal); E55.9 Vitamin D deficiency, unspecified; E78.5 Hyperlipidemia, unspecified ==

== ENCOUNTER → 2021-07-05 | Outpatient (CLI) | payer MEDICARE, MEDICAID | LOC: M PAIN 09:30 | PROVIDERS: ATTEND Anesthesiology | DX: E11.42 Type 2 diabetes mellitus with diabetic polyneuropathy (principal); M79.673 Pain in unspecified foot; G62.9 Polyneuropathy, unspecified; E78.5 Hyperlipidemia, unspecified; J30.9 Allergic rhinitis, unspecified; F32.A Depression, unspecified; F41.9 Anxiety disorder, unspecified; G47.30 Sleep apnea, unspecified; F17.210 Nicotine dependence, cigarettes, uncomplicated; Z79.82 Long term (current) use of aspirin; Z79.84 Long term (current) use of oral hypoglycemic drugs; Z79.891 Long term (current) use of opiate analgesic; Z79.899 Other long term (current) drug therapy; Z88.6 Allergy status to analgesic agent; Z88.5 Allergy status to narcotic agent; Z88.8 Allergy status to other drugs, medicaments and biological substances ==

== ENCOUNTER → 2021-10-09 | Outpatient (CLI) | payer MEDICARE, MEDICAID ==
[~2021-10-09] MED LIST changes: -D31000TA2 PO; +VITA100093 PO
[2021-10-09 13:55] LABS: ALBUMIN 3.7 GM/DL (3.2-5.2); ALT/SGPT 46 U/L (12-78); BILIRUBIN,TOTAL 0.3 MG/DL (0.2-1.0); BLOOD UREA NITROGEN 13 MG/DL (7-18); CALCIUM LEVEL 9.7 MG/DL (8.5-10.1); CARBON DIOXIDE LEVEL 34 MEQ/L (21-32); CHLORIDE LEVEL 104 MEQ/L (98-107); CREATININE FOR GFR 0.83 MG/DL (0.55-1.30); GLOMERULAR FILTRATION RATE > 60.0 (>51); GLUCOSE, FASTING 106 MG/DL (70-100); POTASSIUM SERUM 4.6 MEQ/L (3.5-5.1); SODIUM LEVEL 137 MEQ/L (136-145); TOTAL PROTEIN 7.5 GM/DL (6.4-8.2)
[2021-10-09 14:32] LABS: HEMOGLOBIN A1c 6.2 %
== END ==
LOC: M PLALAB 10:55
PROVIDERS: ATTEND Nurse Practitioner Adult Health
DX: E11.40 Type 2 diabetes mellitus with diabetic neuropathy, unspecified (principal)

== ENCOUNTER → 2021-11-06 | Outpatient (CLI) | payer MEDICARE, MEDICAID | LOC: M PAIN 10:00 | PROVIDERS: ATTEND Nurse Practitioner Family | DX: M48.9 Spondylopathy, unspecified (principal); E11.42 Type 2 diabetes mellitus with diabetic polyneuropathy; E78.5 Hyperlipidemia, unspecified; M19.90 Unspecified osteoarthritis, unspecified site; J30.9 Allergic rhinitis, unspecified; F32.A Depression, unspecified; F41.9 Anxiety disorder, unspecified; G47.30 Sleep apnea, unspecified; Z86.010 Personal history of colon polyps; F17.210 Nicotine dependence, cigarettes, uncomplicated; Z79.4 Long term (current) use of insulin; Z79.891 Long term (current) use of opiate analgesic; Z79.899 Other long term (current) drug therapy; Z88.6 Allergy status to analgesic agent; Z88.5 Allergy status to narcotic agent; Z88.8 Allergy status to other drugs, medicaments and biological substances ==

== ENCOUNTER → 2022-01-31 | Outpatient (CLI) | payer MEDICARE, MEDICAID ==
[2022-01-31 14:27] LABS: ALBUMIN 3.7 GM/DL (3.2-5.2); ALT/SGPT 50 U/L (12-78); BILIRUBIN,TOTAL 0.3 MG/DL (0.2-1.0); BLOOD UREA NITROGEN 14 MG/DL (7-18); CALCIUM LEVEL 9.1 MG/DL (8.5-10.1); CARBON DIOXIDE LEVEL 30 MEQ/L (21-32); CHLORIDE LEVEL 106 MEQ/L (98-107); CREATININE FOR GFR 0.84 MG/DL (0.55-1.30); GLOMERULAR FILTRATION RATE > 60.0 (>51); GLUCOSE, FASTING 76 MG/DL (70-100); POTASSIUM SERUM 4.4 MEQ/L (3.5-5.1); SODIUM LEVEL 138 MEQ/L (136-145); TOTAL PROTEIN 7.9 GM/DL (6.4-8.2)
[2022-01-31 14:32] LABS: HEMOGLOBIN A1c 6.5 %
[2022-01-31 14:48] LABS: TOTAL 25(OH) VITAMIN D 33.6 NG/ML (30.0-100.0)
== END ==
LOC: M PLALAB 11:14
PROVIDERS: ATTEND Nurse Practitioner Adult Health
DX: E11.40 Type 2 diabetes mellitus with diabetic neuropathy, unspecified (principal); E55.9 Vitamin D deficiency, unspecified; E03.9 Hypothyroidism, unspecified; Z79.899 Other long term (current) drug therapy

== ENCOUNTER → 2022-02-06 | Outpatient (CLI) | payer MEDICARE, MEDICAID | LOC: M PAIN 10:45 | PROVIDERS: ATTEND Nurse Practitioner Family | DX: M48.9 Spondylopathy, unspecified (principal); E11.42 Type 2 diabetes mellitus with diabetic polyneuropathy; E78.5 Hyperlipidemia, unspecified; M19.90 Unspecified osteoarthritis, unspecified site; J30.9 Allergic rhinitis, unspecified; F41.9 Anxiety disorder, unspecified; F32.A Depression, unspecified; G47.30 Sleep apnea, unspecified; Z86.010 Personal history of colon polyps; K76.0 Fatty (change of) liver, not elsewhere classified; F17.210 Nicotine dependence, cigarettes, uncomplicated; Z87.442 Personal history of urinary calculi; Z79.891 Long term (current) use of opiate analgesic; Z79.899 Other long term (current) drug therapy; Z79.4 Long term (current) use of insulin; Z88.6 Allergy status to analgesic agent; Z88.5 Allergy status to narcotic agent; Z88.8 Allergy status to other drugs, medicaments and biological substances ==

== ENCOUNTER → 2022-06-04 | Outpatient (CLI) | payer MEDICARE, MEDICAID | LOC: M PAIN 09:30 | PROVIDERS: ATTEND Nurse Practitioner Family | DX: M48.9 Spondylopathy, unspecified (principal); G89.29 Other chronic pain; E11.42 Type 2 diabetes mellitus with diabetic polyneuropathy; G47.30 Sleep apnea, unspecified; F17.210 Nicotine dependence, cigarettes, uncomplicated; Z86.59 Personal history of other mental and behavioral disorders; Z88.5 Allergy status to narcotic agent; Z88.6 Allergy status to analgesic agent; Z88.8 Allergy status to other drugs, medicaments and biological substances; Z79.84 Long term (current) use of oral hypoglycemic drugs; Z79.891 Long term (current) use of opiate analgesic; Z79.899 Other long term (current) drug therapy ==

== ENCOUNTER → 2022-06-06 | Outpatient (CLI) | payer MEDICARE, MEDICAID ==
[~2022-06-06] MED LIST changes: +METO25TA4 PO; +SEMA1PEN2
[2022-06-06 15:30] LABS: HEMATOCRIT 31.8 % (36.0-47.0); HEMOGLOBIN 9.5 g/dl (12.0-15.5); MEAN CORPUSCULAR HEMOGLOBIN 25.9 pg (27.0-33.0); MEAN CORPUSCULAR HGB CONC 29.9 g/dl (32.0-36.5); MEAN CORPUSCULAR VOLUME 86.6 fl (80.0-96.0); PLATELET COUNT, AUTOMATED 350 10^3/uL (150-450); RED BLOOD COUNT 3.67 10^6/uL (4.00-5.40); WHITE BLOOD COUNT 10.4 10^3/uL (4.0-10.0)
[2022-06-06 15:54] LABS: HEMOGLOBIN A1c 5.7 % (4.0-6.0)
[2022-06-06 16:02] LABS: ALBUMIN 3.1 G/DL (3.2-5.2); BILIRUBIN,TOTAL 0.2 MG/DL (0.3-1.2); CALCIUM LEVEL 9.8 MG/DL (8.5-10.1); CREATININE FOR GFR 1.33 MG/DL (0.55-1.30); GLOMERULAR FILTRATION RATE 43.9 (>51); POTASSIUM SERUM 4.9 MMOL/L (3.5-5.1); TOTAL PROTEIN 8.3 G/DL (5.7-8.2)
[2022-06-06 16:03] LABS: FREE T4 1.17 NG/DL (0.89-1.76); THYROID STIMULATING HORMONE 4.792 uIU/ML (0.55-4.78)
== END ==
LOC: M PLALAB 11:46
PROVIDERS: ATTEND Nurse Practitioner Adult Health
DX: E11.40 Type 2 diabetes mellitus with diabetic neuropathy, unspecified (principal)

== ENCOUNTER → 2022-06-14 | Outpatient (REF) | payer MEDICARE, MEDICAID ==
[~2022-06-14] MED LIST changes: -METO25TA4 PO; -SEMA1PEN2
== END ==
LOC: M SMT 12:43
PROVIDERS: ATTEND Urology
DX: N20.1 Calculus of ureter (principal)

== ENCOUNTER → 2022-06-18 | Outpatient (POV) | payer MEDICARE, MEDICAID ==
[~2022-06-18] VITALS: Ht 149.9 cm; Wt 86.3 kg
[2022-06-18 10:00] VITALS: BP 141/72
== END ==
LOC: M IRPOV 09:43
PROVIDERS: ATTEND Radiology Diagnostic Radiology
DX: N20.0 Calculus of kidney (principal); E11.9 Type 2 diabetes mellitus without complications; I10 Essential (primary) hypertension; Z79.4 Long term (current) use of insulin; Z79.82 Long term (current) use of aspirin; Z79.84 Long term (current) use of oral hypoglycemic drugs; Z79.899 Other long term (current) drug therapy; Z86.16 Personal history of COVID-19; Z87.891 Personal history of nicotine dependence; Z88.5 Allergy status to narcotic agent; Z88.6 Allergy status to analgesic agent; Z88.8 Allergy status to other drugs, medicaments and biological substances; Z96.0 Presence of urogenital implants

== ENCOUNTER → 2022-06-28 | Outpatient (CLI) | payer MEDICARE, MEDICAID ==
[~2022-06-28] MED LIST changes: +METO25TA4 PO
== END ==
LOC: M PLAIMG 09:12
PROVIDERS: ATTEND Radiology Diagnostic Radiology
DX: N20.0 Calculus of kidney (principal)

== ENCOUNTER → 2022-07-01 | Outpatient (CLI) | payer MEDICARE, MEDICAID ==
[~2022-07-01] MED LIST changes: +LIDOCAINE 1% MDV 20ML VIAL As Ordered ONE; +MIDAZOLAM INJ 2MG/2ML VIAL As Ordered ONE; +NS 1,000 ML IV SCH; +ceFAZolin 2 GM/D5W 50 ML IV BAG As Ordered ONE; +ceFAZolin SOD 2 GM in D5W MINI-BAG PLUS 50 ML IV ONE; +ceFAZolin SOD 2 GM in IV 1 EA IV ONE; +diphenhydrAMINE 50MG/ML VIAL As Ordered ONE; +fentaNYL 100 MCG/2 ML INJECTION As Ordered ONE
[2022-07-01 14:49] VITALS: BP 125/75
== END ==
LOC: M IRPRO 10:12
PROVIDERS: ATTEND Radiology Diagnostic Radiology
DX: N20.1 Calculus of ureter (principal); Z79.84 Long term (current) use of oral hypoglycemic drugs; Z79.899 Other long term (current) drug therapy
CPT/HCPCS: 50435; 99152; 99153; C1729; C1769; J0690; J1200; J2250; J3010

== ENCOUNTER → 2022-07-15 | Outpatient (CLI) | payer MEDICARE, MEDICAID ==
[~2022-07-15] MED LIST changes: -LIDOCAINE 1% MDV 20ML VIAL As Ordered ONE; -MIDAZOLAM INJ 2MG/2ML VIAL As Ordered ONE; -NS 1,000 ML IV SCH; +SEMA1PEN2; -ceFAZolin 2 GM/D5W 50 ML IV BAG As Ordered ONE; -ceFAZolin SOD 2 GM in D5W MINI-BAG PLUS 50 ML IV ONE; -ceFAZolin SOD 2 GM in IV 1 EA IV ONE; -diphenhydrAMINE 50MG/ML VIAL As Ordered ONE; -fentaNYL 100 MCG/2 ML INJECTION As Ordered ONE
== END ==
LOC: M LABSMTC 10:44
PROVIDERS: ATTEND Anesthesiology
DX: Z01.812 Encounter for preprocedural laboratory examination (principal); Z11.52 Encounter for screening for COVID-19

== ENCOUNTER → 2022-07-16 | Outpatient (CLI) | payer MEDICARE, MEDICAID | LOC: M PAIN 09:30 | PROVIDERS: ATTEND Nurse Practitioner Family | DX: M48.9 Spondylopathy, unspecified (principal); Z79.891 Long term (current) use of opiate analgesic; E11.42 Type 2 diabetes mellitus with diabetic polyneuropathy; E78.5 Hyperlipidemia, unspecified; J30.9 Allergic rhinitis, unspecified; F41.9 Anxiety disorder, unspecified; F32.A Depression, unspecified; G47.30 Sleep apnea, unspecified; Z87.891 Personal history of nicotine dependence; Z79.84 Long term (current) use of oral hypoglycemic drugs; Z79.899 Other long term (current) drug therapy; Z88.6 Allergy status to analgesic agent; Z88.5 Allergy status to narcotic agent; Z88.8 Allergy status to other drugs, medicaments and biological substances ==

== ENCOUNTER 2022-09-02 05:59 | Day surgery (SDC) | payer MEDICARE, MEDICAID ==
[~2022-09-02] VITALS: Ht 149.9 cm; Wt 92.7 kg
[~2022-09-02 05:59] MED LIST changes: -SEMA1PEN2; +SEMA1PEN2 SC
[2022-09-02] MEDS ORDERED: ceFAZolin SOD 2 GM in IV 1 EA IV ONE (06:00)
[2022-09-02] MEDS ORDERED: METF10004 PO (07:06)
[2022-09-02] MEDS ORDERED: CIPR500T39 PO (07:10)
[2022-09-02] MEDS ORDERED: ISOVUE-300 61% 100ML VIAL As Ordered ONE (07:19)
[2022-09-02] MEDS ORDERED: ONDANSETRON 4MG 2ML VIAL As Ordered ONE (08:01)
[2022-09-02] MEDS ORDERED: ACETAMINOPHEN 1000MG 100ML IV BAG As Ordered ONE (08:01)
[2022-09-02] MEDS ORDERED: SUGAMMADEX SODIUM 500 MG/5 ML VIAL (BRIDION) As Ordered ONE (08:01)
[2022-09-02] MEDS ORDERED: METOCLOPRAMIDE INJ 10MG/2ML VIAL As Ordered ONE (08:01)
[2022-09-02] MEDS ORDERED: ROCURONIUM BROMIDE 50MG/5ML VIAL As Ordered ONE (08:01)
[2022-09-02] MEDS ORDERED: DESFLURANE 240 ML INHALANT As Ordered ONE (08:01)
[2022-09-02] MEDS ORDERED: LIDOCAINE 2% 100MG/5ML SDV (FOR ANES.) As Ordered ONE (08:01)
[2022-09-02] MEDS ORDERED: fentaNYL 100 MCG/2 ML INJECTION As Ordered ONE (08:01)
[2022-09-02] MEDS ORDERED: propofoL 200 MG/20 ML VIAL As Ordered ONE (08:01)
[2022-09-02] MEDS ORDERED: MIDAZOLAM INJ 2MG/2ML VIAL As Ordered ONE (08:01)
[2022-09-02] MEDS ORDERED: LR 1,000 ML IV SCH (08:50)
[2022-09-02] MEDS ORDERED: ONDANSETRON 4MG 2ML VIAL IV PRN (08:50)
[2022-09-02] MEDS ORDERED: fentaNYL 100 MCG/2 ML INJECTION IV PRN (08:50)
[2022-09-02] MEDS ORDERED: METOCLOPRAMIDE INJ 10MG/2ML VIAL IV PRN (08:50)
[2022-09-02] MEDS ORDERED: BACT800T5 PO (09:01)
[2022-09-02] MEDS ORDERED: PYRI1TAB5 PO (09:01)
[2022-09-02] MEDS ORDERED: OXYB5TAB10 PO (09:01)
[2022-09-02] MEDS: MEPERIDINE 25 MG/ML 1ML VIAL IV PRN ×2 (09:24→09:31)
[2022-09-02] MEDS ORDERED: oxyCODONE 5MG TAB PO PRN (09:35)
[2022-09-02 10:35] VITALS: BP 117/60
== END 2022-09-02 10:40 | disposition home or self-care (01) ==
LOC: M SDC 05:59
PROVIDERS: ATTEND Urology
DX: N20.1 Calculus of ureter (principal); I10 Essential (primary) hypertension; E78.5 Hyperlipidemia, unspecified; E11.9 Type 2 diabetes mellitus without complications; K57.92 Diverticulitis of intestine, part unspecified, without perforation or abscess without bleeding; K21.9 Gastro-esophageal reflux disease without esophagitis; F41.9 Anxiety disorder, unspecified; F32.A Depression, unspecified; Z87.891 Personal history of nicotine dependence; Z79.899 Other long term (current) drug therapy; Z88.8 Allergy status to other drugs, medicaments and biological substances; Z88.5 Allergy status to narcotic agent
CPT/HCPCS: 52356; 74420; 82365; C1769; C2617; J0131; J1100; J2175; J2250; J2405; J2765; J3010; Q9967

== ENCOUNTER → 2022-09-17 | Outpatient (CLI) | payer MEDICARE, MEDICAID ==
[~2022-09-17] MED LIST changes: +BACT800T5 PO; +CIPR500T39 PO; +OXYB5TAB10 PO; +PYRI1TAB5 PO
== END ==
LOC: M PAIN 09:15
PROVIDERS: ATTEND Nurse Practitioner Family
DX: M48.9 Spondylopathy, unspecified (principal); E11.42 Type 2 diabetes mellitus with diabetic polyneuropathy; E78.5 Hyperlipidemia, unspecified; F41.9 Anxiety disorder, unspecified; F32.A Depression, unspecified; G47.30 Sleep apnea, unspecified; Z79.891 Long term (current) use of opiate analgesic; Z87.891 Personal history of nicotine dependence; Z79.84 Long term (current) use of oral hypoglycemic drugs; Z79.899 Other long term (current) drug therapy; Z88.6 Allergy status to analgesic agent; Z88.5 Allergy status to narcotic agent; Z88.8 Allergy status to other drugs, medicaments and biological substances

== ENCOUNTER → 2022-10-17 | Outpatient (CLI) | payer MEDICARE, MEDICAID | LOC: M WHC 09:35 | PROVIDERS: ATTEND Nurse Practitioner Adult Health | DX: Z12.31 Encounter for screening mammogram for malignant neoplasm of breast (principal) ==

== ENCOUNTER → 2022-11-01 | Outpatient (CLI) | payer MEDICARE, MEDICAID | LOC: M PAIN 15:15 | PROVIDERS: ATTEND Nurse Practitioner Family | DX: E11.42 Type 2 diabetes mellitus with diabetic polyneuropathy (principal); M48.9 Spondylopathy, unspecified; E78.5 Hyperlipidemia, unspecified; M19.90 Unspecified osteoarthritis, unspecified site; J30.9 Allergic rhinitis, unspecified; F41.9 Anxiety disorder, unspecified; F32.A Depression, unspecified; G47.30 Sleep apnea, unspecified; Z79.891 Long term (current) use of opiate analgesic; Z87.891 Personal history of nicotine dependence; Z79.85 Long-term (current) use of injectable non-insulin antidiabetic drugs; Z79.899 Other long term (current) drug therapy; Z88.6 Allergy status to analgesic agent; Z88.5 Allergy status to narcotic agent; Z88.8 Allergy status to other drugs, medicaments and biological substances ==

== ENCOUNTER 2022-12-27 10:30 | Day surgery (SDC) | payer MEDICARE, MEDICAID ==
[~2022-12-27] VITALS: Ht 149.9 cm; Wt 99.8 kg
[~2022-12-27 10:30] MED LIST changes: +NS 1,000 ML IV ONE; +propofoL 200 MG/20 ML VIAL As Ordered ONE
[2022-12-27] MEDS ORDERED: SIMETHICONE 40MG/0.6ML DROPS 30ML As Ordered ONE (11:34)
[2022-12-27 11:43] VITALS: TEMP 97.2
[2022-12-27 12:03] VITALS: BP 119/69; O2SAT 99
== END 2022-12-27 12:09 | disposition home or self-care (01) ==
LOC: M OPP 10:30
PROVIDERS: ATTEND Surgery
DX: Z86.010 Personal history of colon polyps (principal); K64.4 Residual hemorrhoidal skin tags; K57.30 Diverticulosis of large intestine without perforation or abscess without bleeding; Z98.0 Intestinal bypass and anastomosis status; Z79.02 Long term (current) use of antithrombotics/antiplatelets; Z79.891 Long term (current) use of opiate analgesic; Z79.899 Other long term (current) drug therapy; Z88.5 Allergy status to narcotic agent; Z88.6 Allergy status to analgesic agent; Z88.8 Allergy status to other drugs, medicaments and biological substances

== ENCOUNTER → 2022-12-31 | Outpatient (CLI) | payer MEDICARE, MEDICAID ==
[~2022-12-31] MED LIST changes: -NS 1,000 ML IV ONE; -propofoL 200 MG/20 ML VIAL As Ordered ONE
== END ==
LOC: M PAIN 16:00
PROVIDERS: ATTEND Nurse Practitioner Family
DX: G89.29 Other chronic pain (principal); Z79.891 Long term (current) use of opiate analgesic; M48.9 Spondylopathy, unspecified; M54.50 Low back pain, unspecified; E11.42 Type 2 diabetes mellitus with diabetic polyneuropathy; M19.90 Unspecified osteoarthritis, unspecified site; F41.9 Anxiety disorder, unspecified; F32.A Depression, unspecified; G47.30 Sleep apnea, unspecified; K76.0 Fatty (change of) liver, not elsewhere classified; N20.0 Calculus of kidney; Z87.891 Personal history of nicotine dependence; Z79.899 Other long term (current) drug therapy; Z79.85 Long-term (current) use of injectable non-insulin antidiabetic drugs; Z88.6 Allergy status to analgesic agent; Z88.5 Allergy status to narcotic agent; Z88.8 Allergy status to other drugs, medicaments and biological substances

== ENCOUNTER → 2023-01-31 | Outpatient (CLI) | payer MEDICARE, MEDICAID | LOC: M PAIN 11:15 | PROVIDERS: ATTEND Nurse Practitioner Family | DX: G89.29 Other chronic pain (principal); M48.9 Spondylopathy, unspecified; E11.42 Type 2 diabetes mellitus with diabetic polyneuropathy; E78.5 Hyperlipidemia, unspecified; M19.90 Unspecified osteoarthritis, unspecified site; F41.9 Anxiety disorder, unspecified; F32.A Depression, unspecified; Z79.891 Long term (current) use of opiate analgesic; Z87.891 Personal history of nicotine dependence; Z79.85 Long-term (current) use of injectable non-insulin antidiabetic drugs; Z79.899 Other long term (current) drug therapy; Z88.6 Allergy status to analgesic agent; Z88.5 Allergy status to narcotic agent; Z88.8 Allergy status to other drugs, medicaments and biological substances ==

== ENCOUNTER → 2023-03-20 | Outpatient (CLI) | payer MEDICARE, MEDICAID ==
[~2023-03-20] MED LIST changes: -OXYB5TAB10 PO; +OXYB5TAB11 PO
== END ==
LOC: M PAIN 10:45
PROVIDERS: ATTEND Nurse Practitioner Family
DX: E11.42 Type 2 diabetes mellitus with diabetic polyneuropathy (principal); G89.29 Other chronic pain; E78.5 Hyperlipidemia, unspecified; M19.90 Unspecified osteoarthritis, unspecified site; J30.9 Allergic rhinitis, unspecified; F32.A Depression, unspecified; F41.9 Anxiety disorder, unspecified; F17.210 Nicotine dependence, cigarettes, uncomplicated; Z79.891 Long term (current) use of opiate analgesic; Z79.899 Other long term (current) drug therapy; Z88.6 Allergy status to analgesic agent; Z88.5 Allergy status to narcotic agent; Z88.8 Allergy status to other drugs, medicaments and biological substances

== ENCOUNTER → 2023-05-01 | Outpatient (CLI) | payer MEDICARE, MEDICAID | LOC: M PAIN 09:30 | PROVIDERS: ATTEND Nurse Practitioner Family | DX: M48.9 Spondylopathy, unspecified (principal); Z79.891 Long term (current) use of opiate analgesic; G89.29 Other chronic pain; M79.2 Neuralgia and neuritis, unspecified; E11.42 Type 2 diabetes mellitus with diabetic polyneuropathy; E78.5 Hyperlipidemia, unspecified; M19.90 Unspecified osteoarthritis, unspecified site; J30.9 Allergic rhinitis, unspecified; F32.A Depression, unspecified; F41.9 Anxiety disorder, unspecified; G47.30 Sleep apnea, unspecified; K76.0 Fatty (change of) liver, not elsewhere classified; F17.210 Nicotine dependence, cigarettes, uncomplicated; Z79.84 Long term (current) use of oral hypoglycemic drugs; Z79.899 Other long term (current) drug therapy; Z88.5 Allergy status to narcotic agent; Z88.6 Allergy status to analgesic agent; Z88.8 Allergy status to other drugs, medicaments and biological substances ==

== ENCOUNTER → 2023-05-30 | Outpatient (CLI) | payer MEDICARE, MEDICAID | LOC: M PAIN 10:00 → M TMPAIN 10:00 | PROVIDERS: ATTEND Nurse Practitioner Family | DX: M48.9 Spondylopathy, unspecified (principal); G89.29 Other chronic pain; E11.42 Type 2 diabetes mellitus with diabetic polyneuropathy; F17.210 Nicotine dependence, cigarettes, uncomplicated; Z79.891 Long term (current) use of opiate analgesic; Z79.899 Other long term (current) drug therapy; Z88.6 Allergy status to analgesic agent; Z88.5 Allergy status to narcotic agent; Z88.8 Allergy status to other drugs, medicaments and biological substances ==

== ENCOUNTER → 2023-06-16 | Outpatient (REF) | payer MEDICARE, MEDICAID | LOC: M SFHCPLAZ 16:50 | PROVIDERS: ATTEND Nurse Practitioner Adult Health | DX: R68.89 Other general symptoms and signs (principal) ==

== ENCOUNTER → 2023-06-30 | Outpatient (CLI) | payer MEDICARE, MEDICAID | LOC: M PAIN 09:00 | PROVIDERS: ATTEND Nurse Practitioner Family | DX: M47.817 Spondylosis without myelopathy or radiculopathy, lumbosacral region (principal); Z79.891 Long term (current) use of opiate analgesic; E11.42 Type 2 diabetes mellitus with diabetic polyneuropathy; E78.5 Hyperlipidemia, unspecified; F32.A Depression, unspecified; F41.9 Anxiety disorder, unspecified; F17.210 Nicotine dependence, cigarettes, uncomplicated; Z79.84 Long term (current) use of oral hypoglycemic drugs; Z79.899 Other long term (current) drug therapy; Z88.6 Allergy status to analgesic agent; Z88.5 Allergy status to narcotic agent; Z88.8 Allergy status to other drugs, medicaments and biological substances ==

== ENCOUNTER → 2023-07-31 | Outpatient (CLI) | payer MEDICARE, MEDICAID ==
[~2023-07-31] MED LIST changes: -OXYB5TAB11 PO; +OXYB5TAB14 PO
== END ==
LOC: M PAIN 09:45
PROVIDERS: ATTEND Nurse Practitioner Family
DX: M47.817 Spondylosis without myelopathy or radiculopathy, lumbosacral region (principal); Z79.891 Long term (current) use of opiate analgesic; E11.42 Type 2 diabetes mellitus with diabetic polyneuropathy; G89.29 Other chronic pain; E78.5 Hyperlipidemia, unspecified; M19.90 Unspecified osteoarthritis, unspecified site; F41.9 Anxiety disorder, unspecified; F32.A Depression, unspecified; F17.210 Nicotine dependence, cigarettes, uncomplicated; Z79.84 Long term (current) use of oral hypoglycemic drugs; Z79.899 Other long term (current) drug therapy; Z88.5 Allergy status to narcotic agent; Z88.6 Allergy status to analgesic agent; Z88.8 Allergy status to other drugs, medicaments and biological substances

== ENCOUNTER → 2023-08-29 | Outpatient (CLI) | payer MEDICARE, MEDICAID | LOC: M PAIN 10:45 → M TMPAIN 10:45 | PROVIDERS: ATTEND Nurse Practitioner Family | DX: M48.9 Spondylopathy, unspecified (principal); Z79.891 Long term (current) use of opiate analgesic; E11.42 Type 2 diabetes mellitus with diabetic polyneuropathy; G89.29 Other chronic pain; G47.30 Sleep apnea, unspecified; Z99.89 Dependence on other enabling machines and devices; Z79.02 Long term (current) use of antithrombotics/antiplatelets; Z79.899 Other long term (current) drug therapy; Z87.891 Personal history of nicotine dependence; Z88.1 Allergy status to other antibiotic agents; Z88.5 Allergy status to narcotic agent; Z88.8 Allergy status to other drugs, medicaments and biological substances ==

== ENCOUNTER → 2023-10-03 | Outpatient (CLI) | payer MEDICARE, MEDICAID | LOC: M PAIN 10:15 | PROVIDERS: ATTEND Nurse Practitioner Family | DX: M47.817 Spondylosis without myelopathy or radiculopathy, lumbosacral region (principal); Z79.891 Long term (current) use of opiate analgesic; E11.42 Type 2 diabetes mellitus with diabetic polyneuropathy; G89.29 Other chronic pain; E78.5 Hyperlipidemia, unspecified; F41.9 Anxiety disorder, unspecified; F32.A Depression, unspecified; G47.30 Sleep apnea, unspecified; F17.210 Nicotine dependence, cigarettes, uncomplicated; Z79.84 Long term (current) use of oral hypoglycemic drugs; Z79.899 Other long term (current) drug therapy; Z88.6 Allergy status to analgesic agent; Z88.5 Allergy status to narcotic agent; Z88.8 Allergy status to other drugs, medicaments and biological substances ==

== ENCOUNTER → 2023-11-04 | Outpatient (CLI) | payer MEDICARE, MEDICAID | LOC: M PAIN 11:30 → M TMPAIN 11:30 | PROVIDERS: ATTEND Nurse Practitioner Family | DX: M47.817 Spondylosis without myelopathy or radiculopathy, lumbosacral region (principal); E11.42 Type 2 diabetes mellitus with diabetic polyneuropathy; E78.2 Mixed hyperlipidemia; F41.9 Anxiety disorder, unspecified; F32.A Depression, unspecified; G47.30 Sleep apnea, unspecified; Z79.891 Long term (current) use of opiate analgesic; Z88.6 Allergy status to analgesic agent; Z88.5 Allergy status to narcotic agent; Z88.8 Allergy status to other drugs, medicaments and biological substances; Z79.84 Long term (current) use of oral hypoglycemic drugs; Z79.899 Other long term (current) drug therapy ==

== ENCOUNTER → 2023-11-18 | Outpatient (CLI) | payer MEDICARE, MEDICAID | LOC: M PAIN 10:45 | PROVIDERS: ATTEND Nurse Practitioner Family | DX: M48.9 Spondylopathy, unspecified (principal); Z79.891 Long term (current) use of opiate analgesic; E11.42 Type 2 diabetes mellitus with diabetic polyneuropathy; F17.200 Nicotine dependence, unspecified, uncomplicated; Z88.5 Allergy status to narcotic agent; Z88.6 Allergy status to analgesic agent; Z88.8 Allergy status to other drugs, medicaments and biological substances ==

== ENCOUNTER → 2023-12-09 | Outpatient (CLI) | payer MEDICARE, MEDICAID | LOC: M PAIN 09:45 → M TMPAIN 09:45 | PROVIDERS: ATTEND Nurse Practitioner Family | DX: M48.9 Spondylopathy, unspecified (principal); Z79.891 Long term (current) use of opiate analgesic; E11.42 Type 2 diabetes mellitus with diabetic polyneuropathy; G89.29 Other chronic pain; E78.2 Mixed hyperlipidemia; F41.9 Anxiety disorder, unspecified; F32.A Depression, unspecified; G47.30 Sleep apnea, unspecified; F17.210 Nicotine dependence, cigarettes, uncomplicated; Z79.84 Long term (current) use of oral hypoglycemic drugs; Z79.899 Other long term (current) drug therapy; Z88.6 Allergy status to analgesic agent; Z88.8 Allergy status to other drugs, medicaments and biological substances; Z88.5 Allergy status to narcotic agent ==

== ENCOUNTER → 2023-12-23 | Outpatient (CLI) | payer MEDICARE, MEDICAID | LOC: M TMPAIN 11:15 → M PAIN 11:15 | PROVIDERS: ATTEND Nurse Practitioner Family | DX: M48.9 Spondylopathy, unspecified (principal); Z79.891 Long term (current) use of opiate analgesic; E11.42 Type 2 diabetes mellitus with diabetic polyneuropathy; G89.29 Other chronic pain; E78.2 Mixed hyperlipidemia; M19.90 Unspecified osteoarthritis, unspecified site; F32.A Depression, unspecified; F41.9 Anxiety disorder, unspecified; G47.30 Sleep apnea, unspecified; K76.0 Fatty (change of) liver, not elsewhere classified; F17.210 Nicotine dependence, cigarettes, uncomplicated; Z79.84 Long term (current) use of oral hypoglycemic drugs; Z79.899 Other long term (current) drug therapy; Z88.5 Allergy status to narcotic agent; Z88.6 Allergy status to analgesic agent; Z88.8 Allergy status to other drugs, medicaments and biological substances ==

== ENCOUNTER → 2024-01-08 | Outpatient (CLI) | payer MEDICARE, MEDICAID | LOC: M PAIN 10:00 | PROVIDERS: ATTEND Nurse Practitioner Family | DX: M48.9 Spondylopathy, unspecified (principal); Z79.891 Long term (current) use of opiate analgesic; E11.42 Type 2 diabetes mellitus with diabetic polyneuropathy; G89.29 Other chronic pain; E78.2 Mixed hyperlipidemia; F41.9 Anxiety disorder, unspecified; F32.A Depression, unspecified; G47.30 Sleep apnea, unspecified; F17.210 Nicotine dependence, cigarettes, uncomplicated; Z79.84 Long term (current) use of oral hypoglycemic drugs; Z79.899 Other long term (current) drug therapy; Z88.6 Allergy status to analgesic agent; Z88.8 Allergy status to other drugs, medicaments and biological substances ==

== ENCOUNTER → 2024-01-15 | Outpatient (CLI) | payer MEDICARE, MEDICAID | LOC: M PAIN 09:30 | PROVIDERS: ATTEND Nurse Practitioner Family | DX: M48.9 Spondylopathy, unspecified (principal); Z79.891 Long term (current) use of opiate analgesic; E11.42 Type 2 diabetes mellitus with diabetic polyneuropathy; G89.29 Other chronic pain; E78.2 Mixed hyperlipidemia; F41.9 Anxiety disorder, unspecified; F32.A Depression, unspecified; G47.30 Sleep apnea, unspecified; F17.210 Nicotine dependence, cigarettes, uncomplicated; Z79.84 Long term (current) use of oral hypoglycemic drugs; Z79.899 Other long term (current) drug therapy; Z88.6 Allergy status to analgesic agent; Z88.5 Allergy status to narcotic agent; Z88.8 Allergy status to other drugs, medicaments and biological substances ==

== ENCOUNTER → 2024-02-16 | Outpatient (CLI) | payer MEDICARE, MEDICAID | LOC: M WHC 08:00 | PROVIDERS: ATTEND Nurse Practitioner Adult Health | DX: Z12.31 Encounter for screening mammogram for malignant neoplasm of breast (principal); R92.323 Mammographic fibroglandular density, bilateral breasts ==

== ENCOUNTER → 2024-02-16 | Outpatient (CLI) | payer MEDICARE, MEDICAID | LOC: M PAIN 09:30 | PROVIDERS: ATTEND Nurse Practitioner Family | DX: M48.9 Spondylopathy, unspecified (principal); Z79.891 Long term (current) use of opiate analgesic; E11.42 Type 2 diabetes mellitus with diabetic polyneuropathy; G89.29 Other chronic pain; E78.2 Mixed hyperlipidemia; G47.30 Sleep apnea, unspecified; F32.A Depression, unspecified; F41.9 Anxiety disorder, unspecified; F17.210 Nicotine dependence, cigarettes, uncomplicated; Z79.84 Long term (current) use of oral hypoglycemic drugs; Z79.899 Other long term (current) drug therapy; Z88.5 Allergy status to narcotic agent; Z88.8 Allergy status to other drugs, medicaments and biological substances; Z88.6 Allergy status to analgesic agent; Z12.31 Encounter for screening mammogram for malignant neoplasm of breast; R92.323 Mammographic fibroglandular density, bilateral breasts | CPT/HCPCS: 77063; 77067; G0463 ==

== ENCOUNTER → 2024-03-02 | Outpatient (CLI) | payer MEDICARE, MEDICAID | LOC: M RAD 07:50 | PROVIDERS: ATTEND Nurse Practitioner Adult Health | DX: Z87.891 Personal history of nicotine dependence (principal) ==

== ENCOUNTER → 2024-03-04 | Outpatient (CLI) | payer MEDICARE, MEDICAID | LOC: M PAIN 17:30 | PROVIDERS: ATTEND Nurse Practitioner Family | DX: M48.9 Spondylopathy, unspecified (principal); Z79.891 Long term (current) use of opiate analgesic; E11.42 Type 2 diabetes mellitus with diabetic polyneuropathy; G89.29 Other chronic pain; M54.50 Low back pain, unspecified; F41.9 Anxiety disorder, unspecified; F32.A Depression, unspecified; G47.33 Obstructive sleep apnea (adult) (pediatric); F17.210 Nicotine dependence, cigarettes, uncomplicated; Z79.84 Long term (current) use of oral hypoglycemic drugs; Z79.899 Other long term (current) drug therapy; Z88.6 Allergy status to analgesic agent; Z88.8 Allergy status to other drugs, medicaments and biological substances ==

== ENCOUNTER → 2024-04-08 | Outpatient (CLI) | payer MEDICARE, MEDICAID | LOC: M PAIN 11:30 | PROVIDERS: ATTEND Nurse Practitioner Family | DX: M47.816 Spondylosis without myelopathy or radiculopathy, lumbar region (principal); M47.817 Spondylosis without myelopathy or radiculopathy, lumbosacral region; Z79.891 Long term (current) use of opiate analgesic; E11.42 Type 2 diabetes mellitus with diabetic polyneuropathy; E78.2 Mixed hyperlipidemia; F41.9 Anxiety disorder, unspecified; F32.A Depression, unspecified; G47.30 Sleep apnea, unspecified; F17.210 Nicotine dependence, cigarettes, uncomplicated; Z79.84 Long term (current) use of oral hypoglycemic drugs; Z79.899 Other long term (current) drug therapy; Z88.6 Allergy status to analgesic agent; Z88.8 Allergy status to other drugs, medicaments and biological substances; Z88.5 Allergy status to narcotic agent ==

== ENCOUNTER → 2024-05-14 | Outpatient (CLI) | payer MEDICARE, MEDICAID | LOC: M PAIN 09:15 | PROVIDERS: ATTEND Nurse Practitioner Family | DX: M48.9 Spondylopathy, unspecified (principal); Z79.891 Long term (current) use of opiate analgesic; E11.42 Type 2 diabetes mellitus with diabetic polyneuropathy; G89.29 Other chronic pain; E78.2 Mixed hyperlipidemia; F17.210 Nicotine dependence, cigarettes, uncomplicated; F32.A Depression, unspecified; F41.9 Anxiety disorder, unspecified; G47.30 Sleep apnea, unspecified; Z79.84 Long term (current) use of oral hypoglycemic drugs; Z79.899 Other long term (current) drug therapy; Z88.5 Allergy status to narcotic agent; Z88.6 Allergy status to analgesic agent; Z88.8 Allergy status to other drugs, medicaments and biological substances ==

== ENCOUNTER → 2024-07-15 | Outpatient (CLI) | payer MEDICARE, MEDICAID | LOC: M PAIN 09:45 | PROVIDERS: ATTEND Nurse Practitioner Family | DX: E11.42 Type 2 diabetes mellitus with diabetic polyneuropathy (principal); M48.9 Spondylopathy, unspecified; F17.210 Nicotine dependence, cigarettes, uncomplicated; Z79.84 Long term (current) use of oral hypoglycemic drugs; Z79.899 Other long term (current) drug therapy; Z88.6 Allergy status to analgesic agent; Z88.5 Allergy status to narcotic agent; Z88.8 Allergy status to other drugs, medicaments and biological substances ==

== ENCOUNTER → 2024-08-24 | Outpatient (REF) | payer MEDICARE, MEDICAID ==
[2024-08-27 15:12] LABS: HPV APTIMA Not Detected (Not Detected)
== END ==
LOC: M SFHCWAGY 13:09
PROVIDERS: ATTEND Specialist
DX: Z01.419 Encounter for gynecological examination (general) (routine) without abnormal findings (principal)
CPT/HCPCS: 87624; G0123

== ENCOUNTER → 2025-02-28 | Outpatient (CLI) | payer MEDICARE, MEDICAID ==
[~2025-02-28] MED LIST changes: +ZOLP10TA11 PO; -ZOLP10TA2 PO
== END ==
LOC: M WHC 07:57
PROVIDERS: ATTEND Nurse Practitioner Adult Health
DX: Z12.31 Encounter for screening mammogram for malignant neoplasm of breast (principal); R92.323 Mammographic fibroglandular density, bilateral breasts

== ENCOUNTER → 2025-03-15 | Outpatient (CLI) | payer MEDICARE, MEDICAID ==
[2025-03-15 15:52] LABS: PLATELET COUNT, AUTOMATED 174 10^3/uL (150-450)
[2025-03-15 15:56] LABS: ALT/SGPT 29.0 U/L (7.0-40); AST/SGOT 26.0 U/L (<34); CALCIUM LEVEL 9.5 MG/DL (8.5-10.1); CARBON DIOXIDE LEVEL 29.0 MMOL/L (20-31); CHLORIDE LEVEL 103.0 MMOL/L (98-107); CHOLESTEROL LEVEL 146.0 MG/DL (<200); CHOLESTEROL RISK RATIO 2.6 (<5); CREATININE FOR GFR 0.91 MG/DL (0.55-1.30); GLOMERULAR FILTRATION RATE 72.7 (>51); LDL CHOLESTEROL 56.7 MG/DL (<100); MAGNESIUM LEVEL 1.7 MG/DL (1.8-2.4); NON-HDL-C 89.9 MG/DL; POTASSIUM SERUM 4.5 MMOL/L (3.5-5.1); SODIUM LEVEL 141.0 MMOL/L (136-145); TRIGLYCERIDES LEVEL 166.0 MG/DL (<150)
[2025-03-15 15:57] LABS: FREE T4 1.26 NG/DL (0.89-1.76)
[2025-03-15 16:09] LABS: ESTIMATED AVERAGE GLUCOSE 146.0 MG/DL (60-110)
[2025-03-15 16:19] LABS: CREATININE, URINE 56.6 MG/DL; MALB URINE SIEMENS 7.0 MG/L; MAU/CREAT RATIO 12.3 MCG/MG (0.0-30.0)
== END ==
LOC: M PLALAB 13:07
PROVIDERS: ATTEND Nurse Practitioner Adult Health
DX: E11.40 Type 2 diabetes mellitus with diabetic neuropathy, unspecified (principal); I10 Essential (primary) hypertension; R79.89 Other specified abnormal findings of blood chemistry; E78.5 Hyperlipidemia, unspecified; K76.0 Fatty (change of) liver, not elsewhere classified

== ENCOUNTER → 2025-04-19 | Outpatient (CLI) | payer MEDICARE, MEDICAID | LOC: M RAD 06:50 | PROVIDERS: ATTEND Nurse Practitioner Adult Health | DX: Z12.2 Encounter for screening for malignant neoplasm of respiratory organs (principal); Z87.891 Personal history of nicotine dependence; R91.1 Solitary pulmonary nodule ==